=== PATIENT | male | born 1950 | race Caucasian/White ===

== ENCOUNTER → 2016-06-21 | Outpatient (CLI) | payer MEDICARE ==
[2015-08-13 14:00] VITALS: BP 140/72
[~2016-06-21] MED LIST: ACET500T33 PO; ASPI325T4 PO; BUPR300T4 PO; HYDR-2666 PO; HYDR1TAB12 PO; Ipratropium/Albuterol Sulfate NEB; METO25TA4 PO; ONDA4TAB10 SL; OXYC-323 PO; PANT40TA3 PO; Promethazine Hcl/Codeine PO; RANI150C PO; SENN-37 PO; SULF1TAB24 PO; TAMS0.4C97 PO; TELM80TA PO
--- NOTE | 2016-06-21 10:36 | RAD ---
Examination: MRI of the left shoulder without contrast. HISTORY History of left shoulder pain, rotator cuff surgery. COMPARISON 07/18/2015. FINDINGS The long head of the biceps tendon is minimally subluxed in the bicipital groove. There is increased signal identified in the subscapularis tendon, best visualized on series 4 image #16 likely tear of the subscapularis tendon. There is full-thickness tear of the supraspinatus tendon with tendon retraction up to the level, just lateral to the glenoid. There is a superior translation of the humeral head in relation to the glenoid with the head of the humerus lying just underneath the acromion. There is tear of the anterior fibers of the infraspinatus tendon in the region of the conjoined portion. The posterior fibers of the infraspinatus tendon, teres minor tendon grossly appears intact. Moderate increased signal identified identified and subscapularis, supraspinatus, infraspinatus tendon likely due tendinosis. There is diffuse increased signal identified in the labrum likely circumferential tear with a small multiloculated cystic structure measuring 6 millimeters posterior inferior to the labrum probably a small paralabral cyst. Small left shoulder joint effusion is identified. There are low intensity foci identified within the shoulder joint likely synovial prominence. Severe degenerative changes glenohumeral joint. Moderate degenerative changes identified in the acromioclavicular joint. The acromion is type 2. There is obliteration of fat in the rotator interval. The muscle bulk grossly appears unremarkable. IMPRESSION - Full-thickness tear of supraspinatus tendon with tendon retraction upto just lateral to the level of the glenoid. - Tear of the superior fibers of the subscapularis and anterior fibers of infraspinatus tendon. - Increased signal identified throughout the labrum likely circumferential labral tear with a tiny 5 millimeter paralabral cyst posterior inferior to the inferior labrum. - Severe degenerative changes glenohumeral joint. Moderate degenerative changes acromioclavicular joint. - Some obliteration of fat in the rotator interval. Correlate for adhesive capsulitis. Electronically signed by: uHy Albright (Jun 21, 2016 10:35:25)
== END | disposition home or self-care (01) ==
LOC: MRI 08:58
PROVIDERS: ATTEND Orthopaedic Surgery Sports Medicine
DX: Z98.890 Other specified postprocedural states (principal); M25.512 Pain in left shoulder; M75.02 Adhesive capsulitis of left shoulder
CPT/HCPCS: 73221

== ENCOUNTER 2016-06-27 17:40 | Emergency (ER) | payer MEDICARE ==
[~2016-06-27] VITALS: Ht 182.9 cm; Wt 95.3 kg
[2016-06-27 18:11] VITALS: BP 176/81
[2016-06-27] MEDS ORDERED: DIPHTH,PERTUSS(ACELL),TET TOX 0.5 ML DISP.SYRIN. VAX IM ONE (18:30)
[2016-06-27] MEDS ORDERED: LIDOCAINE 1%/EPI 1:100,000 20 ML VIAL. IJ ONE (18:30)
--- NOTE | 2016-06-27 18:55 | PHYS DOC ---
Past Medical History Past Medical History: Hypertension, Kidney Stone Past Surgical History: Other Additional Past Surgical Histo: R KNEE, KIDNEY STONE SX, L SHOULDER SURGERY Additional Information: "QUIT TWENTY YEARS AGO" Alcohol Use: None Drug Use: None Adult General Chief Complaint Chief Complaint: LACERATION/AVULSION HPI HPI Patient is a 65 year old male who presents emergency room today with complaint of laceration to his right eyebrow secondary to tripping and falling and striking the frame of a fireplace. This happened approximately 1 hour prior to arrival. Patient states he woke up from a nap. He was wearing his shoes in which his right shoe has a lucency that caught the edge of the carpet causing him to fall forward. He denies loss of consciousness or being dazed. He denies any visual disturbances, any hearing problems, he denies neck pain, focal weakness or alteration in sensation to his extremities or trunk. Patient denies being on anticoagulants. Review of Systems Review of Systems Constitutional: Denies fever or chills [] Eyes: Denies change in visual acuity, redness, or eye pain [] HENT: Denies nasal congestion or sore throat [] Respiratory: Denies cough or shortness of breath [] Cardiovascular: No additional information not addressed in HPI [] GI: Denies abdominal pain, nausea, vomiting, bloody stools or diarrhea [] : Denies dysuria or hematuria [] Musculoskeletal: Denies back pain or joint pain [] Integument: Denies rash or skin lesions [] Neurologic: Denies headache, focal weakness or sensory changes [] Endocrine: Denies polyuria or polydipsia [] Current Medications Current Medications Current Medications Medications (Trade) Dose Ordered Sig/Konrad Start Time Stop Time Status Last Admin Dose Admin Diphtheria/ Tetanus/Acell Pertussis (Boostrix) 0.5 ml ONCE ONCE 06/27/16 18:30 06/27/16 18:31 DC 06/27/16 19:32 0.5 ML Lidocaine/ Epinephrine (Xylocaine 1%-Epi 1:100,000) 20 ml 1X ONCE 06/27/16 18:30 06/27/16 18:31 DC Allergies Allergies Allergies Coded Allergies Type Severity Reaction Last Updated Verified morphine Allergy Intermediate Rash 06/27/16 Yes Physical Exam Physical Exam Constitutional: Well developed, well nourished, no acute distress, non-toxic appearance. Patient walked to the exam room with a steady, unaided gait. HENT: Normocephalic, bilateral external ears normal, oropharynx moist, no oral exudates, nose normal. Approximately 4 cm laceration to the patient's right eyebrow that is horizontal and linear. Laceration does extend into the subcutaneous tissue. Laceration does not involve the upper eyelid itself. There is no tenderness, instability or crepitus to the bone surrounding the laceration. There is no periorbital tenderness or swelling. There is also a small bruise to the patient's right cheek in his right year. There is no palpable defect, deformity, instability or crepitus to his right cheek. There is no active bleeding or skin defect to his right external ear. There is no hemotympanum. Eyes: PERRLA, EOMI, conjunctiva normal, no discharge. [] Neck: Normal range of motion, no tenderness, supple, no stridor. Cardiovascular:Heart rate regular rhythm, no murmur [] Lungs & Thorax: Bilateral breath sounds clear to auscultation [] Abdomen: Bowel sounds normal, soft, no tenderness, no masses, no pulsatile masses. [] Skin: Warm, dry, no erythema, no rash. [] Back: No tenderness, no CVA tenderness. [] Extremities: No tenderness, no cyanosis, no clubbing, ROM intact, no edema. Neurologic: Patient is alert and oriented 3. Cranial nerves II through XII are grossly intact. Patient is able perform rapid alternating movement and heel-to- díaz without difficulty. Romberg is negative for pronator drift. Psychologic: Affect normal, judgement normal, mood normal. [] Current Patient Data Vital Signs Vital Signs Date Time Temp Pulse Resp B/P Pulse Ox O2 Delivery O2 Flow Rate FiO2 06/27/16 18:11 97.4 56 18 97 Room Air 97.4 EKG EKG [] Radiology/Procedures Radiology/Procedures Procedure note: 4 cm laceration to patient's right eyebrow was anesthetized with 1% lidocaine with epinephrine. Wound was cleansed with Betadine solution and rinsed with copious amounts of saline. Wound was explored for foreign bodies. No foreign bodies were found. Wound margins were approximated utilizing 5-0 nylon in a single interrupted fashion of a single layered closure for a total of 8 stitches. Patient tolerated the procedure well. Procedure was performed by DEL[employer] Ruelas student, under my supervision. Course & Med Decision Making Course & Med Decision Making Pertinent Labs and Imaging studies reviewed. (See chart for details) [] Dragon Disclaimer Dragon Disclaimer This electronic medical record was generated, in whole or in part, using a voice recognition dictation system. Departure Departure Impression: Primary Impression: Facial laceration Additional Impression: Head injury Disposition: HOME, SELF-CARE Condition: IMPROVED Referrals: PB COY MD (PCP) Patient Instructions: Facial Laceration, [id number], Head Injury, Adult, Easy -to-Read Additional Instructions: 1. Stitches need to stay in place for 5-7 days. 2. Keep the area clean and dry. It is okay for you to bathe. 3. Review the discharge instructions provided for self-care and reasons to return the emergency department. 4. Contact your primary care doctor in the morning to schedule follow-up appointment for wound check on Tuesday of this week or Tuesday of next week. Problem Qualifiers RUBEN ESCOBEDO Jun 27, 2016 18:55
== END 2016-06-27 19:48 | disposition home or self-care (01) ==
LOC: ER 17:40
DX: S01.111A Laceration without foreign body of right eyelid and periocular area, initial encounter (principal); S09.90XA Unspecified injury of head, initial encounter; I10 Essential (primary) hypertension; Z87.891 Personal history of nicotine dependence; Z88.5 Allergy status to narcotic agent; W01.198A Fall on same level from slipping, tripping and stumbling with subsequent striking against other object, initial encounter; Y93.89 Activity, other specified; Y92.89 Other specified places as the place of occurrence of the external cause; Y99.8 Other external cause status
CPT/HCPCS: 12013; 90471; 90715; 99283-25

== ENCOUNTER → 2016-07-12 | Outpatient (CLI) | payer MEDICARE ==
[2016-06-27 18:11] VITALS: BP 176/81
[~2016-07-12] MED LIST changes: +AMLO5TAB2 PO; +FLUO20CA8 PO
[2016-07-12 13:44] LABS: BASO # 0.1 x10^3/uL (0.0-0.2); BASO % 1 % (0-3); EOS % 6 % (0-3); HEMATOCRIT 41.9 % (39.0-53.0); HEMOGLOBIN 13.9 g/dL (13.0-17.5); LYMPH # 1.4 x10^3/uL (1.0-4.8); LYMPH % 27 % (24-48); MEAN CORPUSCULAR HEMOGLOBIN 31 pg (25-35); MEAN CORPUSCULAR HGB CONC 33 g/dL (31-37); MEAN CORPUSCULAR VOLUME 93 fL (79-100); MONO % 10 % (0-9); NEUT % 57 % (31-73); PLATELET COUNT 150 x10^3/uL (140-400); RED BLOOD COUNT 4.49 x10^6/uL (4.30-5.70); RED CELL DISTRIBUTION WIDTH 14.8 % (11.5-14.5); WHITE BLOOD COUNT 5.3 x10^3/uL (4.0-11.0)
[2016-07-12 13:49] LABS: INR 1.1 (0.8-1.1); PROTHROMBIN TIME PATIENT 13.2 SEC (11.7-14.0)
[2016-07-12 13:51] LABS: BILIRUBIN,URINE NEGATIVE (NEG); GLUCOSE,URINE NEGATIVE (NEG); NITRITE,URINE NEGATIVE (NEG); PH,URINE 5.5; PROTEIN,URINE NEGATIVE (NEG-TRACE); UROBILINOGEN,URINE 0.2 mg/dL (0.2 mg/dL)
[2016-07-12 14:05] LABS: ALBUMIN 4.5 g/dL (3.4-5.0); CALCIUM 9.2 mg/dL (8.5-10.1); CREATININE 1.5 mg/dL (0.7-1.3); GFR 46.7; POTASSIUM 4.4 mmol/L (3.5-5.1)
[2016-07-12 14:05] LABS: RBC,URINE OCC /HPF (0-2)
[2016-07-12 14:06] LABS: BACTERIA,URINE FEW /HPF (0-FEW); SQUAMOUS EPITHELIAL CELL,UR MOD /LPF
--- NOTE | 2016-07-12 14:47 | RAD ---
EXAM: Chest 2 views. HISTORY: Preoperative risk factors. COMPARISON: 06/21/2014. FINDINGS: Frontal and lateral views of the chest are obtained. There are no confluent infiltrates. The hemidiaphragms are mildly flattened. There are calcified granulomas on the right. There is no pneumothorax or pleural effusion. The heart is not enlarged. The right distal clavicle has been partially resected. There are atherosclerotic calcifications of the aorta. IMPRESSION: 1. Hyperinflation. Correlate for chronic obstructive pulmonary disease. No confluent infiltrates.
== END | disposition home or self-care (01) ==
LOC: SURGPAT 11:05
PROVIDERS: ATTEND Orthopaedic Surgery Sports Medicine
DX: M12.9 Arthropathy, unspecified (principal)
CPT/HCPCS: 36415; 71020; 80048; 81001; 82040; 85027; 85610; 85651; 85730; 87086; 87186; 87641

== ENCOUNTER 2016-07-28 06:20 | Inpatient (IN) | payer MEDICARE, MEDICAID ==
[~2016-07-28] VITALS: Ht 182.9 cm; Wt 100.2 kg
[2016-07-28] VITALS (8 sets, daily range): BP systolic 126–150; BP diastolic 71–81
[~2016-07-28 06:20] MED LIST changes: +CEFAZOLIN 2GM PREMIX 50 ML IV PRN; +EPINEPHRINE IV PRN; +KETOROLAC TROMETHAMINE IV PRN; +ROPIVACAINE 0.5% IV PRN; +TRANEXAMIC ACID 1,000 MG in IV NORMAL SALINE 50ML 50 ML INJ ONE; +[UNRECOGNIZED DRUG - OTHER] IV PRN
[2016-07-28] MEDS ORDERED: HYDROCODONE/APAP 7.5/325MG TABLET. ONE (06:36)
[2016-07-28] MEDS ORDERED: ACETAMINOPHEN INTRAVENOUS 100 ML IV ONE ×2 (06:46→09:00)
[2016-07-28] MEDS ORDERED: ROPIVacaine 0.5% PF 30 ML VIAL. ONE (06:46)
[2016-07-28] MEDS ORDERED: LIDOCAINE 1% 1 ML SYRINGE. ID PRN (07:00)
[2016-07-28] MEDS ORDERED: FENTANYL PF 100 MCG/2 ML VIAL. IV PRN ×2 (07:00)
[2016-07-28] MEDS ORDERED: PROCHLORPERAZINE 10 MG/2 ML VIAL. IV PRN (07:00)
[2016-07-28] MEDS ORDERED: ONDANSETRON PF 4 MG/2 ML VIAL. IV PRN (07:00)
[2016-07-28] MEDS ORDERED: IV RINGERS,LACTATED 1000ML 1,000 ML IV SCH (07:00)
[2016-07-28] MEDS ORDERED: HYDROCODONE/APAP 7.5/325MG TABLET. PO ONE (07:00)
[2016-07-28] MEDS ORDERED: ONDANSETRON PF 4 MG/2 ML VIAL. ONE (07:23)
[2016-07-28] MEDS ORDERED: ROCURONIUM 50 MG/5 ML VIAL. ONE ×2 (07:23→10:04)
[2016-07-28] MEDS ORDERED: LIDOCAINE 2% 100 MG/5 ML DISP.SYRIN. ONE (07:23)
[2016-07-28] MEDS ORDERED: DEXAMETHASONE SOD PHOS 20 MG/5 ML VIAL. ONE (07:23)
[2016-07-28] MEDS ORDERED: MIDAZOLAM HCL 2 MG/2 ML VIAL. ONE (07:23)
[2016-07-28] MEDS ORDERED: PROPOFOL 20 ML IV ONE (07:23)
[2016-07-28] MEDS ORDERED: FENTANYL PF 250 MCG/5 ML VIAL. ONE (07:24)
[2016-07-28] MEDS ORDERED: MINERAL OIL/PETROLATUM,WHITE OPHTH OINT 3.5GM TUBE. ONE (07:24)
[2016-07-28] MEDS ORDERED: PHENYLEPHRINE 10 MG/ML VIAL. ONE (07:29)
[2016-07-28] MEDS ORDERED: IV DEXTROSE 5 %-0.45 % NACL 1,000 ML IV SCH (07:35)
[2016-07-28] MEDS ORDERED: SCOPOLAMINE 1.5MG PATCH. TD ONE ×2 (07:39→07:45)
--- NOTE | 2016-07-28 07:43 | PDOC ---
BRIEF OPERATIVE NOTE Date: Jul 28, 2016 Pre-Op Diagnosis L cuff tear arthropathy Post-Op Diagnosis same Procedure Performed L reverse TSA Surgeon Vanessa Mcdonnell Anesthesia Type: General, Regional Blood Loss per Op note Complications none LYNNE VEGA II, MD Jul 28, 2016 07:42
[2016-07-28] MEDS ORDERED: HYDROMORPHONE 2 MG/ML VIAL. IV PRN (07:45)
[2016-07-28] MEDS ORDERED: OXYCODONE/APAP 5/325 TABLET. PO PRN (07:45)
[2016-07-28] MEDS ORDERED: CALCIUM CARBONATE 500 MG TAB.CHEW PO PRN (07:45)
[2016-07-28] MEDS ORDERED: TRAMADOL 50 MG TABLET. PO PRN ×2 (07:45)
[2016-07-28] MEDS ORDERED: DEXTROSE 50% 25 GM / 50ML DISP.SYRIN. IV PRN (07:45)
[2016-07-28] MEDS ORDERED: METOCLOPRAMIDE HCL 10 MG/2 ML VIAL. IV PRN (07:45)
[2016-07-28] MEDS ORDERED: 0.9 % SODIUM CHLORIDE 10 ML DISP.SYRIN. IV PRN (07:45)
[2016-07-28] MEDS ORDERED: PROCHLORPERAZINE 5 MG TABLET. PO PRN (07:45)
[2016-07-28] MEDS ORDERED: HYDROCODONE/APAP 10/325 TABLET. PO PRN (07:45)
[2016-07-28] MEDS ORDERED: ZOLPIDEM 5 MG TABLET. PO PRN (07:45)
[2016-07-28] MEDS ORDERED: TRANEXAMIC ACID 1,000 MG in IV NORMAL SALINE 50ML 50 ML INJ ONE (08:00)
[2016-07-28] MEDS ORDERED: GLYCOPYRROLATE 1 MG/5 ML VIAL. ONE (08:12)
[2016-07-28] MEDS ORDERED: EPHEDRINE PF IN SALINE 50 MG/5 ML DISP.SYRIN. IV ONE (08:17)
[2016-07-28] MEDS ORDERED: SEVOFLURANE 61 TO 120 MINUTES. IH ONE (08:45)
[2016-07-28] MEDS: MULTIVITAMIN with MINERAL TABLET. PO SCH (09:00)
[2016-07-28] MEDS: TAMSULOSIN 0.4 MG CAP.ER.24H. PO SCH (09:00)
[2016-07-28] MEDS: FLUOXETINE HCL 10 MG CAPSULE PO SCH (09:00)
[2016-07-28] MEDS: SENNOSIDES/DOCUSATE 8.6/50MG TABLET. PO SCH (09:00)
[2016-07-28] MEDS: AMLODIPINE BESYLATE 5 MG TABLET PO SCH (09:00)
[2016-07-28] MEDS: FAMOTIDINE 20 MG TABLET. PO SCH ×2 (09:00→20:51)
[2016-07-28] MEDS ORDERED: NEOSTIGMINE METHYLSULFATE 5 MG/5 ML SYRINGE. ONE (10:51)
--- NOTE | 2016-07-28 12:33 | RAD ---
Left shoulder, 2 views, 07/28/2016: History: Postop evaluation A left reverse total shoulder arthroplasty has been inserted. It appears to be in satisfactory position. There are periarticular calcifications at the AC joint. There is mild left basilar atelectasis. There is no evidence of a retained surgical instrument, needle or radiopaque sponge on these 2 views.
[2016-07-28] MEDS: CEFAZOLIN 2GM PREMIX 50 ML IV SCH ×2 (14:41→19:55)
--- NOTE | 2016-07-28 16:49 | OP ---
DATE OF SURGERY: 07/28/2016 SURGEON: Ramón Vega MD STREETCAR CONDUCTOR: Coco Mcdonnell. ANESTHESIA: General plus regional nerve block. PREOPERATIVE DIAGNOSIS: Left shoulder rotator cuff tear arthropathy. POSTOPERATIVE DIAGNOSIS: Left shoulder rotator cuff tear arthropathy. PROCEDURE PERFORMED: Left reverse total shoulder arthroplasty. COMPONENTS INSERTED: 1. DePuy Delta Xtend size 10 modular humeral stem with a cementless metaglene and a 38 mm eccentric glenosphere. 2. A 38+3 polyethylene cup was used. ESTIMATED BLOOD LOSS: 250 mL. COMPLICATIONS: None. REASON FOR PROCEDURE: The patient is a very pleasant gentleman with persistent pain and dysfunction of his shoulder. He underwent a rotator cuff repair that failed quite some time ago. Because of loss of function and strength and motion of his left upper extremity and a good response to intra-articular steroid injection, he and I had a discussion of risks, benefits, alternatives to proceeding with the above surgery and he elected to proceed. DESCRIPTION OF PROCEDURE: The patient was greeted in the preoperative area by myself. Correct extremity was marked and verified. He had a regional nerve block placed by the anesthesiologist. He was then taken back to the operative suite, transferred gently supine to the OR table and had successful induction of general anesthesia. We then set him up in a modified beach chair position with a large pad under his legs. He was secured to the bed, and C-spine was maintained in neutral position. We then proceeded to prep and drape the left upper extremity in our usual sterile fashion including an Ioban around the periphery. We then conducted a standard preoperative timeout. I then palpated, marked surface anatomy and melissa a line for my deltopectoral incision with a marker. I then incised skin and dissected subcutaneous tissue with Metzenbaums and cauterized bleeders as I encountered them. I identified the cephalic vein and deltopectoral interval and bluntly developed this taking the vein laterally. After this, I identified the clavipectoral fascia and incised this and I placed my Kolbel retractor underneath the deltoid and the other limb under the conjoint tendon. I then bluntly dissected the subdeltoid space and freed up adhesions. I then identified the biceps tendon and opened the bicipital groove with the Metzenbaums and then tenodesed the biceps with #2 Ethibond in a [id number] to the upper border of the pectoralis major tendon. After this, I then released the subscapularis and placed tag stitches using electrocautery and progressive external rotation. I then bluntly freed up adhesions in the anterior and posterior subscapularis. I worked along the anterior portion and palpated for the axillary nerve. This was confirmed by a TUG test. I then released the inferior capsule to the level of the glenoid. After releasing the inferior capsule, I then placed my Dura retractors and dislocated the humeral head into the operative field. I then gained entry to the humeral canal and began reaming and reamed up to a size 10 which gave a good initial bite. I then placed my guide and pinned it in place for my proximal humeral resection and made my cut. I then took down osteophytes inferiorly. I used a rongeur for this with my finger on the axillary nerve again. After this, I then proceeded to place the protector plate over the proximal humerus and placed a Fukuda retractor behind the glenoid to facilitate glenoid exposure which was pretty tight. I checked again to make sure I had released the inferior capsule. I was satisfied with my release. I then used a scalpel circumferentially around the glenoid to release the capsule further. I then used the guide to place my guide pin from my glenoid and, after removing the guide, I then reamed and reamed down to a punctate bleeding bone. I then used a rongeur to remove some of the residual labral tissue. After this, I drilled for my metaglene post and then impacted my metaglene into position and then placed three screws and locked these after sequentially tightening them. I then directed my attention to placing my glenosphere and inserted the long guide wire and placed the glenosphere over top of this until engaged and then screwed it into position and then performed sequential gentle impaction and screw tightening maneuvers. After this, I directed my attention back to the proximal humerus and proceeded to place the reaming guide, use the eccentric one as this gave a better fill. I then reamed eccentrically and checked my version guide to maintain it at 10 degrees of retroversion. We then assembled the stem as such and impacted the stem. I noted that his shoulder was quite tight when I was trying to maneuver his proximal humerus in that position. So I double checked my cut and felt that I likely had not taken enough of the proximal humeral resection. Therefore, I removed my trial stem and reintroduced the reaming guide and then reamed further. This allowed me to impact the stem further and I was able to get it reduced with the +3. I then removed the trial components. I thoroughly irrigated out the operative field and impacted and placed my stem followed by my polyethylene and then reduced the shoulder. He had good range of motion and tension. I then reapproximated the subscapularis through bone tunnels. After this, I then used #1 Vicryl to close the rotator interval as well. I then withdrew the retractor from the subacromial space which lacerated the cephalic vein on its exit. Therefore, I placed a Vicryl stitch to tie off the cephalic vein. I then injected my periarticular mixture into the marilyn-incisional soft tissues. I closed the deltopectoral interval with a running #1 Vicryl. Inverted interrupted 2-0 was used for subcutaneous tissue and running 4-0 Monocryl in subcuticular fashion was used for skin. Prior to completion of wound closure, all counts were reported correct x 2. No complications. Postop plan is to admit the patient to the joint center for antibiotic prophylaxis as well as IV pain medicine and begin his rehabilitation. At the conclusion of surgery, he was awakened from anesthesia and transferred gently supine to the recovery room cart and taken to PACU in stable and extubated condition. Postop plan is as above. RAMÓN VEGA MD DR: TYRONE/ross JOB#: [id number] / [id number] DHAVAL
[2016-07-28] MEDS: FERROUS SULFATE 325 MG TABLET PO SCH (17:08)
[2016-07-28] MEDS ORDERED: SENNOSIDES/DOCUSATE 8.6/50MG TABLET. PO SCH (21:00)
--- NOTE | 2016-07-29 00:16 | ACF ---
Admission Forms Criteria MUSCULOSKELETAL DISEASE GRG Clinical Indications for Admission to Inpatient Care (Place 'X' for any and all applicable criteria): Hospital admission is needed for appropriate care of the patient because of ANY ONE of the following: [X]I. Fracture, dislocation, or other musculoskeletal injury requiring inpatient care(medical) as indicated by ANY ONE of the following(4)(5)(6)(7) [ ]a) Vertebral fracture requiring observation for instability or neurologic compromise (8) [ ]b) Compartment syndrome (proven or cannot be ruled out during observation level of care) (9) [ ]c) Limb-threatening injury [ ]d) Major injury requiring inpatient stabilization such as traction initiation or external fixation before internal fixation or closure of complex or open fracture [X]e) Major injury requiring inpatient treatment after emergency or observation level care (as appropriate) [ ]f) Severe pain requiring acute inpatient management [ ]II. Newly diagnosed or suspected bone, joint, or orthopedic device infection (e.g., osteomyelitis, septic arthritis) needing ANY ONE of the following(1)(2)(3) [ ]a) IV antibiotics that cannot be initiated in other than inpatient setting (e.g., patient too unstable or home infusion not available) [ ]b) Device removal or replacement [ ]c) Bone or soft tissue debridement [ ]d) Joint drainage (drain placement or repetitive aspirations) [ ]III. Severe rheumatologic disease (e.g., systemic lupus erythematosus, rheumatoid arthritis) with complications or comorbidities (Also use Optimal Recovery Care Criteria or General Recovery Criteria as appropriate on the basis of predominant condition), including ANY ONE of the following(10 )(11)(12)(13) [ ]a) Severe infection (e.g., [employer] infection, sepsis) (14) [ ]b) Respiratory complications, including ANY ONE of the following: [ ]i) Pleural effusion with respiratory compromise [ ]ii) Pulmonary hypertension with congestive failure [ ]iii) Respiratory failure [ ]iv) Pulmonary hemorrhage (15) [ ]c) Hematologic disease, including ANY ONE of the following: [ ]i) Coagulopathy with bleeding [ ]ii) Thrombosis with hypercoagulable state [ ]iii) Thrombotic thrombocytopenic purpura [ ]d) Cerebritis with seizures, psychosis, or other severe abnormalities [ ]e) Vertebral destruction with monitoring needed for cervical myelopathy& possible respiratory compromise [ ]f) Exacerbation that requires inpatient treatment (e.g., intravenous immunosuppression) (16) [ ]g) Acute renal failure [ ]IV. Severe vasculitis with complications or comorbidities (Also use Optimal Recovery Care Criteria or General Recovery Criteria as appropriate on the basis of predominant condition), including ANY ONE of the following(11)(12)(17)(18)(19)(20) [ ]a) [employer] vasculitis with seizures, psychosis, or other severe abnormalities (22) [ ]b) Renal failure (16) [ ]c) Pulmonary hemorrhage (15) [ ]d) Cerebral infarction [ ]e) Gastrointestinal ischemia [ ]f) Gangrene or threatened amputation [ ]g) Exacerbation that requires inpatient treatment (e.g., intravenous immunosuppression) (19)(21) [ ]V. Severe myopathy as indicated by ANY ONE of the following (28)(29) [ ]a) New onset of airway compromise or inability to swallow [ ]b) Respiratory deterioration with observation needed for impending respiratory failure [ ]c) Exacerbation that requires inpatient treatment (e.g., intravenous immunosuppression) [ ]. Severe gout (crystal arthropathy) as indicated by ANY ONE of the following (23)(24) [ ]a) Severe pain requiring acute inpatient management [ ]b) Exacerbation that requires inpatient treatment (e.g., intravenous treatment) [ ]VII.Rhabdomyolysis and ANY ONE of the following (25)(26)(27) [ ]a) Acute renal failure [ ]b) Need for intravenous hydration after emergency or observation level care (as appropriate) [ ]c) Inability to maintain oral hydration [ ]d) Change in mental status [ ]e) Electrolyte abnormality that remains after emergency or observation level care (as appropriate) [ ]VIII Post amputation complication, as indicated by ANY ONE of the following [ ]a) Infection [ ]b) Dehiscence [ ]c) Myodesis failure [ ]IX. Severe pain requiring acute inpatient management as indicated by ALL of the following (30)(31)(32) [ ]a) Continuous or frequent (e.g., every 2 to 4 hrs) parenteral analgesics required [A] [ ]b) Rapid improvement expected from treatment or acute intervention ( e.g., surgery, anesthesia procedure[B] [ ]X. Musculoskeletal Disease and ALL of the following: [ ]a) Symptom or finding for which emergency and observation care have failed or are not considered appropriate (Use General Criteria: Observation Care as appropriate) [ ]b) Presence of ANY ONE of the following [ ]i) A General Admission Criteria [ ]ii) A Pediatric General Admission Criteria The original [facility] content created by [facility] has been revised. The portions of the content which have been revised are identified through the use of italic text or in bold, and [facility] has neither reviewed nor approved the modified material. All other unmodified content is copyright [facility]. Please see references footnoted in the original [facility] edition 2016 Admission Criteria Met?: Yes LEENA LONGO Jul 29, 2016 00:16 LYNNE VEGA II, MD Jul 30, 2016 08:36
[2016-07-29] MEDS: CEFAZOLIN 2GM PREMIX 50 ML IV SCH (02:12)
[2016-07-29] MEDS: HYDROCODONE/APAP 7.5/325MG TABLET. PO PRN ×2 (02:12→06:08)
[2016-07-29 02:27] VITALS: BP 134/66
[2016-07-29 05:59] VITALS: BP 130/68
[2016-07-29] MEDS ORDERED: MAGNESIUM HYDROXIDE 2,400 MG/30 ML ORAL.SUSP. PO PRN (06:00)
[2016-07-29 06:07] LABS: HEMATOCRIT 31.8 % (39.0-53.0); HEMOGLOBIN 10.5 g/dL (13.0-17.5)
[2016-07-29] MEDS: FAMOTIDINE 20 MG TABLET. PO SCH (07:58)
[2016-07-29] MEDS: FERROUS SULFATE 325 MG TABLET PO SCH (07:58)
[2016-07-29] MEDS: MULTIVITAMIN with MINERAL TABLET. PO SCH (07:58)
[2016-07-29] MEDS: TAMSULOSIN 0.4 MG CAP.ER.24H. PO SCH (07:58)
[2016-07-29] MEDS: AMLODIPINE BESYLATE 5 MG TABLET PO SCH (08:00)
[2016-07-29] MEDS: SENNOSIDES/DOCUSATE 8.6/50MG TABLET. PO SCH (08:00)
[2016-07-29] MEDS: OXYCODONE/APAP 7.5/325 TABLET. PO PRN ×2 (08:01→12:30)
[2016-07-29 08:03] VITALS: BP 137/68
--- NOTE | 2016-07-29 08:26 | PDOC ---
ORTHO PROGRESS NOTES Subjective Block wore off during the night, pain tolerable. No N/V, CP, SOB. Vitals Vital Signs Date Time Temp Pulse Resp B/P Pulse Ox O2 Delivery O2 Flow Rate FiO2 07/29/16 08:03 65 137/68 Room Air 07/29/16 08:01 16 07/29/16 06:08 93 07/29/16 05:59 98.0 2.0 98.0 Labs Laboratory Tests Test 07/28/16 06:10 07/29/16 05:25 Prothrombin Time 13.0SEC (11.7-14.0) Prothromb Time International Ratio 1.0 (0.8-1.1) Activated Partial Thromboplast Time 37SEC (24-38) Hemoglobin 10.5g/dL (13.0-17.5) Hematocrit 31.8% (39.0-53.0) Mean Corpuscular Hemoglobin Concent 33g/dL (31-37) Laboratory Tests Test 07/29/16 05:25 Hemoglobin 10.5g/dL (13.0-17.5) Hematocrit 31.8% (39.0-53.0) Mean Corpuscular Hemoglobin Concent 33g/dL (31-37) Notes A and A in chair LUE in sling, m/s intact m/r/u Assessment and Plan home later today outpatient PT LYNNE VEGA II, MD Jul 29, 2016 08:26
--- NOTE | 2016-07-29 08:28 | DISCH ---
DISCHARGE INSTRUCTIONS Condition on Discharge Condition on Discharge: Stable Activity After Discharge Activity Instructions for Disc: Other, see below Other activity instructions: arm to remain in sling Bathing Instructions: Shower-keep dressing dry Weight Bearing Status after Di: Non weight bearing Diet after Discharge Diet after Discharge: Regular Wound Incision Care Wound/Incision Care: Ice to area for comfort, Keep wound/cast CDI, Do not change dressing Community/Resources/Services Services at Discharge: Outpatient Therapy Contacting the [facility] after DC Call your doctor for: Concerns you may have Follow-Up Follow up with: LYNNE Emerson II, MD Jul 29, 2016 08:28
[2016-07-29] MEDS: FLUOXETINE HCL 10 MG CAPSULE PO SCH (08:56)
[2016-07-29 15:42] VITALS: BP 140/82
[2016-07-29] MEDS ORDERED: BISACODYL 10 MG SUPP.RECT PR PRN (16:00)
--- NOTE | 2016-07-30 08:39 | PDOC3 ---
Discharge Summary Visit Information Date of Admission: Jul 28, 2016 Date of Discharge: Jul 29, 2016 Admitting Diagnosis: rotator cuff tear arthropathy Final Diagnosis Problems Medical Problems: (1) Rotator cuff tear arthropathy Status: Acute Brief Hospital Course Allergies Allergies Coded Allergies Type Severity Reaction Last Updated Verified morphine Allergy Intermediate Rash 07/28/16 Yes Vital Signs Vital Signs Date Time Temp Pulse Resp B/P Pulse Ox O2 Delivery O2 Flow Rate FiO2 07/29/16 15:42 97.4 66 20 140/82 95 Room Air 97.4 Lab Results Laboratory Tests Test 07/29/16 05:25 Hemoglobin 10.5g/dL (13.0-17.5) Hematocrit 31.8% (39.0-53.0) Mean Corpuscular Hemoglobin Concent 33g/dL (31-37) Brief Hospital Course Mr. Ramirez is a 65 old male who failed a rotator cuff repair. He had progressive pain and loss of function of his left upper extremity. Because of this we had a discussion of the risks, benefits, and alternatives to the reverse shoulder arthroplasty and he elected to proceed. He tolerated surgery well and recovered well from anesthesia and was taken up to the joint center for care and observation. He had good initial pain control with a block and prior to discharge his pain was controlled on oral pain medicine. Normal bowel and bladder function. He was tolerating a regular diet. He remained hemodynamically stable and afebrile. He received instruction from physical occupational therapy on his ADLs and felt comfortable going home. Discharge Information Condition at Discharge: Stable Follow Up: Weeks Disposition/Orders: D/C to Home Scheduled Amlodipine Besylate (Amlodipine Besylate) 10 MG PO DAILY (Reported) Fluoxetine Hcl (Fluoxetine Hcl) 1 CAP PO DAILY (Reported) Ranitidine Hcl (Ranitidine Hcl) 150 MG PO BID (Reported) Sennosides/Docusate Sodium (Senokot-S Tablet) 2 TAB PO QHS (Reported) Tamsulosin Hcl (Flomax) 0.4 MG PO DAILY Discontinued Medications Oxycodone/Apap 5-325 (Percocet 5-325 Mg Tablet) 1 TAB PO PRN Q6HRS PRN PRN PAIN (Reported) Patient Instructions Patient Instructions He will leave the dressing intact. Left upper extremity is to remain in sling. Nonweightbearing for 6 weeks. He will get started on outpatient physical therapy soon after discharge. He'll follow-up with me in 2 weeks, sooner should her progress LYNNE VEGA II, MD Jul 30, 2016 08:38
--- NOTE | 2016-07-30 16:08 | PATHOLOGY ---
PATHOLOGY REPORT * * * * * * * * FINAL DIAGNOSIS: Segments of bone and soft tissue, left total shoulder reverse arthroplasty: - Degenerative arthritis. (JPM:; d/t: 07/30/16) REPORT ELECTRONICALLY SIGNED BY: David Lane M.D. DATE/TIME: 07/30/2016 16:07 * * * * * * * * GROSS PATHOLOGY: Received in formalin labeled [place] shoulder tissue is a 4.5 x 4.5 x 1.7 cm yellowish white circular fragment of bone with a 1.0 cm in diameter hole drilled on one aspect of the specimen. The articular surface is rowan-white and smooth. Also received in the container is a 2.5 x 2.0 x 0.7 cm aggregate of reddish-brown irregular fragments of soft tissue and additional bone. Sectioning through the specimen reveals a yellowish white hard trabeculated cut surface and articular surfaces ranging in thickness from 0.1 up to 0.2 cm. Inspector And Sorter sections of the specimen are submitted in cassette A1 following decalcification. (AKA; 07/29/2016) INITIAL CPT CODE(S): A; 68011, 83338 Professional services performed [place] [address] Technical services performed by [facility] at [address] [place] [address], [facility] [address] [address]. SPECIMEN(S) RECEIVED: A.Left shoulder tissue CLINICAL HISTORY: Left DJD, cuff tear PATIENT: JOSUE MCCOY /AGE: 5 1950 (Age: 65) PATIENT #: [id number] ALT CASE #: SPECIMEN COLLECTION DATE: 07/28/2016 SPECIMEN RECEIVED DATE: 07/28/2016 [facility] - [address] [place] [address] - PHONE: [phone] * * * END OF REPORT * * *
== END 2016-07-29 16:00 | disposition home or self-care (01) | DRG 483 ==
LOC: OPSVCIP 06:20 → 4 SOUTHEST 13:18
PROVIDERS: ADMIT Orthopaedic Surgery Sports Medicine; ATTEND Orthopaedic Surgery Sports Medicine
PROC: 0RRK00Z Replacement of Left Shoulder Joint with Reverse Ball and Socket Synthetic Substitute, Open Approach (ICD-10-PCS; principal; 2016-07-28 08:00)
DX: M75.102 Unspecified rotator cuff tear or rupture of left shoulder, not specified as traumatic (principal); M12.812 Other specific arthropathies, not elsewhere classified, left shoulder
CPT/HCPCS: 36415; 73030; 85014; 85018; 85610; 85730; 86850; 86900; 86901; 88304; 88311; A4215; J0131; J0171; J0690; J1100; J1885; J2250; J2405; J2704; J2710; J2795; J3010; J3490; J7030; J7120; 97110; 97530; C1769

== ENCOUNTER 2016-09-02 19:30 | Inpatient (IN) | payer MEDICARE ==
[~2016-09-02] VITALS: Ht 182.9 cm; Wt 97.7 kg
[2016-09-02] VITALS (7 sets, daily range): BP systolic 115–150; BP diastolic 62–76
[~2016-09-02 19:30] MED LIST changes: +BIVALIRUDIN 250 MG VIAL. IV ONE; -CEFAZOLIN 2GM PREMIX 50 ML IV PRN; -EPINEPHRINE IV PRN; +HEPARIN for IV BOLUS 10,000 UNIT/10 ML VIAL. ONE; -KETOROLAC TROMETHAMINE IV PRN; -ROPIVACAINE 0.5% IV PRN; -TRANEXAMIC ACID 1,000 MG in IV NORMAL SALINE 50ML 50 ML INJ ONE; +VERAPAMIL 5 MG/2 ML VIAL. ONE; -[UNRECOGNIZED DRUG - OTHER] IV PRN
[2016-09-02] MEDS ORDERED: ASPIRIN CHEWABLE 81 MG TABLET. PO ONE (19:45)
[2016-09-02] MEDS ORDERED: NITROGLYCERIN SUBLINGUAL 0.4 MG BOTTLE OF 25. SL PRN (19:45)
[2016-09-02] MEDS ORDERED: ONDANSETRON PF 4 MG/2 ML VIAL. ONE (19:51)
[2016-09-02] MEDS ORDERED: HEPARIN PF for SUB-Q USE 5,000 UNIT/0.5 ML VIAL. SQ ONE (19:52)
[2016-09-02] MEDS ORDERED: HEPARIN 25,000UTS/500ML PREMIX 500 ML IV ONE (19:53)
[2016-09-02 19:55] LABS: BASO # 0.1 x10^3/uL (0.0-0.2); BASO % 2 % (0-3); EOS % 4 % (0-3); HEMATOCRIT 38.7 % (39.0-53.0); HEMOGLOBIN 13.2 g/dL (13.0-17.5); LYMPH # 3.9 x10^3/uL (1.0-4.8); LYMPH % 42 % (24-48); MEAN CORPUSCULAR HEMOGLOBIN 30 pg (25-35); MEAN CORPUSCULAR HGB CONC 34 g/dL (31-37); MEAN CORPUSCULAR VOLUME 89 fL (79-100); MONO % 8 % (0-9); NEUT % 44 % (31-73); PLATELET COUNT 324 x10^3/uL (140-400); RED BLOOD COUNT 4.37 x10^6/uL (4.30-5.70); RED CELL DISTRIBUTION WIDTH 14.7 % (11.5-14.5); WHITE BLOOD COUNT 9.3 x10^3/uL (4.0-11.0)
[2016-09-02] MEDS ORDERED: fentaNYL PF VIAL 100 MCG/2 ML VIAL IV PRN (20:00)
[2016-09-02 20:03] LABS: PROTHROMBIN TIME PATIENT 12.6 SEC (11.7-14.0)
--- NOTE | 2016-09-02 20:06 | ED.ADGEN ---
Past Medical History Past Medical History: Hypertension, Kidney Stone Past Surgical History: Other Additional Past Surgical Histo: R KNEE, KIDNEY STONE SX, L SHOULDER SURGERY Alcohol Use: None Drug Use: None Adult General Chief Complaint Chief Complaint: CHEST PAIN [facility] Patient is a 65 year old male who presents left-sided chest pain radiating to jaw and left shoulder. Symptom onset was approximately 90 minutes prior to ED arrival. Patient was at rest when symptoms began. Associated symptoms include nausea and sweats and generalized weakness. Denies history of CAD. Triage EKG shows acute ST elevations in inferior leads with reciprocal changes in anterior leads. Code STEMI activated. Review of Systems Review of Systems ROS as per HPI Current Medications Current Medications Current Medications Medications (Trade) Dose Ordered Sig/Konrad Start Time Stop Time Status Last Admin Dose Admin Aspirin (Children'S Aspirin) 324 mg 1X ONCE 09/02/16 19:45 09/02/16 19:47 DC 09/02/16 19:53 324 MG Fentanyl Citrate (Fentanyl 2ml Vial) 50 mcg PRN Q15MIN PRN 09/02/16 20:00 09/03/16 19:59 09/02/16 19:52 50 MCG Heparin Sodium (Porcine) 5000 unit 5,000 unit STK-MED ONCE 09/02/16 19:52 09/02/16 19:53 DC Heparin Sodium/ Dextrose 500 ml @ As Directed STK-MED ONCE 09/02/16 19:53 09/02/16 19:54 DC Nitroglycerin (Nitrostat) 0.4 mg PRN Q5MIN PRN 09/02/16 19:45 09/03/16 19:44 Ondansetron HCl (Zofran) 4 mg STK-MED ONCE 09/02/16 19:51 09/02/16 19:52 DC Allergies Allergies Allergies Coded Allergies Type Severity Reaction Last Updated Verified morphine Allergy Intermediate Rash 07/28/16 Yes Physical Exam Physical Exam Constitutional: Well developed, well nourished, diaphoretic, weak appearing, moderate distress secondary to pain. HENT: Normocephalic, atraumatic, bilateral external ears normal, oropharynx moist. Eyes: PERRLA, EOMI, conjunctiva normal. Neck: Normal range of motion. Cardiovascular:Heart rate regular rhythm, no murmur. Lungs & Thorax: Bilateral breath sounds clear to auscultation. Abdomen: Bowel sounds normal, soft, no tenderness. Skin: Diaphoretic. Back: No tenderness. Extremities: Left shoulder, healing surgical scar. Neurologic: Alert and oriented X 3, normal motor function, normal sensory function, no focal deficits noted. Psychologic: Affect, anxious. Current Patient Data Vital Signs Vital Signs Date Time Temp Pulse Resp B/P Pulse Ox O2 Delivery O2 Flow Rate FiO2 09/02/16 19:52 16 Room Air Lab Values Laboratory Tests Test 09/02/16 19:45 White Blood Count 9.3x10^3/uL (4.0-11.0) Red Blood Count 4.37x10^6/uL (4.30-5.70) Hemoglobin 13.2g/dL (13.0-17.5) Hematocrit 38.7% (39.0-53.0) L Mean Corpuscular Volume 89fL (79-100) Mean Corpuscular Hemoglobin 30pg (25-35) Mean Corpuscular Hemoglobin Concent 34g/dL (31-37) Red Cell Distribution Width 14.7% (11.5-14.5) H Platelet Count 324x10^3/uL (140-400) # Neutrophils (%) (Auto) 44% (31-73) Lymphocytes (%) (Auto) 42% (24-48) Monocytes (%) (Auto) 8% (0-9) Eosinophils (%) (Auto) 4% (0-3) H Basophils (%) (Auto) 2% (0-3) Neutrophils # (Auto) 4.1x10^3uL (1.8-7.7) Lymphocytes # (Auto) 3.9x10^3/uL (1.0-4.8) Monocytes # (Auto) 0.7x10^3/uL (0.0-1.1) Eosinophils # (Auto) 0.4x10^3/uL (0.0-0.7) Basophils # (Auto) 0.1x10^3/uL (0.0-0.2) Laboratory Tests 09/02/16 19:45 EKG EKG [EKG: Acute ST elevation in inferior leads with reciprocal T wave changes in leads V1 and V2 in leads 1 and aVL] Interpretation Time: 19:44 Radiology/Procedures Radiology/Procedures [Chest x-ray: Pending] Impressions: Inferior wall acute ST segment elevation SD Course & Med Decision Making Course & Med Decision Making Pertinent Labs and Imaging studies reviewed. (See chart for details) [Aspirin, heparin, fentanyl, typical pre-catheter lab drugs given. Dr. Yañez and Harvesting Manager paged. Dr. Yañez returned call. ] Dragon Disclaimer Dragon Disclaimer This electronic medical record was generated, in whole or in part, using a voice recognition dictation system. AYDEE GRAY DO Sep 02, 2016 20:06
[2016-09-02] MEDS ORDERED: LIDOCAINE 2% 20 ML VIAL. ONE (20:17)
[2016-09-02] MEDS ORDERED: IODIXANOL 320 MG/ML 100 ML VIAL. ONE (20:17)
[2016-09-02 20:19] LABS: CALCIUM 9.9 mg/dL (8.5-10.1); CREATININE 1.8 mg/dL (0.7-1.3); GFR 37.8; POTASSIUM 3.4 mmol/L (3.5-5.1)
[2016-09-02 20:22] LABS: ALBUMIN 4.1 g/dL (3.4-5.0); DIRECT BILIRUBIN 0.1 mg/dL (0.0-0.2); MAGNESIUM 2.1 mg/dL (1.8-2.4); TOTAL BILIRUBIN 0.3 mg/dL (0.2-1.0); TOTAL PROTEIN 8.3 g/dL (6.4-8.2)
[2016-09-02] MEDS ORDERED: fentaNYL PF VIAL 100 MCG/2 ML VIAL ONE ×2 (20:28→20:36)
[2016-09-02] MEDS ORDERED: MIDAZOLAM HCL/PF 2 MG/2 ML VIAL. ONE ×2 (20:28→20:36)
[2016-09-02] MEDS ORDERED: ONDANSETRON PF 4 MG/2 ML VIAL. IV ONE (20:30)
[2016-09-02 20:31] LABS: CKMB MASS 1.6 ng/mL (0.0-3.6)
[2016-09-02] MEDS ORDERED: HEPARIN for IV BOLUS 10,000 UNIT/10 ML VIAL. IART ONE (21:00)
[2016-09-02] MEDS ORDERED: MIDAZOLAM HCL/PF 2 MG/2 ML VIAL. IV ONE (21:00)
[2016-09-02] MEDS ORDERED: fentaNYL PF VIAL 100 MCG/2 ML VIAL IV ONE (21:00)
[2016-09-02] MEDS ORDERED: HEPARIN for IV BOLUS 10,000 UNIT/10 ML VIAL. IV ONE (21:00)
[2016-09-02] MEDS ORDERED: LIDOCAINE 2% 20 ML VIAL. IJ ONE (21:00)
[2016-09-02] MEDS ORDERED: NITROGLYCERIN 200 MCG/2 ML SYRINGE FOR CATH/VASC LAB. IART ONE (21:00)
[2016-09-02] MEDS ORDERED: VERAPAMIL 5 MG/2 ML VIAL. IART ONE (21:00)
[2016-09-02] MEDS ORDERED: BIVALIRUDIN 250 MG VIAL. IV ONE (21:00)
[2016-09-02] MEDS ORDERED: IODIXANOL 320 MG/ML 100 ML VIAL. IART ONE (21:00)
[2016-09-02] MEDS ORDERED: PRASUGREL 10 MG TABLET. ONE (21:13)
--- NOTE | 2016-09-02 21:20 | PDOC2 ---
CONSULT Date of Consult Date of Consult DATE: 09/02/16 TIME: 21:20 Reason for Consult Reason for Consult: Acute myocardial infarction Referring Physician Referring Physician: Dr. Schaefer Identification/Chief Complaint Chief Complaint Chest pain Source Source: Chart review, Patient History of Present Illness Reason for Visit: 65-year-old male presented with retrosternal chest pressure radiating to the left arm starting one hour prior to presentation. He complained of mild associated shortness of breath but denied any diaphoresis, palpitations or syncope. He stated that he had similar chest pain one day prior to presentation that lasted for an hour and subsided spontaneously. Past Medical History Cardiovascular: HTN Musculoskeletal: Osteoarthritis Renal/: Other Past Surgical History Past Surgical History Left shoulder replacement surgery Family History Family History: Hypertension Social History Social History Patient quit smoking several years ago and denied any drug abuse. He admits to social intake of alcohol. Current Problem List Problem List Problems Medical Problems: (1) ST elevation (STEMI) myocardial infarction Status: Acute Current Medications Current Medications Current Medications Aspirin (Children'S Aspirin) 324 mg 1X ONCE PO Last administered on 09/02/16 19:53; Start 09/02/16 at 19:45; Stop 09/02/16 at 19:47; Status DC Nitroglycerin (Nitrostat) 0.4 mg PRN Q5MIN PRN SL CP RATING > 1/10; Start 09/02 at 19:45; Stop 09/03/16 at 19:44 Fentanyl Citrate (Fentanyl 2ml Vial) 50 mcg PRN Q15MIN PRN IV PAIN GREATER THAN 3/10 Last administered on 09/02/16 19:52; Start 09/02/16 at 20:00; Stop at 19:59 Ondansetron HCl (Zofran) 4 mg STK-MED ONCE .ROUTE ; Start 09/02/16 at 19:51; Stop 09/02/16 at 19:52; Status DC Heparin Sodium (Porcine) 5000 unit 5,000 unit STK-MED ONCE SQ ; Start 09/02/16 at 19:52; Stop 09/02/16 at 19:53; Status DC Heparin Sodium/ Dextrose 500 ml @ As Directed STK-MED ONCE IV ; Start 09/02/16 at 19:53; Stop 09/02/16 at 19:54; Status DC Heparin Sodium/ Sodium Chloride 1,000 ml @ As Directed STK-MED ONCE .ROUTE ; Start 09/02/16 at 20:16; Stop 09/02/16 at 20:17; Status DC Lidocaine HCl 20 ml STK-MED ONCE .ROUTE ; Start 09/02/16 at 20:17; Stop at 20:18; Status DC Iodixanol (Visipaque 320) 100 ml STK-MED ONCE .ROUTE ; Start 09/02/16 at 20:17; Stop 09/02/16 at 20:18; Status DC Ondansetron HCl (Zofran) 4 mg 1X ONCE IV Last administered on 09/02/16 19:57 ; Start 09/02/16 at 20:30; Stop 09/02/16 at 20:31; Status DC Heparin Sodium (Porcine) (Heparin Sodium) 5,000 unit 1X ONCE IV Last administered on 09/02/16 19:56; Start 09/02/16 at 21:00; Stop 09/02/16 at 21:01 ; Status DC Fentanyl Citrate (Fentanyl 2ml Vial) 100 mcg STK-MED ONCE .ROUTE ; Start at 20:28; Stop 09/02/16 at 20:29; Status DC Midazolam HCl (Versed) 2 mg STK-MED ONCE .ROUTE ; Start 09/02/16 at 20:28; Stop 09/02/16 at 20:29; Status DC Fentanyl Citrate (Fentanyl 2ml Vial) 100 mcg STK-MED ONCE .ROUTE ; Start at 20:36; Stop 09/02/16 at 20:37; Status DC Midazolam HCl (Versed) 2 mg STK-MED ONCE .ROUTE ; Start 09/02/16 at 20:36; Stop 09/02/16 at 20:37; Status DC Nitroglycerin (Nitroglycerin) 200 mcg 1X ONCE IART Last administered on 21:07; Start 09/02/16 at 21:00; Stop 09/02/16 at 21:01; Status DC Verapamil HCl (Verapamil) 2.5 mg 1X ONCE IART Last administered on 09/02/16 21:07; Start 09/02/16 at 21:00; Stop 09/02/16 at 21:01; Status DC Heparin Sodium (Porcine) (Heparin Sodium) 2,500 unit 1X ONCE IART ; Start 09/02 at 21:00; Stop 09/02/16 at 21:01; Status DC Heparin Sodium/ Sodium Chloride 1,000 unit 1X ONCE IART Last administered on 21:08; Start 09/02/16 at 21:00; Stop 09/02/16 at 21:01; Status DC Midazolam HCl (Versed) 2 mg 1X ONCE IV ; Start 09/02/16 at 21:00; Stop at 21:01; Status DC Fentanyl Citrate (Fentanyl 2ml Vial) 100 mcg 1X ONCE IV ; Start 09/02/16 at 21: 00; Stop 09/02/16 at 21:01; Status DC Iodixanol (Visipaque 320) 100 ml 1X ONCE IART ; Start 09/02/16 at 21:00; Stop 09/02/16 at 21:01; Status DC Bivalirudin (Angiomax) 250 mg 1X ONCE IV Last administered on 09/02/16 21:07 ; Start 09/02/16 at 21:00; Stop 09/02/16 at 21:01; Status DC Lidocaine HCl 20 ml 1X ONCE IJ Last administered on 09/02/16 21:08; Start at 21:00; Stop 09/02/16 at 21:01; Status DC Nitroglycerin (Nitroglycerin) 200 mcg 1X ONCE ICAR Last administered on 21:07; Start 09/02/16 at 21:30; Stop 09/02/16 at 21:31 Prasugrel (Effient) 10 mg STK-MED ONCE .ROUTE ; Start 09/02/16 at 21:13; Stop at 21:14; Status DC Prasugrel (Effient) 60 mg 1X ONCE PO ; Start 09/02/16 at 21:30; Stop 09/02/16 at 21:31 Active Scripts Active Flomax (Tamsulosin Hcl) 0.4 Mg Cap.er.24h 0.4 Mg PO DAILY 30 Days Reported Fluoxetine Hcl 20 Mg Capsule 1 Cap PO DAILY Amlodipine Besylate 5 Mg Tablet 10 Mg PO DAILY Senokot-S Tablet (Sennosides/Docusate Sodium) 1 Each Tablet 2 Tab PO QHS Ranitidine Hcl 150 Mg Capsule 150 Mg PO BID Allergies Allergies: Coded Allergies: morphine (Verified Allergy, Intermediate, Rash, 07/28/16) AND ITCHING ROS PSYCHOLOGICAL ROS: No: Hallucinations Eyes: No Loss of vision HEENT: No: Epistaxis Respiratory: No: Hemoptysis Cardiovascular: yes Chest Pain, No Palpitations Gastrointestinal: No Vomiting Genitourinary: No Hematuria Neurological: No Seizures Skin: No Rash Physical Exam General: Alert, Oriented X3 HEENT: Atraumatic, PERRLA Lungs: Clear to auscultation Heart: Regular rate Abdomen: Soft, No tenderness Extremities: No edema Psych/Mental Status: Mood NL Vitals VITALS Vital Signs Date Time Temp Pulse Resp B/P Pulse Ox O2 Delivery O2 Flow Rate FiO2 09/02/16 21:07 76 118/76 09/02/16 20:15 28 99 Nasal Cannula 2 09/02/16 20:04 98.2 98.2 Labs Labs Laboratory Tests Test 09/02/16 19:45 09/02/16 19:49 White Blood Count 9.3x10^3/uL (4.0-11.0) Red Blood Count 4.37x10^6/uL (4.30-5.70) Hemoglobin 13.2g/dL (13.0-17.5) Hematocrit 38.7% (39.0-53.0) Mean Corpuscular Volume 89fL (79-100) Mean Corpuscular Hemoglobin 30pg (25-35) Mean Corpuscular Hemoglobin Concent 34g/dL (31-37) Red Cell Distribution Width 14.7% (11.5-14.5) Platelet Count 324x10^3/uL (140-400) Neutrophils (%) (Auto) 44% (31-73) Lymphocytes (%) (Auto) 42% (24-48) Monocytes (%) (Auto) 8% (0-9) Eosinophils (%) (Auto) 4% (0-3) Basophils (%) (Auto) 2% (0-3) Neutrophils # (Auto) 4.1x10^3uL (1.8-7.7) Lymphocytes # (Auto) 3.9x10^3/uL (1.0-4.8) Monocytes # (Auto) 0.7x10^3/uL (0.0-1.1) Eosinophils # (Auto) 0.4x10^3/uL (0.0-0.7) Basophils # (Auto) 0.1x10^3/uL (0.0-0.2) Prothrombin Time 12.6SEC (11.7-14.0) Prothromb Time International Ratio 1.0 (0.8-1.1) Sodium Level 137mmol/L (136-145) Potassium Level 3.4mmol/L (3.5-5.1) Chloride Level 100mmol/L (98-107) Carbon Dioxide Level 27mmol/L (21-32) Anion Gap 10 (6-14) Blood Urea Nitrogen 20mg/dL (8-26) Creatinine 1.8mg/dL (0.7-1.3) Estimated GFR (Cockcroft-Gault) 37.8 Glucose Level 144mg/dL (70-99) Calcium Level 9.9mg/dL (8.5-10.1) Magnesium Level 2.1mg/dL (1.8-2.4) Total Bilirubin 0.3mg/dL (0.2-1.0) Direct Bilirubin 0.1mg/dL (0.0-0.2) Aspartate Amino Transf (AST/SGOT) 24U/L (15-37) Alanine Aminotransferase (ALT/SGPT) 33U/L (16-63) Alkaline Phosphatase 111U/L (46-116) Creatine Kinase 171U/L (39-308) Creatine Kinase MB (Mass) 1.6ng/mL (0.0-3.6) Creatine Kinase MB Relative Index 0.9% (0-4) Troponin I Quantitative 0.525ng/mL (0.000-0.055) IJ-Ytk-F-Type Natriuretic Peptide 51pg/mL (0-124) Total Protein 8.3g/dL (6.4-8.2) Albumin 4.1g/dL (3.4-5.0) Lipase 119U/L (73-393) Thyroid Stimulating Hormone (TSH) 3.784uIU/mL (0.358-3.74) Bedside Troponin I 0.18ng/ml (<0.08) Laboratory Tests Test 09/02/16 19:45 09/02/16 19:49 White Blood Count 9.3x10^3/uL (4.0-11.0) Red Blood Count 4.37x10^6/uL (4.30-5.70) Hemoglobin 13.2g/dL (13.0-17.5) Hematocrit 38.7% (39.0-53.0) Mean Corpuscular Volume 89fL (79-100) Mean Corpuscular Hemoglobin 30pg (25-35) Mean Corpuscular Hemoglobin Concent 34g/dL (31-37) Red Cell Distribution Width 14.7% (11.5-14.5) Platelet Count 324x10^3/uL (140-400) Neutrophils (%) (Auto) 44% (31-73) Lymphocytes (%) (Auto) 42% (24-48) Monocytes (%) (Auto) 8% (0-9) Eosinophils (%) (Auto) 4% (0-3) Basophils (%) (Auto) 2% (0-3) Neutrophils # (Auto) 4.1x10^3uL (1.8-7.7) Lymphocytes # (Auto) 3.9x10^3/uL (1.0-4.8) Monocytes # (Auto) 0.7x10^3/uL (0.0-1.1) Eosinophils # (Auto) 0.4x10^3/uL (0.0-0.7) Basophils # (Auto) 0.1x10^3/uL (0.0-0.2) Prothrombin Time 12.6SEC (11.7-14.0) Prothromb Time International Ratio 1.0 (0.8-1.1) Sodium Level 137mmol/L (136-145) Potassium Level 3.4mmol/L (3.5-5.1) Chloride Level 100mmol/L (98-107) Carbon Dioxide Level 27mmol/L (21-32) Anion Gap 10 (6-14) Blood Urea Nitrogen 20mg/dL (8-26) Creatinine 1.8mg/dL (0.7-1.3) Estimated GFR (Cockcroft-Gault) 37.8 Glucose Level 144mg/dL (70-99) Calcium Level 9.9mg/dL (8.5-10.1) Magnesium Level 2.1mg/dL (1.8-2.4) Total Bilirubin 0.3mg/dL (0.2-1.0) Direct Bilirubin 0.1mg/dL (0.0-0.2) Aspartate Amino Transf (AST/SGOT) 24U/L (15-37) Alanine Aminotransferase (ALT/SGPT) 33U/L (16-63) Alkaline Phosphatase 111U/L (46-116) Creatine Kinase 171U/L (39-308) Creatine Kinase MB (Mass) 1.6ng/mL (0.0-3.6) Creatine Kinase MB Relative Index 0.9% (0-4) Troponin I Quantitative 0.525ng/mL (0.000-0.055) BA-Ejz-H-Type Natriuretic Peptide 51pg/mL (0-124) Total Protein 8.3g/dL (6.4-8.2) Albumin 4.1g/dL (3.4-5.0) Lipase 119U/L (73-393) Thyroid Stimulating Hormone (TSH) 3.784uIU/mL (0.358-3.74) Bedside Troponin I 0.18ng/ml (<0.08) Assessment/Plan Assessment/Plan 1. Acute inferior wall ST elevation myocardial infarction: Patient has ongoing chest pain. Plan for emergent cardiac catheterization and primary PCI/stent placement. Risks and benefits were explained. Patient received aspirin and heparin in the emergency room. We will initiate beta blockers and statins post procedure. 2. Hypertension: Resume home medications Thank you for your consultation IRVING LIMA MD Sep 02, 2016 21:20
[2016-09-02] MEDS ORDERED: PRASUGREL 10 MG TABLET. PO ONE (21:30)
[2016-09-02] MEDS ORDERED: ACETAMINOPHEN 325 MG TABLET. PO PRN (21:30)
[2016-09-02] MEDS ORDERED: NITROGLYCERIN 200 MCG/2 ML SYRINGE FOR CATH/VASC LAB. ICAR ONE (21:30)
[2016-09-02] MEDS: IV 1/2 NORMAL SALINE 1,000 ML IV SCH (23:09)
--- NOTE | 2016-09-02 23:59 | ACF ---
Admission Forms Criteria MYOCARDIAL INFARCTION Clinical Indications for Admission to Inpatient Care (Place 'X' for any and all applicable criteria): Admission is indicated for 1 or more of the following (1)(2)(3)(4): [X ]I. Acute [place] [ ]II. Contraindications and/or Inappropriate clinical situations for Observational Care in patients with Myocardial Infarction, when ANY ONE of the following is required: [ ]a) Patient with High risk of cardiac embolism (e.g, patients with previous cardiac embolism, LVEF < 40%, age >75 and patients with prosthetic valve) 18 [ ]b) Patient with Moderate risk including DM patient, CAD and patient aged 65-75 18 [ ]c) Patient with any change in cardiac biomarker especially troponin should be managed as high risk in an inpatient setting 19 [ ]d) Physician judgement irrespective of ECG and other diagnostic findings 20 [X ]III.General contraindications and/or Inappropriate clinical situations for Observational Care in patients with Myocardial Infarction, when ANY ONE of the following is required: [X ]a) Prediction of prolongation of LOS based on ANY ONE of the following may be considered as a contraindication for observational care 2, 3, 4, 5, 6, 7, 8, 9, 10, 11 [X ]i) Age > 65 yrs. [ ]ii) Patient arriving by ambulance [ ]iii) Patient with high acuity [ ]iv) Patient requiring vital sign monitoring [ ]v) Patient on IV medication [ ]b) Systolic blood pressures greater than or equal to 180mmHg 3,12 [ ]c) Patient with altered mental status including delirium and other alteration of consciousness, (3) [ ]d) Patient whose discharge disposition will be to a retirement home or rehabilitation home should not be managed in Emergency Department Observation Unit. CMS rule requires 3 days hospital stay before such placement. 3,13 [ ]e) Patient with failure to thrive due to broad array of etiologies 3 ,16,17 [ ]f) Inability to ambulate 3,14 Extended stay beyond goal length of stay may be needed for (1)(18)(20)(24)(25): [ ]a) Hemodynamic instability, persisting symptoms after intensive medical management, or recurring severe, prolonged symptoms [ ]b) Intravascular procedural complications such as acute vessel closure, stent thrombosis, stent malposition, or vessel dissection (26)(27)(28) [ ]c) Extravascular procedural complications such as retroperitoneal hematoma , pericardial effusion, or cardiac tamponade [ ]d) Entry site complications causing bleeding, hematoma or distal ischemia and requiring ongoing monitoring, surgical repair or surgical thrombectomy. Dangerous arrhythmia [ ]e) Complicated percutaneous coronary intervention (e.g., unsuccessful percutaneous coronary intervention or percutaneous coronary intervention of non- [place] vessel) [ ]f) Urgent or emergent surgery for complications of [place] (e.g., ventricular rupture, valvular insufficiency) [ ]g) Surgical revascularization via coronary artery bypass graft [ ]h) Heart failure (e.g., pulmonary edema) [ ]i) Unstable pulmonary comorbidities, including COPD or pneumonia (31) [ ]j) Acute renal failure The original [facility] content created by [employer] has been revised. The portions of the content which have been revised are identified through the use of italic text or in bold, and [facility] has neither reviewed nor approved the modified material. All other unmodified content is copyright [facility] Please see references footnoted in the original [email or web address] edition 2016 Admission Criteria Met?: Yes KIARA ORONA Sep 02, 2016 23:59
[2016-09-03] VITALS (21 sets, daily range): BP systolic 91–168; BP diastolic 56–92
[2016-09-03] MEDS ORDERED: OXYC-244 PO (02:17)
[2016-09-03] MEDS ORDERED: TEMA15CA PO (02:17)
[2016-09-03 04:45] LABS: BASO # 0.1 x10^3/uL (0.0-0.2); BASO % 1 % (0-3); EOS % 1 % (0-3); HEMATOCRIT 36.3 % (39.0-53.0); LYMPH # 1.3 x10^3/uL (1.0-4.8); LYMPH % 17 % (24-48); MEAN CORPUSCULAR HEMOGLOBIN 29 pg (25-35); MEAN CORPUSCULAR HGB CONC 33 g/dL (31-37); MEAN CORPUSCULAR VOLUME 89 fL (79-100); MONO % 9 % (0-9); NEUT % 72 % (31-73); PLATELET COUNT 222 x10^3/uL (140-400); RED BLOOD COUNT 4.07 x10^6/uL (4.30-5.70); RED CELL DISTRIBUTION WIDTH 14.8 % (11.5-14.5); WHITE BLOOD COUNT 7.9 x10^3/uL (4.0-11.0)
[2016-09-03 04:55] LABS: CREATININE 1.6 mg/dL (0.7-1.3); GFR 43.3; POTASSIUM 4.3 mmol/L (3.5-5.1)
[2016-09-03] MEDS: NITROGLYCERIN SUBLINGUAL 0.4 MG BOTTLE OF 25. SL PRN ×2 (05:11→05:39)
[2016-09-03 05:22] LABS: CHOLESTEROL/HDL RATIO 6.9
[2016-09-03] MEDS ORDERED: HYDROmorphone 2 MG TABLET PO PRN (06:15)
[2016-09-03] MEDS ORDERED: HEPARIN 25,000UTS/500ML PREMIX 500 ML IV PRN (06:15)
[2016-09-03] MEDS ORDERED: HYDROmorphone 2 MG/ML VIAL IV PRN (06:15)
[2016-09-03] MEDS ORDERED: HEPARIN for IV BOLUS 10,000 UNIT/10 ML VIAL. IV PRN ×2 (06:15→12:15)
--- NOTE | 2016-09-03 06:16 | EKG ---
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
[2016-09-03] MEDS ORDERED: HEPARIN for IV BOLUS 10,000 UNIT/10 ML VIAL. IV ONE (06:30)
--- NOTE | 2016-09-03 07:32 | PDOC ---
PROGRESS NOTES Subjective Subjective Patient states chest pain has resolved. Objective Objective Vital Signs Date Time Temp Pulse Resp B/P Pulse Ox O2 Delivery O2 Flow Rate FiO2 09/03/16 06:30 15 94 Nasal Cannula 2.0 09/03/16 06:00 58 135/71 09/03/16 04:00 98.0 98.0 Intake and Output 09/03/16 06:59 Intake Total 995 ml Output Total 1000 ml Balance -5 ml Intake Oral 720 ml IV Total 275 ml Output Urine Total 1000 ml Physical Exam Abdomen: Normal bowel sounds, Soft, No tenderness Heart: Regular rate Extremities: No edema General: Alert, Oriented X3, No acute distress Lungs: Clear to auscultation Assessment Assessment Problems Medical Problems: (1) ST elevation (STEMI) myocardial infarction Status: Acute Plan Plan of Care 1. STEMI, s/p stent placement - stable, on Nitro gtt as he had some chest pain after his procedure. Continue tx as per Cardiology. 2. HTN - continue home med and follow. 3. depression - well controlled, continue his usual Prozac. 4. s/p L shoulder surgery - continue po pain meds. Resume PT soon. Comment Review of Relevant I have reviewed the following items deo (where applicable) has been applied. Labs Laboratory Tests Test 09/02/16 19:45 09/02/16 19:49 09/03/16 03:30 09/03/16 04:00 White Blood Count 9.3x10^3/uL (4.0-11.0) 7.9x10^3/uL (4.0-11.0) Red Blood Count 4.37x10^6/uL (4.30-5.70) 4.07x10^6/uL (4.30-5.70) Hemoglobin 13.2g/dL (13.0-17.5) 12.0g/dL (13.0-17.5) Hematocrit 38.7% (39.0-53.0) 36.3% (39.0-53.0) Mean Corpuscular Volume 89fL (79-100) 89fL (79-100) Mean Corpuscular Hemoglobin 30pg (25-35) 29pg (25-35) Mean Corpuscular Hemoglobin Concent 34g/dL (31-37) 33g/dL (31-37) Red Cell Distribution Width 14.7% (11.5-14.5) 14.8% (11.5-14.5) Platelet Count 324x10^3/uL (140-400) 222x10^3/uL (140-400) Neutrophils (%) (Auto) 44% (31-73) 72% (31-73) Lymphocytes (%) (Auto) 42% (24-48) 17% (24-48) Monocytes (%) (Auto) 8% (0-9) 9% (0-9) Eosinophils (%) (Auto) 4% (0-3) 1% (0-3) Basophils (%) (Auto) 2% (0-3) 1% (0-3) Neutrophils # (Auto) 4.1x10^3uL (1.8-7.7) 5.7x10^3uL (1.8-7.7) Lymphocytes # (Auto) 3.9x10^3/uL (1.0-4.8) 1.3x10^3/uL (1.0-4.8) Monocytes # (Auto) 0.7x10^3/uL (0.0-1.1) 0.7x10^3/uL (0.0-1.1) Eosinophils # (Auto) 0.4x10^3/uL (0.0-0.7) 0.1x10^3/uL (0.0-0.7) Basophils # (Auto) 0.1x10^3/uL (0.0-0.2) 0.1x10^3/uL (0.0-0.2) Prothrombin Time 12.6SEC (11.7-14.0) Prothromb Time International Ratio 1.0 (0.8-1.1) Sodium Level 137mmol/L (136-145) Potassium Level 3.4mmol/L (3.5-5.1) Chloride Level 100mmol/L (98-107) Carbon Dioxide Level 27mmol/L (21-32) Anion Gap 10 (6-14) Blood Urea Nitrogen 20mg/dL (8-26) Creatinine 1.8mg/dL (0.7-1.3) Estimated GFR (Cockcroft-Gault) 37.8 Glucose Level 144mg/dL (70-99) Calcium Level 9.9mg/dL (8.5-10.1) Magnesium Level 2.1mg/dL (1.8-2.4) Total Bilirubin 0.3mg/dL (0.2-1.0) Direct Bilirubin 0.1mg/dL (0.0-0.2) Aspartate Amino Transf (AST/SGOT) 24U/L (15-37) Alanine Aminotransferase (ALT/SGPT) 33U/L (16-63) Alkaline Phosphatase 111U/L (46-116) Creatine Kinase 171U/L (39-308) 4925U/L (39-308) Creatine Kinase MB (Mass) 1.6ng/mL (0.0-3.6) Creatine Kinase MB Relative Index 0.9% (0-4) Troponin I Quantitative 0.525ng/mL (0.000-0.055) EJ-Hdy-Q-Type Natriuretic Peptide 51pg/mL (0-124) Total Protein 8.3g/dL (6.4-8.2) Albumin 4.1g/dL (3.4-5.0) Lipase 119U/L (73-393) Thyroid Stimulating Hormone (TSH) 3.784uIU/mL (0.358-3.74) Bedside Troponin I 0.18ng/ml (<0.08) Triglycerides Level 259mg/dL (0-150) Cholesterol Level 187mg/dL (0-200) LDL Cholesterol, Calculated 108mg/dL (0-100) VLDL Cholesterol, Calculated 52mg/dL (0-40) Non-HDL Cholesterol Calculated 160mg/dL (0-129) HDL Cholesterol 27mg/dL (40-60) Cholesterol/HDL Ratio 6.9 Test 09/03/16 04:50 Sodium Level 135mmol/L (136-145) Potassium Level 4.3mmol/L (3.5-5.1) Chloride Level 100mmol/L (98-107) Carbon Dioxide Level 28mmol/L (21-32) Anion Gap 7 (6-14) Blood Urea Nitrogen 19mg/dL (8-26) Creatinine 1.6mg/dL (0.7-1.3) Estimated GFR (Cockcroft-Gault) 43.3 Glucose Level 108mg/dL (70-99) Calcium Level 9.0mg/dL (8.5-10.1) Laboratory Tests Test 09/02/16 19:45 09/02/16 19:49 09/03/16 03:30 09/03/16 04:00 White Blood Count 9.3x10^3/uL (4.0-11.0) 7.9x10^3/uL (4.0-11.0) Red Blood Count 4.37x10^6/uL (4.30-5.70) 4.07x10^6/uL (4.30-5.70) Hemoglobin 13.2g/dL (13.0-17.5) 12.0g/dL (13.0-17.5) Hematocrit 38.7% (39.0-53.0) 36.3% (39.0-53.0) Mean Corpuscular Volume 89fL (79-100) 89fL (79-100) Mean Corpuscular Hemoglobin 30pg (25-35) 29pg (25-35) Mean Corpuscular Hemoglobin Concent 34g/dL (31-37) 33g/dL (31-37) Red Cell Distribution Width 14.7% (11.5-14.5) 14.8% (11.5-14.5) Platelet Count 324x10^3/uL (140-400) 222x10^3/uL (140-400) Neutrophils (%) (Auto) 44% (31-73) 72% (31-73) Lymphocytes (%) (Auto) 42% (24-48) 17% (24-48) Monocytes (%) (Auto) 8% (0-9) 9% (0-9) Eosinophils (%) (Auto) 4% (0-3) 1% (0-3) Basophils (%) (Auto) 2% (0-3) 1% (0-3) Neutrophils # (Auto) 4.1x10^3uL (1.8-7.7) 5.7x10^3uL (1.8-7.7) Lymphocytes # (Auto) 3.9x10^3/uL (1.0-4.8) 1.3x10^3/uL (1.0-4.8) Monocytes # (Auto) 0.7x10^3/uL (0.0-1.1) 0.7x10^3/uL (0.0-1.1) Eosinophils # (Auto) 0.4x10^3/uL (0.0-0.7) 0.1x10^3/uL (0.0-0.7) Basophils # (Auto) 0.1x10^3/uL (0.0-0.2) 0.1x10^3/uL (0.0-0.2) Prothrombin Time 12.6SEC (11.7-14.0) Prothromb Time International Ratio 1.0 (0.8-1.1) Sodium Level 137mmol/L (136-145) Potassium Level 3.4mmol/L (3.5-5.1) Chloride Level 100mmol/L (98-107) Carbon Dioxide Level 27mmol/L (21-32) Anion Gap 10 (6-14) Blood Urea Nitrogen 20mg/dL (8-26) Creatinine 1.8mg/dL (0.7-1.3) Estimated GFR (Cockcroft-Gault) 37.8 Glucose Level 144mg/dL (70-99) Calcium Level 9.9mg/dL (8.5-10.1) Magnesium Level 2.1mg/dL (1.8-2.4) Total Bilirubin 0.3mg/dL (0.2-1.0) Direct Bilirubin 0.1mg/dL (0.0-0.2) Aspartate Amino Transf (AST/SGOT) 24U/L (15-37) Alanine Aminotransferase (ALT/SGPT) 33U/L (16-63) Alkaline Phosphatase 111U/L (46-116) Creatine Kinase 171U/L (39-308) 4925U/L (39-308) Creatine Kinase MB (Mass) 1.6ng/mL (0.0-3.6) Creatine Kinase MB Relative Index 0.9% (0-4) Troponin I Quantitative 0.525ng/mL (0.000-0.055) ET-Irt-O-Type Natriuretic Peptide 51pg/mL (0-124) Total Protein 8.3g/dL (6.4-8.2) Albumin 4.1g/dL (3.4-5.0) Lipase 119U/L (73-393) Thyroid Stimulating Hormone (TSH) 3.784uIU/mL (0.358-3.74) Bedside Troponin I 0.18ng/ml (<0.08) Triglycerides Level 259mg/dL (0-150) Cholesterol Level 187mg/dL (0-200) LDL Cholesterol, Calculated 108mg/dL (0-100) VLDL Cholesterol, Calculated 52mg/dL (0-40) Non-HDL Cholesterol Calculated 160mg/dL (0-129) HDL Cholesterol 27mg/dL (40-60) Cholesterol/HDL Ratio 6.9 Test 09/03/16 04:50 Sodium Level 135mmol/L (136-145) Potassium Level 4.3mmol/L (3.5-5.1) Chloride Level 100mmol/L (98-107) Carbon Dioxide Level 28mmol/L (21-32) Anion Gap 7 (6-14) Blood Urea Nitrogen 19mg/dL (8-26) Creatinine 1.6mg/dL (0.7-1.3) Estimated GFR (Cockcroft-Gault) 43.3 Glucose Level 108mg/dL (70-99) Calcium Level 9.0mg/dL (8.5-10.1) Medications Current Medications Aspirin (Children'S Aspirin) 324 mg 1X ONCE PO Last administered on 09/02/16 19:53; Start 09/02/16 at 19:45; Stop 09/02/16 at 19:47; Status DC Nitroglycerin (Nitrostat) 0.4 mg PRN Q5MIN PRN SL CP RATING > 1/10; Start 09/02 at 19:45; Stop 09/02/16 at 21:28; Status DC Fentanyl Citrate (Fentanyl 2ml Vial) 50 mcg PRN Q15MIN PRN IV PAIN GREATER THAN 3/10 Last administered on 09/02/16 19:52; Start 09/02/16 at 20:00; Stop at 19:59 Ondansetron HCl (Zofran) 4 mg STK-MED ONCE .ROUTE ; Start 09/02/16 at 19:51; Stop 09/02/16 at 19:52; Status DC Heparin Sodium (Porcine) 5000 unit 5,000 unit STK-MED ONCE SQ ; Start 09/02/16 at 19:52; Stop 09/02/16 at 19:53; Status DC Heparin Sodium/ Dextrose 500 ml @ As Directed STK-MED ONCE IV ; Start 09/02/16 at 19:53; Stop 09/02/16 at 19:54; Status DC Heparin Sodium/ Sodium Chloride 1,000 ml @ As Directed STK-MED ONCE .ROUTE ; Start 09/02/16 at 20:16; Stop 09/02/16 at 20:17; Status DC Lidocaine HCl 20 ml STK-MED ONCE .ROUTE ; Start 09/02/16 at 20:17; Stop at 20:18; Status DC Iodixanol (Visipaque 320) 100 ml STK-MED ONCE .ROUTE ; Start 09/02/16 at 20:17; Stop 09/02/16 at 20:18; Status DC Ondansetron HCl (Zofran) 4 mg 1X ONCE IV Last administered on 09/02/16 19:57 ; Start 09/02/16 at 20:30; Stop 09/02/16 at 20:31; Status DC Heparin Sodium (Porcine) (Heparin Sodium) 5,000 unit 1X ONCE IV Last administered on 09/02/16t 19:56; Start 09/02/16 at 21:00; Stop 09/02/16 at 21:01 ; Status DC Fentanyl Citrate (Fentanyl 2ml Vial) 100 mcg STK-MED ONCE .ROUTE ; Start at 20:28; Stop 09/02/16 at 20:29; Status DC Midazolam HCl (Versed) 2 mg STK-MED ONCE .ROUTE ; Start 09/02/16 at 20:28; Stop 09/02/16 at 20:29; Status DC Fentanyl Citrate (Fentanyl 2ml Vial) 100 mcg STK-MED ONCE .ROUTE ; Start at 20:36; Stop 09/02/16 at 20:37; Status DC Midazolam HCl (Versed) 2 mg STK-MED ONCE .ROUTE ; Start 09/02/16 at 20:36; Stop 09/02/16 at 20:37; Status DC Nitroglycerin (Nitroglycerin) 200 mcg 1X ONCE IART Last administered on t 21:07; Start 09/02/16 at 21:00; Stop 09/02/16 at 21:01; Status DC Verapamil HCl (Verapamil) 2.5 mg 1X ONCE IART Last administered on 09/02/16 21:07; Start 09/02/16 at 21:00; Stop 09/02/16 at 21:01; Status DC Heparin Sodium (Porcine) (Heparin Sodium) 2,500 unit 1X ONCE IART Last administered on 09/02/16 21:34; Start 09/02/16 at 21:00; Stop 09/02/16 at 21:01 ; Status DC Heparin Sodium/ Sodium Chloride 1,000 unit 1X ONCE IART Last administered on 21:08; Start 09/02/16 at 21:00; Stop 09/02/16 at 21:01; Status DC Midazolam HCl (Versed) 2 mg 1X ONCE IV Last administered on 09/02/16 21:31; Start 09/02/16 at 21:00; Stop 09/02/16 at 21:01; Status DC Fentanyl Citrate (Fentanyl 2ml Vial) 100 mcg 1X ONCE IV Last administered on 21:31; Start 09/02/16 at 21:00; Stop 09/02/16 at 21:01; Status DC Iodixanol (Visipaque 320) 100 ml 1X ONCE IART Last administered on 09/02/16 21:31; Start 09/02/16 at 21:00; Stop 09/02/16 at 21:01; Status DC Bivalirudin (Angiomax) 250 mg 1X ONCE IV Last administered on 09/02/16 21:07 ; Start 09/02/16 at 21:00; Stop 09/02/16 at 21:01; Status DC Lidocaine HCl 20 ml 1X ONCE IJ Last administered on 09/02/16 21:08; Start at 21:00; Stop 09/02/16 at 21:01; Status DC Nitroglycerin (Nitroglycerin) 200 mcg 1X ONCE ICAR Last administered on 21:07; Start 09/02/16 at 21:30; Stop 09/02/16 at 21:31; Status DC Prasugrel (Effient) 10 mg STK-MED ONCE .ROUTE ; Start 09/02/16 at 21:13; Stop at 21:14; Status DC Prasugrel 60 mg 60 mg 1X ONCE PO Last administered on 09/02/16 21:32; Start 09/02/16 at 21:30; Stop 09/02/16 at 21:31; Status DC Sodium Chloride (Iv Sodium Chloride 0.45%) 1,000 ml @ 100 mls/hr Q10H IV Last administered on 09/02/16 23:09; Start 09/02/16 at 21:20 Aspirin (Ecotrin) 325 mg DAILYWBKFT PO ; Start 09/03/16 at 08:00 Prasugrel (Effient) 10 mg DAILYWBKFT PO ; Start 09/03/16 at 08:00 Metoprolol Succinate (Toprol Xl) 25 mg DAILY PO ; Start 09/03/16 at 09:00 Lisinopril (Prinivil) 5 mg DAILY PO ; Start 09/03/16 at 09:00 Atorvastatin Calcium (Lipitor) 80 mg QHS PO ; Start 09/03/16 at 21:00 Acetaminophen (Tylenol) 650 mg PRN Q6HRS PRN PO MILD PAIN / TEMP; Start at 21:30 Nitroglycerin (Nitrostat) 0.4 mg PRN Q5MIN PRN SL CHEST PAIN Last administered on 09/03/16 05:39; Start 09/02/16 at 21:30 Heparin Sodium (Porcine) 4000 unit 4,000 unit 1X ONCE IV Last administered on 09/03/16 06:32; Start 09/03/16 at 06:30; Stop 09/03/16 at 06:31; Status DC Heparin Sodium/ Dextrose 500 ml @ 0 mls/hr CONT PRN IV SEE I/O RECORD Last administered on 09/03/16 06:36; Start 09/03/16 at 06:15 Heparin Sodium (Porcine) (Heparin Sodium) 2,300 unit PRN Q6HRS PRN IV FOR UFH LEVEL LESS THAN 0.2; Start 09/03/16 at 06:15 Hydromorphone HCl (Dilaudid) 2 mg PRN Q4HRS PRN IV SEVERE PAIN Last administered on 09/03/16 06:30; Start 09/03/16 at 06:15 Hydromorphone HCl (Dilaudid) 2 mg PRN Q6HRS PRN PO SEVERE PAIN; Start 09/03/16 at 06:15 Active Scripts Active Flomax (Tamsulosin Hcl) 0.4 Mg Cap.er.24h 0.4 Mg PO DAILY 30 Days Reported Temazepam 15 Mg Capsule 1 Cap PO QHS Percocet 7.5-325 Mg Tablet (Oxycodone/Acetaminophen) 1 Each Tablet 1 Tab PO PRN Q3HRS PRN Fluoxetine Hcl 20 Mg Capsule 1 Cap PO DAILY Amlodipine Besylate 5 Mg Tablet 10 Mg PO DAILY Ranitidine Hcl 150 Mg Capsule 150 Mg PO BID Vitals/I & O Vital Sign - Last 24 Hours 09/02/16 09/02/16 09/02/16 09/02/16 19:40 19:45 19:50 19:52 Temp 98.2 98.2 Pulse 65 62 66 Resp B/P 146/80 134/70 135/80 Pulse Ox 99 99 99 O2 Delivery Room Air Nasal Cannula Nasal Cannula Room Air O2 Flow Rate 2 2 09/02/16 09/02/16 09/02/16 09/02/16 20:00 20:04 20:10 20:15 Temp 98.2 98.2 Pulse 65 65 66 68 Resp B/P 145/71 146/80 148/77 151/66 Pulse Ox 99 99 99 99 O2 Delivery Nasal Cannula Room Air Nasal Cannula Nasal Cannula O2 Flow Rate 2 2 2 09/02/16 09/02/16 09/02/16 09/02/16 21:07 21:28 21:31 21:45 Temp 98.1 98.1 Pulse 76 72 63 Resp 18 B/P 118/76 129/63 Pulse Ox 92 92 95 O2 Delivery Room Air Room Air Room Air 09/02/16 09/02/16 09/02/16 09/02/16 22:00 22:00 22:15 22:30 Pulse 62 60 60 Resp 19 B/P 140/63 115/62 147/69 Pulse Ox 93 92 93 O2 Delivery Room Air Room Air Room Air Room Air 09/02/16 09/02/16 09/02/16 09/03/16 23:00 23:30 23:45 00:00 Temp 98.1 98.1 Pulse 58 60 56 Resp 15 B/P 148/76 150/75 124/78 Pulse Ox 91 90 90 O2 Delivery Room Air Room Air Room Air Room Air 09/03/16 09/03/16 09/03/16/28/17 01:00 02:00 03:00 04:00 Temp 98.0 98.0 Pulse 58 58 60 57 Resp 16 16 20 15 B/P 140/75 128/69 135/73 142/92 Pulse Ox 91 94 91 96 O2 Delivery Room Air Nasal Cannula Nasal Cannula Nasal Cannula O2 Flow Rate 2.0 2.0 2.0 09/03/16 09/03/16 09/03/16 09/03/16 04:00 05:00 05:11 05:39 Pulse 58 66 59 Resp 16 B/P 168/80 168/80 140/75 Pulse Ox 96 O2 Delivery Nasal Cannula Nasal Cannula O2 Flow Rate 2.0 2.0 09/03/16 09/03/16 06:00 06:30 Pulse 58 Resp 15 15 B/P 135/71 Pulse Ox 95 94 O2 Delivery Nasal Cannula Nasal Cannula O2 Flow Rate 2.0 2.0 Intake and Output 09/02/16 09/02/16 09/03/16 14:59 22:59 06:59 Intake Total 995 ml Output Total 1000 ml Balance -5 ml PENNY BOLAND MD Sep 03, 2016 07:32
--- NOTE | 2016-09-03 07:55 | RAD ---
Exam: AP portable chest. History: Chest pain. Comparison: 07/12/2016. Findings: The heart and mediastinal structures are within normal limits for size. Lungs are without infiltrate. No pneumothorax or pleural effusion is appreciated. Left shoulder reverse arthroplasty is seen. Impression: 1. No acute cardiopulmonary process.
[2016-09-03] MEDS: amLODIPine BESYLATE 10 MG TABLET PO SCH (08:33)
[2016-09-03] MEDS: LISINOPRIL 5 MG TABLET. PO SCH (08:33)
[2016-09-03] MEDS: METOPROLOL SUCC 24HR ER 25 MG TAB.ER.24H. PO SCH (08:33)
[2016-09-03] MEDS: ASPIRIN ENTERIC COATED 325 MG TABLET.DR. PO SCH (08:34)
[2016-09-03] MEDS: TAMSULOSIN 0.4 MG CAP.ER.24H. PO SCH (08:34)
[2016-09-03] MEDS: FLUoxetine HCL 20 MG CAPSULE PO SCH (08:34)
[2016-09-03] MEDS: PRASUGREL 10 MG TABLET. PO SCH (08:34)
[2016-09-03] MEDS: FAMOTIDINE 20 MG TABLET. PO SCH ×2 (08:34→20:56)
--- NOTE | 2016-09-03 09:28 | HP ---
ADMIT DATE: 09/03/2016 CHIEF COMPLAINT: Chest pain. HISTORY OF PRESENT ILLNESS: The patient is a 65-year-old male who presented to the Emergency Room with the above complaint. He reported the onset of some substernal chest pain on the day prior to admission. The pain had lasted for about an hour and then resolved. He felt okay afterwards and continued with his normal activities. However, on the evening of admission, the pain reoccurred and was much more severe. He had some radiation of the pain to his left arm. When it persisted, he came to the Emergency Room. An EKG showed significant ST elevation in the inferior leads. Initial troponin was 0.5. Dr. Yañez was consulted. The patient was taken to the tutorial laboratory supervisor where he received 5 stents and was admitted to the ICU afterwards. PAST MEDICAL HISTORY: Hypertension, chronic kidney disease stage 3, GERD, depression. PAST SURGICAL HISTORY: Left reverse total shoulder replacement 2016. ALLERGIES: THE PATIENT IS ALLERGIC TO MORPHINE. HOME MEDICATIONS: Norvasc 10 mg daily, fluoxetine 20 mg daily, Percocet p.r.n., ranitidine 150 mg b.i.d., Flomax 0.4 mg at bedtime, temazepam 15 mg at bedtime. FAMILY HISTORY: Noncontributory. SOCIAL HISTORY: The patient is . He quit smoking cigarettes many years ago. He does not drink alcohol to excess. REVIEW OF SYSTEMS: The patient states he was feeling fairly well prior to the onset of his symptoms. He denies fever or chills. He has had a mild cough recently, which he thinks may be due to allergies. He denies other episodes of chest pain before the ones discussed in the HPI. He denies abdominal pain, nausea or vomiting. His mood has been okay with his usual medication. He is still having significant pain and stiffness in his left shoulder since his surgery; he has been doing well, taking the Percocet for this and has been going to physical therapy. PHYSICAL EXAMINATION: GENERAL: The patient is alert and oriented x 3, resting comfortably in bed in no acute distress. HEENT: PERRL, EOMI, sclerae clear. Oropharynx: Mucous membranes moist. NECK: Supple, without lymphadenopathy. CHEST: Clear to auscultation. CARDIOVASCULAR: Regular rhythm without murmur. ABDOMEN: Soft, nontender, normoactive bowel sounds are present. EXTREMITIES: Without edema. ASSESSMENT AND PLAN: 1. ST elevated myocardial infarction. This patient has been stable since his cardiac catheterization and placement of 5 stents. He is on a nitro drip presently, as he did complain of some chest pain several hours after his procedure. We will continue treatment as per Cardiology recommendations. 2. Hypertension. Resume his home medication and follow. 3. Depression. This appears well controlled. Continue his usual Prozac. 4. Status post left shoulder surgery. Continue his oral pain medication and resume physical therapy as soon as possible. 5. Chronic kidney disease stage 3. This is stable on his labs. 6. Gastroesophageal reflux disease. Continue home medications. PENNY BOLAND MD DR: KENRICK/ross JOB#: [id number] / [id number] DHAVAL
--- NOTE | 2016-09-03 09:36 | CARD ---
APPROVED REPORT Procedure(s) performed: 1. Left heart catheterization, selective coronary angiography and left ventri culography via right transradial approach 2. Successful PCI/drug eluting stent placement to the right coronary artery 3. Successful PCI/drug eluting stent placement to the left anterior descending artery and the diagona l branch INDICATION The indication(s) include : Acute inferior wall ST elevation myocardial infarction. PROCEDURE NARRATIVE After explaining the risks, benefits and alternative options, informed consent was obtained from ryan ent. Patient was brought to the cardiac Cryptologic Linguist and right wrist was prepped and draped in the usual fashion after confirming a positive modified Luis's test. Arterial access was obtained in the righ t radial artery and a 6 [place]i sheath was inserted. 6 [place]i Junior catheter and 6 [place] JR4 guide catheter were used to perform selective angiography of the left and right coronary arteries. 6 Frenc h pigtail catheter was used to perform left ventriculography at the end of procedure. The following findings were noted. FINDINGS 1. Hemodynamics: Left ventricular end-diastolic pressure of 20 mmHg. No pullback gradient across th e aortic valve. 2. Left ventriculography: Diaphragmatic wall hypokinesis with ejection fraction estimated at 50%. N o significant mitral regurgitation seen. 3. Coronary angiography: a. The left main coronary artery arose from the left sinus of Valsalva, gave rise to the left anteri or descending and left circumflex arteries and did not show any significant stenosis. b. The left anterior descending artery showed 80% stenosis in the midsegment. The first diagonal bra nch showed 90% stenosis in the proximal segment. c. The left circumflex artery showed 30% stenosis in the midsegment. d. The right coronary artery was a large and dominant vessel arising from the right sinus of Valsalv a that showed 60% stenosis in the proximal segment and 100% occlusion with thrombus in the midsegment . INTERVENTION The occlusion in the right coronary artery was crossed with a 0.014 inch Geodruid guidewire. Th is was predilated with a 2.25 x 12 mm trek balloon. Follow-up angiography revealed 80% stenosis invol ving the distal segment. This was successfully treated with a 2.5 x 18 mm Xience Alpine drug-eluting stent. Following this, the midsegment lesion was treated with a 3.5 x 15 mm Xience Alpine drug-elutin g stent that was postdilated with a 4.0 balloon. The proximal segment stenosis was then treated with a 4.0 x 18 mm Xience Alpine drug-eluting stent. Follow-up angiography showed resolution of all these stenoses to 0% with NIMESH-3 distal flow. Subsequently, the left main coronary artery was engaged with a 6 [place]i XB 3.5 guide catheter and the stenosis in the midsegment of the left anterior descending artery was crossed with the same UB.water guidewire. This was directly treated with a 3.0 x 18 mm Xience Alpine drug-eluting stent. Finally, t he stenosis in the diagonal branch was crossed with the same guidewire and successfully treated with a 2.5 x 18 mm Xience Alpine drug-eluting stent. Follow-up angina Griffie showed resolution of these s tenoses to 0% with NIMESH-3 distal flow. Patient tolerated the procedure well. Hemostasis was achieved using TR band. There were no immediate complications. Conclusion 1. Severe two-vessel coronary disease 2. Successful PCI/drug eluting stent placement to the right coronary artery, left anterior descending artery and also the diagonal branch. 3. Diaphragmatic wall hypokinesis with ejection fraction estimated at 50%. Recommendations 1. Aspirin 325 mg daily 2. Effient 10 mg daily for preferably one year 3. Cardiovascular risk factor modification.
[2016-09-03] MEDS: IV 1/2 NORMAL SALINE 1,000 ML IV SCH (10:05)
[2016-09-03] MEDS: OXYCODONE/APAP 5/325 TABLET. PO PRN ×2 (10:34→14:24)
[2016-09-03] MEDS ORDERED: IV 1/2 NORMAL SALINE 1,000 ML IV SCH (13:28)
[2016-09-03 14:33] LABS: POTASSIUM ISTAT 3.3 mmol/L (3.5-5.0)
--- NOTE | 2016-09-03 14:56 | PDOC ---
MADHAVI AYALA BUREAU CHIEF 09/03/16 1456: CARDIO Progress Notes Date and Time Date of Service 09/03/16 Time of Evaluation 1250 Subjective Subjective: No Chest Pain, No shortness of breath, No Palpitations, No Dizziness Comments: no acute events overnight Vitals Vitals Vital Signs Date Time Temp Pulse Resp B/P Pulse Ox O2 Delivery O2 Flow Rate FiO2 09/03/16 14:24 18 91 Room Air 09/03/16 13:00 60 126/75 09/03/16 12:00 98.3 98.3 09/03/16 11:45 2.0 Weight Weight [ ] Input and Output Intake and Output Intake and Output 09/03/16 07:00 Intake Total 995 ml Output Total 1000 ml Balance -5 ml Intake Oral 720 ml IV Total 275 ml Output Urine Total 1000 ml Laboratory Labs Laboratory Tests Test 09/02/16 19:45 09/02/16 19:49 09/02/16 19:51 09/03/16 03:30 White Blood Count 9.3x10^3/uL (4.0-11.0) 7.9x10^3/uL (4.0-11.0) Red Blood Count 4.37x10^6/uL (4.30-5.70) 4.07x10^6/uL (4.30-5.70) Hemoglobin 13.2g/dL (13.0-17.5) 12.0g/dL (13.0-17.5) Hematocrit 38.7% (39.0-53.0) 36.3% (39.0-53.0) Mean Corpuscular Volume 89fL (79-100) 89fL (79-100) Mean Corpuscular Hemoglobin 30pg (25-35) 29pg (25-35) Mean Corpuscular Hemoglobin Concent 34g/dL (31-37) 33g/dL (31-37) Red Cell Distribution Width 14.7% (11.5-14.5) 14.8% (11.5-14.5) Platelet Count 324x10^3/uL (140-400) 222x10^3/uL (140-400) Neutrophils (%) (Auto) 44% (31-73) 72% (31-73) Lymphocytes (%) (Auto) 42% (24-48) 17% (24-48) Monocytes (%) (Auto) 8% (0-9) 9% (0-9) Eosinophils (%) (Auto) 4% (0-3) 1% (0-3) Basophils (%) (Auto) 2% (0-3) 1% (0-3) Neutrophils # (Auto) 4.1x10^3uL (1.8-7.7) 5.7x10^3uL (1.8-7.7) Lymphocytes # (Auto) 3.9x10^3/uL (1.0-4.8) 1.3x10^3/uL (1.0-4.8) Monocytes # (Auto) 0.7x10^3/uL (0.0-1.1) 0.7x10^3/uL (0.0-1.1) Eosinophils # (Auto) 0.4x10^3/uL (0.0-0.7) 0.1x10^3/uL (0.0-0.7) Basophils # (Auto) 0.1x10^3/uL (0.0-0.2) 0.1x10^3/uL (0.0-0.2) Prothrombin Time 12.6SEC (11.7-14.0) Prothromb Time International Ratio 1.0 (0.8-1.1) Sodium Level 137mmol/L (136-145) Potassium Level 3.4mmol/L (3.5-5.1) Chloride Level 100mmol/L (98-107) Carbon Dioxide Level 27mmol/L (21-32) Anion Gap 10 (6-14) 18mmol/L (6-14) Blood Urea Nitrogen 20mg/dL (8-26) Creatinine 1.8mg/dL (0.7-1.3) Estimated GFR (Cockcroft-Gault) 37.8 Glucose Level 144mg/dL (70-99) 136mg/dL (70-99) Calcium Level 9.9mg/dL (8.5-10.1) Magnesium Level 2.1mg/dL (1.8-2.4) Total Bilirubin 0.3mg/dL (0.2-1.0) Direct Bilirubin 0.1mg/dL (0.0-0.2) Aspartate Amino Transf (AST/SGOT) 24U/L (15-37) Alanine Aminotransferase (ALT/SGPT) 33U/L (16-63) Alkaline Phosphatase 111U/L (46-116) Creatine Kinase 171U/L (39-308) 4925U/L (39-308) Creatine Kinase MB (Mass) 1.6ng/mL (0.0-3.6) Creatine Kinase MB Relative Index 0.9% (0-4) Troponin I Quantitative 0.525ng/mL (0.000-0.055) ML-Zsh-H-Type Natriuretic Peptide 51pg/mL (0-124) Total Protein 8.3g/dL (6.4-8.2) Albumin 4.1g/dL (3.4-5.0) Lipase 119U/L (73-393) Thyroid Stimulating Hormone (TSH) 3.784uIU/mL (0.358-3.74) Bedside Troponin I 0.18ng/ml (<0.08) Bedside Hemoglobin 13.9g/dL (14-18) Bedside Hematocrit 41% (37-52) Bedside Sodium 140mmol/L (135-145) Bedside Potassium 3.3mmol/L (3.5-5.0) Bedside Chloride 101mmol/L (98-110) Bedside Total CO2 25mmol/L (23-32) Bedside Blood Urea Nitrogen 21mg/dL (8-26) Bedside Creatinine 1.5mg/dL (0.5-1.4) Bedside Ionized Calcium (Alfredo) 1.13mmol/L (1.13-1.32) Test 09/03/16 04:00 09/03/16 04:50 09/03/16 12:35 Triglycerides Level 259mg/dL (0-150) Cholesterol Level 187mg/dL (0-200) LDL Cholesterol, Calculated 108mg/dL (0-100) VLDL Cholesterol, Calculated 52mg/dL (0-40) Non-HDL Cholesterol Calculated 160mg/dL (0-129) HDL Cholesterol 27mg/dL (40-60) Cholesterol/HDL Ratio 6.9 Sodium Level 135mmol/L (136-145) Potassium Level 4.3mmol/L (3.5-5.1) Chloride Level 100mmol/L (98-107) Carbon Dioxide Level 28mmol/L (21-32) Anion Gap 7 (6-14) Blood Urea Nitrogen 19mg/dL (8-26) Creatinine 1.6mg/dL (0.7-1.3) Estimated GFR (Cockcroft-Gault) 43.3 Glucose Level 108mg/dL (70-99) Calcium Level 9.0mg/dL (8.5-10.1) Heparin Anti-Xa Act, Unfractionated 0.32IU/mL (0.30-0.70) Physical Exam HEENT: Neck Supple W Full Motion Chest: Symmetric LUNGS: Clear to Auscultation Heart: S1S2, RRR, other (tele; SR with period of bigeminy ) Abdomen: Soft N/T Extremities: 2+ Dorsalis Pedis, No Edema Neurology: alert, oriented, follow commands Assessment Assessment 1. STEMI; s/p PCI/KIM to RCA, LAD, and diagonal branch 2. Hypertension; controlled. 3. Dyslipidemia; LDL 108- on high does statin therapy 5. CKD; Cr 1.6 Recommendations 1. Check echo 2. Continue secondary prevention measures including DAPT with ASA and Effient 3. Discontinue heparin at 1830. 4. BMP in am. 5. Monitor tele; may transfer to [facility] later this evening. 6. Cardiac rehab referral 7. Risk stratification modification IRVING LIMA MD 09/03/162034: CARDIO Progress Notes Assessment Assessment Patient seen and examined. Agree with MICROBIOLOGY INSTRUCTOR's assessment and plan s/p PCI/KIM to RCA, LAD, Diag, feeling better Tele did not show any significant arrhythmias Stop heparin and continue other meds including DAPT Transfer to [facility]. Possible DC tomorrow MADHAVI AYALA APRN Sep 03, 2016 14:56 IRVING LIMA MD Sep 03, 2016 20:35
[2016-09-03] MEDS ORDERED: ANTI-COAG MONITOR BY PHARMACY. MC PRN (16:30)
--- NOTE | 2016-09-03 17:54 | CARD ---
APPROVED REPORT EXAM: Two-dimensional and M-mode echocardiogram with Doppler and color Doppler. Other Information Quality : Good INDICATION STEMI 2D DIMENSIONS RVDd2.3 (2.9-3.5cm)Left Atrium(2D)3.4 (1.6-4.0cm) IVSd0.9 (0.7-1.1cm)Aortic Root(2D)3.1 (2.0-3.7cm) LVDd5.7 (3.9-5.9cm)LVOT Diameter2.2 (1.8-2.4cm) PWd1.1 (0.7-1.1cm)LVDs4.5 (2.5-4.0cm) FS (%) 20.9 %SV68.1 ml LVEF(%)40.0 (>50%) Aortic Valve AoV Peak Rogerio.121.6cm/sAoV VTI20.1cm AO Peak GR.5.9mmHgLVOT VTI 20.69cm AO Mean GR.3mmHgAVA (VTI)4.10cm2 Mitral Valve MV E Ucqtbwsx51.7cm/sMV DECEL [id number] MV A Hrfcuncw09.2cm/sE/A Ratio0.9 TDI Lateral E' P. V5.99cm/sMedial E' P. V4.05cm/s E/Lateral E'12.0E/Medial E'17.7 Tricuspid Valve TR P. Bgrboenc758du/sRAP ALLAVIIS2uqQo TR Peak Gr.56bbKtVOTC81vwVe Pulmonary Vein S1 Reoodfml94.7cm/sS2 Umdjnjmo41.49cm/s D2 Aekgaduv10.5cm/sPVa vfzdwbsd709bszv LEFT VENTRICLE The left ventricle is normal size. There is normal left ventricular wall thickness. The systolic func tion is moderately impaired. EF 45% The entire inferior, infero-septum and inferolateral lam are mi ld to moderately hypokinetic. Transmitral Doppler flow pattern is Grade I-abnormal relaxation pattern . RIGHT VENTRICLE The right ventricle is normal size. The right ventricular systolic function is normal. ATRIA The left atrium size is normal. The right atrium size is normal. The interatrial septum is intact wit h no evidence for an atrial septal defect or patent foramen ovale as noted on 2-D or Doppler imaging. AORTIC VALVE The aortic valve is calcified but opens well. Doppler and Color Flow revealed no significant aortic r egurgitation. There is no significant aortic valvular stenosis. MITRAL VALVE The mitral valve is normal in structure and function. There is no evidence of mitral valve prolapse. There is no mitral valve stenosis. Doppler and Color-flow revealed trace mitral regurgitation. TRICUSPID VALVE The tricuspid valve is normal in structure and function. Doppler and Color Flow revealed trace tricus pid regurgitation. The PA pressure was estimated at 30 mmHg. There is no tricuspid valve stenosis. PULMONIC VALVE Doppler and Color Flow revealed trace pulmonic valvular regurgitation. There is no pulmonic valvular stenosis. GREAT VESSELS The aortic root is normal in size. The ascending aorta is normal in size. The IVC is dilated and braeden apses >50% with inspiration. PERICARDIAL EFFUSION There is no evidence of significant pericardial effusion. Critical Notification Critical Value: No <Conclusion> The systolic function is moderately impaired. EF 45% The entire inferior, infero-septum and inferolateral lam are mild to moderately hypokinetic.
[2016-09-03] MEDS ORDERED: TEMAZEPAM 15 MG CAPSULE PO SCH (21:00)
[2016-09-03] MEDS ORDERED: ATORVASTATIN CALCIUM 40 MG TABLET. PO SCH (21:00)
[2016-09-04 03:07] VITALS: BP 95/55
[2016-09-04 07:00] VITALS: BP 105/53
[2016-09-04 07:02] LABS: CALCIUM 8.8 mg/dL (8.5-10.1); CREATININE 1.8 mg/dL (0.7-1.3); GFR 37.8
[2016-09-04] MEDS: amLODIPine BESYLATE 10 MG TABLET PO SCH (08:33)
[2016-09-04] MEDS: FAMOTIDINE 20 MG TABLET. PO SCH (08:33)
[2016-09-04] MEDS: METOPROLOL SUCC 24HR ER 25 MG TAB.ER.24H. PO SCH (08:33)
[2016-09-04] MEDS: ASPIRIN ENTERIC COATED 325 MG TABLET.DR. PO SCH (08:34)
[2016-09-04] MEDS: FLUoxetine HCL 20 MG CAPSULE PO SCH (08:34)
[2016-09-04] MEDS: TAMSULOSIN 0.4 MG CAP.ER.24H. PO SCH (08:34)
[2016-09-04] MEDS: PRASUGREL 10 MG TABLET. PO SCH (08:34)
--- NOTE | 2016-09-04 08:55 | PDOC ---
MADHAVI AYALA DEJAH 09/04/16 0855: CARDIO Progress Notes Date and Time Date of Service 09/04/16 Time of Evaluation 0840 Subjective Subjective: No Chest Pain, No shortness of breath, No Palpitations, No Dizziness Comments: no acute events overnight Vitals Vitals Vital Signs Date Time Temp Pulse Resp B/P Pulse Ox O2 Delivery O2 Flow Rate FiO2 09/04/16 08:33 59 104/53 09/04/16 03:07 98.2 18 95 Room Air 98.2 09/03/16 16:00 2.0 Weight Weight [ ] Input and Output Intake and Output Intake and Output 09/04/16 07:00 Intake Total 710 ml Output Total 500 ml Balance 210 ml Intake Oral 710 ml Output Urine Total 500 ml # Voids 1 Laboratory Labs Laboratory Tests Test 09/03/16 12:35 09/04/16 05:00 Heparin Anti-Xa Act, Unfractionated 0.32IU/mL (0.30-0.70) Sodium Level 136mmol/L (136-145) Potassium Level 4.0mmol/L (3.5-5.1) Chloride Level 100mmol/L (98-107) Carbon Dioxide Level 28mmol/L (21-32) Anion Gap 8 (6-14) Blood Urea Nitrogen 24mg/dL (8-26) Creatinine 1.8mg/dL (0.7-1.3) Estimated GFR (Cockcroft-Gault) 37.8 Glucose Level 96mg/dL (70-99) Calcium Level 8.8mg/dL (8.5-10.1) Physical Exam HEENT: Neck Supple W Full Motion Chest: Symmetric LUNGS: Clear to Auscultation Heart: S1S2, RRR, other (tele; SR with period of bigeminy ) Abdomen: Soft N/T Extremities: 2+ Dorsalis Pedis, No Edema, Other (right radial arteriotomy site CDI with neurovascular status intact ) Neurology: alert, oriented, follow commands Assessment Assessment 1. STEMI; s/p PCI/KIM to RCA, LAD, and diagonal branch 2. Chronic systolic HF with ICM 3. Hypertension 4. Dyslipidemia 5. CKD Recommendations Continue optimization therapy Secondary prevention measures including DAPT with ASA and Effient, along with BB , FRANKY, and statin Effient discount card provided. Risk stratification modification Cardiac rehab referral May discharge from a CV standpoint and f/u in our office with Dr. Yañez in 1 month. ABUNDIO VENTURA MD 09/04/16 1220: CARDIO Progress Notes Plan Plan Pt. seen and examined. Agree with above CONSUMER EDUCATOR note. 65 y.o doing well s/p PCi for the RCA after recent STEMI No cp today normal cardiac exam meds reviewed. will f/u in 4 weeks. ok to dc. thanks for consult. MADHAVI AYALA APRN Sep 04, 2016 08:55 ABUNDIO VENTURA MD Sep 04, 2016 12:20
[2016-09-04] MEDS: LISINOPRIL 5 MG TABLET. PO SCH (09:00)
[2016-09-04 11:00] VITALS: BP 102/55
[2016-09-04] MEDS ORDERED: ATOR40TA59 PO (13:52)
[2016-09-04] MEDS ORDERED: METO25TA9 PO (13:52)
[2016-09-04] MEDS ORDERED: PRAS10TA9 PO (13:52)
[2016-09-04] MEDS ORDERED: ASPI325T11 PO (13:52)
[2016-09-04] MEDS ORDERED: NITR0.4T SL (13:52)
[2016-09-04] MEDS ORDERED: LISI-338 PO (13:52)
--- NOTE | 2016-09-04 14:00 | PDOC ---
Provider Note Provider Note discharge dictated # [id number] JAMAR CALVIN MD Sep 04, 2016 14:00
--- NOTE | 2016-09-04 21:55 | DS ---
DATE OF DISCHARGE: 09/04/2016 ADMISSION DIAGNOSIS: ST-segment elevation myocardial infarction. DISCHARGE DIAGNOSIS: ST-segment elevation myocardial infarction. CONSULTS: Lamberto Yañez MD. PRINCIPAL PROCEDURE: Emergent left heart catheterization with PCI stent placement after receiving aspirin and heparin in the Emergency Room. HISTORY AND HOSPITAL COURSE: This is a 65-year-old white male who just recently had his left rotator cuff repaired so he has been having some pain in his left arm and chest and has been on narcotic pain medicines recently for that, but he developed more retrosternal chest pressure radiating in the left arm causing some shortness of breath. It seemed to improve and then recurred later, but was more intense. His son was able to convince him to come to the Emergency Room and brought him here and ER evaluation revealed changes consistent with an acute ST-segment elevation myocardial infarction. He was taken urgently to the technical laboratory asst by Dr. Yañez, was found to have severe 2-vessel coronary artery disease. He had successful PCI/drug-eluting stent placement to the right coronary artery, left anterior descending artery and also the diagonal branch. He had diaphragmatic wall hypokinesis with an estimated ejection fraction at 50%. He was started on aspirin and Effient and has tolerated that. He had not had any complications from his stent. He had not had any further chest pain. He had not had any symptoms of heart failure and he had not had any complications from his rotator cuff repair. No other medical complications while here. LABORATORY STUDIES: Showed initial hemoglobin of 13.2 that dropped to 12. White count remained normal. Platelets are normal. Chemistries showed a creatinine of 1.6, post-procedure bumped up to 1.8. His hemoglobin A1c was 5.3. His creatinine kinase was 4925. His troponin was 0.525. His triglycerides were 259, cholesterol 187, LDL 108, HDL 27. Chest x-ray showed no acute process. His left shoulder reverse arthroplasty was noted. DISCHARGE DISPOSITION: He will be discharged home. NEW MEDICATIONS: Aspirin 325 mg daily, atorvastatin 80 mg daily, lisinopril 5 mg daily, metoprolol succinate 25 mg daily, Nitrostat 0.4 mg sublingual q. 5 minutes p.r.n. chest pain, Effient 10 mg daily with breakfast. He will continue his amlodipine 10 mg daily, fluoxetine 20 mg daily, oxycodone APAP 7.5/325 q. 3 hours p.r.n. pain, ranitidine 150 mg b.i.d., tamsulosin 0.4 mg at bedtime and temazepam 15 mg at bedtime. DIET: His diet will be cardiac. ACTIVITY: He will continue to wear his left shoulder harness and keep his ortho followup. FOLLOWUP: He will follow up with Dr. Vergara in our office within 2 weeks, he will follow up with Cardiology in 4 weeks. ____ cardiac rehab referral was made. W Marcy CALVIN MD DR: CAROLYN/ross JOB#: [id number] / [id number]
== END 2016-09-04 14:30 | disposition home or self-care (01) | DRG 246 ==
LOC: ER 19:30 → 1 WEST ICU 21:30 → 2 NORTH 09-03 19:42
PROVIDERS: ADMIT Family Medicine; ATTEND Family Medicine
PROC: 027137Z Dilation of Coronary Artery, Two Arteries with Four or More Drug-eluting Intraluminal Devices, Percutaneous Approach (ICD-10-PCS; principal; 2016-09-02)
PROC: 4A023N7 Measurement of Cardiac Sampling and Pressure, Left Heart, Percutaneous Approach (ICD-10-PCS; 2016-09-02)
PROC: B2151ZZ Fluoroscopy of Left Heart using Low Osmolar Contrast (ICD-10-PCS; 2016-09-02)
PROC: B2111ZZ Fluoroscopy of Multiple Coronary Arteries using Low Osmolar Contrast (ICD-10-PCS; 2016-09-02)
DX: I21.19 ST elevation (STEMI) myocardial infarction involving other coronary artery of inferior wall (principal); I13.0 Hypertensive heart and chronic kidney disease with heart failure and stage 1 through stage 4 chronic kidney disease, or unspecified chronic kidney disease; I50.22 Chronic systolic (congestive) heart failure; E78.5 Hyperlipidemia, unspecified; F32.9 Major depressive disorder, single episode, unspecified; I21.02 ST elevation (STEMI) myocardial infarction involving left anterior descending coronary artery; I25.10 Atherosclerotic heart disease of native coronary artery without angina pectoris; K21.9 Gastro-esophageal reflux disease without esophagitis; M19.90 Unspecified osteoarthritis, unspecified site; Z96.612 Presence of left artificial shoulder joint; N18.3 Chronic kidney disease, stage 3 (moderate); Z82.49 Family history of ischemic heart disease and other diseases of the circulatory system; Z87.442 Personal history of urinary calculi; Z87.891 Personal history of nicotine dependence; Z95.5 Presence of coronary angioplasty implant and graft; Z88.5 Allergy status to narcotic agent
CPT/HCPCS: 36415; 71010; 80047; 80048; 80061; 80076; 82550; 82553; 83036; 83690; 83735; 83880; 84443; 84484; 85027; 85520; 85610; 87641; 92928; 92929; 92941; 93005; 93306; 93458; 96374; 96375; C1725; C1769; C1874; C1887; C1892; J0583; J1170; J2250; J2405; J3010; J3490; 99285-25

== ENCOUNTER 2016-09-26 11:15 | Inpatient (IN) | payer MEDICARE ==
[~2016-09-26] VITALS: Ht 182.9 cm; Wt 97.1 kg
[~2016-09-26 11:15] MED LIST changes: +ASPI325T11 PO; +ATOR40TA59 PO; -BIVALIRUDIN 250 MG VIAL. IV ONE; -HEPARIN for IV BOLUS 10,000 UNIT/10 ML VIAL. ONE; +LISI-338 PO; +METO25TA9 PO; +NITR0.4T SL; +OXYC-244 PO; +PRAS10TA9 PO; +TEMA15CA PO; -VERAPAMIL 5 MG/2 ML VIAL. ONE
[2016-09-26] MEDS ORDERED: ONDANSETRON PF 4 MG/2 ML VIAL. IV ONE (11:30)
[2016-09-26] MEDS ORDERED: fentaNYL PF VIAL 100 MCG/2 ML VIAL IV ONE (11:30)
[2016-09-26 12:04] LABS: BASO # 0.1 x10^3/uL (0.0-0.2); BASO % 1 % (0-3); EOS % 4 % (0-3); HEMATOCRIT 29.4 % (39.0-53.0); HEMOGLOBIN 9.6 g/dL (13.0-17.5); LYMPH # 1.2 x10^3/uL (1.0-4.8); LYMPH % 18 % (24-48); MEAN CORPUSCULAR HEMOGLOBIN 29 pg (25-35); MEAN CORPUSCULAR HGB CONC 33 g/dL (31-37); MEAN CORPUSCULAR VOLUME 90 fL (79-100); MONO % 8 % (0-9); NEUT % 69 % (31-73); PLATELET COUNT 217 x10^3/uL (140-400); RED BLOOD COUNT 3.27 x10^6/uL (4.30-5.70); RED CELL DISTRIBUTION WIDTH 15.9 % (11.5-14.5); WHITE BLOOD COUNT 6.7 x10^3/uL (4.0-11.0)
--- NOTE | 2016-09-26 12:13 | RAD ---
Indication: Chest pain. Technique: Upright portable chest radiograph was obtained. Comparison is from September 02, 2016. Findings: The lungs are clear. The cardiopulmonary silhouette is within normal limits. Cartridge projects over the chest on the left. Leads overlie the patient. Left shoulder arthroplasty is noted. Impression: No active pulmonary disease.
[2016-09-26 12:15] LABS: CALCIUM 9.1 mg/dL (8.5-10.1); CREATININE 1.6 mg/dL (0.7-1.3); GFR 43.3; POTASSIUM 4.2 mmol/L (3.5-5.1)
[2016-09-26 12:19] LABS: INR 1.2 (0.8-1.1); PROTHROMBIN TIME PATIENT 14.3 SEC (11.7-14.0)
[2016-09-26 12:21] LABS: ALBUMIN 3.6 g/dL (3.4-5.0); MAGNESIUM 2.1 mg/dL (1.8-2.4); TOTAL BILIRUBIN 0.4 mg/dL (0.2-1.0); TOTAL PROTEIN 7.3 g/dL (6.4-8.2)
[2016-09-26] MEDS ORDERED: HEPARIN 25,000UTS/500ML PREMIX 500 ML IV ONE (12:45)
[2016-09-26] MEDS ORDERED: HEPARIN for IV BOLUS 10,000 UNIT/10 ML VIAL. IV ONE (12:45)
[2016-09-26] MEDS ORDERED: fentaNYL PF VIAL 100 MCG/2 ML VIAL IV PRN (12:45)
[2016-09-26] MEDS ORDERED: ONDANSETRON PF 4 MG/2 ML VIAL. IV PRN (12:45)
--- NOTE | 2016-09-26 12:52 | PHYS DOC ---
Past Medical History Past Medical History: Depression, GERD, Hypertension, Kidney Stone Additional Past Medical Histor: insominia Past Surgical History: Other Additional Past Surgical Histo: R KNEE, KIDNEY STONE SX, L SHOULDER SURGERY, cardiac cath with stents Additional Information: quit 20 years ago Alcohol Use: None Drug Use: None Adult General Chief Complaint Chief Complaint: CHEST PAIN HPI HPI Patient is a 65 year old male presenting to the emergency department for evaluation of chest pain that has been going on since last night while he was at rest. He says it is a dull ache with no radiation but makes him somewhat short of breath. He recently had 5 stents placed several weeks ago here and said that he had been doing very well and taking his aspirin and anticoagulant effiant. Patient is in no obvious distress with normal vital signs. Review of Systems Review of Systems Constitutional: Denies fever or chills [] Eyes: Denies change in visual acuity, redness, or eye pain [] HENT: Denies nasal congestion or sore throat [] Respiratory: Denies cough. + shortness of breath [] Cardiovascular: + CP GI: Denies abdominal pain, nausea, vomiting, bloody stools or diarrhea [] : Denies dysuria or hematuria [] Musculoskeletal: Denies back pain or joint pain [] Integument: Denies rash or skin lesions [] Neurologic: Denies headache, focal weakness or sensory changes [] Current Medications Current Medications Current Medications Medications (Trade) Dose Ordered Sig/Konrad Start Time Stop Time Status Last Admin Dose Admin Fentanyl Citrate (Fentanyl 2ml Vial) 75 mcg 1X ONCE 09/26/16 11:30 09/26/16 11:31 DC 09/26/16 12:04 75 MCG Ondansetron HCl (Zofran) 4 mg 1X ONCE 09/26/16 11:30 09/26/16 11:31 DC 09/26/16 12:03 4 MG Allergies Allergies Allergies Coded Allergies Type Severity Reaction Last Updated Verified morphine Allergy Intermediate Rash 07/28/16 Yes Physical Exam Physical Exam Constitutional: Well developed, well nourished, no acute distress, non-toxic appearance. [] HENT: Normocephalic, atraumatic, bilateral external ears normal, oropharynx moist, no oral exudates, nose normal. [] Eyes: PERRLA, EOMI, conjunctiva normal, no discharge. [] Neck: Normal range of motion, no tenderness, supple, no stridor. [] Cardiovascular:Heart rate regular rhythm, no murmur [] Lungs & Thorax: Bilateral breath sounds clear to auscultation [] Abdomen: Bowel sounds normal, soft, no tenderness, no masses, no pulsatile masses. [] Skin: Warm, dry, no erythema, no rash. [] Back: No tenderness, no CVA tenderness. [] Extremities: No tenderness, no cyanosis, no clubbing, ROM intact, no edema. [] Neurologic: Alert and oriented X 3, normal motor function, normal sensory function, no focal deficits noted. [] Psychologic: Affect normal, judgement normal, mood normal. [] Current Patient Data Vital Signs Vital Signs Date Time Temp Pulse Resp B/P (MAP) Pulse Ox O2 Delivery O2 Flow Rate FiO2 09/26/16 12:20 52 19 169/65 (99) 98 Room Air 09/26/16 11:23 99.5 99.5 Lab Values Laboratory Tests Test 09/26/16 11:51 White Blood Count 6.7 x10^3/uL (4.0-11.0) Red Blood Count 3.27 x10^6/uL (4.30-5.70) L Hemoglobin 9.6 g/dL (13.0-17.5) L Hematocrit 29.4 % (39.0-53.0) L Mean Corpuscular Volume 90 fL (79-100) Mean Corpuscular Hemoglobin 29 pg (25-35) Mean Corpuscular Hemoglobin Concent 33 g/dL (31-37) Red Cell Distribution Width 15.9 % (11.5-14.5) H Platelet Count 217 x10^3/uL (140-400) Neutrophils (%) (Auto) 69 % (31-73) Lymphocytes (%) (Auto) 18 % (24-48) L Monocytes (%) (Auto) 8 % (0-9) Eosinophils (%) (Auto) 4 % (0-3) H Basophils (%) (Auto) 1 % (0-3) Neutrophils # (Auto) 4.6 x10^3uL (1.8-7.7) Lymphocytes # (Auto) 1.2 x10^3/uL (1.0-4.8) Monocytes # (Auto) 0.5 x10^3/uL (0.0-1.1) Eosinophils # (Auto) 0.3 x10^3/uL (0.0-0.7) Basophils # (Auto) 0.1 x10^3/uL (0.0-0.2) Prothrombin Time 14.3 SEC (11.7-14.0) H Prothrombin Time INR 1.2 (0.8-1.1) H PTT 37 SEC (24-38) Sodium Level 141 mmol/L (136-145) Potassium Level 4.2 mmol/L (3.5-5.1) Chloride Level 106 mmol/L (98-107) Carbon Dioxide Level 27 mmol/L (21-32) Anion Gap 8 (6-14) Blood Urea Nitrogen 21 mg/dL (8-26) Creatinine 1.6 mg/dL (0.7-1.3) H Estimated GFR (Cockcroft-Gault) 43.3 BUN/Creatinine Ratio 13 (6-20) Glucose Level 125 mg/dL (70-99) H Calcium Level 9.1 mg/dL (8.5-10.1) Magnesium Level 2.1 mg/dL (1.8-2.4) Total Bilirubin 0.4 mg/dL (0.2-1.0) Aspartate Amino Transferase (AST) 20 U/L (15-37) Alanine Aminotransferase (ALT) 42 U/L (16-63) Alkaline Phosphatase 104 U/L (46-116) Troponin I Quantitative 0.070 ng/mL (0.000-0.055) FX-Qex-O-Type Natriuretic Peptide 2011 pg/mL (0-124) H Total Protein 7.3 g/dL (6.4-8.2) Albumin 3.6 g/dL (3.4-5.0) Albumin/Globulin Ratio 1.0 (1.0-1.7) Lipase 146 U/L (73-393) Laboratory Tests 09/26/16 11:51 Laboratory Tests 09/26/16 11:51 EKG EKG He regular rhythm with several PVCs noted in no obvious ST elevation in consecutive leads with inverted and flattened T waves in his lateral leads. Radiology/Procedures Radiology/Procedures Indication: Chest pain. Technique: Upright portable chest radiograph was obtained. Comparison is from September 02, 2016. Findings: The lungs are clear. The cardiopulmonary silhouette is within normal limits. Cartridge projects over the chest on the left. Leads overlie the patient. Left shoulder arthroplasty is noted. Impression: No active pulmonary disease. DICTATED and SIGNED BY: CINDY ALELN MD DATE: 09/26/16 1210 Course & Med Decision Making Course & Med Decision Making Patient with elevated troponin and will be diagnosed as an NSTEMI. He is already on aspirin and Effient so we will defer further anticoagulation at this time to primary and cardiology. Patient admitted in stable condition. Dragon Disclaimer Dragon Disclaimer This electronic medical record was generated, in whole or in part, using a voice recognition dictation system. Departure Departure Impression: Primary Impression: NSTEMI (non-ST elevated myocardial infarction) Disposition: ADMITTED INPATIENT Admitting Physician: Lana Hendricks Condition: STABLE Referrals: PB COY MD (PCP) MARIAA CARVALHO DO September 26, 2016 12:52
[2016-09-26] MEDS ORDERED: NITROGLYCERIN SUBLINGUAL 0.4 MG BOTTLE OF 25. SL PRN (13:15)
--- NOTE | 2016-09-26 13:16 | PDOC1 ---
History and Physical Date of Admission Date of Admission DATE: 09/26/16 TIME: 13:08 Identification/Chief Complaint Chief Complaint chest pain Problems: Source Source: Caregiver, Chart review, Patient History of Present Illness History of Present Illness 65 y.o very Pleasant male, PCP Dr. Vergara just had 5 stents placed by our cardiology group here last month, coming in for CP, HAppened at rest last night, pretty much lasted all throughout the night until he got pain meds at ER, VS ok,. Claims compliance to meds. Trop 0.07 hence admitted, Deos have hx CKD, crea today 1.6 CP was left sided, similar to [facility] CP he had prior to [place], but "not as bad". lasting hrs, no identifiable precipitating factor, relived by pain med at er HAd some SOA with CP, no diaphoresis, presyncopal sxs or any other sxs Past Medical History Cardiovascular: HTN Musculoskeletal: Osteoarthritis Renal/: Other Past Surgical History Past Surgical History: Other (cardiac cath 3 qweeks ago) Family History Family History: Hypertension Social History Smoke: No ALCOHOL: none Drugs: None Current Medications Current Medications Current Medications Ondansetron HCl (Zofran) 4 mg 1X ONCE IV Last administered on 09/26/16 12:03 ; Start 09/26/16 at 11:30; Stop 09/26/16 at 11:31; Status DC Fentanyl Citrate (Fentanyl 2ml Vial) 75 mcg 1X ONCE IV Last administered on t 12:04; Start 09/26/16 at 11:30; Stop 09/26/16 at 11:31; Status DC Ondansetron HCl (Zofran) 4 mg PRN Q8HRS PRN IV NAUSEA/VOMITING; Start 09/26/16 at 12:45; Stop 09/27/16 at 12:44 Fentanyl Citrate (Fentanyl 2ml Vial) 50 mcg PRN Q1HR PRN IV PAIN; Start at 12:45; Stop 09/27/16 at 12:44 Heparin Sodium (Porcine) (Heparin Sodium) 6,000 unit 1X ONCE IV ; Start at 12:45; Stop 09/26/16 at 12:46; Status DC Heparin Sodium/ Dextrose 500 ml @ 0 mls/hr 1X ONCE IV ; Start 09/26/16 at 12:45 ; Stop 09/26/16 at 12:46; Status DC Active Scripts Active Effient (Prasugrel Hcl) 10 Mg Tablet 10 Mg PO DAILYWBKFT Nitrostat (Nitroglycerin) 0.4 Mg Tab.subl 0.4 Mg SL PRN Q5MIN PRN Metoprolol Succinate ( Xl ) (Metoprolol Succinate) 25 Mg Tab.er.24h 25 Mg PO DAILY Lisinopril 5 Mg Tablet 5 Mg PO DAILY Atorvastatin Calcium 40 Mg Tablet 80 Mg PO QHS Aspirin Ec (Aspirin) 325 Mg Tablet.dr 325 Mg PO DAILYWBKFT Flomax (Tamsulosin Hcl) 0.4 Mg Cap.er.24h 0.4 Mg PO DAILY 30 Days Reported Temazepam 15 Mg Capsule 1 Cap PO QHS Percocet 7.5-325 Mg Tablet (Oxycodone/Acetaminophen) 1 Each Tablet 1 Tab PO PRN Q3HRS PRN Fluoxetine Hcl 20 Mg Capsule 1 Cap PO DAILY Amlodipine Besylate 5 Mg Tablet 10 Mg PO DAILY Ranitidine Hcl 150 Mg Capsule 150 Mg PO BID Allergies Allergies: Coded Allergies: morphine (Verified Allergy, Intermediate, Rash, 07/28/16) AND ITCHING ROS General: No: Chills, Night Sweats, Fatigue, Malaise, Appetite, Other PSYCHOLOGICAL ROS: No: Anxiety, Behavioral Disorder, Concentration difficultie , Decreased libido, Depression, Disorientation, Hallucinations, Hostility, Irritablity, Memory difficulties, Mood Swings, Obsessive thoughts, Physical abuse, Sexual abuse, Sleep disturbances, Suicidal ideation, Other Eyes: No Blurry vision, No Decreased vision, No Double vision, No Dry eyes, No Excessive tearing, No Eye Pain, No Itchy Eyes, No Loss of vision, No Photophobia , No Scotomata, No Uses contacts, No Uses glasses, No Other HEENT: No: Heacaches, Visual Changes, Hearing change, Nasal congestion, Nasal discharge, Oral lesions, Sinus pain, Sore Throat, Epistaxis, Sneezing, Snoring, Tinnitus, Vertigo, Vocal changes, Other ALLERGY AND IMMUNOLOGY: No: Hives, Insect Bite Sensitivity, Itchy/Watery Eyes, Nasal Congestion, Post Nasal Drip, Seasonal Allergies, Other Hematological and Lymphatic: No: Bleeding Problems, Blood Clots, Blood Transfusions, Brusing, Night Sweats, Pallor, Swollen Lymph Nodes, Other ENDOCRINE: No: Breast Changes, Galactorrhea, Hair Pattern Changes, Hot Flashes , Malaise/lethargy, Mood Swings, Palpitations, Polydipsia/polyuria, Skin Changes , Temperature Intolerance, Unexpected Weight Changes, Other Breast: No New/Changing Breast Lumps, No Nipple changes, No Nipple discharge, No Other Respiratory: No: Cough, Hemoptysis, Orthopnea, Pleuritic Pain, Shortness of breath, SOB with excertion, Sputum Changes, Stridor, Tachypnea, Wheezing, Other Cardiovascular: yes Chest Pain Gastrointestinal: No Nausea, No Vomiting, No Abdominal Pain, No Diarrhea, No Constipation, No Melena, No Hematochezia, No Other Genitourinary: No Dysuria, No Frequency, No Incontinence, No Hematuria, No Retention, No Discharge, No Urgency, No Pain, No Flank Pain, No Other, No , No , No , No , No , No , No Musculoskeletal: No Gait Disturbance, No Joint Pain, No Joint Stiffness, No Joint Swelling, No Muscle Pain, No Muscular Weakness, No Pain In:, No Swelling In:, No Other Neurological: No Behavorial Changes, No Bowel/Bladder ControlChng, No Confusion , No Dizziness, No Gait Disturbance, No Headaches, No Impaired Coord/balance, No Memory Loss, No Numbness/Tingling, No Seizures, No Speech Problems, No Tremors, No Visual Changes, No Weakness, No Other Skin: No Dry Skin, No Eczema, No Hair Changes, No Lumps, No Mole Changes, No Mottling, No Nail Changes, No Pruritus, No Rash, No Skin Lesion Changes, No Other, No Acne Physical Exam General: Alert, Oriented X3, Cooperative, No acute distress HEENT: Atraumatic, PERRLA Lungs: Clear to auscultation, Normal air movement Heart: S1S2, RRR, no gallops Cardiovascular: S1, S2 Breasts: Normal Abdomen: Normal bowel sounds, Soft, No tenderness, No hepatosplenomegaly, No masses Male Genitals Exam: normal genitalia, normal prostate Extremities: No clubbing, No cyanosis, No edema, Normal pulses, No tenderness/ swelling Skin: No rashes, No breakdown, No significant lesion Neuro: Normal gait, Normal speech, Strength at 5/5 X4 ext, Normal tone, Sensation intact, Cranial nerves 3-12 NL, Reflexes 2+ Psych/Mental Status: Mental status NL, Mood NL Vitals Vitals Vital Signs Date Time Temp Pulse Resp B/P (MAP) Pulse Ox O2 Delivery O2 Flow Rate FiO2 09/26/16 12:50 46 24 98/52 (67) 95 Room Air 09/26/16 11:23 99.5 99.5 Labs Labs Laboratory Tests Test 09/26/16 11:51 White Blood Count 6.7 x10^3/uL (4.0-11.0) Red Blood Count 3.27 x10^6/uL (4.30-5.70) Hemoglobin 9.6 g/dL (13.0-17.5) Hematocrit 29.4 % (39.0-53.0) Mean Corpuscular Volume 90 fL (79-100) Mean Corpuscular Hemoglobin 29 pg (25-35) Mean Corpuscular Hemoglobin Concent 33 g/dL (31-37) Red Cell Distribution Width 15.9 % (11.5-14.5) Platelet Count 217 x10^3/uL (140-400) Neutrophils (%) (Auto) 69 % (31-73) Lymphocytes (%) (Auto) 18 % (24-48) Monocytes (%) (Auto) 8 % (0-9) Eosinophils (%) (Auto) 4 % (0-3) Basophils (%) (Auto) 1 % (0-3) Neutrophils # (Auto) 4.6 x10^3uL (1.8-7.7) Lymphocytes # (Auto) 1.2 x10^3/uL (1.0-4.8) Monocytes # (Auto) 0.5 x10^3/uL (0.0-1.1) Eosinophils # (Auto) 0.3 x10^3/uL (0.0-0.7) Basophils # (Auto) 0.1 x10^3/uL (0.0-0.2) Prothrombin Time 14.3 SEC (11.7-14.0) Prothromb Time International Ratio 1.2 (0.8-1.1) Activated Partial Thromboplast Time 37 SEC (24-38) Sodium Level 141 mmol/L (136-145) Potassium Level 4.2 mmol/L (3.5-5.1) Chloride Level 106 mmol/L (98-107) Carbon Dioxide Level 27 mmol/L (21-32) Anion Gap 8 (6-14) Blood Urea Nitrogen 21 mg/dL (8-26) Creatinine 1.6 mg/dL (0.7-1.3) Estimated GFR (Cockcroft-Gault) 43.3 BUN/Creatinine Ratio 13 (6-20) Glucose Level 125 mg/dL (70-99) Calcium Level 9.1 mg/dL (8.5-10.1) Magnesium Level 2.1 mg/dL (1.8-2.4) Total Bilirubin 0.4 mg/dL (0.2-1.0) Aspartate Amino Transf (AST/SGOT) 20 U/L (15-37) Alanine Aminotransferase (ALT/SGPT) 42 U/L (16-63) Alkaline Phosphatase 104 U/L (46-116) Troponin I Quantitative 0.070 ng/mL (0.000-0.055) NW-Fsz-A-Type Natriuretic Peptide 2011 pg/mL (0-124) Total Protein 7.3 g/dL (6.4-8.2) Albumin 3.6 g/dL (3.4-5.0) Albumin/Globulin Ratio 1.0 (1.0-1.7) Lipase 146 U/L (73-393) Laboratory Tests Test 09/26/16 11:51 White Blood Count 6.7 x10^3/uL (4.0-11.0) Red Blood Count 3.27 x10^6/uL (4.30-5.70) Hemoglobin 9.6 g/dL (13.0-17.5) Hematocrit 29.4 % (39.0-53.0) Mean Corpuscular Volume 90 fL (79-100) Mean Corpuscular Hemoglobin 29 pg (25-35) Mean Corpuscular Hemoglobin Concent 33 g/dL (31-37) Red Cell Distribution Width 15.9 % (11.5-14.5) Platelet Count 217 x10^3/uL (140-400) Neutrophils (%) (Auto) 69 % (31-73) Lymphocytes (%) (Auto) 18 % (24-48) Monocytes (%) (Auto) 8 % (0-9) Eosinophils (%) (Auto) 4 % (0-3) Basophils (%) (Auto) 1 % (0-3) Neutrophils # (Auto) 4.6 x10^3uL (1.8-7.7) Lymphocytes # (Auto) 1.2 x10^3/uL (1.0-4.8) Monocytes # (Auto) 0.5 x10^3/uL (0.0-1.1) Eosinophils # (Auto) 0.3 x10^3/uL (0.0-0.7) Basophils # (Auto) 0.1 x10^3/uL (0.0-0.2) Prothrombin Time 14.3 SEC (11.7-14.0) Prothromb Time International Ratio 1.2 (0.8-1.1) Activated Partial Thromboplast Time 37 SEC (24-38) Sodium Level 141 mmol/L (136-145) Potassium Level 4.2 mmol/L (3.5-5.1) Chloride Level 106 mmol/L (98-107) Carbon Dioxide Level 27 mmol/L (21-32) Anion Gap 8 (6-14) Blood Urea Nitrogen 21 mg/dL (8-26) Creatinine 1.6 mg/dL (0.7-1.3) Estimated GFR (Cockcroft-Gault) 43.3 BUN/Creatinine Ratio 13 (6-20) Glucose Level 125 mg/dL (70-99) Calcium Level 9.1 mg/dL (8.5-10.1) Magnesium Level 2.1 mg/dL (1.8-2.4) Total Bilirubin 0.4 mg/dL (0.2-1.0) Aspartate Amino Transf (AST/SGOT) 20 U/L (15-37) Alanine Aminotransferase (ALT/SGPT) 42 U/L (16-63) Alkaline Phosphatase 104 U/L (46-116) Troponin I Quantitative 0.070 ng/mL (0.000-0.055) NR-Jty-A-Type Natriuretic Peptide 2011 pg/mL (0-124) Total Protein 7.3 g/dL (6.4-8.2) Albumin 3.6 g/dL (3.4-5.0) Albumin/Globulin Ratio 1.0 (1.0-1.7) Lipase 146 U/L (73-393) VTE Prophylaxis Ordered VTE Prophylaxis Devices: Yes VTE Pharmacological Prophylaxi: Yes Assessment/Plan Assessment/Plan 1. Chest pain 2. Known CAD, recent stents x 5 (within 1 month) 3. HTN, dyslipidemia, BPH, depression - chronic stable 4. Transient hypotension - 1 rdg of 90/60,at ER reliability? PLAn: Trend CE Consult CARds CArdiac diet Resume home meds MOnitor for hypotension Dw pt and family and ER PABLITO FELIPE MD September 26, 2016 13:16
--- NOTE | 2016-09-26 14:41 | EKG ---
[facility] [address] [place] [address] Test Date: 2016-09-26 Test Time: 11:26:57 Pat Name: JOSUE MCCOY Department: Room: 263 1 Gender: M Testing Lead: : 1950 Requested By: MARIAA CARVALHO Order Number: [id number] Reading MD: Marie Almanzar Measurements Intervals [place] Rate: 86 P: ME: QRS: -51 QRSD: 100 T: -80 QT: 386 QTc: 465 Interpretive Statements SINUS RHYTHM VENTRICULAR PREMATURE COMPLEX(ES), TRIGEMINY ABNORMAL LEFT AXIS DEVIATION QRS(T) CONTOUR ABNORMALITY CANNOT RULE OUT INFERIOR MYOCARDIAL DAMAGE RI6.01 Unconfirmed report Compared to ECG 09/02/2016 19:44:18 Left-axis deviation now present Electronically Signed On 09-27-2016 21:37:54 CDT by Marie Almanzar
[2016-09-26 14:46] VITALS: BP 121/73
[2016-09-26 15:00] VITALS: BP 101/54
[2016-09-26] MEDS: oxyCODONE/APAP 7.5/325 1 TAB TABLET PO PRN ×2 (15:45→21:39)
[2016-09-26 19:28] VITALS: BP 114/61
--- NOTE | 2016-09-26 19:42 | ACF ---
Admission Forms Criteria MYOCARDIAL INFARCTION Clinical Indications for Admission to Inpatient Care (Place 'X' for any and all applicable criteria): Admission is indicated for 1 or more of the following (1)(2)(3)(4): [X]I. Acute TX [ ]II. Contraindications and/or Inappropriate clinical situations for Observational Care in patients with Myocardial Infarction, when ANY ONE of the following is required: [ ]a) Patient with High risk of cardiac embolism (e.g, patients with previous cardiac embolism, LVEF < 40%, age >75 and patients with prosthetic valve) 18 [ ]b) Patient with Moderate risk including DM patient, CAD and patient aged 65-75 18 [ ]c) Patient with any change in cardiac biomarker especially troponin should be managed as high risk in an inpatient setting 19 [ ]d) Physician judgement irrespective of ECG and other diagnostic findings 20 [ ]III.General contraindications and/or Inappropriate clinical situations for Observational Care in patients with Myocardial Infarction, when ANY ONE of the following is required: [ ]a) Prediction of prolongation of LOS based on ANY ONE of the following may be considered as a contraindication for observational care 2, 3, 4, 5, 6, 7, 8, 9, 10, 11 [ ]i) Age > 65 yrs. [ ]ii) Patient arriving by ambulance [ ]iii) Patient with high acuity [ ]iv) Patient requiring vital sign monitoring [ ]v) Patient on IV medication [ ]b) Systolic blood pressures greater than or equal to 180mmHg 3,12 [ ]c) Patient with altered mental status including delirium and other alteration of consciousness, (3) [ ]d) Patient whose discharge disposition will be to a shelter home or rehabilitation home should not be managed in Emergency Department Observation Unit. CMS rule requires 3 days hospital stay before such placement. 3,13 [ ]e) Patient with failure to thrive due to broad array of etiologies 3 ,16,17 [ ]f) Inability to ambulate 3,14 Extended stay beyond goal length of stay may be needed for (1)(18)(20)(24)(25): [ ]a) Hemodynamic instability, persisting symptoms after intensive medical management, or recurring severe, prolonged symptoms [ ]b) Intravascular procedural complications such as acute vessel closure, stent thrombosis, stent malposition, or vessel dissection (26)(27)(28) [ ]c) Extravascular procedural complications such as retroperitoneal hematoma , pericardial effusion, or cardiac tamponade [ ]d) Entry site complications causing bleeding, hematoma or distal ischemia and requiring ongoing monitoring, surgical repair or surgical thrombectomy. Dangerous arrhythmia [ ]e) Complicated percutaneous coronary intervention (e.g., unsuccessful percutaneous coronary intervention or percutaneous coronary intervention of non- [place] vessel) [ ]f) Urgent or emergent surgery for complications of [place] (e.g., ventricular rupture, valvular insufficiency) [ ]g) Surgical revascularization via coronary artery bypass graft [ ]h) Heart failure (e.g., pulmonary edema) [ ]i) Unstable pulmonary comorbidities, including COPD or pneumonia (31) [ ]j) Acute renal failure The original [employer] content created by [employer] has been revised. The portions of the content which have been revised are identified through the use of italic text or in bold, and [facility] has neither reviewed nor approved the modified material. All other unmodified content is copyright [facility] Please see references footnoted in the original [facility] edition 2016 Admission Criteria Met?: Yes PANTERA MEHTA September 26, 2016 19:42
[2016-09-26] MEDS: ATORVASTATIN CALCIUM 40 MG TABLET. PO SCH (21:36)
[2016-09-26] MEDS: FAMOTIDINE 20 MG TABLET. PO SCH (21:37)
[2016-09-26] MEDS: TEMAZEPAM 15 MG CAPSULE PO SCH (21:37)
[2016-09-26 23:40] VITALS: BP 94/50
[2016-09-27 01:16] LABS: BASO # 0.1 x10^3/uL (0.0-0.2); BASO % 1 % (0-3); EOS % 7 % (0-3); HEMATOCRIT 25.5 % (39.0-53.0); HEMOGLOBIN 8.3 g/dL (13.0-17.5); LYMPH # 1.7 x10^3/uL (1.0-4.8); LYMPH % 29 % (24-48); MEAN CORPUSCULAR HEMOGLOBIN 30 pg (25-35); MEAN CORPUSCULAR HGB CONC 33 g/dL (31-37); MEAN CORPUSCULAR VOLUME 91 fL (79-100); MONO % 9 % (0-9); NEUT % 54 % (31-73); PLATELET COUNT 188 x10^3/uL (140-400); RED BLOOD COUNT 2.82 x10^6/uL (4.30-5.70); RED CELL DISTRIBUTION WIDTH 16.5 % (11.5-14.5); WHITE BLOOD COUNT 5.9 x10^3/uL (4.0-11.0)
[2016-09-27 01:20] LABS: CALCIUM 8.6 mg/dL (8.5-10.1); CREATININE 1.8 mg/dL (0.7-1.3); GFR 37.8; POTASSIUM 4.5 mmol/L (3.5-5.1)
[2016-09-27 03:54] VITALS: BP 90/52
[2016-09-27 07:00] VITALS: BP 98/61
[2016-09-27] MEDS ORDERED: METOPROLOL SUCC 24HR ER 25 MG TAB.ER.24H. PO SCH (09:00)
[2016-09-27] MEDS ORDERED: TAMSULOSIN 0.4 MG CAP.ER.24H. PO SCH ×2 (09:00→21:00)
[2016-09-27] MEDS ORDERED: amLODIPine BESYLATE 5 MG TABLET PO SCH (09:00)
[2016-09-27] MEDS: LISINOPRIL 5 MG TABLET. PO SCH (09:00)
[2016-09-27] MEDS: FLUoxetine HCL 20 MG CAPSULE PO SCH (09:01)
[2016-09-27] MEDS: PRASUGREL 10 MG TABLET. PO SCH (09:01)
[2016-09-27] MEDS: ASPIRIN ENTERIC COATED 325 MG TABLET.DR. PO SCH (09:01)
[2016-09-27] MEDS: FAMOTIDINE 20 MG TABLET. PO SCH (09:02)
--- NOTE | 2016-09-27 10:05 | PDOC2 ---
ALONZOKADEN Ronny ICE HOCKEY COACH 09/27/16 1005: CARDIAC CONSULT DATE OF CONSULT Date of Consult DATE: 09/27/16 TIME: 09:29 REASON FOR CONSULT Reason for Consult: NSTEMI REFERRING PHYSICIAN Referring Physician: Dr. Evaristo Yanez SOURCE Source: Chart review, Patient HISTORY OF PRESENT ILLNESS HISTORY OF PRESENT ILLNESS 65 year old male who developed substernal chest pain described as "irritating" and "like heartburn" Tuesday afternoon after eating a steak sandwich. No OTC medication treatments. Pain persisted so presented to ER on Tuesday. Pain exacerbated by lying flat and improved after being given Percocet and Pepcid in the hospital. No acute changes in EKG, though PVCs, and troponin levels not consistent with AMI. Recent cardiac cath 09/03/2016 with KIM X 3 to RCA, and also KIM to the LAD and diagonal. Pain does not feel like the pain associated with STEMI in August. Denies missed doses of his dual DAPT. Reason for Visit: chest pain PAST MEDICAL HISTORY Cardiovascular: CAD (STEMI; 08/2016 with 3 stents to RCA; 1 each to LAD and diagonal - all IKM), CHF (systolic; LVEF ~ 45%), HTN, Hyperlipidemia, Other ( ischemic CMP; LVEF ~ 45%) Pulmonary: No pertinent hx CENTRAL NERVOUS SYSTEM: Other (denies) GI: GERD Heme/Onc: No pertinent hx Hepatobiliary: No pertinent hx Psych: Depression Musculoskeletal: Osteoarthritis Rheumatologic: No pertinent hx ENT: No pertinent hx Renal/: Chronic renal insuff (stage III), Other (renal caculi with previous lithotripsy) Endocrine: No pertinent hx Dermatology: No pertinent hx PAST SURGICAL HISTORY Past Surgical History: Other (left reverse total shoulder; right knee; lithotripsy) FAMILY HISTORY Family History: Diabetes, Hypertension SOCIAL HISTORY Smoke: Quit (about 20 years ago) ALCOHOL: social Drugs: None Lives: with Family (brother) CURRENT MEDICATIONS CURRENT MEDICATIONS Current Medications Medications (Trade) Dose Ordered Sig/Konrad Route PRN Reason Start Time Stop Time Status Last Admin Dose Admin Ondansetron HCl (Zofran) 4 mg 1X ONCE IV 09/26/16 11:30 09/26/16 11:31 DC 09/26/16 12:03 Fentanyl Citrate (Fentanyl 2ml Vial) 75 mcg 1X ONCE IV 09/26/16 11:30 09/26/16 11:31 DC 09/26/16 12:04 Aspirin (Ecotrin) 325 mg DAILYWBKFT PO 09/27/16 08:00 09/27/16 09:01 Atorvastatin Calcium (Lipitor) 80 mg QHS PO 09/26/16 21:00 09/26/16 21:36 Fluoxetine HCl (PROzac) 20 mg DAILY PO 09/27/16 09:00 09/27/16 09:01 Nitroglycerin (Nitrostat) 0.4 mg PRN Q5MIN PRN SL CHEST PAIN 09/26/16 13:15 09/26/16 18:30 Oxycodone/ Acetaminophen (Percocet 7.5/ 325) 1 tab PRN Q3HRS PRN PO PAIN 09/26/16 13:15 09/26/16 21:39 Prasugrel (Effient) 10 mg DAILYWBKFT PO 09/27/16 08:00 09/27/16 09:01 Tamsulosin HCl (Flomax) 0.4 mg DAILY PO 09/27/16 09:00 09/27/16 09:01 Temazepam (Restoril) 15 mg QHS PO 09/26/16 21:00 09/26/16 21:37 Famotidine (Pepcid) 20 mg BID PO 09/26/16 21:00 09/27/16 09:02 ALLERGIES ALLERGIES: Coded Allergies: morphine (Verified Allergy, Intermediate, Rash, 07/28/16) AND ITCHING ROS General: No: Chills, Night Sweats, Fatigue, Malaise, Appetite, Other PSYCHOLOGICAL ROS: YES: Depression Eyes: No Blurry vision, No Decreased vision, No Double vision, No Dry eyes, No Excessive tearing, No Eye Pain, No Itchy Eyes, No Loss of vision, No Photophobia , No Scotomata, No Uses contacts, No Uses glasses, No Other HEENT: No: Heacaches, Visual Changes, Hearing change, Nasal congestion, Nasal discharge, Oral lesions, Sinus pain, Sore Throat, Epistaxis, Sneezing, Snoring, Tinnitus, Vertigo, Vocal changes, Other ALLERGY AND IMMUNOLOGY: No: Hives, Insect Bite Sensitivity, Itchy/Watery Eyes, Nasal Congestion, Post Nasal Drip, Seasonal Allergies, Other Hematological and Lymphatic: No: Bleeding Problems, Blood Clots, Blood Transfusions, Brusing, Night Sweats, Pallor, Swollen Lymph Nodes, Other ENDOCRINE: No: Breast Changes, Galactorrhea, Hair Pattern Changes, Hot Flashes , Malaise/lethargy, Mood Swings, Palpitations, Polydipsia/polyuria, Skin Changes , Temperature Intolerance, Unexpected Weight Changes, Other Respiratory: No: Cough, Hemoptysis, Orthopnea, Pleuritic Pain, Shortness of breath, SOB with excertion, Sputum Changes, Stridor, Tachypnea, Wheezing, Other Cardiovascular: yes Chest Pain, No Palpitations, No Orthopnea, No Paroxysmal Noc. Dyspnea, No Edema, No Lt Headedness, No Other Gastrointestinal: No Nausea, No Vomiting, No Abdominal Pain, No Diarrhea, No Constipation, No Melena, No Hematochezia, No Other Genitourinary: YES , No Dysuria, No Frequency, No Incontinence, No Hematuria, No Retention, No Discharge, No Urgency, No Pain, No Flank Pain, No Other Musculoskeletal: No Gait Disturbance, No Joint Pain, No Joint Stiffness, No Joint Swelling, No Muscle Pain, No Muscular Weakness, No Pain In:, No Swelling In:, No Other Neurological: No Behavorial Changes, No Bowel/Bladder ControlChng, No Confusion , No Dizziness, No Gait Disturbance, No Headaches, No Impaired Coord/balance, No Memory Loss, No Numbness/Tingling, No Seizures, No Speech Problems, No Tremors, No Visual Changes, No Weakness, No Other Skin: No Dry Skin, No Eczema, No Hair Changes, No Lumps, No Mole Changes, No Mottling, No Nail Changes, No Pruritus, No Rash, No Skin Lesion Changes, No Other, No Acne PHYSICAL EXAM General: Alert, Cooperative, No acute distress HEENT: Atraumatic, PERRLA Lungs: Clear to auscultation Heart: Regular rate, Normal S1, Normal S2, No murmurs, Other (no carotid bruits ; tele: PVCs) Abdomen: Normal bowel sounds, Soft Extremities: No edema, Normal pulses Skin: No rashes Neuro: Normal speech Psych/Mental Status: Mental status NL, Mood NL MUSCULOSKELETAL: Osteoarthritic changes both hands VITALS VITALS Vital Signs Date Time Temp Pulse Resp B/P (MAP) Pulse Ox O2 Delivery O2 Flow Rate FiO2 09/27/16 07:00 97.3 45 16 98/61 (73) 95 Room Air 97.3 LABS Lab: Laboratory Tests Test 09/26/16 11:51 09/26/16 18:35 09/27/16 00:45 White Blood Count 6.7 x10^3/uL (4.0-11.0) 5.9 x10^3/uL (4.0-11.0) Red Blood Count 3.27 x10^6/uL (4.30-5.70) 2.82 x10^6/uL (4.30-5.70) Hemoglobin 9.6 g/dL (13.0-17.5) 8.3 g/dL (13.0-17.5) Hematocrit 29.4 % (39.0-53.0) 25.5 % (39.0-53.0) Mean Corpuscular Volume 90 fL (79-100) 91 fL (79-100) Mean Corpuscular Hemoglobin 29 pg (25-35) 30 pg (25-35) Mean Corpuscular Hemoglobin Concent 33 g/dL (31-37) 33 g/dL (31-37) Red Cell Distribution Width 15.9 % (11.5-14.5) 16.5 % (11.5-14.5) Platelet Count 217 x10^3/uL (140-400) 188 x10^3/uL (140-400) Neutrophils (%) (Auto) 69 % (31-73) 54 % (31-73) Lymphocytes (%) (Auto) 18 % (24-48) 29 % (24-48) Monocytes (%) (Auto) 8 % (0-9) 9 % (0-9) Eosinophils (%) (Auto) 4 % (0-3) 7 % (0-3) Basophils (%) (Auto) 1 % (0-3) 1 % (0-3) Neutrophils # (Auto) 4.6 x10^3uL (1.8-7.7) 3.2 x10^3uL (1.8-7.7) Lymphocytes # (Auto) 1.2 x10^3/uL (1.0-4.8) 1.7 x10^3/uL (1.0-4.8) Monocytes # (Auto) 0.5 x10^3/uL (0.0-1.1) 0.5 x10^3/uL (0.0-1.1) Eosinophils # (Auto) 0.3 x10^3/uL (0.0-0.7) 0.4 x10^3/uL (0.0-0.7) Basophils # (Auto) 0.1 x10^3/uL (0.0-0.2) 0.1 x10^3/uL (0.0-0.2) Prothrombin Time 14.3 SEC (11.7-14.0) Prothromb Time International Ratio 1.2 (0.8-1.1) Activated Partial Thromboplast Time 37 SEC (24-38) Sodium Level 141 mmol/L (136-145) 142 mmol/L (136-145) Potassium Level 4.2 mmol/L (3.5-5.1) 4.5 mmol/L (3.5-5.1) Chloride Level 106 mmol/L (98-107) 107 mmol/L (98-107) Carbon Dioxide Level 27 mmol/L (21-32) 30 mmol/L (21-32) Anion Gap 8 (6-14) 5 (6-14) Blood Urea Nitrogen 21 mg/dL (8-26) 22 mg/dL (8-26) Creatinine 1.6 mg/dL (0.7-1.3) 1.8 mg/dL (0.7-1.3) Estimated GFR (Cockcroft-Gault) 43.3 37.8 BUN/Creatinine Ratio 13 (6-20) Glucose Level 125 mg/dL (70-99) 114 mg/dL (70-99) Calcium Level 9.1 mg/dL (8.5-10.1) 8.6 mg/dL (8.5-10.1) Magnesium Level 2.1 mg/dL (1.8-2.4) Total Bilirubin 0.4 mg/dL (0.2-1.0) Aspartate Amino Transf (AST/SGOT) 20 U/L (15-37) Alanine Aminotransferase (ALT/SGPT) 42 U/L (16-63) Alkaline Phosphatase 104 U/L (46-116) Troponin I Quantitative 0.070 ng/mL (0.000-0.055) 0.067 ng/mL (0.000-0.055) 0.063 ng/mL (0.000-0.055) IN-Kve-L-Type Natriuretic Peptide 2011 pg/mL (0-124) Total Protein 7.3 g/dL (6.4-8.2) Albumin 3.6 g/dL (3.4-5.0) Albumin/Globulin Ratio 1.0 (1.0-1.7) Lipase 146 U/L (73-393) IMAGES IMAGES CXR: 09/26/2016: Technique: Upright portable chest radiograph was obtained. Comparison is from September 02, 2016. Findings: The lungs are clear. The cardiopulmonary silhouette is within normal limits. Cartridge projects over the chest on the left. Leads overlie the patient. Left shoulder arthroplasty is noted. Impression: No active pulmonary disease. ECHOCARDIOGRAM ECHOCARDIOGRAM 09/03/2106: TTE: The systolic function is moderately impaired. EF 45% The entire inferior, infero-septum and inferolateral lam are mild to moderately hypokinetic. HEART CATH HEART CATH 09/03/2016: Conclusion 1. Severe two-vessel coronary disease 2. Successful PCI/drug eluting stent placement to the right coronary artery, left anterior descending artery and also the diagonal branch. 3. Diaphragmatic wall hypokinesis with ejection fraction estimated at 50%. Recommendations 1. Aspirin 325 mg daily 2. Effient 10 mg daily for preferably one year 3. Cardiovascular risk factor modification. ASSESSMENT/PLAN ASSESSMENT/PLAN 1. chest pain, atypical EKG without acute changes troponin levels trivially elevated in the setting of CKD and not consistent with NSTEMI limited echo to evaluate LVEF and assess WMA suspect this is GERD - start PPI continue BB, ACEI, statins and DAPT 2. dizziness placed on event monitor which has not demonstrated significant arrhythmias so far baseline has been SR with PVCs ? related to use of narcotics with BB; decreased BB dose have adjusted administration times of other meds potentially affecting BP - flomax, ACEI, CCB 3. HTN controlled with meds 4. HLD continue high dose statin therapy ? home later today Problems: ABUNDIO VENTURA MD 09/28/162101: CARDIAC CONSULT ALLERGIES ALLERGIES: Coded Allergies: morphine (Verified Allergy, Intermediate, Rash, 07/28/16) AND ITCHING ASSESSMENT/PLAN ASSESSMENT/PLAN Late entry for 09/27/2016 Pt. seen and examined. Agree with above [employer] note. 65 y.o male with recent PCI. Presenting with GERD symptoms. Normal exam. Monitor overnight. If stable, will plan for DC tmrw. Problems: KADEN ROSADO APRN September 27, 2016 10:05 ABUNDIO VENTURA MD September 28, 2016 21:02
[2016-09-27] MEDS: PANTOPRAZOLE 40 MG TABLET.DR. PO SCH (10:33)
[2016-09-27 12:44] VITALS: BP 102/47
--- NOTE | 2016-09-27 15:32 | CARD ---
APPROVED REPORT EXAM: LIMITED Two-dimensional echocardiogram. Other Information Quality : Average Rhythm : NSR with PVC's INDICATION LV Function:Systolic 2D DIMENSIONS RVDd2.2 (2.9-3.5cm)Left Atrium(2D)3.2 (1.6-4.0cm) IVSd1.2 (0.7-1.1cm)Aortic Root(2D)2.9 (2.0-3.7cm) LVDd5.6 (3.9-5.9cm)PWd1.2 (0.7-1.1cm) LVDs4.1 (2.5-4.0cm)FS (%) 28.0 % SV83.1 mlLVEF(%)50.5 (>50%) LEFT VENTRICLE The left ventricle is normal size. There is borderline concentric left ventricular hypertrophy. Left ventricle systolic function is mild to moderately reduced. The Ejection Fraction is 40-45%. The basal to distal inferior and inferoseptal lam are mild to moderately hypokinetic. RIGHT VENTRICLE The right ventricle is normal size. The right ventricular systolic function is normal. ATRIA The left atrium size is normal. GREAT VESSELS The aortic root is normal in size. PERICARDIAL EFFUSION There is no evidence of significant pericardial effusion. Critical Notification Critical Value: No <Conclusion> The basal to distal inferior and inferoseptal lam are mild to moderately hypokinetic. Left ventricle systolic function is mild to moderately reduced. The Ejection Fraction is 40-45%. Limited echo only.
[2016-09-27 15:36] VITALS: BP 122/68
[2016-09-27] MEDS: amLODIPine BESYLATE 10 MG TABLET PO SCH (18:29)
[2016-09-27 19:25] VITALS: BP 116/60
--- NOTE | 2016-09-27 21:02 | PDOC ---
PROGRESS NOTES Chief Complaint Chief Complaint cc: chest pain Atypical chest pain, recent LHC On Effient Dizziness, bradycardia and mild hypotension: hold beta blockers, on event monitor. Echo today HTN: STABLE HLP: STABLE HX CAD: History of Present Illness History of Present Illness DIZZINESS Vitals Vitals Vital Signs Date Time Temp Pulse Resp B/P (MAP) Pulse Ox O2 Delivery O2 Flow Rate FiO2 09/27/16 20:39 Room Air 09/27/16 19:25 98.3 52 18 116/60 (78) 96 98.3 Physical Exam General: Alert, Cooperative, No acute distress Heart: Regular rate, Normal S1, Normal S2, No murmurs, Other (no carotid bruits ; tele: PVCs) Lungs: Other Abdomen: Normal bowel sounds, Soft Extremities: No edema, Normal pulses Skin: No rashes Labs LABS Laboratory Tests Test 09/27/16 00:45 White Blood Count 5.9 x10^3/uL (4.0-11.0) Red Blood Count 2.82 x10^6/uL (4.30-5.70) Hemoglobin 8.3 g/dL (13.0-17.5) Hematocrit 25.5 % (39.0-53.0) Mean Corpuscular Volume 91 fL (79-100) Mean Corpuscular Hemoglobin 30 pg (25-35) Mean Corpuscular Hemoglobin Concent 33 g/dL (31-37) Red Cell Distribution Width 16.5 % (11.5-14.5) Platelet Count 188 x10^3/uL (140-400) Neutrophils (%) (Auto) 54 % (31-73) Lymphocytes (%) (Auto) 29 % (24-48) Monocytes (%) (Auto) 9 % (0-9) Eosinophils (%) (Auto) 7 % (0-3) Basophils (%) (Auto) 1 % (0-3) Neutrophils # (Auto) 3.2 x10^3uL (1.8-7.7) Lymphocytes # (Auto) 1.7 x10^3/uL (1.0-4.8) Monocytes # (Auto) 0.5 x10^3/uL (0.0-1.1) Eosinophils # (Auto) 0.4 x10^3/uL (0.0-0.7) Basophils # (Auto) 0.1 x10^3/uL (0.0-0.2) Sodium Level 142 mmol/L (136-145) Potassium Level 4.5 mmol/L (3.5-5.1) Chloride Level 107 mmol/L (98-107) Carbon Dioxide Level 30 mmol/L (21-32) Anion Gap 5 (6-14) Blood Urea Nitrogen 22 mg/dL (8-26) Creatinine 1.8 mg/dL (0.7-1.3) Estimated GFR (Cockcroft-Gault) 37.8 Glucose Level 114 mg/dL (70-99) Calcium Level 8.6 mg/dL (8.5-10.1) Troponin I Quantitative 0.063 ng/mL (0.000-0.055) Assessment and Plan Assessmemt and Plan Problems Medical Problems: (1) NSTEMI (non-ST elevated myocardial infarction) Status: Acute Problems: Comment Review of Relevant I have reviewed the following items deo (where applicable) has been applied. Labs Laboratory Tests Test 09/26/16 11:51 09/26/16 18:35 09/27/16 00:45 White Blood Count 6.7 x10^3/uL (4.0-11.0) 5.9 x10^3/uL (4.0-11.0) Red Blood Count 3.27 x10^6/uL (4.30-5.70) 2.82 x10^6/uL (4.30-5.70) Hemoglobin 9.6 g/dL (13.0-17.5) 8.3 g/dL (13.0-17.5) Hematocrit 29.4 % (39.0-53.0) 25.5 % (39.0-53.0) Mean Corpuscular Volume 90 fL (79-100) 91 fL (79-100) Mean Corpuscular Hemoglobin 29 pg (25-35) 30 pg (25-35) Mean Corpuscular Hemoglobin Concent 33 g/dL (31-37) 33 g/dL (31-37) Red Cell Distribution Width 15.9 % (11.5-14.5) 16.5 % (11.5-14.5) Platelet Count 217 x10^3/uL (140-400) 188 x10^3/uL (140-400) Neutrophils (%) (Auto) 69 % (31-73) 54 % (31-73) Lymphocytes (%) (Auto) 18 % (24-48) 29 % (24-48) Monocytes (%) (Auto) 8 % (0-9) 9 % (0-9) Eosinophils (%) (Auto) 4 % (0-3) 7 % (0-3) Basophils (%) (Auto) 1 % (0-3) 1 % (0-3) Neutrophils # (Auto) 4.6 x10^3uL (1.8-7.7) 3.2 x10^3uL (1.8-7.7) Lymphocytes # (Auto) 1.2 x10^3/uL (1.0-4.8) 1.7 x10^3/uL (1.0-4.8) Monocytes # (Auto) 0.5 x10^3/uL (0.0-1.1) 0.5 x10^3/uL (0.0-1.1) Eosinophils # (Auto) 0.3 x10^3/uL (0.0-0.7) 0.4 x10^3/uL (0.0-0.7) Basophils # (Auto) 0.1 x10^3/uL (0.0-0.2) 0.1 x10^3/uL (0.0-0.2) Prothrombin Time 14.3 SEC (11.7-14.0) Prothromb Time International Ratio 1.2 (0.8-1.1) Activated Partial Thromboplast Time 37 SEC (24-38) Sodium Level 141 mmol/L (136-145) 142 mmol/L (136-145) Potassium Level 4.2 mmol/L (3.5-5.1) 4.5 mmol/L (3.5-5.1) Chloride Level 106 mmol/L (98-107) 107 mmol/L (98-107) Carbon Dioxide Level 27 mmol/L (21-32) 30 mmol/L (21-32) Anion Gap 8 (6-14) 5 (6-14) Blood Urea Nitrogen 21 mg/dL (8-26) 22 mg/dL (8-26) Creatinine 1.6 mg/dL (0.7-1.3) 1.8 mg/dL (0.7-1.3) Estimated GFR (Cockcroft-Gault) 43.3 37.8 BUN/Creatinine Ratio 13 (6-20) Glucose Level 125 mg/dL (70-99) 114 mg/dL (70-99) Calcium Level 9.1 mg/dL (8.5-10.1) 8.6 mg/dL (8.5-10.1) Magnesium Level 2.1 mg/dL (1.8-2.4) Total Bilirubin 0.4 mg/dL (0.2-1.0) Aspartate Amino Transf (AST/SGOT) 20 U/L (15-37) Alanine Aminotransferase (ALT/SGPT) 42 U/L (16-63) Alkaline Phosphatase 104 U/L (46-116) Troponin I Quantitative 0.070 ng/mL (0.000-0.055) 0.067 ng/mL (0.000-0.055) 0.063 ng/mL (0.000-0.055) RY-Wju-P-Type Natriuretic Peptide 2011 pg/mL (0-124) Total Protein 7.3 g/dL (6.4-8.2) Albumin 3.6 g/dL (3.4-5.0) Albumin/Globulin Ratio 1.0 (1.0-1.7) Lipase 146 U/L (73-393) Laboratory Tests Test 09/27/16 00:45 White Blood Count 5.9 x10^3/uL (4.0-11.0) Red Blood Count 2.82 x10^6/uL (4.30-5.70) Hemoglobin 8.3 g/dL (13.0-17.5) Hematocrit 25.5 % (39.0-53.0) Mean Corpuscular Volume 91 fL (79-100) Mean Corpuscular Hemoglobin 30 pg (25-35) Mean Corpuscular Hemoglobin Concent 33 g/dL (31-37) Red Cell Distribution Width 16.5 % (11.5-14.5) Platelet Count 188 x10^3/uL (140-400) Neutrophils (%) (Auto) 54 % (31-73) Lymphocytes (%) (Auto) 29 % (24-48) Monocytes (%) (Auto) 9 % (0-9) Eosinophils (%) (Auto) 7 % (0-3) Basophils (%) (Auto) 1 % (0-3) Neutrophils # (Auto) 3.2 x10^3uL (1.8-7.7) Lymphocytes # (Auto) 1.7 x10^3/uL (1.0-4.8) Monocytes # (Auto) 0.5 x10^3/uL (0.0-1.1) Eosinophils # (Auto) 0.4 x10^3/uL (0.0-0.7) Basophils # (Auto) 0.1 x10^3/uL (0.0-0.2) Sodium Level 142 mmol/L (136-145) Potassium Level 4.5 mmol/L (3.5-5.1) Chloride Level 107 mmol/L (98-107) Carbon Dioxide Level 30 mmol/L (21-32) Anion Gap 5 (6-14) Blood Urea Nitrogen 22 mg/dL (8-26) Creatinine 1.8 mg/dL (0.7-1.3) Estimated GFR (Cockcroft-Gault) 37.8 Glucose Level 114 mg/dL (70-99) Calcium Level 8.6 mg/dL (8.5-10.1) Troponin I Quantitative 0.063 ng/mL (0.000-0.055) Medications Current Medications Ondansetron HCl (Zofran) 4 mg 1X ONCE IV Last administered on 09/26/16 12:03 ; Start 09/26/16 at 11:30; Stop 09/26/16 at 11:31; Status DC Fentanyl Citrate (Fentanyl 2ml Vial) 75 mcg 1X ONCE IV Last administered on 12:04; Start 09/26/16 at 11:30; Stop 09/26/16 at 11:31; Status DC Ondansetron HCl (Zofran) 4 mg PRN Q8HRS PRN IV NAUSEA/VOMITING; Start 09/26/16 at 12:45; Stop 09/27/16 at 12:44; Status DC Fentanyl Citrate (Fentanyl 2ml Vial) 50 mcg PRN Q1HR PRN IV PAIN; Start at 12:45; Stop 09/27/16 at 12:44; Status DC Heparin Sodium (Porcine) (Heparin Sodium) 6,000 unit 1X ONCE IV ; Start at 12:45; Stop 09/26/16 at 12:46; Status DC Heparin Sodium/ Dextrose 500 ml @ 0 mls/hr 1X ONCE IV ; Start 09/26/16 at 12:45 ; Stop 09/26/16 at 12:46; Status DC Amlodipine Besylate (Norvasc) 10 mg DAILY PO ; Start 09/27/16 at 09:00; Stop at 10:10; Status DC Aspirin (Ecotrin) 325 mg DAILYWBKFT PO Last administered on 09/27/16 09:01; Start 09/27/16 at 08:00 Atorvastatin Calcium (Lipitor) 80 mg QHS PO Last administered on 09/26/16 21: 36; Start 09/26/16 at 21:00 Fluoxetine HCl (PROzac) 20 mg DAILY PO Last administered on 09/27/16 09:01; Start 09/27/16 at 09:00 Lisinopril (Prinivil) 5 mg DAILY PO ; Start 09/27/16 at 09:00 Metoprolol Succinate (Toprol Xl) 25 mg DAILY PO ; Start 09/27/16 at 09:00; Stop 09/27/16 at 10:10; Status DC Nitroglycerin (Nitrostat) 0.4 mg PRN Q5MIN PRN SL CHEST PAIN Last administered on 09/26/16 18:30; Start 09/26/16 at 13:15 Oxycodone/ Acetaminophen (Percocet 7.5/ 325) 1 tab PRN Q3HRS PRN PO PAIN Last administered on 09/26/16 21:39; Start 09/26/16 at 13:15 Prasugrel (Effient) 10 mg DAILYWBKFT PO Last administered on 09/27/16 09:01; Start 09/27/16 at 08:00 Tamsulosin HCl (Flomax) 0.4 mg DAILY PO Last administered on 09/27/16 09:01; Start 09/27/16 at 09:00; Stop 09/27/16 at 10:10; Status DC Temazepam (Restoril) 15 mg QHS PO Last administered on 09/26/16 21:37; Start 09/26/16 at 21:00 Famotidine (Pepcid) 20 mg BID PO Last administered on 09/27/16 09:02; Start at 21:00; Stop 09/27/16 at 10:11; Status DC Amlodipine Besylate (Norvasc) 10 mg DAILYWSUP PO Last administered on 18:29; Start 09/27/16 at 17:00 Metoprolol Succinate (Toprol Xl) 12.5 mg DAILY PO ; Start 09/28/16 at 09:00 Tamsulosin HCl (Flomax) 0.4 mg QHS PO ; Start 09/27/16 at 21:00 Pantoprazole Sodium (Protonix) 40 mg DAILYAC PO Last administered on 09/27/16 10:33; Start 09/27/16 at 10:15 Active Scripts Active Effient (Prasugrel Hcl) 10 Mg Tablet 10 Mg PO DAILYWBKFT Nitrostat (Nitroglycerin) 0.4 Mg Tab.subl 0.4 Mg SL PRN Q5MIN PRN Metoprolol Succinate ( Xl ) (Metoprolol Succinate) 25 Mg Tab.er.24h 25 Mg PO DAILY Lisinopril 5 Mg Tablet 5 Mg PO DAILY Atorvastatin Calcium 40 Mg Tablet 80 Mg PO QHS Aspirin Ec (Aspirin) 325 Mg Tablet.dr 325 Mg PO DAILYWBKFT Flomax (Tamsulosin Hcl) 0.4 Mg Cap.er.24h 0.4 Mg PO DAILY 30 Days Reported Temazepam 15 Mg Capsule 1 Cap PO QHS Percocet 7.5-325 Mg Tablet (Oxycodone/Acetaminophen) 1 Each Tablet 1 Tab PO PRN Q3HRS PRN Fluoxetine Hcl 20 Mg Capsule 1 Cap PO DAILY Ranitidine Hcl 150 Mg Capsule 150 Mg PO BID Vitals/I & O Vital Sign - Last 24 Hours 09/26/16 09/26/16 09/26/16 09/27/16 21:39 22:45 23:40 03:54 Temp 97.6 97.4 97.6 97.4 Pulse 50 43 Resp 16 16 16 16 B/P (MAP) 94/50 (65) 90/52 (65) Pulse Ox 96 92 92 91 O2 Delivery Room Air Room Air Room Air Room Air 09/27/16 09/27/16 09/27/16 09/27/16 07:00 08:00 09:00 09:00 Temp 97.3 97.3 Pulse 45 45 45 Resp 16 B/P (MAP) 98/61 (73) 98/61 98/61 Pulse Ox 95 O2 Delivery Room Air Room Air 09/27/16 09/27/16 09/27/16 09/27/16 09:00 12:44 15:36 18:29 Temp 98.2 97.8 98.2 97.8 Pulse 45 58 50 Resp 14 14 B/P (MAP) 102/47 (65) 122/68 (86) 122/68 Pulse Ox 95 95 O2 Delivery Room Air Room Air 09/27/16 09/27/16 19:25 20:39 Temp 98.3 98.3 Pulse 52 Resp 18 B/P (MAP) 116/60 (78) Pulse Ox 96 O2 Delivery Room Air Room Air Intake and Output 09/26/16 09/26/16 09/27/16 15:00 23:00 07:00 Intake Total 120 ml 500 ml Output Total 675 ml Balance -555 ml 500 ml TOM RAINEY MD September 27, 2016 21:02
[2016-09-27] MEDS: TEMAZEPAM 15 MG CAPSULE PO SCH (21:22)
[2016-09-27] MEDS: ATORVASTATIN CALCIUM 40 MG TABLET. PO SCH (21:23)
[2016-09-27 23:55] VITALS: BP 105/49
[2016-09-28 03:55] VITALS: BP 109/58
[2016-09-28 07:58] VITALS: BP 131/70
[2016-09-28] MEDS ORDERED: METOPROLOL SUCC 24HR ER 25 MG TAB.ER.24H. PO SCH (09:00)
[2016-09-28] MEDS: PANTOPRAZOLE 40 MG TABLET.DR. PO SCH (09:25)
[2016-09-28] MEDS: ASPIRIN ENTERIC COATED 325 MG TABLET.DR. PO SCH (09:26)
[2016-09-28] MEDS: FLUoxetine HCL 20 MG CAPSULE PO SCH (09:27)
[2016-09-28] MEDS: PRASUGREL 10 MG TABLET. PO SCH (09:27)
[2016-09-28] MEDS: LISINOPRIL 5 MG TABLET. PO SCH (09:27)
[2016-09-28 11:00] VITALS: BP 100/55
--- NOTE | 2016-09-28 11:37 | PDOC ---
JONNY KEYS HOLISTIC SPECIALIST 09/28/16 1137: CARDIO Progress Notes Date and Time Date of Service 09/28/2016 Time of Evaluation 1050 Subjective Subjective: No Chest Pain, No shortness of breath, No Palpitations, No Dizziness, Other (no further dizziness since admitted) Vitals Vitals Vital Signs Date Time Temp Pulse Resp B/P (MAP) Pulse Ox O2 Delivery O2 Flow Rate FiO2 09/28/16 09:27 60 131/70 09/28/16 07:58 98.9 17 95 Room Air 98.9 Weight Weight [ ] Input and Output Intake and Output Intake and Output 09/28/16 07:00 Intake Total 1280 ml Output Total 900 ml Balance 380 ml Intake Oral 1280 ml Output Urine Total 900 ml # Voids 2 Physical Exam HEENT: Neck Supple W Full Motion Chest: Symmetric LUNGS: Clear to Auscultation Heart: S1S2, RRR (SR with trigeminy), no gallops Abdomen: Soft N/T Extremities: No Edema, No Calf Tenderness Neurology: alert, oriented, follow commands Assessment Assessment 1. Atypical CP Mild troponin elevation peaked at 0.07 in the setting of renal insufficiency and cardiomyopathy No further CP, EKG no acute changes and limited TTE with EF 40-45%, generally no significant changes by comparison Likely GI, PPI on board Continue with DAPT with secondary prevention 2. Dizziness None further since admission Noted bradycardia likely due to mixed meds including phenergan/codeine and opioids in addition to cardiac meds Overnight frequent trigeminy, no symptoms. SR with intermittent SB episodes 50s. Outpt placed event monitor reviewed yesterday demonstrated significant arrhythmias so far Will continue wearing device and will reevaluate after completion Mg and BMP today and will replace K and Mg if low. Anticipate DC this afternoon, follow up as scheduled 3. Cardiomyopathy Compensated 3. HTN controlled with current regimen 4. HLD Statin ABUNDIO VENTURA MD 09/28/16 6603: CARDIO Progress Notes Plan Plan Pt. seen and examined. 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 No acute events overnight. No CP Tele reviewed. No significant issues. f/u with Dr. Yañez as previously scheduled. JONNY KEYS APRN September 28, 2016 11:37 ABUNDIO VENTURA MD September 28, 2016 21:03
[2016-09-28 12:09] LABS: CREATININE 1.7 mg/dL (0.7-1.3); GFR 40.4; MAGNESIUM 2.1 mg/dL (1.8-2.4); POTASSIUM 4.3 mmol/L (3.5-5.1)
[2016-09-28] MEDS ORDERED: METO25TA9 PO (15:33)
[2016-09-28 17:48] VITALS: BP 117/68
[2016-09-28] MEDS: amLODIPine BESYLATE 10 MG TABLET PO SCH (17:48)
== END 2016-09-28 19:52 | disposition home or self-care (01) | DRG 313 ==
LOC: ER 12:34 → 2 SOUTH 12:35
PROVIDERS: ADMIT Internal Medicine; ATTEND Internal Medicine
DX: R07.89 Other chest pain (principal); I13.0 Hypertensive heart and chronic kidney disease with heart failure and stage 1 through stage 4 chronic kidney disease, or unspecified chronic kidney disease; I50.20 Unspecified systolic (congestive) heart failure; E78.5 Hyperlipidemia, unspecified; F32.9 Major depressive disorder, single episode, unspecified; I25.10 Atherosclerotic heart disease of native coronary artery without angina pectoris; I25.5 Ischemic cardiomyopathy; I49.3 Ventricular premature depolarization; K21.9 Gastro-esophageal reflux disease without esophagitis; N18.9 Chronic kidney disease, unspecified; N40.0 Benign prostatic hyperplasia without lower urinary tract symptoms; Z82.49 Family history of ischemic heart disease and other diseases of the circulatory system; Z83.3 Family history of diabetes mellitus; I25.2 Old myocardial infarction; Z87.442 Personal history of urinary calculi; Z95.5 Presence of coronary angioplasty implant and graft
CPT/HCPCS: 36415; 71010; 80048; 80053; 83690; 83735; 83880; 84484; 85027; 85610; 85730; 93005; 93308; 96374; 96375; J2405; J3010; 99285-25

== ENCOUNTER → 2016-10-25 | Outpatient (CLI) | payer MEDICARE ==
[2016-09-28 17:48] VITALS: BP 117/68
[~2016-10-25] MED LIST changes: -ASPI325T4 PO; +ASPI325T8 PO; -HYDR-2666 PO; +HYDR-2758 PO; -OXYC-244 PO; +OXYC-327 PO
--- NOTE | 2016-10-26 11:08 | CARD ---
APPROVED REPORT Test Type: Exercise Stress Nurse/Tech: Taisha Stanley R.N. Test Indications: Chest Pain on exertion, dizziness Cardiac History: see ehr Medications: see ehr Medical History: see ehr Resting ECG: SB with BBB and PVC Resting Heart Rate: 56 bpm Resting Blood Pressure: 148/67mmHg Pretest Chest Pain: None Nurse/Tech Notes Lungs CTA, S1, S3 Consent: The procedure was explained to the patient in lay terms. Informed consent was witnessed. John eout was entered into [employer]. History and Stress Test performed by Taisha Stanley R.N. Stress Symptoms DyspneaFatigueDizziness POST EXERCISE Reason for Termination: Patient request Target HR: No Max HR: 128 bpm 84% of Maximum Predicted HR: 152 bpm Exercise duration: 3:09 min:sec, 2 Stage Exercise capacity: 4.6METs Max Blood Pressure: 194/60mmHg Blood Pressure response to exercise: Abnormal increase in blood pressure during stress. Chest Pain: No. Arrhythmia: No. ST Change: No. INTERPRETATION Stress EKG Conclusion: Patient became very fatigued and short of air. Treadmill stopped and patients observed for 6 minutes until he reached baseline. During rest he was in and out of bigeminy with no symptoms. Conclusion 1. 1. Poor exercise capacity on Nikunj protocol treadmill steady. Only 4.6 Mets achieved. 2. 2. Frequent PVC's in recovery in a bigeminal pattern. 3. 3. Hypertensive blood pressure response. 4. 4. No clear ischemia findings at low threshold, but PVC's in recovery suggestive but no diagnostic of ischemia.
== END | disposition home or self-care (01) ==
LOC: ECHO 12:36
PROVIDERS: ATTEND Internal Medicine Cardiovascular Disease
DX: R42 Dizziness and giddiness (principal)
CPT/HCPCS: 93017

== ENCOUNTER 2016-11-10 10:14 | Inpatient (IN) | payer MEDICARE ==
[~2016-11-10] VITALS: Ht 182.9 cm; Wt 93.0 kg
[2016-11-10] MEDS ORDERED: IV NORMAL SALINE 500ML BAG 500 ML IV ONE (11:45)
[2016-11-10 11:48] LABS: WHITE BLOOD COUNT 6.9 x10^3/uL (4.0-11.0)
[2016-11-10 11:49] LABS: BASO # 0.1 x10^3/uL (0.0-0.2); BASO % 1 % (0-3); EOS % 7 % (0-3); HEMATOCRIT 34.2 % (39.0-53.0); HEMOGLOBIN 11.1 g/dL (13.0-17.5); LYMPH # 1.5 x10^3/uL (1.0-4.8); LYMPH % 22 % (24-48); MEAN CORPUSCULAR HEMOGLOBIN 29 pg (25-35); MEAN CORPUSCULAR HGB CONC 33 g/dL (31-37); MEAN CORPUSCULAR VOLUME 90 fL (79-100); MONO % 9 % (0-9); NEUT % 61 % (31-73); PLATELET COUNT 161 x10^3/uL (140-400); RED CELL DISTRIBUTION WIDTH 18.3 % (11.5-14.5)
[2016-11-10 11:57] LABS: CALCIUM 9.4 mg/dL (8.5-10.1); CREATININE 1.7 mg/dL (0.7-1.3); GFR 40.3; POTASSIUM 4.3 mmol/L (3.5-5.1)
--- NOTE | 2016-11-10 11:58 | RAD ---
Portable chest, 11/10/2016: History: Near syncope Comparison is made to a study from 09/26/2016. The heart size and pulmonary vascularity are normal. No pulmonary infiltrate is seen. There is no evidence of pleural fluid. There is moderate spurring the spine. A reverse total left shoulder arthroplasty is evident. IMPRESSION: No acute cardiopulmonary abnormality is detected.
--- NOTE | 2016-11-10 13:13 | PHYS DOC ---
Past Medical History Past Medical History: Depression, GERD, Hypertension, Kidney Stone Additional Past Medical Histor: insominia Past Surgical History: Other Additional Past Surgical Histo: R KNEE, KIDNEY STONE SX, L SHOULDER SURGERY, cardiac cath with stents Alcohol Use: None Drug Use: None Adult General Chief Complaint Chief Complaint: DIZZY/LIGHT HEADED HPI HPI 66-year-old male sent to the emergency department for evaluation of near syncope while at cardiac's rehabilitation. Patient states he's been getting dizzy intermittently. He had an AR in August with [address] Davis normally. Patient denies chest pain or shortness of breath. Bradycardia high 40s low 50s on arrival in ED. Patient otherwise feels well without complaint Review of Systems Review of Systems Constitutional: Denies fever or chills [] Eyes: Denies change in visual acuity, redness, or eye pain [] HENT: Denies nasal congestion or sore throat [] Respiratory: Denies cough or shortness of breath [] Cardiovascular: No additional information not addressed in HPI [] GI: Denies abdominal pain, nausea, vomiting, bloody stools or diarrhea [] : Denies dysuria or hematuria [] Musculoskeletal: Denies back pain or joint pain [] Integument: Denies rash or skin lesions [] Neurologic: Denies headache, focal weakness or sensory changes [] Endocrine: Denies polyuria or polydipsia [] Current Medications Current Medications Current Medications Medications (Trade) Dose Ordered Sig/Konrad Start Time Stop Time Status Last Admin Dose Admin Sodium Chloride 500 ml @ 500 mls/hr 1X ONCE 11/10/16 11:45 11/10/16 12:44 DC 11/10/16 11:44 500 MLS/HR Allergies Allergies Allergies Coded Allergies Type Severity Reaction Last Updated Verified morphine Allergy Intermediate Rash 07/28/16 Yes Physical Exam Physical Exam Well-appearing male no acute distress at rest. Heart rate 47 on initial M.D. exam. Normal sinus bradycardia. Clear lungs regular rate and rhythm Constitutional: Well developed, well nourished, no acute distress, non-toxic appearance. [] HENT: Normocephalic, atraumatic, bilateral external ears normal, oropharynx moist, no oral exudates, nose normal. [] Eyes: PERRLA, EOMI, conjunctiva normal, no discharge. [] Neck: Normal range of motion, no tenderness, supple, no stridor. [] Cardiovascular:Heart rate regular rhythm, no murmur [] bradycardia 47-55 on M.D. exam. Lungs & Thorax: Bilateral breath sounds clear to auscultation [] Abdomen: Bowel sounds normal, soft, no tenderness, no masses, no pulsatile masses. [] Skin: Warm, dry, no erythema, no rash. [] Back: No tenderness, no CVA tenderness. [] Extremities: No tenderness, no cyanosis, no clubbing, ROM intact, no edema. [] Neurologic: Alert and oriented X 3, normal motor function, normal sensory function, no focal deficits noted. [] Psychologic: Affect normal, judgement normal, mood normal. [] Current Patient Data Vital Signs Vital Signs Date Time Temp Pulse Resp B/P (MAP) Pulse Ox O2 Delivery O2 Flow Rate FiO2 11/10/16 12:53 44 124/69 (87) 95 Room Air 11/10/16 10:15 97.6 18 97.6 Lab Values Laboratory Tests Test 11/10/16 10:25 White Blood Count 6.9 x10^3/uL (4.0-11.0) Red Blood Count 3.80 x10^6/uL (4.30-5.70) L Hemoglobin 11.1 g/dL (13.0-17.5) L Hematocrit 34.2 % (39.0-53.0) L Mean Corpuscular Volume 90 fL (79-100) Mean Corpuscular Hemoglobin 29 pg (25-35) Mean Corpuscular Hemoglobin Concent 33 g/dL (31-37) Red Cell Distribution Width 18.3 % (11.5-14.5) H Platelet Count 161 x10^3/uL (140-400) Neutrophils (%) (Auto) 61 % (31-73) Lymphocytes (%) (Auto) 22 % (24-48) L Monocytes (%) (Auto) 9 % (0-9) Eosinophils (%) (Auto) 7 % (0-3) H Basophils (%) (Auto) 1 % (0-3) Neutrophils # (Auto) 4.2 x10^3uL (1.8-7.7) Lymphocytes # (Auto) 1.5 x10^3/uL (1.0-4.8) Monocytes # (Auto) 0.6 x10^3/uL (0.0-1.1) Eosinophils # (Auto) 0.5 x10^3/uL (0.0-0.7) Basophils # (Auto) 0.1 x10^3/uL (0.0-0.2) Sodium Level 140 mmol/L (136-145) Potassium Level 4.3 mmol/L (3.5-5.1) Chloride Level 103 mmol/L (98-107) Carbon Dioxide Level 31 mmol/L (21-32) Anion Gap 6 (6-14) Blood Urea Nitrogen 21 mg/dL (8-26) Creatinine 1.7 mg/dL (0.7-1.3) H Estimated GFR (Cockcroft-Gault) 40.3 Glucose Level 122 mg/dL (70-99) H Calcium Level 9.4 mg/dL (8.5-10.1) Troponin I Quantitative 0.050 ng/mL (0.000-0.055) Thyroid Stimulating Hormone (TSH) 2.977 uIU/mL (0.358-3.74) Laboratory Tests 11/10/16 10:25 Laboratory Tests 11/10/16 10:25 EKG EKG Normal sinus bradycardia no STEMI interpreted by me no heart block [] Radiology/Procedures Radiology/Procedures Portable chest x-ray interpreted by me unremarkable [] Course & Med Decision Making Course & Med Decision Making Pertinent Labs and Imaging studies reviewed. (See chart for details) Signs and symptoms consistent with symptomatic bradycardia. Well-appearing patient. Hemodynamically stable otherwise. Discussed with hospitalist regarding inpatient admission with cardiology consultation. Patient accepted for admission. Stable in ED [] Dragon Disclaimer Dragon Disclaimer This electronic medical record was generated, in whole or in part, using a voice recognition dictation system. Departure Departure Impression: Primary Impression: Symptomatic bradycardia Additional Impression: Dizziness Disposition: 09 ADMITTED INPATIENT Condition: STABLE Referrals: PB COY MD (PCP) Problem Qualifiers KENNETH BARBOUR MD Nov 10, 2016 13:13
--- NOTE | 2016-11-10 13:35 | EKG ---
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
--- NOTE | 2016-11-10 13:45 | PDOC2 ---
MADHAVI AYALA PAPER BAG INSPECTOR 11/10/16 1345: CARDIAC CONSULT DATE OF CONSULT Date of Consult DATE: 11/10/16 TIME: 13:43 REASON FOR CONSULT Reason for Consult: symptomatic bradycardia, near syncope REFERRING PHYSICIAN Referring Physician: Dr. Lovelace SOURCE Source: Chart review, Patient HISTORY OF PRESENT ILLNESS HISTORY OF PRESENT ILLNESS This is a 66 yo male, with a history of recent STEMI s/p PCI/KIM to RCA, LAD and diagonal, who present with complaints of dizziness. Patient reports experiencing intermittent dizziness over the weekend. Episodes would last 2-3 minutes and resolved without intervention. No syncope/LOC. No associated chest pain, palpitations, diaphoresis, or nausea/vomiting. This morning, was exercising at cardiac rehab; became lightheaded. [place] like he could pass out. Was referred to the ED for further evaluation and treatment. HR noted to be in the upper 40's. Reports compliance with medications. Recently evaluated for dizzy spells. BB decreased. Wore event monitor, which revealed episodes of bradycardia that seemed to correlate with dizzy spells; suspicion for chronotropic incompetence. Underwent treadmill exercise stress test, which revealed appropriate response. PAST MEDICAL HISTORY Past Medical History Cardiovascular: CAD (STEMI; 08/2016 with 3 stents to RCA; 1 each to LAD and diagonal - all KIM), CHF (systolic; LVEF ~ 45%), HTN, Hyperlipidemia, Other ( ischemic CMP; LVEF ~ 45%) Pulmonary: No pertinent hx CENTRAL NERVOUS SYSTEM: Other (denies) GI: GERD Heme/Onc: No pertinent hx Hepatobiliary: No pertinent hx Psych: Depression Musculoskeletal: Osteoarthritis Rheumatologic: No pertinent hx ENT: No pertinent hx Renal/: Chronic renal insuff (stage III), Other (renal caculi with previous lithotripsy) Endocrine: No pertinent hx Dermatology: No pertinent hx PAST SURGICAL HISTORY Past Surgical History Past Surgical History: Other (left reverse total shoulder; right knee; lithotripsy) FAMILY HISTORY Family History: Diabetes, Hypertension SOCIAL HISTORY Smoke: No ALCOHOL: none Drugs: None Lives: with Family CURRENT MEDICATIONS CURRENT MEDICATIONS Current Medications Medications (Trade) Dose Ordered Sig/Konrad Route PRN Reason Start Time Stop Time Status Last Admin Dose Admin Sodium Chloride 500 ml @ 500 mls/hr 1X ONCE IV 11/10/16 11:45 11/10/16 12:44 DC 11/10/16 11:44 ALLERGIES ALLERGIES: Coded Allergies: morphine (Verified Allergy, Intermediate, Rash, 07/28/16) AND ITCHING ROS Review of System 14 point ROS conducted with pertinent positives noted above in HPI. PHYSICAL EXAM PHYSICAL EXAM General: Alert, Cooperative, No acute distress HEENT: Atraumatic, PERRLA Lungs: Clear to auscultation Heart: Normal S1, Normal S2, No murmurs, Other (no carotid bruits; tele: SB with PVC's- rate 48) Abdomen: Normal bowel sounds, Soft Extremities: No edema, Normal pulses Skin: No rashes Neuro: Normal speech Psych/Mental Status: Mental status NL, Mood NL MUSCULOSKELETAL: Osteoarthritic changes both hands VITALS VITALS Vital Signs Date Time Temp Pulse Resp B/P (MAP) Pulse Ox O2 Delivery O2 Flow Rate FiO2 11/10/16 11:30 46 126/63 (84) 94 Room Air 11/10/16 10:15 97.6 18 97.6 LABS Lab: Laboratory Tests Test 11/10/16 10:25 White Blood Count 6.9 x10^3/uL (4.0-11.0) Red Blood Count 3.80 x10^6/uL (4.30-5.70) Hemoglobin 11.1 g/dL (13.0-17.5) Hematocrit 34.2 % (39.0-53.0) Mean Corpuscular Volume 90 fL (79-100) Mean Corpuscular Hemoglobin 29 pg (25-35) Mean Corpuscular Hemoglobin Concent 33 g/dL (31-37) Red Cell Distribution Width 18.3 % (11.5-14.5) Platelet Count 161 x10^3/uL (140-400) Neutrophils (%) (Auto) 61 % (31-73) Lymphocytes (%) (Auto) 22 % (24-48) Monocytes (%) (Auto) 9 % (0-9) Eosinophils (%) (Auto) 7 % (0-3) Basophils (%) (Auto) 1 % (0-3) Neutrophils # (Auto) 4.2 x10^3uL (1.8-7.7) Lymphocytes # (Auto) 1.5 x10^3/uL (1.0-4.8) Monocytes # (Auto) 0.6 x10^3/uL (0.0-1.1) Eosinophils # (Auto) 0.5 x10^3/uL (0.0-0.7) Basophils # (Auto) 0.1 x10^3/uL (0.0-0.2) Sodium Level 140 mmol/L (136-145) Potassium Level 4.3 mmol/L (3.5-5.1) Chloride Level 103 mmol/L (98-107) Carbon Dioxide Level 31 mmol/L (21-32) Anion Gap 6 (6-14) Blood Urea Nitrogen 21 mg/dL (8-26) Creatinine 1.7 mg/dL (0.7-1.3) Estimated GFR (Cockcroft-Gault) 40.3 Glucose Level 122 mg/dL (70-99) Calcium Level 9.4 mg/dL (8.5-10.1) Troponin I Quantitative 0.050 ng/mL (0.000-0.055) Thyroid Stimulating Hormone (TSH) 2.977 uIU/mL (0.358-3.74) ECHOCARDIOGRAM ECHOCARDIOGRAM <Conclusion> The systolic function is moderately impaired. EF 45% The entire inferior, infero-septum and inferolateral lam are mild to moderately hypokinetic. DATE: 09/03/16 1754 STRESS TEST STRESS TEST POST EXERCISE Reason for Termination: Patient request Target HR: No Max HR: 128 bpm 84% of Maximum Predicted HR: 152 bpm Exercise duration: 3:09 min:sec, 2 Stage Exercise capacity: 4.6METs Max Blood Pressure: 194/60mmHg Blood Pressure response to exercise: Abnormal increase in blood pressure during stress. Chest Pain: No. Arrhythmia: No. ST Change: No. INTERPRETATION Stress EKG Conclusion: Patient became very fatigued and short of air. Treadmill stopped and patients observed for 6 minutes until he reached baseline. During rest he was in and out of bigeminy with no symptoms. Conclusion 1. 1. Poor exercise capacity on Nikunj protocol treadmill steady. Only 4.6 Mets achieved. 2. 2. Frequent PVC's in recovery in a bigeminal pattern. 3. 3. Hypertensive blood pressure response. 4. 4. No clear ischemia findings at low threshold, but PVC's in recovery suggestive but no diagnostic of ischemia. DATE: 10/26/16 1108 HEART CATH HEART CATH Conclusion 1. Severe two-vessel coronary disease 2. Successful PCI/drug eluting stent placement to the right coronary artery, left anterior descending artery and also the diagonal branch. 3. Diaphragmatic wall hypokinesis with ejection fraction estimated at 50%. Recommendations 1. Aspirin 325 mg daily 2. Effient 10 mg daily for preferably one year 3. Cardiovascular risk factor modification. DATE: 09/03/16 0935 ASSESSMENT/PLAN ASSESSMENT/PLAN 1. Bradycardia; presently asymptomatic 2. Dizziness 3. CAD; s/p KIM to RCA, LAD and diagonal 4. Chronic systolic heart failure; compensated 5. Ischemic cardiomyopathy; LVEF 45% 6. Hypertension; well-controlled 7. Hyperlipidemia; LDL= 108 (08/13) statin therapy Recommendations Discontinue metoprolol. Avoid AV thelma blocking agents. Monitor telemetry overnight Continue secondary prevention measures including DAPT. Problems: IRVING LIMA MD 11/10/16 1603: CARDIAC CONSULT ALLERGIES ALLERGIES: Coded Allergies: morphine (Verified Allergy, Intermediate, Rash, 07/28/16) AND ITCHING ASSESSMENT/PLAN ASSESSMENT/PLAN Patient seen and examined. Agree with MANAGER TRAINING AND DEVELOPMENT's assessment and plan. Agree with holding metoprolol and monitor telemetry. Recent event monitor did not show any significant arrhythmias other than sinus eddie Recent treadmill exercise stress test showed chronotropic competence. CAD status stable. Chr systolic heart failure compensated. If symptoms/eddie do not improve with holding BB, we will consider PPM implantation. Thank you for your consultation. Problems: MADHAVI AYALA APRN Nov 10, 2016 13:45 IRVING LIMA MD Nov 10, 2016 16:03
[2016-11-10 15:00] VITALS: BP 114/93
[2016-11-10] MEDS ORDERED: MULT1CAP6 PO (16:22)
[2016-11-10] MEDS ORDERED: NITROGLYCERIN SUBLINGUAL 0.4 MG BOTTLE OF 25. SL PRN (16:45)
--- NOTE | 2016-11-10 17:25 | ACF ---
Admission Forms Criteria TELEMETRY CARE Telemetry Admission Guidelines (Place 'X' for any and all applicable criteria): Admission to telemetry [A] may be indicated for ANY ONE of the following(1)(2)(3 )(4)(5): [X ]I. Cardiac disease, including ANY ONE of the following (9)(10)(11)(12)( 13): [ ]a) Postacute AZ [ ]b) Low-risk patients with ST-segment elevation AZ who have undergone successful percutaneous coronary intervention [ ]c) Unstable angina [ ]d) Suspected [place] (until it is ruled out) [ ]e) Post cardiac surgery (first 48 to 72 hours unless complications occur) [X ]f) Acute arrhythmias (including significant tachycardia or bradycardia) [B] [ ]g) Firing of an implantable cardioverter defibrillator [C] [ ]h) Suspected pacemaker or implantable cardioverter defibrillator malfunction (10) [ ]i) New administration or adjustment of an antiarrhythmic drug [D ] [ ]j) Child admitted for acute congestive heart failure [ ]j) Long QT syndrome [ ]k) Advanced heart block (eg, second-degree Mobitz type II, third- degree heart block) [ ]l) Acute myocarditis or pericarditis [ ]m) Short-term (ambulatory or inpatient) monitoring after a cardiac procedure as indicated by ANY ONE of the following [E]: [ ]i) Electrophysiologic studies [ ]ii) Percutaneous coronary intervention with stent placement [ ]iii) Pacemaker placement with cardiac conduction defect [ ]iv) Implantable cardiac defibrillator placement [ ]II. Drug overdose or poisoning with substance that causes arrhythmias or QT prolongation (eg, phenothiazines, sympathomimetic agents, cyclic antidepressants, digitalis, antiarrhythmic drugs)(15) [ ]III. Short-term (ambulatory or inpatient) monitoring after therapeutic or diagnostic procedure requiring conscious sedation or anesthesia (eg, endoscopy, elective cardioversion) [ ]IV. Acute cerebrovascular even[F](18) [ ]V. Massive blood transfusion (eg, at least 10 units of packed red blood cells in 24 hours) [ ]. Variceal bleeding after endoscopy, sclerotherapy, or IV vasopressin [ ]VII. Uncorrected electrolyte abnormalities associated with an increased risk of dangerous arrhythmia [G]; examples include [ ]a) Hyperkalemia with attributable ECG changes [ ]b) Potassium greater than 6.5 mmol/L (mEq/L) in a patient without history of chronic renal disease [ ]c) Prolonged QT attributed to hypokalemia, hypomagnesemia, or hypocalcemia [ ]VIII.Unexplained syncope or other neurologic event suspected of being due to arrhythmia due to a finding that increases risk; examples include(19)(20)(21): [ ]a) High-risk ECG findings (eg, bifascicular block, bradycardia, abnormal QT interval, ventricular pre- excitation) [ ]b) History of previous syncope due to arrhythmia [ ]c) Abnormal ventricular function (eg, reduced ejection fraction ) [ ]d) Exertional or supine syncope [ ]e) Concerning syncope characteristics (eg, sudden loss of consciousness without prodrome) [ ]f) Family history of sudden [ ]g) Use of arrhythmogenic medication [ ]h) Suspected cardiac ischemia [ ]i) Known channelopathy (eg, long QT syndrome, Brugada syndrome, or catecholaminergic paroxysmal ventricular tachycardia) [ ]j) Known structural heart disease (eg, hypertrophic cardiomyopathy , severe valvular disease) [ ]k) Palpitations preceding syncope The original [employer] content created by [employer] has been revised. The portions of the content which have been revised are identified through the use of italic text or in bold, and [email or web address] has neither reviewed nor approved the modified material. All other unmodified content is copyright [employer]. Please see references footnoted in the original [employer] edition 2016 Admission Criteria Met?: Yes IKARA ORONA Nov 10, 2016 17:24 LEENA LONGO Nov 11, 2016 05:59
--- NOTE | 2016-11-10 18:26 | PDOC1 ---
History and Physical Identification/Chief Complaint Chief Complaint dizziness Problems: History of Present Illness History of Present Illness A 66 yo male, with a history of recent hx of STEMI s/p PCI/KIM to RCA, LAD and diagonal, who present with complaints of dizziness for last couple of days, symptoms lasted for few min, denies any syncope, denies any dehydration. On beta carlos enrique now, no dehydration, no middle ear problems. no chest pain. feeling better now. Past Medical History Cardiovascular: CAD, CHF, HTN, Hyperlipidemia, Other Pulmonary: No pertinent hx CENTRAL NERVOUS SYSTEM: Other GI: GERD Heme/Onc: No pertinent hx Hepatobiliary: No pertinent hx Psych: Depression Rheumatologic: No pertinent hx Renal/: Chronic renal insuff, Other Endocrine: No pertinent hx Past Surgical History Past Surgical History: Other Family History Family History: Diabetes, Hypertension Social History Smoke: No ALCOHOL: none Drugs: None Current Problem List Problem List Problems Medical Problems: (1) Near syncope Status: Acute (2) Symptomatic bradycardia Status: Acute Current Medications Current Medications Current Medications Medications (Trade) Dose Ordered Sig/Konrad Start Time Stop Time Status Last Admin Dose Admin Aspirin (Ecotrin) 325 mg DAILYWBKFT 11/11/16 08:00 Atorvastatin Calcium (Lipitor) 80 mg QHS 11/10/16 21:00 Famotidine (Pepcid) 20 mg QHS 11/10/16 21:00 Fluoxetine HCl (PROzac) 20 mg DAILY 11/11/16 09:00 Lisinopril (Prinivil) 5 mg DAILY 11/11/16 09:00 Metoprolol Succinate (Toprol Xl) 12.5 mg DAILY 11/11/16 09:00 Multivitamins (Thera M Plus) 1 tab DAILY 11/11/16 09:00 Nitroglycerin (Nitrostat) 0.4 mg PRN Q5MIN PRN 11/10/16 16:45 Prasugrel (Effient) 10 mg DAILYWBKFT 11/11/16 08:00 Sodium Chloride 500 ml @ 500 mls/hr 1X ONCE 11/10/16 11:45 11/10/16 12:44 DC 11/10/16 11:44 500 MLS/HR Tamsulosin HCl (Flomax) 0.4 mg DAILY 11/11/16 09:00 Temazepam (Restoril) 15 mg QHS 11/10/16 21:00 Allergies Allergies Allergies Coded Allergies Type Severity Reaction Last Updated Verified morphine Allergy Intermediate Rash 07/28/16 Yes ROS Review of System CONSTITUTIONAL: No fever or chills EYES: No recent changes SKIN: No rash or itching CARDIOVASCULAR: No chest pain, syncope, palpitations, or edema but DIZZINESS. RESPIRATORY: No SOB or cough GASTROINTESTINAL: No nausea, vomiting or abdominal pain NEUROLOGICAL: No headaches or weakness ENDOCRINE: No cold or heat intolerance GENITOURINARY: No urgency or frequency of urination MUSCULOSKELETAL: No back pain or joint pain LYMPHATICS: No enlarged lymph nodes PSYCHIATRIC: No anxiety or depression Physical Exam Physical Exam GEN.: No apparent distress. Alert and oriented TIMES 3 HEENT: Head is normocephalic, atraumatic NECK: Supple. NO JVD LUNGS: Clear to auscultation. HEART: bradycardia. S1, S2 present. Peripheral pulses intact ABDOMEN: Soft, nontender. Positive bowel sounds. EXTREMITIES: Without any cyanosis. NEUROLOGIC: Normal speech, normal tone PSYCHIATRIC: Normal affect, normal mood. SKIN: No ulcerations Vitals Vitals Vital Signs Date Time Temp Pulse Resp B/P (MAP) Pulse Ox O2 Delivery O2 Flow Rate FiO2 11/10/16 15:18 Room Air 11/10/16 15:00 98.0 48 18 114/93 (100) 99 98.0 Labs Labs Laboratory Tests Test 11/10/16 10:25 White Blood Count 6.9 x10^3/uL (4.0-11.0) Red Blood Count 3.80 x10^6/uL (4.30-5.70) Hemoglobin 11.1 g/dL (13.0-17.5) Hematocrit 34.2 % (39.0-53.0) Mean Corpuscular Volume 90 fL (79-100) Mean Corpuscular Hemoglobin 29 pg (25-35) Mean Corpuscular Hemoglobin Concent 33 g/dL (31-37) Red Cell Distribution Width 18.3 % (11.5-14.5) Platelet Count 161 x10^3/uL (140-400) Neutrophils (%) (Auto) 61 % (31-73) Lymphocytes (%) (Auto) 22 % (24-48) Monocytes (%) (Auto) 9 % (0-9) Eosinophils (%) (Auto) 7 % (0-3) Basophils (%) (Auto) 1 % (0-3) Neutrophils # (Auto) 4.2 x10^3uL (1.8-7.7) Lymphocytes # (Auto) 1.5 x10^3/uL (1.0-4.8) Monocytes # (Auto) 0.6 x10^3/uL (0.0-1.1) Eosinophils # (Auto) 0.5 x10^3/uL (0.0-0.7) Basophils # (Auto) 0.1 x10^3/uL (0.0-0.2) Sodium Level 140 mmol/L (136-145) Potassium Level 4.3 mmol/L (3.5-5.1) Chloride Level 103 mmol/L (98-107) Carbon Dioxide Level 31 mmol/L (21-32) Anion Gap 6 (6-14) Blood Urea Nitrogen 21 mg/dL (8-26) Creatinine 1.7 mg/dL (0.7-1.3) Estimated GFR (Cockcroft-Gault) 40.3 Glucose Level 122 mg/dL (70-99) Calcium Level 9.4 mg/dL (8.5-10.1) Troponin I Quantitative 0.050 ng/mL (0.000-0.055) Thyroid Stimulating Hormone (TSH) 2.977 uIU/mL (0.358-3.74) Laboratory Tests Test 11/10/16 10:25 White Blood Count 6.9 x10^3/uL (4.0-11.0) Red Blood Count 3.80 x10^6/uL (4.30-5.70) Hemoglobin 11.1 g/dL (13.0-17.5) Hematocrit 34.2 % (39.0-53.0) Mean Corpuscular Volume 90 fL (79-100) Mean Corpuscular Hemoglobin 29 pg (25-35) Mean Corpuscular Hemoglobin Concent 33 g/dL (31-37) Red Cell Distribution Width 18.3 % (11.5-14.5) Platelet Count 161 x10^3/uL (140-400) Neutrophils (%) (Auto) 61 % (31-73) Lymphocytes (%) (Auto) 22 % (24-48) Monocytes (%) (Auto) 9 % (0-9) Eosinophils (%) (Auto) 7 % (0-3) Basophils (%) (Auto) 1 % (0-3) Neutrophils # (Auto) 4.2 x10^3uL (1.8-7.7) Lymphocytes # (Auto) 1.5 x10^3/uL (1.0-4.8) Monocytes # (Auto) 0.6 x10^3/uL (0.0-1.1) Eosinophils # (Auto) 0.5 x10^3/uL (0.0-0.7) Basophils # (Auto) 0.1 x10^3/uL (0.0-0.2) Sodium Level 140 mmol/L (136-145) Potassium Level 4.3 mmol/L (3.5-5.1) Chloride Level 103 mmol/L (98-107) Carbon Dioxide Level 31 mmol/L (21-32) Anion Gap 6 (6-14) Blood Urea Nitrogen 21 mg/dL (8-26) Creatinine 1.7 mg/dL (0.7-1.3) Estimated GFR (Cockcroft-Gault) 40.3 Glucose Level 122 mg/dL (70-99) Calcium Level 9.4 mg/dL (8.5-10.1) Troponin I Quantitative 0.050 ng/mL (0.000-0.055) Thyroid Stimulating Hormone (TSH) 2.977 uIU/mL (0.358-3.74) VTE Prophylaxis Ordered VTE Prophylaxis Devices: Yes VTE Pharmacological Prophylaxi: No Assessment/Plan Assessment/Plan 1. Bradycardia, symptomatic: holding beta blockers. on telemetry, orthostatic BP, possible pacer placement if symptoms persist, old records reviewed, event monitor didn't show any athymias. EKG, Labs reviewed. 2. Overweight. 3. hx of CAD; s/p KIM to RCA, LAD and diagonal: home medications reviewed, continue, cardiology consult. 4. Chronic systolic heart failure; compensated 5. Ischemic cardiomyopathy; LVEF 45% 6. Hypertension; well-controlled : continue current medications. PRN hydralazine. 7. Hyperlipidemia; LDL= 108 (/) statin therapy TOM RAINEY MD Nov 10, 2016 18:26
[2016-11-10] MEDS ORDERED: hydrALAZINE 20 MG/ML VIAL. IVP PRN (18:45)
[2016-11-10] MEDS ORDERED: ALBUTEROL SULFATE 2.5 MG/3 ML NEBU. NEB PRN (18:45)
[2016-11-10] MEDS ORDERED: ONDANSETRON PF 4 MG/2 ML VIAL. IV PRN (18:45)
[2016-11-10] MEDS ORDERED: ACETAMINOPHEN 325 MG TABLET. PO PRN (18:45)
[2016-11-10 19:42] VITALS: BP 113/64
[2016-11-10] MEDS: ATORVASTATIN CALCIUM 40 MG TABLET. PO SCH (21:00)
[2016-11-10] MEDS: TEMAZEPAM 15 MG CAPSULE PO SCH (22:01)
[2016-11-10] MEDS: HYDROcodone/APAP 5/325MG 1 TAB TABLET PO PRN (22:02)
[2016-11-10] MEDS: FAMOTIDINE 20 MG TABLET. PO SCH (22:02)
[2016-11-10 23:50] VITALS: BP 110/58
[2016-11-11 03:26] VITALS: BP 98/52
[2016-11-11 04:32] LABS: BASO # 0.1 x10^3/uL (0.0-0.2); BASO % 1 % (0-3); EOS % 9 % (0-3); HEMATOCRIT 31.6 % (39.0-53.0); HEMOGLOBIN 10.4 g/dL (13.0-17.5); LYMPH # 1.5 x10^3/uL (1.0-4.8); LYMPH % 25 % (24-48); MEAN CORPUSCULAR HEMOGLOBIN 30 pg (25-35); MEAN CORPUSCULAR HGB CONC 33 g/dL (31-37); MEAN CORPUSCULAR VOLUME 90 fL (79-100); MONO % 8 % (0-9); NEUT % 57 % (31-73); PLATELET COUNT 160 x10^3/uL (140-400); RED BLOOD COUNT 3.49 x10^6/uL (4.30-5.70); RED CELL DISTRIBUTION WIDTH 18.4 % (11.5-14.5); WHITE BLOOD COUNT 5.9 x10^3/uL (4.0-11.0)
[2016-11-11 04:48] LABS: CALCIUM 8.2 mg/dL (8.5-10.1); CREATININE 1.7 mg/dL (0.7-1.3); GFR 40.3; POTASSIUM 4.4 mmol/L (3.5-5.1)
[2016-11-11 07:00] VITALS: BP 115/65
[2016-11-11] MEDS: FLUoxetine HCL 20 MG CAPSULE PO SCH (08:54)
[2016-11-11] MEDS: MULTIVITAMIN with MINERAL TABLET. PO SCH (08:54)
[2016-11-11] MEDS: ASPIRIN ENTERIC COATED 325 MG TABLET.DR. PO SCH (08:54)
[2016-11-11] MEDS: LISINOPRIL 5 MG TABLET. PO SCH (08:55)
[2016-11-11] MEDS: PRASUGREL 10 MG TABLET. PO SCH (08:55)
[2016-11-11] MEDS: TAMSULOSIN 0.4 MG CAP.ER.24H. PO SCH (08:55)
[2016-11-11] MEDS ORDERED: METOPROLOL SUCC 24HR ER 25 MG TAB.ER.24H. PO SCH (09:00)
[2016-11-11 11:00] VITALS: BP 105/66
--- NOTE | 2016-11-11 13:55 | PDOC ---
CALIXTO MTZ [employer] ATTEND[employer] 11/11/16 8645: PROGRESS NOTES Subjective Subjective continues to complain of lightheadedness on standing and walking, improved with laying down. Objective Objective tele - sinus rhythm with few episodes of ventricular bigeminy. Vital Signs Date Time Temp Pulse Resp B/P (MAP) Pulse Ox O2 Delivery O2 Flow Rate FiO2 11/11/16 11:00 97.9 52 18 105/66 (79) 96 Room Air 97.9 Intake and Output 11/11/16 07:00 Intake Total 610 ml Output Total 250 ml Balance 360 ml Intake Oral 610 ml Output Urine Total 250 ml # Voids 3 Physical Exam Abdomen: Normal bowel sounds, Soft, No tenderness Heart: Normal S1, Normal S2, Other (irregular rhythm) Extremities: No cyanosis, Normal pulses General: Alert, Oriented X3, Cooperative, No acute distress Lungs: Clear to auscultation, Normal air movement Neuro: Normal speech, Strength at 5/5 X4 ext Psych/Mental Status: Mental status NL, Mood NL Assessment Assessment Problems Medical Problems: (1) Near syncope Status: Acute (2) Symptomatic bradycardia Status: Acute 1. Bradycardia; presently asymptomatic, remains mid 50s with occasional episodes of bigeminal PVCs. Appropriate chronotropic response based on EST 2016. Beta blockers on hold. Nursing reports heart rate response appropriate when up ambulating. Consider Loop. 2. lightheadedness - ? associated with bradycardia. no change, no syncope. 3. CAD; s/p KIM to RCA, LAD and diagonal - angina free. continue medical therapy. no beta blockers due to bradycardia. 4. Chronic systolic heart failure; compensated 5. Ischemic cardiomyopathy; LVEF 45%- medical therapy (no beta carlos enrique due to bradycardia.) 6. Hypertension; well-controlled on ACEI. 7. Hyperlipidemia; LDL= 108 (08/13) continue statin therapy Comment Review of Relevant I have reviewed the following items deo (where applicable) has been applied. Labs Laboratory Tests Test 11/10/16 10:25 11/11/16 03:10 11/11/16 12:02 White Blood Count 6.9 x10^3/uL (4.0-11.0) 5.9 x10^3/uL (4.0-11.0) Red Blood Count 3.80 x10^6/uL (4.30-5.70) 3.49 x10^6/uL (4.30-5.70) Hemoglobin 11.1 g/dL (13.0-17.5) 10.4 g/dL (13.0-17.5) Hematocrit 34.2 % (39.0-53.0) 31.6 % (39.0-53.0) Mean Corpuscular Volume 90 fL (79-100) 90 fL (79-100) Mean Corpuscular Hemoglobin 29 pg (25-35) 30 pg (25-35) Mean Corpuscular Hemoglobin Concent 33 g/dL (31-37) 33 g/dL (31-37) Red Cell Distribution Width 18.3 % (11.5-14.5) 18.4 % (11.5-14.5) Platelet Count 161 x10^3/uL (140-400) 160 x10^3/uL (140-400) Neutrophils (%) (Auto) 61 % (31-73) 57 % (31-73) Lymphocytes (%) (Auto) 22 % (24-48) 25 % (24-48) Monocytes (%) (Auto) 9 % (0-9) 8 % (0-9) Eosinophils (%) (Auto) 7 % (0-3) 9 % (0-3) Basophils (%) (Auto) 1 % (0-3) 1 % (0-3) Neutrophils # (Auto) 4.2 x10^3uL (1.8-7.7) 3.3 x10^3uL (1.8-7.7) Lymphocytes # (Auto) 1.5 x10^3/uL (1.0-4.8) 1.5 x10^3/uL (1.0-4.8) Monocytes # (Auto) 0.6 x10^3/uL (0.0-1.1) 0.5 x10^3/uL (0.0-1.1) Eosinophils # (Auto) 0.5 x10^3/uL (0.0-0.7) 0.5 x10^3/uL (0.0-0.7) Basophils # (Auto) 0.1 x10^3/uL (0.0-0.2) 0.1 x10^3/uL (0.0-0.2) Sodium Level 140 mmol/L (136-145) 144 mmol/L (136-145) Potassium Level 4.3 mmol/L (3.5-5.1) 4.4 mmol/L (3.5-5.1) Chloride Level 103 mmol/L (98-107) 107 mmol/L (98-107) Carbon Dioxide Level 31 mmol/L (21-32) 30 mmol/L (21-32) Anion Gap 6 (6-14) 7 (6-14) Blood Urea Nitrogen 21 mg/dL (8-26) 23 mg/dL (8-26) Creatinine 1.7 mg/dL (0.7-1.3) 1.7 mg/dL (0.7-1.3) Estimated GFR (Cockcroft-Gault) 40.3 40.3 Glucose Level 122 mg/dL (70-99) 96 mg/dL (70-99) Calcium Level 9.4 mg/dL (8.5-10.1) 8.2 mg/dL (8.5-10.1) Troponin I Quantitative 0.050 ng/mL (0.000-0.055) Thyroid Stimulating Hormone (TSH) 2.977 uIU/mL (0.358-3.74) Glucose (Fingerstick) 91 mg/dL (70-99) Laboratory Tests Test 11/11/16 03:10 11/11/16 12:02 White Blood Count 5.9 x10^3/uL (4.0-11.0) Red Blood Count 3.49 x10^6/uL (4.30-5.70) Hemoglobin 10.4 g/dL (13.0-17.5) Hematocrit 31.6 % (39.0-53.0) Mean Corpuscular Volume 90 fL (79-100) Mean Corpuscular Hemoglobin 30 pg (25-35) Mean Corpuscular Hemoglobin Concent 33 g/dL (31-37) Red Cell Distribution Width 18.4 % (11.5-14.5) Platelet Count 160 x10^3/uL (140-400) Neutrophils (%) (Auto) 57 % (31-73) Lymphocytes (%) (Auto) 25 % (24-48) Monocytes (%) (Auto) 8 % (0-9) Eosinophils (%) (Auto) 9 % (0-3) Basophils (%) (Auto) 1 % (0-3) Neutrophils # (Auto) 3.3 x10^3uL (1.8-7.7) Lymphocytes # (Auto) 1.5 x10^3/uL (1.0-4.8) Monocytes # (Auto) 0.5 x10^3/uL (0.0-1.1) Eosinophils # (Auto) 0.5 x10^3/uL (0.0-0.7) Basophils # (Auto) 0.1 x10^3/uL (0.0-0.2) Sodium Level 144 mmol/L (136-145) Potassium Level 4.4 mmol/L (3.5-5.1) Chloride Level 107 mmol/L (98-107) Carbon Dioxide Level 30 mmol/L (21-32) Anion Gap 7 (6-14) Blood Urea Nitrogen 23 mg/dL (8-26) Creatinine 1.7 mg/dL (0.7-1.3) Estimated GFR (Cockcroft-Gault) 40.3 Glucose Level 96 mg/dL (70-99) Calcium Level 8.2 mg/dL (8.5-10.1) Glucose (Fingerstick) 91 mg/dL (70-99) Medications Current Medications Sodium Chloride 500 ml @ 500 mls/hr 1X ONCE IV Last administered on 11/10/16 11:44; Start 11/10/16 at 11:45; Stop 11/10/16 at 12:44; Status DC Aspirin (Ecotrin) 325 mg DAILYWBKFT PO Last administered on 11/11/16 08:54; Start 11/11/16 at 08:00 Atorvastatin Calcium (Lipitor) 80 mg QHS PO ; Start 11/10/16 at 21:00 Fluoxetine HCl (PROzac) 20 mg DAILY PO Last administered on 11/11/16 08:54; Start 11/11/16 at 09:00 Lisinopril (Prinivil) 5 mg DAILY PO Last administered on 11/11/16 08:55; Start 11/11/16 at 09:00 Metoprolol Succinate (Toprol Xl) 12.5 mg DAILY PO ; Start 11/11/16 at 09:00; Status Cancel Nitroglycerin (Nitrostat) 0.4 mg PRN Q5MIN PRN SL CHEST PAIN; Start 11/10/16 at 16:45 Prasugrel (Effient) 10 mg DAILYWBKFT PO Last administered on 11/11/16 08:55; Start 11/11/16 at 08:00 Tamsulosin HCl (Flomax) 0.4 mg DAILY PO Last administered on 11/11/16 08:55; Start 11/11/16 at 09:00 Temazepam (Restoril) 15 mg QHS PO Last administered on 11/10/16 22:01; Start at 21:00 Multivitamins (Thera M Plus) 1 tab DAILY PO Last administered on 11/11/16 08:54 ; Start 11/11/16 at 09:00 Famotidine (Pepcid) 20 mg QHS PO Last administered on 11/10/16 22:02; Start 11/10/16 at 21:00 Acetaminophen (Tylenol) 325 mg PRN Q6HRS PRN PO MILD PAIN / TEMP; Start at 18:45 Hydralazine HCl (Apresoline) 10 mg PRN Q4HRS PRN IVP ELEVATED BP, SEE COMMENTS ; Start 11/10/16 at 18:45 Ondansetron HCl (Zofran) 4 mg PRN Q8HRS PRN IV NAUSEA/VOMITING; Start 11/10/16 at 18:45 Albuterol Sulfate (Ventolin Neb Soln) 2.5 mg PRN Q4HRS PRN NEB SHORTNESS OF BREATH; Start 11/10/16 at 18:45 Acetaminophen/ Hydrocodone Bitart (Lortab 5/325) 1 tab PRN Q4HRS PRN PO SEVERE PAIN Last administered on 11/10/16 22:02; Start 11/10/16 at 21:45 Active Scripts Active Metoprolol Succinate ( Xl ) (Metoprolol Succinate) 25 Mg Tab.er.24h 12.5 Mg PO DAILY 30 Days Effient (Prasugrel Hcl) 10 Mg Tablet 10 Mg PO DAILYWBKFT Nitrostat (Nitroglycerin) 0.4 Mg Tab.subl 0.4 Mg SL PRN Q5MIN PRN Lisinopril 5 Mg Tablet 5 Mg PO DAILY Atorvastatin Calcium 40 Mg Tablet 80 Mg PO QHS Aspirin Ec (Aspirin) 325 Mg Tablet.dr 325 Mg PO DAILYWBKFT Flomax (Tamsulosin Hcl) 0.4 Mg Cap.er.24h 0.4 Mg PO DAILY 30 Days Reported Men's Daily Formula Capsule (Multivits-Minerals/Fa/Lycopene) 1 Each Capsule 1 Each PO DAILY Temazepam 15 Mg Capsule 1 Cap PO QHS Fluoxetine Hcl 20 Mg Capsule 1 Cap PO DAILY Ranitidine Hcl 150 Mg Capsule 150 Mg PO BID Vitals/I & O Vital Sign - Last 24 Hours 11/10/16 11/10/16 11/10/16 11/10/16 15:00 15:00 15:18 19:42 Temp 98.0 98.0 98.1 98.0 98.0 98.1 Pulse 48 48 50 Resp 18 18 20 B/P (MAP) 114/93 (100) 114/93 (100) 113/64 (80) Pulse Ox 99 99 97 O2 Delivery Room Air Room Air Room Air 11/10/16 11/10/16 11/10/16 11/10/16 20:00 22:02 23:00 23:50 Temp 97.7 97.7 Pulse 55 Resp 17 14 20 B/P (MAP) 110/58 (75) Pulse Ox 97 O2 Delivery Room Air Room Air Room Air Room Air 11/11/16 11/11/16 11/11/16 11/11/16 03:26 07:00 08:00 08:55 Temp 98.0 97.7 98.0 97.7 Pulse 51 52 52 Resp 18 18 B/P (MAP) 98/52 (67) 115/65 (82) 115/65 Pulse Ox 96 92 O2 Delivery Room Air Room Air Room Air 11/11/16 11:00 Temp 97.9 97.9 Pulse 52 Resp 18 B/P (MAP) 105/66 (79) Pulse Ox 96 O2 Delivery Room Air Intake and Output 11/10/16 11/10/16 11/11/16 15:00 23:00 07:00 Intake Total 400 ml 210 ml Output Total 250 ml Balance 150 ml 210 ml IRVING LIMA MD 11/12/16 0728: PROGRESS NOTES Assessment Assessment Patient seen and examined 11/11/16. Agree with CLINIC CLERK's assessment and plan. Bradycardia improved since admission. Agree with loop recorder implantation as an outpatient. CALIXTO MTZ APRN Nov 11, 2016 13:55 IRVING LIMA MD Nov 12, 2016 07:28
[2016-11-11 15:00] VITALS: BP 104/44
--- NOTE | 2016-11-11 15:20 | PDOC ---
PROGRESS NOTES Chief Complaint Chief Complaint CC: DIZZINESS A/P 1. Bradycardia, symptomatic: holding beta blockers. Still symptomatic, possible pacer placement. 2. Overweight. 3. hx of CAD; s/p KIM to RCA, LAD and diagonal: home medications reviewed, 4. Chronic systolic heart failure; compensated 5. Ischemic cardiomyopathy; LVEF 45% 6. Hypertension; well-controlled : continue current medications. PRN hydralazine. 7. Hyperlipidemia; LDL= 108 (08/13) statin therapy Vitals Vitals Vital Signs Date Time Temp Pulse Resp B/P (MAP) Pulse Ox O2 Delivery O2 Flow Rate FiO2 11/11/16 11:00 97.9 52 18 105/66 (79) 96 Room Air 97.9 Physical Exam General: Alert, Oriented X3, Cooperative, No acute distress Heart: Normal S1, Normal S2, Other (irregular rhythm) Lungs: Clear, Other Abdomen: Normal bowel sounds, Soft, No tenderness Extremities: No cyanosis, Normal pulses Labs LABS Laboratory Tests Test 11/11/16 03:10 11/11/16 12:02 White Blood Count 5.9 x10^3/uL (4.0-11.0) Red Blood Count 3.49 x10^6/uL (4.30-5.70) Hemoglobin 10.4 g/dL (13.0-17.5) Hematocrit 31.6 % (39.0-53.0) Mean Corpuscular Volume 90 fL (79-100) Mean Corpuscular Hemoglobin 30 pg (25-35) Mean Corpuscular Hemoglobin Concent 33 g/dL (31-37) Red Cell Distribution Width 18.4 % (11.5-14.5) Platelet Count 160 x10^3/uL (140-400) Neutrophils (%) (Auto) 57 % (31-73) Lymphocytes (%) (Auto) 25 % (24-48) Monocytes (%) (Auto) 8 % (0-9) Eosinophils (%) (Auto) 9 % (0-3) Basophils (%) (Auto) 1 % (0-3) Neutrophils # (Auto) 3.3 x10^3uL (1.8-7.7) Lymphocytes # (Auto) 1.5 x10^3/uL (1.0-4.8) Monocytes # (Auto) 0.5 x10^3/uL (0.0-1.1) Eosinophils # (Auto) 0.5 x10^3/uL (0.0-0.7) Basophils # (Auto) 0.1 x10^3/uL (0.0-0.2) Sodium Level 144 mmol/L (136-145) Potassium Level 4.4 mmol/L (3.5-5.1) Chloride Level 107 mmol/L (98-107) Carbon Dioxide Level 30 mmol/L (21-32) Anion Gap 7 (6-14) Blood Urea Nitrogen 23 mg/dL (8-26) Creatinine 1.7 mg/dL (0.7-1.3) Estimated GFR (Cockcroft-Gault) 40.3 Glucose Level 96 mg/dL (70-99) Calcium Level 8.2 mg/dL (8.5-10.1) Glucose (Fingerstick) 91 mg/dL (70-99) Assessment and Plan Assessmemt and Plan Problems Medical Problems: (1) Near syncope Status: Acute (2) Symptomatic bradycardia Status: Acute Problems: Comment Review of Relevant I have reviewed the following items deo (where applicable) has been applied. Labs Laboratory Tests Test 11/10/16 10:25 11/11/16 03:10 11/11/16 12:02 White Blood Count 6.9 x10^3/uL (4.0-11.0) 5.9 x10^3/uL (4.0-11.0) Red Blood Count 3.80 x10^6/uL (4.30-5.70) 3.49 x10^6/uL (4.30-5.70) Hemoglobin 11.1 g/dL (13.0-17.5) 10.4 g/dL (13.0-17.5) Hematocrit 34.2 % (39.0-53.0) 31.6 % (39.0-53.0) Mean Corpuscular Volume 90 fL (79-100) 90 fL (79-100) Mean Corpuscular Hemoglobin 29 pg (25-35) 30 pg (25-35) Mean Corpuscular Hemoglobin Concent 33 g/dL (31-37) 33 g/dL (31-37) Red Cell Distribution Width 18.3 % (11.5-14.5) 18.4 % (11.5-14.5) Platelet Count 161 x10^3/uL (140-400) 160 x10^3/uL (140-400) Neutrophils (%) (Auto) 61 % (31-73) 57 % (31-73) Lymphocytes (%) (Auto) 22 % (24-48) 25 % (24-48) Monocytes (%) (Auto) 9 % (0-9) 8 % (0-9) Eosinophils (%) (Auto) 7 % (0-3) 9 % (0-3) Basophils (%) (Auto) 1 % (0-3) 1 % (0-3) Neutrophils # (Auto) 4.2 x10^3uL (1.8-7.7) 3.3 x10^3uL (1.8-7.7) Lymphocytes # (Auto) 1.5 x10^3/uL (1.0-4.8) 1.5 x10^3/uL (1.0-4.8) Monocytes # (Auto) 0.6 x10^3/uL (0.0-1.1) 0.5 x10^3/uL (0.0-1.1) Eosinophils # (Auto) 0.5 x10^3/uL (0.0-0.7) 0.5 x10^3/uL (0.0-0.7) Basophils # (Auto) 0.1 x10^3/uL (0.0-0.2) 0.1 x10^3/uL (0.0-0.2) Sodium Level 140 mmol/L (136-145) 144 mmol/L (136-145) Potassium Level 4.3 mmol/L (3.5-5.1) 4.4 mmol/L (3.5-5.1) Chloride Level 103 mmol/L (98-107) 107 mmol/L (98-107) Carbon Dioxide Level 31 mmol/L (21-32) 30 mmol/L (21-32) Anion Gap 6 (6-14) 7 (6-14) Blood Urea Nitrogen 21 mg/dL (8-26) 23 mg/dL (8-26) Creatinine 1.7 mg/dL (0.7-1.3) 1.7 mg/dL (0.7-1.3) Estimated GFR (Cockcroft-Gault) 40.3 40.3 Glucose Level 122 mg/dL (70-99) 96 mg/dL (70-99) Calcium Level 9.4 mg/dL (8.5-10.1) 8.2 mg/dL (8.5-10.1) Troponin I Quantitative 0.050 ng/mL (0.000-0.055) Thyroid Stimulating Hormone (TSH) 2.977 uIU/mL (0.358-3.74) Glucose (Fingerstick) 91 mg/dL (70-99) Laboratory Tests Test 11/11/16 03:10 11/11/16 12:02 White Blood Count 5.9 x10^3/uL (4.0-11.0) Red Blood Count 3.49 x10^6/uL (4.30-5.70) Hemoglobin 10.4 g/dL (13.0-17.5) Hematocrit 31.6 % (39.0-53.0) Mean Corpuscular Volume 90 fL (79-100) Mean Corpuscular Hemoglobin 30 pg (25-35) Mean Corpuscular Hemoglobin Concent 33 g/dL (31-37) Red Cell Distribution Width 18.4 % (11.5-14.5) Platelet Count 160 x10^3/uL (140-400) Neutrophils (%) (Auto) 57 % (31-73) Lymphocytes (%) (Auto) 25 % (24-48) Monocytes (%) (Auto) 8 % (0-9) Eosinophils (%) (Auto) 9 % (0-3) Basophils (%) (Auto) 1 % (0-3) Neutrophils # (Auto) 3.3 x10^3uL (1.8-7.7) Lymphocytes # (Auto) 1.5 x10^3/uL (1.0-4.8) Monocytes # (Auto) 0.5 x10^3/uL (0.0-1.1) Eosinophils # (Auto) 0.5 x10^3/uL (0.0-0.7) Basophils # (Auto) 0.1 x10^3/uL (0.0-0.2) Sodium Level 144 mmol/L (136-145) Potassium Level 4.4 mmol/L (3.5-5.1) Chloride Level 107 mmol/L (98-107) Carbon Dioxide Level 30 mmol/L (21-32) Anion Gap 7 (6-14) Blood Urea Nitrogen 23 mg/dL (8-26) Creatinine 1.7 mg/dL (0.7-1.3) Estimated GFR (Cockcroft-Gault) 40.3 Glucose Level 96 mg/dL (70-99) Calcium Level 8.2 mg/dL (8.5-10.1) Glucose (Fingerstick) 91 mg/dL (70-99) Medications Current Medications Sodium Chloride 500 ml @ 500 mls/hr 1X ONCE IV Last administered on 11/10/16 11:44; Start 11/10/16 at 11:45; Stop 11/10/16 at 12:44; Status DC Aspirin (Ecotrin) 325 mg DAILYWBKFT PO Last administered on 11/11/16 08:54; Start 11/11/16 at 08:00 Atorvastatin Calcium (Lipitor) 80 mg QHS PO ; Start 11/10/16 at 21:00 Fluoxetine HCl (PROzac) 20 mg DAILY PO Last administered on 11/11/16 08:54; Start 11/11/16 at 09:00 Lisinopril (Prinivil) 5 mg DAILY PO Last administered on 11/11/16 08:55; Start 11/11/16 at 09:00 Metoprolol Succinate (Toprol Xl) 12.5 mg DAILY PO ; Start 11/11/16 at 09:00; Status Cancel Nitroglycerin (Nitrostat) 0.4 mg PRN Q5MIN PRN SL CHEST PAIN; Start 11/10/16 at 16:45 Prasugrel (Effient) 10 mg DAILYWBKFT PO Last administered on 11/11/16 08:55; Start 11/11/16 at 08:00 Tamsulosin HCl (Flomax) 0.4 mg DAILY PO Last administered on 11/11/16 08:55; Start 11/11/16 at 09:00 Temazepam (Restoril) 15 mg QHS PO Last administered on 11/10/16 22:01; Start at 21:00 Multivitamins (Thera M Plus) 1 tab DAILY PO Last administered on 11/11/16 08:54 ; Start 11/11/16 at 09:00 Famotidine (Pepcid) 20 mg QHS PO Last administered on 11/10/16 22:02; Start 11/10/16 at 21:00 Acetaminophen (Tylenol) 325 mg PRN Q6HRS PRN PO MILD PAIN / TEMP; Start at 18:45 Hydralazine HCl (Apresoline) 10 mg PRN Q4HRS PRN IVP ELEVATED BP, SEE COMMENTS ; Start 11/10/16 at 18:45 Ondansetron HCl (Zofran) 4 mg PRN Q8HRS PRN IV NAUSEA/VOMITING; Start 11/10/16 at 18:45 Albuterol Sulfate (Ventolin Neb Soln) 2.5 mg PRN Q4HRS PRN NEB SHORTNESS OF BREATH; Start 11/10/16 at 18:45 Acetaminophen/ Hydrocodone Bitart (Lortab 5/325) 1 tab PRN Q4HRS PRN PO SEVERE PAIN Last administered on 11/10/16 22:02; Start 11/10/16 at 21:45 Active Scripts Active Metoprolol Succinate ( Xl ) (Metoprolol Succinate) 25 Mg Tab.er.24h 12.5 Mg PO DAILY 30 Days Effient (Prasugrel Hcl) 10 Mg Tablet 10 Mg PO DAILYWBKFT Nitrostat (Nitroglycerin) 0.4 Mg Tab.subl 0.4 Mg SL PRN Q5MIN PRN Lisinopril 5 Mg Tablet 5 Mg PO DAILY Atorvastatin Calcium 40 Mg Tablet 80 Mg PO QHS Aspirin Ec (Aspirin) 325 Mg Tablet.dr 325 Mg PO DAILYWBKFT Flomax (Tamsulosin Hcl) 0.4 Mg Cap.er.24h 0.4 Mg PO DAILY 30 Days Reported Men's Daily Formula Capsule (Multivits-Minerals/Fa/Lycopene) 1 Each Capsule 1 Each PO DAILY Temazepam 15 Mg Capsule 1 Cap PO QHS Fluoxetine Hcl 20 Mg Capsule 1 Cap PO DAILY Ranitidine Hcl 150 Mg Capsule 150 Mg PO BID Vitals/I & O Vital Sign - Last 24 Hours 11/10/16 11/10/16 11/10/16 11/10/16 19:42 20:00 22:02 23:00 Temp 98.1 98.1 Pulse 50 Resp 20 17 14 B/P (MAP) 113/64 (80) Pulse Ox 97 O2 Delivery Room Air Room Air Room Air Room Air 11/10/16 11/11/16 11/11/16 11/11/16 23:50 03:26 07:00 08:00 Temp 97.7 98.0 97.7 97.7 98.0 97.7 Pulse 55 51 52 Resp 20 18 18 B/P (MAP) 110/58 (75) 98/52 (67) 115/65 (82) Pulse Ox 97 96 92 O2 Delivery Room Air Room Air Room Air Room Air 11/11/16 11/11/16 08:55 11:00 Temp 97.9 97.9 Pulse 52 52 Resp 18 B/P (MAP) 115/65 105/66 (79) Pulse Ox 96 O2 Delivery Room Air Intake and Output 11/10/16 11/10/16 11/11/16 15:00 23:00 07:00 Intake Total 400 ml 210 ml Output Total 250 ml Balance 150 ml 210 ml TOM RAINEY MD Nov 11, 2016 15:20
[2016-11-11 19:20] VITALS: BP 128/63
[2016-11-11] MEDS: FAMOTIDINE 20 MG TABLET. PO SCH (22:07)
[2016-11-11] MEDS: TEMAZEPAM 15 MG CAPSULE PO SCH (22:07)
[2016-11-11] MEDS: ATORVASTATIN CALCIUM 40 MG TABLET. PO SCH (22:07)
[2016-11-11] MEDS: HYDROcodone/APAP 5/325MG 1 TAB TABLET PO PRN (22:08)
[2016-11-11 23:20] VITALS: BP 129/63
[2016-11-12 06:30] LABS: BASO # 0.1 x10^3/uL (0.0-0.2); BASO % 1 % (0-3); EOS % 8 % (0-3); HEMATOCRIT 32.2 % (39.0-53.0); LYMPH # 1.7 x10^3/uL (1.0-4.8); LYMPH % 26 % (24-48); MEAN CORPUSCULAR HEMOGLOBIN 31 pg (25-35); MEAN CORPUSCULAR HGB CONC 34 g/dL (31-37); MEAN CORPUSCULAR VOLUME 89 fL (79-100); MONO % 10 % (0-9); NEUT % 55 % (31-73); PLATELET COUNT 147 x10^3/uL (140-400); RED BLOOD COUNT 3.62 x10^6/uL (4.30-5.70); RED CELL DISTRIBUTION WIDTH 18.6 % (11.5-14.5); WHITE BLOOD COUNT 6.3 x10^3/uL (4.0-11.0)
[2016-11-12 06:45] LABS: CALCIUM 8.9 mg/dL (8.5-10.1); CREATININE 1.7 mg/dL (0.7-1.3); GFR 40.3; POTASSIUM 4.6 mmol/L (3.5-5.1)
[2016-11-12 07:00] VITALS: BP 107/62
[2016-11-12] MEDS: ASPIRIN ENTERIC COATED 325 MG TABLET.DR. PO SCH (08:58)
[2016-11-12] MEDS: FLUoxetine HCL 20 MG CAPSULE PO SCH (08:58)
[2016-11-12] MEDS: MULTIVITAMIN with MINERAL TABLET. PO SCH (08:58)
[2016-11-12] MEDS: TAMSULOSIN 0.4 MG CAP.ER.24H. PO SCH (08:58)
[2016-11-12] MEDS: PRASUGREL 10 MG TABLET. PO SCH (08:58)
[2016-11-12] MEDS: LISINOPRIL 5 MG TABLET. PO SCH (08:59)
[2016-11-12 11:00] VITALS: BP 112/63
--- NOTE | 2016-11-12 12:30 | PDOC ---
CARDIO Progress Notes Date and Time Date of Service 11/12/16 Time of Evaluation 1130 Subjective Subjective: No Chest Pain, No shortness of breath, Other (mild dizziness with ambulation) Vitals Vitals Vital Signs Date Time Temp Pulse Resp B/P (MAP) Pulse Ox O2 Delivery O2 Flow Rate FiO2 11/12/16 11:00 97.9 61 18 112/63 (79) 98 Room Air 97.9 Weight Weight [ ] Input and Output Intake and Output Intake and Output 11/12/16 07:00 Intake Total 650 ml Output Total 1 ml Balance 649 ml Intake Oral 650 ml Stool Total 1 ml # Voids 4 Laboratory Labs Laboratory Tests Test 11/12/16 06:10 White Blood Count 6.3 x10^3/uL (4.0-11.0) Red Blood Count 3.62 x10^6/uL (4.30-5.70) Hemoglobin 11.0 g/dL (13.0-17.5) Hematocrit 32.2 % (39.0-53.0) Mean Corpuscular Volume 89 fL (79-100) Mean Corpuscular Hemoglobin 31 pg (25-35) Mean Corpuscular Hemoglobin Concent 34 g/dL (31-37) Red Cell Distribution Width 18.6 % (11.5-14.5) Platelet Count 147 x10^3/uL (140-400) Neutrophils (%) (Auto) 55 % (31-73) Lymphocytes (%) (Auto) 26 % (24-48) Monocytes (%) (Auto) 10 % (0-9) Eosinophils (%) (Auto) 8 % (0-3) Basophils (%) (Auto) 1 % (0-3) Neutrophils # (Auto) 3.5 x10^3uL (1.8-7.7) Lymphocytes # (Auto) 1.7 x10^3/uL (1.0-4.8) Monocytes # (Auto) 0.6 x10^3/uL (0.0-1.1) Eosinophils # (Auto) 0.5 x10^3/uL (0.0-0.7) Basophils # (Auto) 0.1 x10^3/uL (0.0-0.2) Sodium Level 143 mmol/L (136-145) Potassium Level 4.6 mmol/L (3.5-5.1) Chloride Level 105 mmol/L (98-107) Carbon Dioxide Level 30 mmol/L (21-32) Anion Gap 8 (6-14) Blood Urea Nitrogen 21 mg/dL (8-26) Creatinine 1.7 mg/dL (0.7-1.3) Estimated GFR (Cockcroft-Gault) 40.3 Glucose Level 99 mg/dL (70-99) Calcium Level 8.9 mg/dL (8.5-10.1) Physical Exam HEENT: Neck Supple W Full Motion Chest: Symmetric LUNGS: Clear to Auscultation Heart: S1S2, RRR, no murmurs, other (tele: SB with PVC's- rate 56) Abdomen: Soft N/T Extremities: No Edema, No Calf Tenderness Neurology: oriented, follow commands Assessment Assessment 1. Bradycardia; presently asymptomatic, remains mid 50s with occasional episodes of bigeminal PVCs. Appropriate chronotropic response based on EST 2016. HR increases with ambulation. Continue to hold BB. Scheduled for outpatient loop recorder placement. May discharge from a CV standpoint and f/u as scheduled. 2. lightheadedness - not clearly associated with bradycardia. no syncope. 3. CAD; s/p KIM to RCA, LAD and diagonal - angina free. continue medical therapy. no beta blockers due to bradycardia. 4. Chronic systolic heart failure; well-compensated 5. Ischemic cardiomyopathy; LVEF 45%- continue medical therapy 6. Hypertension; well-controlled on ACEI. 7. Hyperlipidemia; LDL= 108 (08/23) continue statin therapy MADHAVI AYALA APRN Nov 12, 2016 12:30
--- NOTE | 2016-11-12 13:04 | PDOC3 ---
Discharge Summary* Admitting Diagnosis Problems Medical Problems: (1) Near syncope Status: Acute (2) Symptomatic bradycardia Status: Acute Problems: Final Diagnosis 1. Bradycardia; presently asymptomatic, 2. Overweight 3. CAD; s/p KIM to RCA, LAD and diagonal 4. Chronic systolic heart failure; well-compensated 5. Ischemic cardiomyopathy; LVEF 45%- 6. Hypertension 7. Hyperlipidemia; LDL= 108 (08/23) Brief hospital course: A 66-year-old male patient presented to the hospital with dizziness, patient has bradycardia at the time of his presentation and EKG showed some bigeminal PVCs. Has been observed in the hospital and cardiology has been consulted. His heaert rate with ambulation has been stable however his dizziness and bradycardia are not concomitant. Today he is completely asymptomatic. I did discuss case with cardiology and they are planning for a loop recorder placement which has been scheduled as outpatient basis. Today he denies any fever chills nausea vomiting . I have watched him walking without any symptoms. All his chronic problems are stable and recommended to continue current management. Would recommend to hold his BETA SARANYA at this time and the patient can follow-up to cardiology for further management of his beta blockers. PHYSICAL EXAM: GENERAL: No apparent distress. Alert and oriented. HEENT: Head normocephalic, atraumatic. NECK: Supple LUNGS: Clear to auscultation. HEART: RRR, S1, S2 present, pulses intact ABDOMEN: Soft, positive bowel sounds. EXTREMITIES: No cyanosis or edema. CONDITION AT DISCHARGE: Improved Scheduled Aspirin (Aspirin Ec), 325 MG PO DAILYWBKFT Atorvastatin Calcium (Atorvastatin Calcium), 80 MG PO QHS Fluoxetine Hcl (Fluoxetine Hcl), 1 CAP PO DAILY, (Reported) Lisinopril (Lisinopril), 5 MG PO DAILY Metoprolol Succinate (Metoprolol Succinate ( Xl )), 12.5 MG PO DAILY Multivits-Minerals/Fa/Lycopene (Men's Daily Formula Capsule), 1 EACH PO DAILY, ( Reported) Prasugrel Hcl (Effient), 10 MG PO DAILYWBKFT Ranitidine Hcl (Ranitidine Hcl), 150 MG PO BID, (Reported) Tamsulosin Hcl (Flomax), 0.4 MG PO DAILY Temazepam (Temazepam), 1 CAP PO QHS, (Reported) Scheduled PRN Nitroglycerin (Nitrostat), 0.4 MG SL PRN Q5MIN PRN for CHEST PAIN Discontinued Medications Oxycodone/Apap 7.5-325 (Percocet 7.5-325 Mg Tablet), 1 TAB PO PRN Q3HRS PRN for PAIN, (Reported) Time Spent Total time spent with patient 33 minutes for coordination of care, counseling, and education. TOM RAINEY MD Nov 12, 2016 13:04
--- NOTE | 2016-11-12 13:48 | ACF ---
Admit Criteria Forms Admit Criteria Forms Admit Criteria Forms TELEMETRY CARE Telemetry Admission Guidelines (Place 'X' for any and all applicable criteria): Admission to telemetry [A] may be indicated for ANY ONE of the following(1)(2)(3 )(4)(5): [X]I. Cardiac disease, including ANY ONE of the following (9)(10)(11)(12)(13 ): [ ]a) Postacute IN [ ]b) Low-risk patients with ST-segment elevation IN who have undergone successful percutaneous coronary intervention [ ]c) Unstable angina [ ]d) Suspected IN (until it is ruled out) [ ]e) Post cardiac surgery (first 48 to 72 hours unless complications occur) [X]f) Acute arrhythmias (including significant tachycardia or bradycardia) [B] [ ]g) Firing of an implantable cardioverter defibrillator [C] [ ]h) Suspected pacemaker or implantable cardioverter defibrillator malfunction (10) [ ]i) New administration or adjustment of an antiarrhythmic drug [D ] [ ]j) Child admitted for acute congestive heart failure [ ]j) Long QT syndrome [ ]k) Advanced heart block (eg, second-degree Mobitz type II, third- degree heart block) [ ]l) Acute myocarditis or pericarditis [ ]m) Short-term (ambulatory or inpatient) monitoring after a cardiac procedure as indicated by ANY ONE of the following [E]: [ ]i) Electrophysiologic studies [ ]ii) Percutaneous coronary intervention with stent placement [ ]iii) Pacemaker placement with cardiac conduction defect [ ]iv) Implantable cardiac defibrillator placement [ ]II. Drug overdose or poisoning with substance that causes arrhythmias or QT prolongation (eg, phenothiazines, sympathomimetic agents, cyclic antidepressants, digitalis, antiarrhythmic drugs)(15) [ ]III. Short-term (ambulatory or inpatient) monitoring after therapeutic or diagnostic procedure requiring conscious sedation or anesthesia (eg, endoscopy, elective cardioversion) [ ]IV. Acute cerebrovascular even[F](18) [ ]V. Massive blood transfusion (eg, at least 10 units of packed red blood cells in 24 hours) [ ]. Variceal bleeding after endoscopy, sclerotherapy, or IV vasopressin [ ]VII. Uncorrected electrolyte abnormalities associated with an increased risk of dangerous arrhythmia [G]; examples include [ ]a) Hyperkalemia with attributable ECG changes [ ]b) Potassium greater than 6.5 mmol/L (mEq/L) in a patient without history of chronic renal disease [ ]c) Prolonged QT attributed to hypokalemia, hypomagnesemia, or hypocalcemia [ ]VIII.Unexplained syncope or other neurologic event suspected of being due to arrhythmia due to a finding that increases risk; examples include(19)(20)(21): [ ]a) High-risk ECG findings (eg, bifascicular block, bradycardia, abnormal QT interval, ventricular pre- excitation) [ ]b) History of previous syncope due to arrhythmia [ ]c) Abnormal ventricular function (eg, reduced ejection fraction ) [ ]d) Exertional or supine syncope [ ]e) Concerning syncope characteristics (eg, sudden loss of consciousness without prodrome) [ ]f) Family history of sudden [ ]g) Use of arrhythmogenic medication [ ]h) Suspected cardiac ischemia [ ]i) Known channelopathy (eg, long QT syndrome, Brugada syndrome, or catecholaminergic paroxysmal ventricular tachycardia) [ ]j) Known structural heart disease (eg, hypertrophic cardiomyopathy , severe valvular disease) [ ]k) Palpitations preceding syncope The original markedup content created by markedup has been revised. The portions of the content which have been revised are identified through the use of italic text or in bold, and markedup has neither reviewed nor approved the modified material. All other unmodified content is copyright markedup. Please see references footnoted in the original markedup edition 2016 GILBERT PELAEZ Nov 12, 2016 13:48
== END 2016-11-12 13:35 | disposition home or self-care (01) | DRG 309 ==
LOC: ER 10:14 → 6 SOUTH 13:00 → OBSVTOIN 11-11 15:20
PROVIDERS: ADMIT Internal Medicine; ATTEND Internal Medicine
DX: R00.1 Bradycardia, unspecified (principal); I50.22 Chronic systolic (congestive) heart failure; I25.5 Ischemic cardiomyopathy; E66.3 Overweight; E78.5 Hyperlipidemia, unspecified; F32.9 Major depressive disorder, single episode, unspecified; M19.90 Unspecified osteoarthritis, unspecified site; G47.00 Insomnia, unspecified; K21.9 Gastro-esophageal reflux disease without esophagitis; I11.0 Hypertensive heart disease with heart failure; I25.10 Atherosclerotic heart disease of native coronary artery without angina pectoris; I25.2 Old myocardial infarction; Z82.49 Family history of ischemic heart disease and other diseases of the circulatory system; Z68.27 Body mass index [BMI] 27.0-27.9, adult; Z88.5 Allergy status to narcotic agent; Z83.3 Family history of diabetes mellitus; Z87.442 Personal history of urinary calculi; Z95.5 Presence of coronary angioplasty implant and graft; Z79.82 Long term (current) use of aspirin; Z79.899 Other long term (current) drug therapy
CPT/HCPCS: 36415; 71010; 80048; 82962; 84443; 84484; 85027; 93005; G0378; G0379; J7040

== ENCOUNTER 2016-11-20 08:50 | Emergency (ER) | payer MEDICARE ==
[~2016-11-20] VITALS: Ht 182.9 cm; Wt 94.3 kg
[~2016-11-20 08:50] MED LIST changes: +MULT1CAP6 PO
[2016-11-20 09:10] VITALS: BP 151/66
[2016-11-20] MEDS ORDERED: fentaNYL PF VIAL 100 MCG/2 ML VIAL IM ONE (09:30)
[2016-11-20] MEDS ORDERED: MORPHINE SULFATE 10 MG/ML VIAL. IM ONE (09:30)
--- NOTE | 2016-11-20 10:00 | RAD ---
Left shoulder 2 views. History: Left shoulder pain, previous arthroplasty 2 views of the left shoulder show a total joint prosthesis in place. Prosthesis appears unchanged in position compared to a study from July. An acute fracture is not identified. Impression: 1. No acute fracture. 2. Shoulder prosthesis appears unchanged.
[2016-11-20] MEDS ORDERED: HYDR-971 PO (10:31)
--- NOTE | 2016-11-20 10:31 | PHYS DOC ---
Past Medical History Past Medical History: Depression, GERD, Hypertension, Kidney Stone Additional Past Medical Histor: insominia Past Surgical History: Other Additional Past Surgical Histo: R KNEE, KIDNEY STONE SX, L SHOULDER SURGERY, cardiac cath with stents Additional Information: quit smoking 20 years ago Alcohol Use: None Drug Use: None Adult General Chief Complaint Chief Complaint: SHOULDER INJURY HPI HPI Patient is a 66 year old male who presents with left shoulder pain. The patient states he has history of left shoulder arthroplasty by Dr. Vega, last night while changing his clothes he thought he felt it pop out of place & today continues to have pain & decreased range of motion. He denies trauma, denies chest pain, shortness of breath, extremity numbness/weakness. He is right handed. Review of Systems Review of Systems Constitutional: Denies fever or chills HENT: Denies nasal congestion or sore throat Respiratory: Denies cough or shortness of breath Cardiovascular: Denies chest pain or edema GI: Denies abdominal pain, nausea, vomiting Musculoskeletal: Reports shoulder pain Integument: Denies rash or skin lesions Neurologic: Denies headache, focal weakness or sensory changes Current Medications Current Medications Current Medications Medications (Trade) Dose Ordered Sig/Konrad Start Time Stop Time Status Last Admin Dose Admin Fentanyl Citrate (Fentanyl 2ml Vial) 50 mcg 1X ONCE 11/20/16 09:30 11/20/16 09:31 DC 11/20/16 09:41 50 MCG Morphine Sulfate 5 mg 1X ONCE 11/20/16 09:30 11/20/16 09:30 DC Allergies Allergies Allergies Coded Allergies Type Severity Reaction Last Updated Verified morphine Allergy Intermediate Rash 07/28/16 Yes procaine Allergy Intermediate rash 11/20/16 Yes Physical Exam Physical Exam Constitutional: Well developed, well nourished, no acute distress, non-toxic appearance. HENT: Normocephalic, atraumatic, bilateral external ears normal, oropharynx moist, nose normal. Eyes: conjunctiva normal, no discharge. Cardiovascular: RRR, no murmurs, no edema. Lungs & Thorax: LCTAB, no wheezing, no respiratory distress. Abdomen: nondistended. Skin: Warm, dry, no erythema, no rash. Back: No tenderness. Extremities: no obvious deformity or swelling to left shoulder, very mild generalized tenderness over glenohumeral joint, no clavicular tenderness or chest wall tenderness, reluctant to abduct, forward flex, internally rotate, but able to demonstrate some range of motion with each, no elbow tenderness, radial pulse 2+, radial/median/ulnar nerve sensory & motor function intact, axillary nerve sensation intact. Neurologic: Alert and oriented X 3 Current Patient Data Vital Signs Vital Signs Date Time Temp Pulse Resp B/P (MAP) Pulse Ox O2 Delivery O2 Flow Rate FiO2 11/20/16 09:41 92 11/20/16 09:10 98.3 57 16 Room Air 98.3 EKG EKG [] Radiology/Procedures Radiology/Procedures PROCEDURE: SHOULDER 2+V LEFT Left shoulder 2 views. History: Left shoulder pain, previous arthroplasty 2 views of the left shoulder show a total joint prosthesis in place. Prosthesis appears unchanged in position compared to a study from July. An acute fracture is not identified. Impression: 1. No acute fracture. 2. Shoulder prosthesis appears unchanged. DICTATED and SIGNED BY: JAMAR MATHEWS MD DATE: 11/20/16 0956 [] Course & Med Decision Making Course & Med Decision Making Pertinent Labs and Imaging studies reviewed. (See chart for details) The patient presents with shoulder pain. He thought his shoulder was dislocated but XR demonstrates normal prosthetic joint. History & exam are clearly indicative of musculoskeletal process. Recommend rest, ice, gave prescription for norco to take as needed for severe pain. no drinking alcohol or driving while taking norco. Follow up in ortho clinic if not improving in 1 week. Come back for chest pain, neurovascular compromise, or otherwise worsening condition. Discharged home in stable condition. [] Dragon Disclaimer Dragon Disclaimer This electronic medical record was generated, in whole or in part, using a voice recognition dictation system. Departure Departure Impression: Primary Impression: Shoulder pain, left Disposition: 01 HOME, SELF-CARE Condition: STABLE Referrals: PB COY MD (PCP) LYNNE VEGA II, MD Patient Instructions: Shoulder Pain, [id number] Additional Instructions: You were seen in the emergency department today for shoulder pain. The x-ray did not show fracture or dislocation. Please rest, ice, take [place] as needed for severe pain. No drinking alcohol or driving while taking this medication. Follow-up with Dr. Vega within 1 week if symptoms continue. Come back for severe chest pain or shortness of breath, or any otherwise worsening condition. Scripts Hydrocodone/Apap 5-325 (NORCO 5-325 TABLET) 1 Each Tablet 1 TAB PO PRN Q6HRS Y for PAIN, #10 TAB 0 Refills Prov: KIT ALCANTAR MD 11/20/16 KIT ALCANTAR MD Nov 20, 2016 10:31
== END 2016-11-20 10:38 | disposition home or self-care (01) ==
LOC: ER 08:50
DX: M25.512 Pain in left shoulder (principal); F32.9 Major depressive disorder, single episode, unspecified; K21.9 Gastro-esophageal reflux disease without esophagitis; G47.00 Insomnia, unspecified; I10 Essential (primary) hypertension; Z87.891 Personal history of nicotine dependence; Z87.442 Personal history of urinary calculi; Z88.5 Allergy status to narcotic agent; Z88.4 Allergy status to anesthetic agent; Z96.612 Presence of left artificial shoulder joint; X58.XXXA Exposure to other specified factors, initial encounter; Y93.89 Activity, other specified; Y92.89 Other specified places as the place of occurrence of the external cause; Y99.8 Other external cause status
CPT/HCPCS: 73030; 96372; 99284; J3010

== ENCOUNTER → 2016-11-26 | Outpatient (CLI) | payer MEDICARE ==
[2016-11-20 09:10] VITALS: BP 151/66
[~2016-11-26] MED LIST changes: +HYDR-971 PO
--- NOTE | 2016-11-26 11:49 | CARD ---
APPROVED REPORT PROCEDURE: Successful implantation of [employer] Biomonitor loop recorder INDICATIONS: Dizziness and near syncope of uncertain etiology PROCEDURE DETAILS: An informed consent was obtained from patient. Patient was brought to the procedure suite and her le ft chest and shoulder were prepped and draped in the usual fashion. 20 mL of 2% lidocaine was infilt rated into the skin and subcutaneous tissues for local anesthesia. An incision was made in the left fifth intercostal space 1 inch from midsternal line and using the introducer provided with the kit a track was created in subcutaneous tissue. Subsequently, with the help of the deployer provided with the kit, a [employer] Biomonitor loop recorder serial number [id number] was placed in the subcutaneous t issue. The incision was closed in one layer. Hemostasis was secured. Patient tolerated the procedu re well. There were no immediate complications. At the end of procedure, the device showed sensing amplitude of 1.14 mV. CONCLUSION: Successful implantation of [employer] Biomonitor loop recorder for dizziness and near syncope of uncer tain etiology
== END | disposition home or self-care (01) ==
LOC: LINQ 10:54
PROVIDERS: ATTEND Internal Medicine Cardiovascular Disease
DX: R55 Syncope and collapse (principal); E78.00 Pure hypercholesterolemia, unspecified; I25.10 Atherosclerotic heart disease of native coronary artery without angina pectoris; K21.9 Gastro-esophageal reflux disease without esophagitis; F32.9 Major depressive disorder, single episode, unspecified; F17.200 Nicotine dependence, unspecified, uncomplicated; Z96.651 Presence of right artificial knee joint; Z87.39 Personal history of other diseases of the musculoskeletal system and connective tissue; Z96.612 Presence of left artificial shoulder joint; Z87.442 Personal history of urinary calculi; Z82.49 Family history of ischemic heart disease and other diseases of the circulatory system; Z88.6 Allergy status to analgesic agent; Z88.8 Allergy status to other drugs, medicaments and biological substances
CPT/HCPCS: 33282; C1764

== ENCOUNTER → 2017-01-11 | Outpatient (CLI) | payer MEDICARE ==
[2016-12-22 22:18] VITALS: BP 132/68
[~2017-01-11] MED LIST changes: +REGADENOSON 0.4 MG/5 ML DISP.SYRIN. IV ONE
--- NOTE | 2017-01-11 12:19 | RAD ---
APPROVED REPORT Test Type: Pharmacological Stress Nurse/Tech: Taisha Stanley RN Test Indications: chest pain Cardiac History: see ehr Medications: see ehr Medical History: see ehr Resting ECG: SB with PVC's Resting Heart Rate: 74 bpm Resting Blood Pressure: 138/67mmHg Pretest Chest Pain: None Nurse/Tech Notes Lungs CTA, S1, S2 Consent: The procedure was explained to the patient in lay terms. Informed consent was witnessed. John eout was entered into [employer]. History and Stress Test performed by Marcy OsmanNCa Pharm. Details Pharmacologic stress testing was performed using 0.4mg per 5ml of regadenoson given intravenously ove r 7-10 seconds. Stress Symptoms No chest pain or symptoms. POST EXERCISE Reason for Termination: Infusion complete Max HR: 90 bpm Max Blood Pressure: 126/67mmHg Blood Pressure response to exercise: Normal blood pressure response during stress. Chest Pain: No. Arrhythmia: No. ST Change: No. INTERPRETATION Stress EKG Conclusion: Baseline EKG showed sinus rhythm, old inferior infarct and PVCs. Nondiagnostic changes at peak stress. No arrhythmias. Imaging Protocol IMAGE PROTOCOL: Rest Tc-99m/stress Tc-99m 1 day Rest: Stress: Viability: Radiopharm.Tc99m [id number] Sestamibi Dose12.4mCi 33.8mCi Duration 15min. 10min. Img Date 01/11/2017 01/11/2017 Inj-Img [id number]. 60min. Rest Admin Site:IV - Right AntecubitalAdministrator:KAREEM Dodd Stress Admin Site: IV - Right AntecubitalAdministrator: GUERDA Hall, ARRT (R)(N) STRESS DATA End Diast. Vol.170.0mlAv. Heart Rate71.0bpm End Syst. Vol.94.0mlCO Index BSA0.0L/min Myocardial Cazp668.0gEject. Fliqhmos47.0% Stress Rates Pk. Fill Rate2.43EDV/secLVtime Pk. Fill 137.43msec Pk. Empty Rate2.40ESV/secLVtime Pk. Eqcoc106.86msec 1/3 Pk. Fill1.21EDV/sec Stress Scores Regional WT1.00Summed WT27.00 Regional WM0.00Summed WM24.00 LV Perfusion Scintigraphic images showed moderate sized predominantly fixed defect involving the inferior wall ext ending into the inferolateral wall consistent with previous myocardial infarction without any signifi cant reversibility. Wall Motion Base to mid inferior wall hypokinesis with ejection fraction calculated at 45%. LV Perf. Quant 17 Seg. SSS15.00 17 Seg. SRS22.00 17 Seg. SDS0.00 Stress Defect Extent (% LAD)2.50Rest Defect Extent (% LAD)23.10Rev. Defect Extent (% LAD)0.00 Stress Defect Extent (% LCX) 62.50Rest Defect Extent (% LCX)55.00Rev. Defect Extent (% LCX)0.00 Stress Defect Extent (% RCA)45.60Rest Defect Extent (% RCA)62.20Rev. Defect Extent (% RCA)0.00 Stress Defect Extent (% JAIME)28.30Rest Defect Extent (% JAIME)38.70Rev. Defect Extent (% JAIME)0.00 Conclusion 1. Regadenoson cardioisotope stress test showed moderate infarct involving inferior and inferolateral lam without any significant ischemia. 2. Base to mid inferior wall hypokinesis with ejection fraction calculated at 45%. 3. Low risk for cardiac events.
== END | disposition home or self-care (01) ==
LOC: NM 07:57
PROVIDERS: ATTEND Internal Medicine Cardiovascular Disease
DX: I25.118 Atherosclerotic heart disease of native coronary artery with other forms of angina pectoris (principal)
CPT/HCPCS: 78452; 93017; 96374; 96375; 96376; A9500; J2785

== ENCOUNTER → 2017-06-29 | Outpatient (CLI) | payer MEDICARE ==
[2017-06-29 11:32] LABS: C-REACTIVE PROTEIN 0.9 mg/L (0-3.3)
[2017-06-29 12:46] LABS: SEDIMENTATION RATE 17 (0-15)
== END | disposition home or self-care (01) ==
LOC: LAB 10:59
DX: M25.512 Pain in left shoulder (principal)
CPT/HCPCS: 36415; 85651; 86140

== ENCOUNTER 2017-11-02 10:20 | Emergency (ER) | payer MEDICARE ==
[2017-11-02] MEDS: ASPIRIN 325 MG TABLET PO (10:45)
[2017-11-02 10:55] LABS: ADD MAN DIFF? NO
[2017-11-02 10:58] LABS: BASO # 0.1 x10^3/uL (0.0-0.2); BASO % 2 % (0-3); EOS # 0.2 x10^3/uL (0.0-0.7); EOS % 4 % (0-3); HEMATOCRIT 26.5 % (39.0-53.0); HEMOGLOBIN 8.4 g/dL (13.0-17.5); LYMPH # 1.1 x10^3/uL (1.0-4.8); LYMPH % 23 % (24-48); MEAN CORPUSCULAR HEMOGLOBIN 24 pg (25-35); MEAN CORPUSCULAR HGB CONC 32 g/dL (31-37); MEAN CORPUSCULAR VOLUME 75 fL (79-100); MONO # 0.5 x10^3/uL (0.0-1.1); MONO % 11 % (0-9); NEUT # 2.9 x10^3uL (1.8-7.7); NEUT % 60 % (31-73); PLATELET COUNT 298 x10^3/uL (140-400); RED BLOOD COUNT 3.53 x10^6/uL (4.30-5.70); RED CELL DISTRIBUTION WIDTH 20.2 % (11.5-14.5); WHITE BLOOD COUNT 4.8 x10^3/uL (4.0-11.0)
[2017-11-02 11:08] LABS: TROPONIN BY ISTAT 0.02 ng/ml (<0.08)
[2017-11-02 11:10] LABS: ANION GAP 7 (6-14); BLOOD UREA NITROGEN 20 mg/dL (8-26); BUN/CREATININE RATIO 12 (6-20); CARBON DIOXIDE 29 mmol/L (21-32); CHLORIDE 103 mmol/L (98-107); CREATININE 1.7 mg/dL (0.7-1.3); GFR 40.2; GLUCOSE 136 mg/dL (70-99); POTASSIUM 4.2 mmol/L (3.5-5.1); SODIUM 139 mmol/L (136-145)
[2017-11-02 11:11] LABS: PROTHROMBIN TIME PATIENT 13.1 SEC (11.7-14.0)
[2017-11-02 11:19] LABS: ALBUMIN 3.8 g/dL (3.4-5.0); ALBUMIN/GLOBULIN RATIO 1.1 (1.0-1.7); ALK PHOS 100 U/L (46-116); ALT (SGPT) 31 U/L (16-63); AST (SGOT) 16 U/L (15-37); LIPASE 170 U/L (73-393); TOTAL BILIRUBIN 0.5 mg/dL (0.2-1.0); TOTAL PROTEIN 7.4 g/dL (6.4-8.2)
[2017-11-02 11:22] LABS: TROPONINI < 0.017 ng/mL (0.000-0.055)
[2017-11-02 11:29] LABS: NT-PRO BNP 253 pg/mL (0-124)
[2017-11-02 11:29] LABS: CKMB INDEX 0.8 % (0-4); CKMB MASS 1.2 ng/mL (0.0-3.6); CREATINE KINASE 142 U/L (39-308)
[2017-11-02 11:33] LABS: ANISOCYTOSIS SLIGHT; PLT ESTIMATE ADEQUATE (ADEQUATE); POLYCHROMASIA SLIGHT
== END 2017-11-02 13:52 | disposition left against medical advice (07) ==
LOC: ER 10:20
DX: R07.89 Other chest pain (principal); R06.00 Dyspnea, unspecified; I11.9 Hypertensive heart disease without heart failure; K21.9 Gastro-esophageal reflux disease without esophagitis; I25.2 Old myocardial infarction; Z87.442 Personal history of urinary calculi; Z95.5 Presence of coronary angioplasty implant and graft; Z88.4 Allergy status to anesthetic agent; Z88.5 Allergy status to narcotic agent
CPT/HCPCS: 36415; 71045; 80053; 82553; 83690; 83735; 83880; 84484; 85025; 85610; 93005; 99285-25

== ENCOUNTER → 2017-12-20 | Outpatient (CLI) | payer MEDICARE ==
[~2017-12-20] MED LIST changes: +ACETAMINOPHEN 325 MG TABLET. PO PRN; -AMLO5TAB2 PO; +AMLO5TAB7 PO; +CLOP75TA PO; +FUROSEMIDE 20 MG/2 ML VIAL. IVP ONE; +METO-239 PO; +METO25TA2 PO; -METO25TA9 PO; +OMEP20TA8 PO; -REGADENOSON 0.4 MG/5 ML DISP.SYRIN. IV ONE; +diphenhydrAMINE HCL 25 MG CAPSULE PO PRN
[2017-12-20 08:24] VITALS: BP 117/59
[2017-12-20 08:48] LABS: HEMATOCRIT 23.9 % (39.0-53.0); HEMOGLOBIN 7.3 g/dL (13.0-17.5)
[2017-12-20 09:50] VITALS: BP 106/54
[2017-12-20 11:00] VITALS: BP 109/56
[2017-12-20 11:27] VITALS: BP 116/59
[2017-12-20 12:15] VITALS: BP 122/58
[2017-12-20 13:15] VITALS: BP 126/64
== END | disposition home or self-care (01) ==
LOC: OPS 08:03
PROVIDERS: ATTEND Family Medicine
DX: D50.0 Iron deficiency anemia secondary to blood loss (chronic) (principal); R42 Dizziness and giddiness; Z86.79 Personal history of other diseases of the circulatory system
CPT/HCPCS: 36415; 36430; 85014; 85018; 86850; 86900; 86901; 86920; 96374; 96523; P9016; Q0163; J1940

== ENCOUNTER → 2018-01-17 | Outpatient (CLI) | payer MEDICARE ==
[2017-12-20 13:15] VITALS: BP 126/64
[~2018-01-17] MED LIST changes: -ACETAMINOPHEN 325 MG TABLET. PO PRN; -CLOP75TA PO; -FUROSEMIDE 20 MG/2 ML VIAL. IVP ONE; -diphenhydrAMINE HCL 25 MG CAPSULE PO PRN
--- NOTE | 2018-01-17 11:30 | CARD ---
MR#: [id number] Date of Study: 01/17/2018 Ordering Physician: IRVING LIMA, Referring Physician: IRVING LIMA Tech: RUTH Álvarez APPROVED REPORT EXAM: Two-dimensional and M-mode echocardiogram with Doppler and color Doppler. Other Information Quality : AverageHR: 76bpm INDICATION Cardiac Disease: CAD Chest Pain 2D DIMENSIONS RVDd3.0 (2.9-3.5cm)Left Atrium(2D)3.2 (1.6-4.0cm) IVSd1.3 (0.7-1.1cm)Aortic Root(2D)2.8 (2.0-3.7cm) LVDd6.3 (3.9-5.9cm)LVOT Diameter2.0 (1.8-2.4cm) PWd1.1 (0.7-1.1cm)IVSs1.8 (0.8-1.2cm) LVDs4.8 (2.5-4.0cm)FS (%) 23.8 % PWs1.5 (0.8-1.2cm)SV94.1 ml M-Mode DIMENSIONS IVSd1.33 (0.7-1.1cm)LVDd6.10 (4.0-5.6cm) PWd1.30 (0.7-1.1cm)IVSs1.70 cm FS (%) 19 %LVDs4.93 (2.0-3.8cm) PWs1.50 cmLVEF(%)39 (>50%) Aortic Valve AoV Peak Rogerio.137.5cm/sAoV VTI25.7cm AO Peak GR.7.6mmHgLVOT Peak Rogerio.71.1cm/s LVOT VTI 16.51cmAO Mean GR.4mmHg SOUMYA (VMAX)1.25wr4GHO (VTI)2.08cm2 Mitral Valve MV E Qnfvmuaq412.4cm/sMV E Peak Gr.84mmHg MV DECEL [id number] A Qnroabzd84.9cm/s MV OMM73nuN/A Ratio4.1 MVA (PHT)6.75cm2 TDI E/Lateral E'20.6E/Medial E'30.5 Pulmonary Valve PV Peak Cfjrfdpu13.6cm/sPV Peak Grad.4mmHg Pulmonary Vein S1 Osnbsono86.4cm/sD2 Dxvyrnhd29.4cm/s LEFT VENTRICLE The left ventricle is normal size. There is normal left ventricular wall thickness. Left ventricle sy stolic function is at the lower limit of normal. The Ejection Fraction is estimated at 50%. There is normal LV segmental wall motion. RIGHT VENTRICLE The right ventricle is normal size. The right ventricular systolic function is normal. ATRIA The left atrium size is normal. The right atrium size is normal. The interatrial septum is intact wit h no evidence for an atrial septal defect or patent foramen ovale as noted on 2-D or Doppler imaging. AORTIC VALVE The aortic valve is thickened but opens well. Doppler and Color Flow revealed no significant aortic r egurgitation. There is no significant aortic valvular stenosis. There is no aortic valvular vegetatio n. MITRAL VALVE The mitral valve is thickened but opens well. There is no evidence of mitral valve prolapse. There is no mitral valve stenosis. Doppler and Color-flow revealed trace mitral regurgitation. TRICUSPID VALVE The tricuspid valve is not well visualized. Doppler and Color Flow revealed trace to mild tricuspid r egurgitation. There is no tricuspid valve stenosis. PULMONIC VALVE The pulmonic valve is not well visualized. Doppler and Color Flow revealed no pulmonic valvular regur gitation. There is no pulmonic valvular stenosis. GREAT VESSELS The aortic root is normal size. The aortic root displays mild sclerocalcific changes of the aortic ro ot and annulus. The IVC is normal in size and collapses >50% with inspiration. PERICARDIAL EFFUSION There is no pleural effusion. There is no evidence of significant pericardial effusion. Critical Notification Critical Value: No <Conclusion> The left ventricle is normal size. Left ventricle systolic function is at the lower limit of normal. The Ejection Fraction is estimated at 50%. There is no significant aortic valvular stenosis. Doppler and Color Flow revealed no significant aortic regurgitation. Doppler and Color-flow revealed trace mitral regurgitation. Doppler and Color Flow revealed trace to mild tricuspid regurgitation. Signed by : Jesus Manuel Kwon MD Electronically Approved : 01/17/2018 11:29:48
== END | disposition home or self-care (01) ==
LOC: ECHO 09:36
PROVIDERS: ATTEND Internal Medicine Cardiovascular Disease
DX: I07.1 Rheumatic tricuspid insufficiency (principal); I25.118 Atherosclerotic heart disease of native coronary artery with other forms of angina pectoris
CPT/HCPCS: 93306

== ENCOUNTER 2018-01-26 13:10 | Inpatient (IN) | payer MEDICARE ==
[~2018-01-26] VITALS: Ht 182.9 cm; Wt 95.3 kg
[2018-01-26 13:33] LABS: BASO # 0.1 x10^3/uL (0.0-0.2); BASO % 1 % (0-3); EOS # 0.4 x10^3/uL (0.0-0.7); EOS % 3 % (0-3); HEMATOCRIT 37.8 % (39.0-53.0); HEMOGLOBIN 11.9 g/dL (13.0-17.5); LYMPH # 0.8 x10^3/uL (1.0-4.8); LYMPH % 7 % (24-48); MEAN CORPUSCULAR HEMOGLOBIN 25 pg (25-35); MEAN CORPUSCULAR HGB CONC 32 g/dL (31-37); MEAN CORPUSCULAR VOLUME 79 fL (79-100); MONO # 1.1 x10^3/uL (0.0-1.1); MONO % 10 % (0-9); NEUT # 9.1 x10^3uL (1.8-7.7); NEUT % 79 % (31-73); PLATELET COUNT 168 x10^3/uL (140-400); RED CELL DISTRIBUTION WIDTH 28.4 % (11.5-14.5); WHITE BLOOD COUNT 11.6 x10^3/uL (4.0-11.0)
[2018-01-26 13:41] LABS: CALCIUM 9.8 mg/dL (8.5-10.1); CREATININE 1.6 mg/dL (0.7-1.3); GFR 43.1; POTASSIUM 4.3 mmol/L (3.5-5.1)
[2018-01-26 13:42] LABS: PROTHROMBIN TIME PATIENT 12.4 SEC (11.7-14.0)
[2018-01-26] MEDS ORDERED: NITROGLYCERIN SUBLINGUAL 0.4 MG BOTTLE OF 25. SL PRN ×2 (13:45→21:00)
[2018-01-26 13:46] LABS: ALBUMIN 4.3 g/dL (3.4-5.0); TOTAL BILIRUBIN 0.5 mg/dL (0.2-1.0); TOTAL PROTEIN 8.4 g/dL (6.4-8.2)
--- NOTE | 2018-01-26 14:00 | RAD ---
EXAM: Chest, single view. HISTORY: Chest pain. COMPARISON: 11/02/2017 FINDINGS: A frontal view of the chest is obtained. There is no infiltrate, pleural effusion or pneumothorax. The heart is normal in size. There is a cardiac pacemaker defibrillator with leads in expected position. There is a left shoulder arthroplasty. IMPRESSION: No acute pulmonary finding. Electronically signed by: Asha German MD (01/26/2018 1:57 PM) [id number]
[2018-01-26 14:12] LABS: ANISOCYTOSIS MARKED; HYPOCHROMIA SLIGHT; MICROCYTOSIS SLIGHT; OVALOCYTES FEW; PLT ESTIMATE ADEQUATE (ADEQUATE)
[2018-01-26] MEDS ORDERED: IV NORMAL SALINE 500ML BAG 500 ML IV ONE (14:15)
--- NOTE | 2018-01-26 14:31 | EKG ---
[facility] [address] [place] [address] Test Date: 2018-01-26 Test Time: 13:17:06 Pat Name: JOSUE MCCOY Department: Room: Gender: M [employer] Executive: : 1950 Requested By: JUJU LOPEZ Order Number: [id number] Reading MD: Lamberto Yañez Measurements Intervals [place] Rate: 75 P: IN: QRS: -56 QRSD: 106 T: 96 QT: 362 QTc: 406 Interpretive Statements SINUS RHTYHM ABNORMAL LEFT AXIS DEVIATION LVH WITH REPOLARIZATION ABNORMALITY ABNORMAL ECG Electronically Signed On 01-31-2018 10:24:59 CDT by Lamberto Yañez
--- NOTE | 2018-01-26 15:50 | PDOC2 ---
JONNY KEYS WATER TAXI DRIVER 01/26/18 1550: CARDIAC CONSULT DATE OF CONSULT Date of Consult DATE: 01/26/18 TIME: 15:34 REASON FOR CONSULT Reason for Consult: Chest pain REFERRING PHYSICIAN Referring Physician: Louise SOURCE Source: Chart review, Patient HISTORY OF PRESENT ILLNESS HISTORY OF PRESENT ILLNESS This is a pleasant 67 yo male admitted for noted complains of chest pain and shakiness. No immediate chest pain but more with epigastric tenderness reproducible with palpation. He has been having epigastric pain brief duration on and off in the last few weeks. He recently had a blood transfusion as an outpt with Hgb dropping in the 7s. He has been having black stools but at the same he also takes iron. He was driving to town when he started having epigastric pain again and then started feeling shaky with tremors. This made him anxious and thinking that there was something wrong and decided to come to ED. Denies any fever. No URI symptoms. Denies any hematemesis and no hematuria. He recently lost his daughter who committed suicide. So far he verbalized that he is not depressed. No recent falls or any recent injury. No diarrhea, nausea, vomiting, or chest pain but more on the epigastric region which he does tense with palpation. PAST MEDICAL HISTORY Past Medical History Cardiovascular: CAD (STEMI; 08/2016 with 3 stents to RCA; 1 each to LAD and diagonal - all KIM), CHF (systolic; LVEF ~ 45%), HTN, Hyperlipidemia, ICM; LVEF ~ 45%), [place] Pulmonary: No pertinent hx CENTRAL NERVOUS SYSTEM: presyncope GI: GERD Heme/Onc: Anemia, blood transfusion Hepatobiliary: No pertinent hx Psych: Depression Musculoskeletal: Osteoarthritis Rheumatologic: No pertinent hx ENT: No pertinent hx Renal/: nephrolithiasis, CKD3 Endocrine: No pertinent hx Dermatology: No pertinent hx PAST SURGICAL HISTORY Past Surgical History left reverse total shoulder; right knee; lithotripsy, PCI,/KIM to RCA,LAD/D 09/02, AICD, ILR implantation and removal, left ureteroscopy FAMILY HISTORY Family History: Hypertension SOCIAL HISTORY Smoke: No ALCOHOL: none Drugs: None Lives: with Family (son) CURRENT MEDICATIONS CURRENT MEDICATIONS Current Medications Medications (Trade) Dose Ordered Sig/Konrad Route PRN Reason Start Time Stop Time Status Last Admin Dose Admin Nitroglycerin (Nitrostat) 0.4 mg PRN Q5MIN PRN SL CHEST PAIN 01/26/18 13:45 01/26/18 13:44 Sodium Chloride 500 ml @ 500 mls/hr 1X ONCE IV 01/26/18 14:15 01/26/18 15:14 DC 01/26/18 14:17 Lorazepam (Ativan) 0.5 mg 1X ONCE IV 01/26/18 14:30 01/26/18 14:31 DC 01/26/18 14:28 ALLERGIES ALLERGIES: Coded Allergies: morphine (Verified Allergy, Intermediate, RASH AND ITCHING, 12/20/17) TOLERATES HYDROCODONE procaine (Verified Allergy, Intermediate, rash, 12/20/17) ROS Review of System 14 point ROS evaluated with pertinent positives noted per HPI PHYSICAL EXAM General: Alert, Oriented X3, Cooperative, No acute distress HEENT: Atraumatic, Mucous membr. moist/pink Lungs: Clear to auscultation, Normal air movement Heart: Regular rate (SR), Normal S1, Normal S2, Other (2/6 syshtolic murmur to LLS border) Abdomen: Other (epigastric tenderness) Extremities: No cyanosis, No edema Skin: No breakdown, No significant lesion Neuro: Normal speech, Sensation intact Psych/Mental Status: Mental status NL, Mood NL MUSCULOSKELETAL: Osteoarthritic changes both hands VITALS VITALS Vital Signs Date Time Temp Pulse Resp B/P (MAP) Pulse Ox O2 Delivery O2 Flow Rate FiO2 01/26/18 13:44 74 167/73 01/26/18 13:15 97.8 24 98 Room Air 97.8 LABS Lab: Laboratory Tests Test 01/26/18 13:20 White Blood Count 11.6 x10^3/uL (4.0-11.0) Red Blood Count 4.80 x10^6/uL (4.30-5.70) Hemoglobin 11.9 g/dL (13.0-17.5) Hematocrit 37.8 % (39.0-53.0) Mean Corpuscular Volume 79 fL (79-100) Mean Corpuscular Hemoglobin 25 pg (25-35) Mean Corpuscular Hemoglobin Concent 32 g/dL (31-37) Red Cell Distribution Width 28.4 % (11.5-14.5) Platelet Count 168 x10^3/uL (140-400) Neutrophils (%) (Auto) 79 % (31-73) Lymphocytes (%) (Auto) 7 % (24-48) Monocytes (%) (Auto) 10 % (0-9) Eosinophils (%) (Auto) 3 % (0-3) Basophils (%) (Auto) 1 % (0-3) Neutrophils # (Auto) 9.1 x10^3uL (1.8-7.7) Lymphocytes # (Auto) 0.8 x10^3/uL (1.0-4.8) Monocytes # (Auto) 1.1 x10^3/uL (0.0-1.1) Eosinophils # (Auto) 0.4 x10^3/uL (0.0-0.7) Basophils # (Auto) 0.1 x10^3/uL (0.0-0.2) Platelet Estimate Adequate (ADEQUATE) Hypochromasia Slight Anisocytosis Marked Microcytosis Slight Ovalocytes Few Prothrombin Time 12.4 SEC (11.7-14.0) Prothromb Time International Ratio 1.0 (0.8-1.1) Sodium Level 139 mmol/L (136-145) Potassium Level 4.3 mmol/L (3.5-5.1) Chloride Level 101 mmol/L (98-107) Carbon Dioxide Level 30 mmol/L (21-32) Anion Gap 8 (6-14) Blood Urea Nitrogen 17 mg/dL (8-26) Creatinine 1.6 mg/dL (0.7-1.3) Estimated GFR (Cockcroft-Gault) 43.1 BUN/Creatinine Ratio 11 (6-20) Glucose Level 115 mg/dL (70-99) Calcium Level 9.8 mg/dL (8.5-10.1) Total Bilirubin 0.5 mg/dL (0.2-1.0) Aspartate Amino Transf (AST/SGOT) 25 U/L (15-37) Alanine Aminotransferase (ALT/SGPT) 39 U/L (16-63) Alkaline Phosphatase 115 U/L (46-116) Troponin I Quantitative < 0.017 ng/mL (0.000-0.055) Total Protein 8.4 g/dL (6.4-8.2) Albumin 4.3 g/dL (3.4-5.0) Albumin/Globulin Ratio 1.0 (1.0-1.7) ECHOCARDIOGRAM ECHOCARDIOGRAM <Conclusion> The left ventricle is normal size. Left ventricle systolic function is at the lower limit of normal. The Ejection Fraction is estimated at 50%. There is no significant aortic valvular stenosis. Doppler and Color Flow revealed no significant aortic regurgitation. Doppler and Color-flow revealed trace mitral regurgitation. Doppler and Color Flow revealed trace to mild tricuspid regurgitation. DATE: 01/17/18 1129 HEART CATH HEART CATH Conclusion 1. Severe two-vessel coronary disease 2. Successful PCI/drug eluting stent placement to the right coronary artery, left anterior descending artery and also the diagonal branch. 3. Diaphragmatic wall hypokinesis with ejection fraction estimated at 50%. Recommendations 1. Aspirin 325 mg daily 2. Effient 10 mg daily for preferably one year 3. Cardiovascular risk factor modification. DATE: 09/03/16 0935 ASSESSMENT/PLAN ASSESSMENT/PLAN 1. Atypical CP: no CP but more epigastric tenderness. No cardiac symptoms 2. Recent anemia with possible GI bleed/PUD: Transfusion 2U on 12/20 scheduled for outpt endoscopy 02/08 per pt. 3. Anxiety/tremors: per PCP 4. CAD: 08/2016 PCI/KIM to RCA/LAD/Diag, clinically stable. 5. Hx of cardiomyopathy: EF now at 50%, compensated 6. Hx of VT prompting AICD: ([employer]). Data download overnight with no arrhythmias, stable impedances, nml function. 7. HTN: controlled 8. HLP 9. CKD3 Recommendations 1. Continue with ECASA, change to 81 mg. May hold Effient for now if strong suspicion of GI bleed 2. Further continuation of ASA/effient or probably change to plavix depending on pending endoscopy result. 3. Continue home meds. Lisinopril, lipitor and toprol. protonix. 4. Consult GI. IRVING LIMA MD 01/26/18 1711: CARDIAC CONSULT ASSESSMENT/PLAN ASSESSMENT/PLAN Patient seen and examined. Agree with PRESIDENTIAL HELICOPTER CREW CHIEF's assessment and plan. Chest pain with atypical features and most probably GI etiology. Monitor serial cardiac enzymes. ICD interrogation showed normal function without any recorded arrhythmias. Agree with GI workup for patient's chest/epigastric pain Thank you for your consultation JONNY KYES APRN Jan 26, 2018 15:50 IRVING LIMA MD Jan 26, 2018 17:11
--- NOTE | 2018-01-26 15:54 | PHYS DOC ---
Past Medical History Past Medical History: Depression, GERD, Heart Disease, Hypertension, Kidney Stone, [place] Additional Past Medical Histor: insominia Past Surgical History: Tonsillectomy, Other Additional Past Surgical Histo: R)KNEE,KIDNEY STONE SX,L)shoulder,cardiac cath w/stents&"loop around" Alcohol Use: None Drug Use: None Adult General Chief Complaint Chief Complaint: CHEST PAIN HPI HPI Patient is a 67 year old male who presents to the ER with complaints of substernal chest pain that he describes as pressure for the last hour. Pt states he was driving when the pain began. He currently rates his pain as a 1 out of 10 on the pain scale. He denies any diaphoresis, nausea, vomiting, back pain, or abdominal pain. Pt reports a history of heart disease, atrial fibrillation, GERD, and high cholesterol. He reports having a previous [place] with 5 cardiac stents placed and later a defibrillator. He also denies any fever. He states he has had a little bit of a cough lately and has felt slightly short of breath. He took 325 mg of ASA at 0900 today. In addition, pt reports concerns about a possible tick bite to his medial RLE that happened a week ago, he denies any rash, warmth, or drainage from the site. Review of Systems Review of Systems Constitutional: Denies fever or chills [] Eyes: Denies change in visual acuity, redness, or eye pain [] HENT: Denies nasal congestion or sore throat [] Respiratory: reports cough and mild shortness of breath [] Cardiovascular: reports substernal chest pressure that radiates to left chest, denies palpitations GI: Denies abdominal pain, nausea, vomiting, or diarrhea [] Musculoskeletal: Denies back pain Integument: Denies rash or skin lesions [] Neurologic: Denies headache, focal weakness or sensory changes [] All other systems were reviewed and found to be within normal limits, except as documented in this note. Current Medications Current Medications Current Medications Medications (Trade) Dose Ordered Sig/Konrad Start Time Stop Time Status Last Admin Dose Admin Lorazepam (Ativan) 0.5 mg 1X ONCE 01/26/18 14:30 01/26/18 14:31 DC 01/26/18 14:28 0.5 MG Nitroglycerin (Nitrostat) 0.4 mg PRN Q5MIN PRN 01/26/18 13:45 01/26/18 13:44 0.4 MG Sodium Chloride 500 ml @ 500 mls/hr 1X ONCE 01/26/18 14:15 01/26/18 15:14 DC 01/26/18 14:17 500 MLS/HR Allergies Allergies Allergies Coded Allergies Type Severity Reaction Last Updated Verified morphine Allergy Intermediate RASH AND ITCHING 12/20/17 Yes procaine Allergy Intermediate rash 12/20/17 Yes Physical Exam Physical Exam Constitutional: Well developed, well nourished, anxious, non-toxic appearance. [ ] HENT: Normocephalic, atraumatic, bilateral external ears normal, oropharynx moist, no oral exudates, nose normal. [] Eyes: PERRLA, conjunctiva normal, no discharge. [] Neck: Normal range of motion, no tenderness, supple, no stridor. [] Cardiovascular: Heart rate regular rhythm, no murmur [] Lungs & Thorax: Bilateral breath sounds clear to auscultation [] Abdomen: Bowel sounds normal, soft, no tenderness, no masses, no pulsatile masses. [] Skin: Warm, dry, no erythema, no rash. [] Extremities: No tenderness, no cyanosis, no clubbing, ROM intact, no edema. [] Neurologic: Alert and oriented X 3, normal motor function, normal sensory function, no focal deficits noted. [] Psychologic: anxious, judgement normal, mood normal. [] Current Patient Data Vital Signs Vital Signs Date Time Temp Pulse Resp B/P (MAP) Pulse Ox O2 Delivery O2 Flow Rate FiO2 01/26/18 13:44 74 167/73 01/26/18 13:15 97.8 24 98 Room Air 97.8 Lab Values Laboratory Tests Test 01/26/18 13:20 White Blood Count 11.6 x10^3/uL (4.0-11.0) H Red Blood Count 4.80 x10^6/uL (4.30-5.70) Hemoglobin 11.9 g/dL (13.0-17.5) L Hematocrit 37.8 % (39.0-53.0) L Mean Corpuscular Volume 79 fL (79-100) Mean Corpuscular Hemoglobin 25 pg (25-35) Mean Corpuscular Hemoglobin Concent 32 g/dL (31-37) Red Cell Distribution Width 28.4 % (11.5-14.5) H Platelet Count 168 x10^3/uL (140-400) Neutrophils (%) (Auto) 79 % (31-73) H Lymphocytes (%) (Auto) 7 % (24-48) L Monocytes (%) (Auto) 10 % (0-9) H Eosinophils (%) (Auto) 3 % (0-3) Basophils (%) (Auto) 1 % (0-3) Neutrophils # (Auto) 9.1 x10^3uL (1.8-7.7) H Lymphocytes # (Auto) 0.8 x10^3/uL (1.0-4.8) L Monocytes # (Auto) 1.1 x10^3/uL (0.0-1.1) Eosinophils # (Auto) 0.4 x10^3/uL (0.0-0.7) Basophils # (Auto) 0.1 x10^3/uL (0.0-0.2) Platelet Estimate Adequate (ADEQUATE) Hypochromasia Slight Anisocytosis Marked Microcytosis Slight Ovalocytes Few Prothrombin Time 12.4 SEC (11.7-14.0) Prothrombin Time INR 1.0 (0.8-1.1) Sodium Level 139 mmol/L (136-145) Potassium Level 4.3 mmol/L (3.5-5.1) Chloride Level 101 mmol/L (98-107) Carbon Dioxide Level 30 mmol/L (21-32) Anion Gap 8 (6-14) Blood Urea Nitrogen 17 mg/dL (8-26) Creatinine 1.6 mg/dL (0.7-1.3) H Estimated GFR (Cockcroft-Gault) 43.1 BUN/Creatinine Ratio 11 (6-20) Glucose Level 115 mg/dL (70-99) H Calcium Level 9.8 mg/dL (8.5-10.1) Total Bilirubin 0.5 mg/dL (0.2-1.0) Aspartate Amino Transferase (AST) 25 U/L (15-37) Alanine Aminotransferase (ALT) 39 U/L (16-63) Alkaline Phosphatase 115 U/L (46-116) Troponin I Quantitative < 0.017 ng/mL (0.000-0.055) Total Protein 8.4 g/dL (6.4-8.2) H Albumin 4.3 g/dL (3.4-5.0) Albumin/Globulin Ratio 1.0 (1.0-1.7) Laboratory Tests 01/26/18 13:20 Laboratory Tests 01/26/18 13:20 EKG EKG 1320- Afib with rate of 75 no STEMI read by Dr. Garcia[] Radiology/Procedures Radiology/Procedures PROCEDURE: PORTABLE CHEST 1V EXAM: Chest, single view. HISTORY: Chest pain. COMPARISON: 11/02/2017 FINDINGS: A frontal view of the chest is obtained. There is no infiltrate, pleural effusion or pneumothorax. The heart is normal in size. There is a cardiac pacemaker defibrillator with leads in expected position. There is a left shoulder arthroplasty. IMPRESSION: No acute pulmonary finding.[] Course & Med Decision Making Course & Med Decision Making Pertinent Labs and Imaging studies reviewed. (See chart for details) CXR normal, EKG A-fib with controlled rate, trop <0.017, CBC 11.6, Hgb 11.9, Hct 37.8, Civil Estimator 1.6 Pt was given one SL nitro 0.4 mg tablet and reported relief of chest pain after medication. He was given 0.5 mg of ativan and 500 of NS in the department also. Pt agrees to be admitted for further evaluation of chest pain. Spoke with Dr. Jiménez who admitted the patient for chest pain at 1451. [] Dragon Disclaimer Dragon Disclaimer This electronic medical record was generated, in whole or in part, using a voice recognition dictation system. Departure Departure Impression: Primary Impression: Chest pain Disposition: ADMITTED INPATIENT Admitting Physician: Allan Jose Condition: STABLE Referrals: PB COY MD (PCP) Problem Qualifiers Primary Impression: Chest pain Chest pain type: unspecified Qualified Codes: R07.9 - Chest pain, unspecified JUJU LOPEZ GEOSPATIAL IMAGERY INTELLIGENCE ANALYST Jan 26, 2018 15:54
[2018-01-26] MEDS ORDERED: PANTOPRAZOLE 40 MG TABLET.DR. PO SCH (16:15)
[2018-01-26] MEDS ORDERED: PANTOPRAZOLE IV PUSH 40 MG VIAL. IVP SCH (16:30)
--- NOTE | 2018-01-26 16:32 | PDOC2 ---
GI CONSULT Reason For Consult: Epigastric pain, due for EGD and colonoscopy on 02/08 HPI: HPI: 67 y/o male seen in the ER. Here for evaluation of "shaking real bad" and epigastric pain. Typically has no issues w/ abd pain - started this morning while driving, described as a "dull ache," denies radiation to chest, back, or lower abd. He thought he might be having another heart attack, though this pain was not similar to his previous IA. No dysphagia, n/v, diarrhea, constipation, or change in appetite. Might have lost weight. When asked about heartburn, he says "so-so sometimes" but does not believe he takes any medication for this. Stools are formed but have looked black for 2 weeks since starting "vitamins" - he says these contain iron and he takes them QOD. H/o CAD on Effient (last dose this a.m.) and ASA. Has been anemic - Hgb was 8.4 in October and 7.3 in December, says he received a blood transfusion at that time. He then saw Dr. Shaw in the office re: anemia and says an EGD and colonoscopy were scheduled for 02/08/18. No previous EGD. Recalls a colonoscopy at the [facility] ~ 5 years ago with "some plaque." Diverticulosis noted on past CT A/P. No GB, liver, or pancreas history. No NSAIDs. Current labs - Hgb 11.9, RDW 28.4, MCV 79, BUN 17, Cr 1.6 (h/o CKD), total protein 8.4. 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 In 2017, iron and sat low (44 and 14) w/ normal TIBC. At time time, retic count 1.9, B12 269, folate 22, normal TSH. His daughter recently committed suicide. PMH: PMH: CAD w/ stents, IA, CHF, HTN, HLD, anemia, depression, OA, nephrolithiasis, CKD, colon polyps, left shoulder surgery, rigth knee surgery, lithotripsy, AICD, ureteroscopy FH: Family History: CAD, Other (mother - cirrhosis, father - "intestines exploded") Social History: Smoke: Quit ALCOHOL: none Drugs: None ROS: GEN: Denies fevers, chills, sweats HEENT: Denies blurred vision, sore throat CV: Denies chest pain RESP: Denies shortness of air, cough GI: Per HPI : Denies hematuria, dysuria ENDO: +weight loss NEURO: Denies confusion, dizziness MSK: Denies weakness, joint pain/swelling SKIN: Denies jaundice, pruritus Vitals: Vitals: Vital Signs Date Time Temp Pulse Resp B/P (MAP) Pulse Ox O2 Delivery O2 Flow Rate FiO2 01/26/18 13:44 74 167/73 01/26/18 13:15 97.8 24 98 Room Air 97.8 Labs: Labs: Laboratory Tests Test 01/26/18 13:20 White Blood Count 11.6 x10^3/uL (4.0-11.0) Red Blood Count 4.80 x10^6/uL (4.30-5.70) Hemoglobin 11.9 g/dL (13.0-17.5) Hematocrit 37.8 % (39.0-53.0) Mean Corpuscular Volume 79 fL (79-100) Mean Corpuscular Hemoglobin 25 pg (25-35) Mean Corpuscular Hemoglobin Concent 32 g/dL (31-37) Red Cell Distribution Width 28.4 % (11.5-14.5) Platelet Count 168 x10^3/uL (140-400) Neutrophils (%) (Auto) 79 % (31-73) Lymphocytes (%) (Auto) 7 % (24-48) Monocytes (%) (Auto) 10 % (0-9) Eosinophils (%) (Auto) 3 % (0-3) Basophils (%) (Auto) 1 % (0-3) Neutrophils # (Auto) 9.1 x10^3uL (1.8-7.7) Lymphocytes # (Auto) 0.8 x10^3/uL (1.0-4.8) Monocytes # (Auto) 1.1 x10^3/uL (0.0-1.1) Eosinophils # (Auto) 0.4 x10^3/uL (0.0-0.7) Basophils # (Auto) 0.1 x10^3/uL (0.0-0.2) Platelet Estimate Adequate (ADEQUATE) Hypochromasia Slight Anisocytosis Marked Microcytosis Slight Ovalocytes Few Prothrombin Time 12.4 SEC (11.7-14.0) Prothromb Time International Ratio 1.0 (0.8-1.1) Sodium Level 139 mmol/L (136-145) Potassium Level 4.3 mmol/L (3.5-5.1) Chloride Level 101 mmol/L (98-107) Carbon Dioxide Level 30 mmol/L (21-32) Anion Gap 8 (6-14) Blood Urea Nitrogen 17 mg/dL (8-26) Creatinine 1.6 mg/dL (0.7-1.3) Estimated GFR (Cockcroft-Gault) 43.1 BUN/Creatinine Ratio 11 (6-20) Glucose Level 115 mg/dL (70-99) Calcium Level 9.8 mg/dL (8.5-10.1) Total Bilirubin 0.5 mg/dL (0.2-1.0) Aspartate Amino Transf (AST/SGOT) 25 U/L (15-37) Alanine Aminotransferase (ALT/SGPT) 39 U/L (16-63) Alkaline Phosphatase 115 U/L (46-116) Troponin I Quantitative < 0.017 ng/mL (0.000-0.055) Total Protein 8.4 g/dL (6.4-8.2) Albumin 4.3 g/dL (3.4-5.0) Albumin/Globulin Ratio 1.0 (1.0-1.7) Allergies: Coded Allergies: morphine (Verified Allergy, Intermediate, RASH AND ITCHING, 12/20/17) TOLERATES HYDROCODONE procaine (Verified Allergy, Intermediate, rash, 12/20/17) Medications: Current Medications Medications (Trade) Dose Ordered Sig/Konrad Route PRN Reason Start Time Stop Time Status Last Admin Dose Admin Nitroglycerin (Nitrostat) 0.4 mg PRN Q5MIN PRN SL CHEST PAIN 01/26/18 13:45 01/26/18 13:44 Sodium Chloride 500 ml @ 500 mls/hr 1X ONCE IV 01/26/18 14:15 01/26/18 15:14 DC 01/26/18 14:17 Lorazepam (Ativan) 0.5 mg 1X ONCE IV 01/26/18 14:30 01/26/18 14:31 DC 01/26/18 14:28 Imaging: Imaging: CXR IMPRESSION: No acute pulmonary finding. PE: GEN: NAD HEENT: Atraumatic, PERRL LUNGS: CTAB HEART: RRR ABD: NABS, soft, round, epigastric discomfort EXTREMITY: No edema SKIN: No rashes, no jaundice NEURO/PSYCH: A & O 3, nervous A/P: A/P: Epigastric pain, black stools Anemia - labs in 2017 suggestive of iron and borderline B12 deficiency CAD on Effient and ASA, CKD ?GERD CRC screen - colonoscopy ~5 years ago at the [facility] -- Reviewed with cardiology - no plans, holding Effient. Reviewed w/ Dr. Shaw - will plan for EGD tomorrow a.m. Will give IV PPI - can have clears tonight, NPO at midnight. KARI PERDOMO Jan 26, 2018 16:32
[2018-01-26 19:00] VITALS: BP 105/39
--- NOTE | 2018-01-26 20:06 | PDOC1 ---
History and Physical Date of Admission Date of Admission DATE: 01/26/18 TIME: 20:05 Identification/Chief Complaint Chief Complaint SEEN IN ER PResents to the ER with complaints of substernal chest pain that he describes as pressure for the last hour. was driving when the pain began., He denies any diaphoresis, nausea, vomiting, back pain, or abdominal pain. reports a history of heart disease, atrial fibrillation, GERD, and high cholesterol. He reports having a previous ID with 5 cardiac stents placed and a defibrillator. Past Medical History Past Medical History PAST MEDICAL HISTORY Past Medical History Cardiovascular: CAD (STEMI; 08/2016 with 3 stents to RCA; 1 each to LAD and diagonal - all KIM), CHF (systolic; LVEF ~ 45%), HTN, Hyperlipidemia, ICM; LVEF ~ 45%), VT Pulmonary: No pertinent hx CENTRAL NERVOUS SYSTEM: presyncope GI: GERD Heme/Onc: Anemia, blood transfusion Hepatobiliary: No pertinent hx Psych: Depression Musculoskeletal: Osteoarthritis Rheumatologic: No pertinent hx ENT: No pertinent hx Renal/: nephrolithiasis, CKD3 Endocrine: No pertinent hx Dermatology: No pertinent hx PAST SURGICAL HISTORY Past Surgical History left reverse total shoulder; right knee; lithotripsy, PCI,/KIM to RCA,LAD/D 09/02, AICD, ILR implantation and removal, left ureteroscopy FAMILY HISTORY Family History: Hypertension SOCIAL HISTORY Smoke: No ALCOHOL: none Drugs: None Lives: with Family (son) Cardiovascular: CAD, CHF, HTN, Hyperlipidemia, Other Pulmonary: No pertinent hx CENTRAL NERVOUS SYSTEM: Other GI: GERD Heme/Onc: No pertinent hx Hepatobiliary: No pertinent hx Psych: Depression Musculoskeletal: Osteoarthritis Rheumatologic: No pertinent hx Infectious disease: No pertinent hx Renal/: Chronic renal insuff, Other Endocrine: No pertinent hx Past Surgical History Past Surgical History: Other Family History Family History: Hypertension Family History: Parent Social History Smoke: Quit ALCOHOL: none Drugs: None Current Medications Current Medications Current Medications Nitroglycerin (Nitrostat) 0.4 mg PRN Q5MIN PRN SL CHEST PAIN Last administered on 01/26/18at 13:44; Start 01/26/18 at 13:45 Sodium Chloride 500 ml @ 500 mls/hr 1X ONCE IV Last administered on at 14:17; Start 01/26/18 at 14:15; Stop 01/26/18 at 15:14; Status DC Lorazepam (Ativan) 0.5 mg 1X ONCE IV Last administered on 01/26/18at 14:28; Start 01/26/18 at 14:30; Stop 01/26/18 at 14:31; Status DC Atorvastatin Calcium (Lipitor) 80 mg QHS PO ; Start 01/26/18 at 21:00 Metoprolol Succinate (Toprol Xl) 25 mg DAILY PO ; Start 01/27/18 at 09:00 Lisinopril (Prinivil) 2.5 mg DAILY PO ; Start 01/27/18 at 09:00 Aspirin (Ecotrin) 81 mg DAILYWBKFT PO ; Start 01/27/18 at 08:00 Pantoprazole Sodium (Protonix) 40 mg DAILY PO ; Start 01/26/18 at 16:15; Stop at 16:27; Status DC Pantoprazole Sodium (PROTONIX VIAL for IV PUSH) 40 mg BIDAC IVP Last administered on 01/26/18at 17:20; Start 01/26/18 at 16:30 Active Scripts Active Effient (Prasugrel Hcl) 10 Mg Tablet 10 Mg PO DAILYWBKFT Nitrostat (Nitroglycerin) 0.4 Mg Tab.subl 0.4 Mg SL PRN Q5MIN PRN Lisinopril 5 Mg Tablet 5 Mg PO DAILY Atorvastatin Calcium 40 Mg Tablet 80 Mg PO QHS Aspirin Ec (Aspirin) 325 Mg Tablet.dr 325 Mg PO DAILYWBKFT Flomax (Tamsulosin Hcl) 0.4 Mg Cap.er.24h 0.4 Mg PO DAILY 30 Days Reported Toprol Xl (Metoprolol Succinate) 25 Mg Tab.er.24h 1 Tab PO DAILY Omeprazole 20 Mg Tablet.dr 1 Tab PO DAILY Fluoxetine Hcl 20 Mg Capsule 1 Cap PO DAILY Allergies Allergies: Coded Allergies: morphine (Verified Allergy, Intermediate, RASH AND ITCHING, 12/20/17) TOLERATES HYDROCODONE procaine (Verified Allergy, Intermediate, rash, 12/20/17) ROS Review of System Review of Systems Review of Systems Constitutional: Denies fever or chills [] Eyes: Denies change in visual acuity, redness, or eye pain [] HENT: Denies nasal congestion or sore throat [] Respiratory: reports cough and mild shortness of breath [] Cardiovascular: reports substernal chest pressure that radiates to left chest, denies palpitations NO SYNCOPE GI: Denies abdominal pain, nausea, vomiting, or diarrhea [] Musculoskeletal: Denies back pain Integument: Denies rash or skin lesions [] Neurologic: Denies headache, focal weakness or sensory changes [] 14 PT systems were reviewed and found to be within normal limits, except as documented . Eyes: No Blurry vision, No Decreased vision, No Double vision, No Dry eyes, No Excessive tearing, No Eye Pain, No Itchy Eyes, No Loss of vision, No Photophobia , No Scotomata, No Uses contacts, No Uses glasses, No Other Cardiovascular: yes Chest Pain Neurological: No Behavorial Changes, No Bowel/Bladder ControlChng, No Confusion , No Dizziness, No Gait Disturbance, No Headaches, No Impaired Coord/balance, No Memory Loss, No Numbness/Tingling, No Seizures, No Speech Problems, No Tremors, No Visual Changes, No Weakness, No Other Physical Exam Physical Exam Physical Exam Physical Exam Constitutional: Well developed, well nourished, anxious, non-toxic appearance. [ ] HENT: Normocephalic, atraumatic, bilateral external ears normal, oropharynx moist, no oral exudates, nose normal. [] Eyes: PERRLA, conjunctiva normal, no discharge. [] Neck: Normal range of motion, no tenderness, supple, no stridor. [] Cardiovascular: Heart rate regular rhythm, no murmur [] Lungs & Thorax: Bilateral breath sounds clear to auscultation [] Abdomen: Bowel sounds normal, soft, no tenderness, no masses, no pulsatile masses. [] Skin: Warm, dry, no erythema, no rash. [] Extremities: No tenderness, no cyanosis, no clubbing, ROM intact, no edema. [] Neurologic: Alert and oriented X 3, normal motor function, normal sensory function, no focal deficits noted. [] Psychologic: anxious, judgement normal, mood ANXIOUS. [] General: Alert, Oriented X3, Cooperative, mild distress Abdomen: Normal bowel sounds, Soft Extremities: No cyanosis Vitals Vitals Vital Signs Date Time Temp Pulse Resp B/P (MAP) Pulse Ox O2 Delivery O2 Flow Rate FiO2 01/26/18 18:07 Room Air 01/26/18 16:30 81 20 138/82 (100) 100 01/26/18 13:15 97.8 97.8 Labs Labs Laboratory Tests Test 01/26/18 13:20 White Blood Count 11.6 x10^3/uL (4.0-11.0) Red Blood Count 4.80 x10^6/uL (4.30-5.70) Hemoglobin 11.9 g/dL (13.0-17.5) Hematocrit 37.8 % (39.0-53.0) Mean Corpuscular Volume 79 fL (79-100) Mean Corpuscular Hemoglobin 25 pg (25-35) Mean Corpuscular Hemoglobin Concent 32 g/dL (31-37) Red Cell Distribution Width 28.4 % (11.5-14.5) Platelet Count 168 x10^3/uL (140-400) Neutrophils (%) (Auto) 79 % (31-73) Lymphocytes (%) (Auto) 7 % (24-48) Monocytes (%) (Auto) 10 % (0-9) Eosinophils (%) (Auto) 3 % (0-3) Basophils (%) (Auto) 1 % (0-3) Neutrophils # (Auto) 9.1 x10^3uL (1.8-7.7) Lymphocytes # (Auto) 0.8 x10^3/uL (1.0-4.8) Monocytes # (Auto) 1.1 x10^3/uL (0.0-1.1) Eosinophils # (Auto) 0.4 x10^3/uL (0.0-0.7) Basophils # (Auto) 0.1 x10^3/uL (0.0-0.2) Platelet Estimate Adequate (ADEQUATE) Hypochromasia Slight Anisocytosis Marked Microcytosis Slight Ovalocytes Few Prothrombin Time 12.4 SEC (11.7-14.0) Prothromb Time International Ratio 1.0 (0.8-1.1) Sodium Level 139 mmol/L (136-145) Potassium Level 4.3 mmol/L (3.5-5.1) Chloride Level 101 mmol/L (98-107) Carbon Dioxide Level 30 mmol/L (21-32) Anion Gap 8 (6-14) Blood Urea Nitrogen 17 mg/dL (8-26) Creatinine 1.6 mg/dL (0.7-1.3) Estimated GFR (Cockcroft-Gault) 43.1 BUN/Creatinine Ratio 11 (6-20) Glucose Level 115 mg/dL (70-99) Calcium Level 9.8 mg/dL (8.5-10.1) Total Bilirubin 0.5 mg/dL (0.2-1.0) Aspartate Amino Transf (AST/SGOT) 25 U/L (15-37) Alanine Aminotransferase (ALT/SGPT) 39 U/L (16-63) Alkaline Phosphatase 115 U/L (46-116) Troponin I Quantitative < 0.017 ng/mL (0.000-0.055) Total Protein 8.4 g/dL (6.4-8.2) Albumin 4.3 g/dL (3.4-5.0) Albumin/Globulin Ratio 1.0 (1.0-1.7) Laboratory Tests Test 01/26/18 13:20 White Blood Count 11.6 x10^3/uL (4.0-11.0) Red Blood Count 4.80 x10^6/uL (4.30-5.70) Hemoglobin 11.9 g/dL (13.0-17.5) Hematocrit 37.8 % (39.0-53.0) Mean Corpuscular Volume 79 fL (79-100) Mean Corpuscular Hemoglobin 25 pg (25-35) Mean Corpuscular Hemoglobin Concent 32 g/dL (31-37) Red Cell Distribution Width 28.4 % (11.5-14.5) Platelet Count 168 x10^3/uL (140-400) Neutrophils (%) (Auto) 79 % (31-73) Lymphocytes (%) (Auto) 7 % (24-48) Monocytes (%) (Auto) 10 % (0-9) Eosinophils (%) (Auto) 3 % (0-3) Basophils (%) (Auto) 1 % (0-3) Neutrophils # (Auto) 9.1 x10^3uL (1.8-7.7) Lymphocytes # (Auto) 0.8 x10^3/uL (1.0-4.8) Monocytes # (Auto) 1.1 x10^3/uL (0.0-1.1) Eosinophils # (Auto) 0.4 x10^3/uL (0.0-0.7) Basophils # (Auto) 0.1 x10^3/uL (0.0-0.2) Platelet Estimate Adequate (ADEQUATE) Hypochromasia Slight Anisocytosis Marked Microcytosis Slight Ovalocytes Few Prothrombin Time 12.4 SEC (11.7-14.0) Prothromb Time International Ratio 1.0 (0.8-1.1) Sodium Level 139 mmol/L (136-145) Potassium Level 4.3 mmol/L (3.5-5.1) Chloride Level 101 mmol/L (98-107) Carbon Dioxide Level 30 mmol/L (21-32) Anion Gap 8 (6-14) Blood Urea Nitrogen 17 mg/dL (8-26) Creatinine 1.6 mg/dL (0.7-1.3) Estimated GFR (Cockcroft-Gault) 43.1 BUN/Creatinine Ratio 11 (6-20) Glucose Level 115 mg/dL (70-99) Calcium Level 9.8 mg/dL (8.5-10.1) Total Bilirubin 0.5 mg/dL (0.2-1.0) Aspartate Amino Transf (AST/SGOT) 25 U/L (15-37) Alanine Aminotransferase (ALT/SGPT) 39 U/L (16-63) Alkaline Phosphatase 115 U/L (46-116) Troponin I Quantitative < 0.017 ng/mL (0.000-0.055) Total Protein 8.4 g/dL (6.4-8.2) Albumin 4.3 g/dL (3.4-5.0) Albumin/Globulin Ratio 1.0 (1.0-1.7) VTE Prophylaxis Ordered VTE Prophylaxis Devices: Yes VTE Pharmacological Prophylaxi: Yes Assessment/Plan Assessment/Plan ASSESSMENT 1. Atypical ANGINA 2. possible GI bleed/PUD: outpt endoscopy 02/08 3. AnxieTY 4. CAD: PCI to RCA 5. Hx of cardiomyopathY 6. Hx of VT prompting AICD: 7. HTN: 8. HLP PLAN . Continue home meds. protonix. Consult GI. SCD'S FRIEDA ENGLISH MD Jan 26, 2018 20:06
[2018-01-26] MEDS ORDERED: ATORVASTATIN CALCIUM 40 MG TABLET. PO SCH (21:00)
[2018-01-26] MEDS ORDERED: ACETAMINOPHEN 325 MG TABLET. PO PRN (22:45)
[2018-01-26 23:00] VITALS: BP 119/44
[2018-01-27] MEDS: IV NORMAL SALINE 1000ML BAG 1,000 ML IV SCH ×2 (00:43→13:00)
[2018-01-27] MEDS ORDERED: LORazepam 1 MG TABLET PO ONE (00:45)
[2018-01-27 03:00] VITALS: BP 98/66
[2018-01-27] MEDS ORDERED: fentaNYL PF VIAL 100 MCG/2 ML VIAL IV PRN ×2 (06:15)
[2018-01-27] MEDS ORDERED: IV RINGERS,LACTATED 1000ML 1,000 ML IV SCH (06:15)
[2018-01-27] MEDS ORDERED: LIDOCAINE 1% PF 2 ML VIAL. ID PRN (06:15)
[2018-01-27] MEDS ORDERED: MIDAZOLAM HCL/PF 2 MG/2 ML VIAL. IV PRN (06:15)
[2018-01-27] MEDS: POTASSIUM CHLORIDE 10MEQ 100 ML IV SCH ×3 (06:28→08:30)
[2018-01-27 07:00] VITALS: BP 117/62
[2018-01-27] MEDS ORDERED: PANTOPRAZOLE 40 MG TABLET.DR. PO SCH (07:30)
[2018-01-27 07:31] LABS: BASO # 0.1 x10^3/uL (0.0-0.2); BASO % 1 % (0-3); EOS % 0 % (0-3); HEMATOCRIT 30.5 % (39.0-53.0); LYMPH # 0.4 x10^3/uL (1.0-4.8); LYMPH % 8 % (24-48); MEAN CORPUSCULAR HEMOGLOBIN 26 pg (25-35); MEAN CORPUSCULAR HGB CONC 33 g/dL (31-37); MEAN CORPUSCULAR VOLUME 78 fL (79-100); MONO # 0.5 x10^3/uL (0.0-1.1); MONO % 11 % (0-9); NEUT # 3.9 x10^3uL (1.8-7.7); NEUT % 80 % (31-73); PLATELET COUNT 100 x10^3/uL (140-400); RED CELL DISTRIBUTION WIDTH 28.3 % (11.5-14.5); WHITE BLOOD COUNT 4.8 x10^3/uL (4.0-11.0)
[2018-01-27 07:52] LABS: ALBUMIN 3.3 g/dL (3.4-5.0); CALCIUM 8.7 mg/dL (8.5-10.1); CREATININE 1.7 mg/dL (0.7-1.3); GFR 40.2; TOTAL BILIRUBIN 0.8 mg/dL (0.2-1.0); TOTAL PROTEIN 6.6 g/dL (6.4-8.2)
[2018-01-27 07:53] LABS: POTASSIUM 4.4 mmol/L (3.5-5.1)
[2018-01-27] MEDS ORDERED: ASPIRIN ENTERIC COATED 81 MG TABLET.DR. PO SCH (08:00)
[2018-01-27] MEDS ORDERED: PRASUGREL 10 MG TABLET. PO SCH (08:00)
[2018-01-27] MEDS ORDERED: ASPIRIN ENTERIC COATED 325 MG TABLET.DR. PO SCH (08:00)
[2018-01-27] MEDS ORDERED: METOPROLOL SUCC 24HR ER 25 MG TAB.ER.24H. PO SCH (09:00)
[2018-01-27] MEDS ORDERED: TAMSULOSIN 0.4 MG CAP.ER.24H. PO SCH (09:00)
[2018-01-27] MEDS ORDERED: FLUoxetine HCL 20 MG CAPSULE PO SCH (09:00)
[2018-01-27] MEDS ORDERED: LISINOPRIL 5 MG TABLET. PO SCH ×3 (09:00)
[2018-01-27] MEDS ORDERED: PROPOFOL 20 ML IV ONE (09:12)
[2018-01-27] MEDS ORDERED: LIDOCAINE 2% PF 2ML VIAL. ONE (09:12)
--- NOTE | 2018-01-27 09:38 | PDOC4 ---
Operative Note Operative Note EGD Meds Propofol per anesthesia Pre-op dx anemia/melena Post-op dx non-erosive gastritis Plan advance diet and activity o/p colonoscopy to further assess DAYDAY VARGAS MD Jan 27, 2018 09:38
[2018-01-27 11:00] VITALS: BP 118/58
[2018-01-27] MEDS ORDERED: ONDANSETRON ODT 4 MG TAB.RAPDIS. PO PRN (11:45)
[2018-01-27] MEDS ORDERED: ONDANSETRON PF 4 MG/2 ML VIAL. IV PRN (11:45)
--- NOTE | 2018-01-27 13:06 | PDOC3 ---
Discharge Summary Visit Information Date of Admission: Jan 26, 2018 Date of Discharge: Jan 27, 2018 Admitting Diagnosis Comment: GI bleed POA-negative EGD-01/27 Indwelling CAD 5 stents on Eliquis POA Anxiety NOS History of cardiac myopathy History of VT prompting AICD Hypertension controlled Dyslipidemia Obesity, BMI 28.5 Final Diagnosis Admitted for GI bleed, on Eliquis POA because of cardiac issues. EGD negative. Planned for outpatient C scope on 02/08 Cardiology has held off Eliquis and was okayed with [facility] I advised the patient to hold of Eliquis for 1 week if no more bleeding than can safely resume at home for cardiac reasons Plan for outpatient C scope 02/08 Procedures performed EGD 01/27-negative No medications needed on file Heavy education counseling done on discharge about holding off Eliquis for 1 week and can resume if no more recurrence of GI bleed Hemodynamically stable Consults performed cardiology, GI Brief Hospital Course Allergies Allergies Coded Allergies Type Severity Reaction Last Updated Verified morphine Allergy Intermediate RASH AND ITCHING 01/27/18 Yes procaine Allergy Intermediate rash 01/27/18 Yes Vital Signs Vital Signs Date Time Temp Pulse Resp B/P (MAP) Pulse Ox O2 Delivery O2 Flow Rate FiO2 01/27/18 11:00 97.9 65 16 118/58 (78) 93 Room Air 97.9 01/27/18 09:43 2 Lab Results Laboratory Tests Test 01/26/18 13:20 01/27/18 01:00 01/27/18 07:15 White Blood Count 11.6 x10^3/uL (4.0-11.0) 4.8 x10^3/uL (4.0-11.0) Red Blood Count 4.80 x10^6/uL (4.30-5.70) 3.90 x10^6/uL (4.30-5.70) Hemoglobin 11.9 g/dL (13.0-17.5) 10.0 g/dL (13.0-17.5) Hematocrit 37.8 % (39.0-53.0) 30.5 % (39.0-53.0) Mean Corpuscular Volume 79 fL (79-100) 78 fL (79-100) Mean Corpuscular Hemoglobin 25 pg (25-35) 26 pg (25-35) Mean Corpuscular Hemoglobin Concent 32 g/dL (31-37) 33 g/dL (31-37) Red Cell Distribution Width 28.4 % (11.5-14.5) 28.3 % (11.5-14.5) Platelet Count 168 x10^3/uL (140-400) 100 x10^3/uL (140-400) Neutrophils (%) (Auto) 79 % (31-73) 80 % (31-73) Lymphocytes (%) (Auto) 7 % (24-48) 8 % (24-48) Monocytes (%) (Auto) 10 % (0-9) 11 % (0-9) Eosinophils (%) (Auto) 3 % (0-3) 0 % (0-3) Basophils (%) (Auto) 1 % (0-3) 1 % (0-3) Neutrophils # (Auto) 9.1 x10^3uL (1.8-7.7) 3.9 x10^3uL (1.8-7.7) Lymphocytes # (Auto) 0.8 x10^3/uL (1.0-4.8) 0.4 x10^3/uL (1.0-4.8) Monocytes # (Auto) 1.1 x10^3/uL (0.0-1.1) 0.5 x10^3/uL (0.0-1.1) Eosinophils # (Auto) 0.4 x10^3/uL (0.0-0.7) 0.0 x10^3/uL (0.0-0.7) Basophils # (Auto) 0.1 x10^3/uL (0.0-0.2) 0.1 x10^3/uL (0.0-0.2) Platelet Estimate Adequate (ADEQUATE) Hypochromasia Slight Anisocytosis Marked Microcytosis Slight Ovalocytes Few Prothrombin Time 12.4 SEC (11.7-14.0) Prothromb Time International Ratio 1.0 (0.8-1.1) Sodium Level 139 mmol/L (136-145) 139 mmol/L (136-145) Potassium Level 4.3 mmol/L (3.5-5.1) 4.4 mmol/L (3.5-5.1) Chloride Level 101 mmol/L (98-107) 103 mmol/L (98-107) Carbon Dioxide Level 30 mmol/L (21-32) 29 mmol/L (21-32) Anion Gap 8 (6-14) 7 (6-14) Blood Urea Nitrogen 17 mg/dL (8-26) 15 mg/dL (8-26) Creatinine 1.6 mg/dL (0.7-1.3) 1.7 mg/dL (0.7-1.3) Estimated GFR (Cockcroft-Gault) 43.1 40.2 BUN/Creatinine Ratio 11 (6-20) 9 (6-20) Glucose Level 115 mg/dL (70-99) 98 mg/dL (70-99) Calcium Level 9.8 mg/dL (8.5-10.1) 8.7 mg/dL (8.5-10.1) Total Bilirubin 0.5 mg/dL (0.2-1.0) 0.8 mg/dL (0.2-1.0) Aspartate Amino Transf (AST/SGOT) 25 U/L (15-37) 19 U/L (15-37) Alanine Aminotransferase (ALT/SGPT) 39 U/L (16-63) 30 U/L (16-63) Alkaline Phosphatase 115 U/L (46-116) 87 U/L (46-116) Troponin I Quantitative < 0.017 ng/mL (0.000-0.055) Total Protein 8.4 g/dL (6.4-8.2) 6.6 g/dL (6.4-8.2) Albumin 4.3 g/dL (3.4-5.0) 3.3 g/dL (3.4-5.0) Albumin/Globulin Ratio 1.0 (1.0-1.7) 1.0 (1.0-1.7) Lactic Acid Level 0.7 mmol/L (0.4-2.0) Laboratory Tests Test 01/26/18 13:20 01/27/18 01:00 01/27/18 07:15 White Blood Count 11.6 x10^3/uL (4.0-11.0) 4.8 x10^3/uL (4.0-11.0) Red Blood Count 4.80 x10^6/uL (4.30-5.70) 3.90 x10^6/uL (4.30-5.70) Hemoglobin 11.9 g/dL (13.0-17.5) 10.0 g/dL (13.0-17.5) Hematocrit 37.8 % (39.0-53.0) 30.5 % (39.0-53.0) Mean Corpuscular Volume 79 fL (79-100) 78 fL (79-100) Mean Corpuscular Hemoglobin 25 pg (25-35) 26 pg (25-35) Mean Corpuscular Hemoglobin Concent 32 g/dL (31-37) 33 g/dL (31-37) Red Cell Distribution Width 28.4 % (11.5-14.5) 28.3 % (11.5-14.5) Platelet Count 168 x10^3/uL (140-400) 100 x10^3/uL (140-400) Neutrophils (%) (Auto) 79 % (31-73) 80 % (31-73) Lymphocytes (%) (Auto) 7 % (24-48) 8 % (24-48) Monocytes (%) (Auto) 10 % (0-9) 11 % (0-9) Eosinophils (%) (Auto) 3 % (0-3) 0 % (0-3) Basophils (%) (Auto) 1 % (0-3) 1 % (0-3) Neutrophils # (Auto) 9.1 x10^3uL (1.8-7.7) 3.9 x10^3uL (1.8-7.7) Lymphocytes # (Auto) 0.8 x10^3/uL (1.0-4.8) 0.4 x10^3/uL (1.0-4.8) Monocytes # (Auto) 1.1 x10^3/uL (0.0-1.1) 0.5 x10^3/uL (0.0-1.1) Eosinophils # (Auto) 0.4 x10^3/uL (0.0-0.7) 0.0 x10^3/uL (0.0-0.7) Basophils # (Auto) 0.1 x10^3/uL (0.0-0.2) 0.1 x10^3/uL (0.0-0.2) Platelet Estimate Adequate (ADEQUATE) Hypochromasia Slight Anisocytosis Marked Microcytosis Slight Ovalocytes Few Prothrombin Time 12.4 SEC (11.7-14.0) Prothromb Time International Ratio 1.0 (0.8-1.1) Sodium Level 139 mmol/L (136-145) 139 mmol/L (136-145) Potassium Level 4.3 mmol/L (3.5-5.1) 4.4 mmol/L (3.5-5.1) Chloride Level 101 mmol/L (98-107) 103 mmol/L (98-107) Carbon Dioxide Level 30 mmol/L (21-32) 29 mmol/L (21-32) Anion Gap 8 (6-14) 7 (6-14) Blood Urea Nitrogen 17 mg/dL (8-26) 15 mg/dL (8-26) Creatinine 1.6 mg/dL (0.7-1.3) 1.7 mg/dL (0.7-1.3) Estimated GFR (Cockcroft-Gault) 43.1 40.2 BUN/Creatinine Ratio 11 (6-20) 9 (6-20) Glucose Level 115 mg/dL (70-99) 98 mg/dL (70-99) Calcium Level 9.8 mg/dL (8.5-10.1) 8.7 mg/dL (8.5-10.1) Total Bilirubin 0.5 mg/dL (0.2-1.0) 0.8 mg/dL (0.2-1.0) Aspartate Amino Transf (AST/SGOT) 25 U/L (15-37) 19 U/L (15-37) Alanine Aminotransferase (ALT/SGPT) 39 U/L (16-63) 30 U/L (16-63) Alkaline Phosphatase 115 U/L (46-116) 87 U/L (46-116) Troponin I Quantitative < 0.017 ng/mL (0.000-0.055) Total Protein 8.4 g/dL (6.4-8.2) 6.6 g/dL (6.4-8.2) Albumin 4.3 g/dL (3.4-5.0) 3.3 g/dL (3.4-5.0) Albumin/Globulin Ratio 1.0 (1.0-1.7) 1.0 (1.0-1.7) Lactic Acid Level 0.7 mmol/L (0.4-2.0) Brief Hospital Course Mr. Ramirez is a 67 old [sex] who presented with [ ] Discharge Information Scheduled Aspirin (Aspirin Ec) 325 Mg Tablet.dr, 325 MG PO DAILYWBKFT, #100 Prescribed by: RUBEN CALVIN on 09/04/161351 Last Action: Continued on 01/26/182058 by FRIEDA ENGLISH MD Atorvastatin Calcium (Atorvastatin Calcium) 40 Mg Tablet, 80 MG PO QHS, #30 Ref 11 Prescribed by: RUBEN CALVIN on 09/04/161351 Last Action: Reviewed on 01/26/181730 by SHAQUILLE URRUTIA Fluoxetine Hcl (Fluoxetine Hcl) 20 Mg Capsule, 1 CAP PO DAILY, #90 Ref 1 ( Reported) Entered as Reported by: PB CROW on 07/12/16 1235 Last Action: Continued on 01/26/182058 by FRIEDA ENGLISH MD Lisinopril (Lisinopril) 5 Mg Tablet, 5 MG PO DAILY, #30 Ref 11 Prescribed by: RUBEN CALVIN on 09/04/161351 Last Action: Converted on 01/26/182058 by FRIEDA ENGLISH MD Metoprolol Succinate (Toprol Xl) 25 Mg Tab.er.24h, 1 TAB PO DAILY, #30 Ref 5 ( Reported) Entered as Reported by: CLARISSA KING on 12/20/17900 Last Action: Reviewed on 01/26/181730 by SHAQUILLE URRUTIA Omeprazole (Omeprazole) 20 Mg Tablet.dr, 1 TAB PO DAILY, #90 Ref 1 (Reported) Entered as Reported by: CLARISSA KING on 12/20/17900 Last Action: Converted on 01/26/182058 by FRIEDA ENGLISH MD Prasugrel Hcl (Effient) 10 Mg Tablet, 10 MG PO DAILYWBK, #30 Ref 11 Prescribed by: RUBEN CALVIN on 09/04/161351 Last Action: Converted on 01/26/182058 by FRIEDA ENGLISH MD Tamsulosin Hcl (Flomax) 0.4 Mg Cap.er.24h, 0.4 MG PO DAILY for 30 Days Prescribed by: FLORES MOREAU MD on 06/04/14 1034 Last Action: Continued on 01/26/182058 by FRIEDA ENGLISH MD Scheduled PRN Nitroglycerin (Nitrostat) 0.4 Mg Tab.subl, 0.4 MG SL PRN Q5MIN PRN for CHEST PAIN, #25 Ref 1 Prescribed by: RUBEN CALVIN on 09/04/16 1352 Last Action: Continued on 01/26/182058 by MD RAMON DUTTON CHERRIE Y MD Jan 27, 2018 13:06
[2018-01-28] MEDS ORDERED: ASPIRIN ENTERIC COATED 81 MG TABLET.DR. PO SCH (08:00)
== END 2018-01-27 16:00 | disposition home or self-care (01) | DRG 378 ==
LOC: ER 13:10 → 5 NORTH 14:54
PROVIDERS: ADMIT Family Medicine; ATTEND Family Medicine
PROC: 0DJ08ZZ Inspection of Upper Intestinal Tract, Via Natural or Artificial Opening Endoscopic (ICD-10-PCS; principal; 2018-01-27 09:00)
DX: K29.61 Other gastritis with bleeding (principal); I42.9 Cardiomyopathy, unspecified; I50.20 Unspecified systolic (congestive) heart failure; I13.0 Hypertensive heart and chronic kidney disease with heart failure and stage 1 through stage 4 chronic kidney disease, or unspecified chronic kidney disease; E78.5 Hyperlipidemia, unspecified; E78.00 Pure hypercholesterolemia, unspecified; F32.9 Major depressive disorder, single episode, unspecified; I25.119 Atherosclerotic heart disease of native coronary artery with unspecified angina pectoris; K21.9 Gastro-esophageal reflux disease without esophagitis; I48.91 Unspecified atrial fibrillation; D64.9 Anemia, unspecified; E66.9 Obesity, unspecified; K57.90 Diverticulosis of intestine, part unspecified, without perforation or abscess without bleeding; M19.90 Unspecified osteoarthritis, unspecified site; R07.89 Other chest pain; F41.9 Anxiety disorder, unspecified; K63.5 Polyp of colon; N18.3 Chronic kidney disease, stage 3 (moderate); Z88.5 Allergy status to narcotic agent; Z88.8 Allergy status to other drugs, medicaments and biological substances; I25.2 Old myocardial infarction; Z79.899 Other long term (current) drug therapy; Z82.49 Family history of ischemic heart disease and other diseases of the circulatory system; Z87.11 Personal history of peptic ulcer disease; Z87.442 Personal history of urinary calculi; Z95.5 Presence of coronary angioplasty implant and graft; Z68.28 Body mass index [BMI] 28.0-28.9, adult; Z95.810 Presence of automatic (implantable) cardiac defibrillator
CPT/HCPCS: 36415; 71045; 80053; 83605; 84484; 85025; 85610; 93005; C9113; J1956; J2001; J2060; J2704; J3480; J7030; J7040; J7120

== ENCOUNTER → 2018-02-08 | Day surgery (SDC) | payer MEDICARE ==
[~2018-02-08] MED LIST changes: +CLOP75TA PO; +IV RINGERS,LACTATED 1000ML 1,000 ML IV SCH; +LIDOCAINE 1% PF 2 ML VIAL. ID PRN; +ONDANSETRON PF 4 MG/2 ML VIAL. IV PRN; +PROCHLORPERAZINE 10 MG/2 ML VIAL. IV PRN; +PROPOFOL 40 ML IV ONE; +fentaNYL PF VIAL 100 MCG/2 ML VIAL IV PRN
[2018-02-08 08:05] VITALS: BP 119/76
[2018-02-08 08:11] LABS: BASO % 1 % (0-3); EOS # 0.2 x10^3/uL (0.0-0.7); EOS % 3 % (0-3); HEMATOCRIT 32.9 % (39.0-53.0); HEMOGLOBIN 10.9 g/dL (13.0-17.5); LYMPH # 0.9 x10^3/uL (1.0-4.8); LYMPH % 17 % (24-48); MEAN CORPUSCULAR HEMOGLOBIN 27 pg (25-35); MEAN CORPUSCULAR HGB CONC 33 g/dL (31-37); MEAN CORPUSCULAR VOLUME 80 fL (79-100); MONO # 0.5 x10^3/uL (0.0-1.1); MONO % 10 % (0-9); NEUT # 3.6 x10^3uL (1.8-7.7); NEUT % 69 % (31-73); PLATELET COUNT 213 x10^3/uL (140-400); RED BLOOD COUNT 4.12 x10^6/uL (4.30-5.70); RED CELL DISTRIBUTION WIDTH 26.3 % (11.5-14.5); WHITE BLOOD COUNT 5.3 x10^3/uL (4.0-11.0)
[2018-02-08 09:51] LABS: ANISOCYTOSIS MOD; PLT ESTIMATE ADEQUATE (ADEQUATE); POLYCHROMASIA PRESENT
--- NOTE | 2018-02-09 11:10 | PATHOLOGY ---
[facility] Accession Number: [id number] . 01 Material submitted: . SIGMOID POLYP BIOPSY . 01 Clinical history: . Anemia . 02 Diagnosis: Colon biopsies, sigmoid polyp: - Tubular adenoma. . ([facility]:mm; 02/09/18) M/02/09/2018 . 02 Comment: There is no high grade dysplasia or evidence of malignancy. . ([facility]:mml; 02/09/18) . 02 Electronically signed: . David Lane MD, Pathologist NPI- [id number] . 01 Gross description: . Received in formalin labeled "Valentín Ramirez, sigmoid polyp BX," are 2 segments of rowan soft tissue measuring 0.7 x 0.3 x 0.2 cm in aggregate dimensions and ranging from 0.3 to 0.4 cm in maximum dimension. The specimen is submitted entirely in cassette A1. (TSD; 02/08/2018) TOB/TOB . 02 Pathologist provided ICD-10: D12.5 . 02 CPT . 735247 Specimen Comment: A courtesy copy of this report has been sent to Specimen Comment: [phone], . Specimen Comment: Report sent to / DR COY Specimen Comment: A duplicate report has been generated due to demographic updates. Performed at: 01 [facility] [address], [place] [id number] MD Pan Gonzalez MD Phone: [phone] Performed at: 02 [facility] [address] [place], [place] [id number] MD David Lane MD Phone: [phone]
== END | disposition home or self-care (01) ==
LOC: ENDOS 06:13
PROVIDERS: ATTEND Internal Medicine Gastroenterology
DX: D12.5 Benign neoplasm of sigmoid colon (principal); K57.30 Diverticulosis of large intestine without perforation or abscess without bleeding; K64.0 First degree hemorrhoids; M19.90 Unspecified osteoarthritis, unspecified site; F32.9 Major depressive disorder, single episode, unspecified; K21.9 Gastro-esophageal reflux disease without esophagitis; I10 Essential (primary) hypertension; E78.00 Pure hypercholesterolemia, unspecified; I25.2 Old myocardial infarction; Z79.899 Other long term (current) drug therapy; Z98.890 Other specified postprocedural states; Z88.5 Allergy status to narcotic agent; Z88.8 Allergy status to other drugs, medicaments and biological substances; Z83.3 Family history of diabetes mellitus; Z82.49 Family history of ischemic heart disease and other diseases of the circulatory system; Z79.82 Long term (current) use of aspirin; Z98.52 Vasectomy status
CPT/HCPCS: 36415; 45380; 85025; 88305; J2704; 45378

== ENCOUNTER → 2018-12-27 | Outpatient (CLI) | payer MEDICARE ==
[2018-02-08 08:05] VITALS: BP 119/76
[~2018-12-27] MED LIST changes: +AMLO5TAB10 PO; -AMLO5TAB7 PO; -HYDR-2758 PO; +HYDR-2761 PO; +HYDR-3164 PO; -HYDR-971 PO; -HYDR1TAB12 PO; +HYDR1TAB13 PO; -IV RINGERS,LACTATED 1000ML 1,000 ML IV SCH; -LIDOCAINE 1% PF 2 ML VIAL. ID PRN; -ONDANSETRON PF 4 MG/2 ML VIAL. IV PRN; -OXYC-323 PO; -OXYC-327 PO; +OXYC1TAB15 PO; +OXYC1TAB19 PO; -PANT40TA3 PO; +PANT40TA77 PO; -PROCHLORPERAZINE 10 MG/2 ML VIAL. IV PRN; -PROPOFOL 40 ML IV ONE; +REGADENOSON 0.4 MG/5 ML DISP.SYRIN. IV ONE; -fentaNYL PF VIAL 100 MCG/2 ML VIAL IV PRN
--- NOTE | 2018-12-27 11:48 | CARD ---
MR#: [id number] Date of Study: 12/27/2018 Ordering Physician: IRVING LIMA, Referring Physician: IRVING LIMA Tech: Fifi Schmidt RDCS APPROVED REPORT EXAM: Two-dimensional and M-mode echocardiogram with Doppler and color Doppler. Other Information Quality : Good INDICATION Cardiac Disease: CAD ICD 2D DIMENSIONS RVDd2.0 (2.9-3.5cm)Left Atrium(2D)3.1 (1.6-4.0cm) IVSd1.0 (0.7-1.1cm)Aortic Root(2D)2.7 (2.0-3.7cm) LVDd6.0 (3.9-5.9cm)LVOT Diameter2.1 (1.8-2.4cm) PWd0.6 (0.7-1.1cm)LVDs5.1 (2.5-4.0cm) FS (%) 15.3 %SV57.6 ml LVEF(%)30.0 (>50%) Aortic Valve AoV Peak Rogerio.137.5cm/sAoV VTI26.8cm AO Peak GR.7.6mmHgLVOT Peak Rogerio.124.1cm/s AO Mean GR.5mmHgAVA (VMAX)3.06cm2 SOUMYA (VTI)3.00cm2 Mitral Valve MV E Fwcpyeza03.0cm/sMV DECEL BUME230hi MV A Ikbdzjyn76.2cm/sE/A Ratio0.6 Tricuspid Valve TR P. Oqxgtrfn953vx/sRAP DOOPWTBU3vlVg TR Peak Gr.97tlViIDIM03usLl Pulmonary Vein S1 Nklommre62.8cm/sD2 Mvyvqzwg32.8cm/s LEFT VENTRICLE The Left Ventricle is mildly dilated. There is normal left ventricular wall thickness. Left ventricle systolic function is severely impaired. The Ejection Fraction is 25-30%. There is global hypokinesis of the left ventricle. Septal motion suggestive of conduction defect. Transmitral Doppler flow patte rn is Grade I-abnormal relaxation pattern. RIGHT VENTRICLE The right ventricle is normal size. The right ventricular systolic function is normal. There is an IC D lead noted in the RV/RA ATRIA The left atrium size is normal. The right atrium size is normal. The interatrial septum is intact wit h no evidence for an atrial septal defect or patent foramen ovale as noted on 2-D or Doppler imaging. AORTIC VALVE The aortic valve is calcified but opens well. Doppler and Color Flow revealed no significant aortic r egurgitation. There is no significant aortic valvular stenosis. MITRAL VALVE The mitral valve is normal in function. There is no mitral valve stenosis. Doppler and Color-flow rev ealed trace mitral regurgitation. TRICUSPID VALVE The tricuspid valve is normal in structure and function. Doppler and Color Flow revealed physiologica l tricuspid regurgitation. The PA pressure was estimated at 24 mmHg. There is no tricuspid valve sten osis. PULMONIC VALVE The pulmonic valve is not well visualized. Doppler and Color Flow revealed trace pulmonic valvular re gurgitation. There is no pulmonic valvular stenosis. GREAT VESSELS The aortic root is normal in size. The ascending aorta is normal in size. The IVC is normal in size a nd collapses >50% with inspiration. PERICARDIAL EFFUSION There is no evidence of significant pericardial effusion. Critical Notification Critical Value: No <Conclusion> Left ventricle systolic function is severely impaired. The Ejection Fraction is 25-30%. There is global hypokinesis of the left ventricle. Septal motion suggestive of conduction defect. There is an ICD lead noted in the RV/RA Signed by : Scotty Simpson, Electronically Approved : 12/27/2018 11:47:39
--- NOTE | 2018-12-27 13:19 | RAD ---
MR#: [id number] Date of Study: 12/27/2018 Ordering Physician: IRIVNG LIMA, Referring Physician: RAMON BRIAN Tech: GUERDA Hall, ARRT (R) (N) APPROVED REPORT Test Type: Pharmacological Stress Nurse/Tech: Trish Figueredo RN Test Indications: CAD follow up Cardiac History: IA 2018,stents x4, AICD left chest Medications: See Electronic Medical Record Medical History: See Electronic Medical Record Resting ECG: SR with BBB and PVC's Resting Heart Rate: 64 bpm Resting Blood Pressure: 124/73mmHg Pretest Chest Pain: No chest pain Nurse/Tech Notes S1,S2 and lungs slightly diminished in the bases. Consent: The procedure was explained to the patient in lay terms. Informed consent was witnessed. John eout was entered into [employer]. History and Stress Test performed by KAREEM Dodd Pharm. Details Pharmacologic stress testing was performed using 0.4mg per 5ml of regadenoson given intravenously ove r 7-10 seconds. Stress Symptoms Dyspnea,Dizziness POST EXERCISE Reason for Termination: Infusion complete Target HR: No Max HR: 95 bpm Max Blood Pressure: 135/56mmHg Blood Pressure response to exercise: Normal blood pressure response during stress. Heart Rate response to exercise: WNL Chest Pain: No. Arrhythmia: Yes. PVC's ST Change: No. INTERPRETATION Stress EKG Conclusion: Baseline EKG showed sinus rhythm. No ischemic changes at peak stress. No arr hythmias. Imaging Protocol IMAGE PROTOCOL: Rest Tc-99m/stress Tc-99m 1 day Rest: Stress: Viability: Radiopharm.Tc99m IfyukxrccIj28x Sestamibi Wtql00fRp 32mCi Img Date 12/27/2018 12/27/2018 Inj-Img Wkmb97rds. 60min. Rest Admin Site:IV - Right HandAdministrator:KAREEM Dodd Stress Admin Site: IV - Right HandAdministrator: Sreedhar Hill, RT (R)(N) STRESS DATA End Diast. Vol.127.0mlLVEDV index BSA58.0ml End Syst. Vol.79.0mlLVESV index BSA36.0ml Myocardial Fnve412.0gEject. Xqlorsed06.0% Stress Scores Regional WT2.00Summed WT31.00 Regional WM1.00Summed WM32.00 LV Perfusion Scintigraphic images showed moderate predominantly fixed defect involving the inferior and inferolate ral lam consistent with previous myocardial infarction with small amount of reversibility consisten t with marilyn-infarct ischemia. Wall Motion Moderate left ventricle systolic dysfunction, severe hypokinesis of the base to mid inferior wall and abnormal septal wall motion with ejection fraction calculated at 39%. LV Perf. Quant 17 Seg. SSS13.00 17 Seg. SRS13.00 17 Seg. SDS2.00 Stress Defect Extent (% LAD)0.00Rest Defect Extent (% LAD)0.00Rev. Defect Extent (% LAD)0.00 Stress Defect Extent (% LCX) 61.30Rest Defect Extent (% LCX)48.80Rev. Defect Extent (% LCX)31.30 Stress Defect Extent (% RCA)38.90Rest Defect Extent (% RCA)54.40Rev. Defect Extent (% RCA)0.00 Stress Defect Extent (% JAIME)23.50Rest Defect Extent (% JAIME)23.30Rev. Defect Extent (% JAIME)5.70 Conclusion 1. Regadenoson cardioisotope stress test showed moderate infarct involving the inferior and inferolat eral lam with small amount of marilyn-infarct ischemia. 2. Moderate left ventricle systolic dysfunction, severe hypokinesis of the base to mid inferior wall and abnormal septal wall motion with ejection fraction calculated at 39%. 3. Low to intermediate risk for cardiac events. Signed by : Irving Lima, Electronically Approved : 12/27/2018 13:18:28
== END | disposition home or self-care (01) ==
LOC: ECHO 08:36
PROVIDERS: ATTEND Internal Medicine Cardiovascular Disease
DX: I08.2 Rheumatic disorders of both aortic and tricuspid valves (principal); I45.4 Nonspecific intraventricular block; I49.3 Ventricular premature depolarization; I25.118 Atherosclerotic heart disease of native coronary artery with other forms of angina pectoris; I25.2 Old myocardial infarction; Z95.810 Presence of automatic (implantable) cardiac defibrillator; Z79.01 Long term (current) use of anticoagulants
CPT/HCPCS: 78452; 93017; 93306; A9500; J2785

== ENCOUNTER → 2019-02-21 | Outpatient (CLI) | payer MEDICARE ==
[2018-02-08 08:05] VITALS: BP 119/76
[~2019-02-21] MED LIST changes: -NITR0.4T SL; +NITR0.4T24 SL; -REGADENOSON 0.4 MG/5 ML DISP.SYRIN. IV ONE
[2019-02-21 10:20] LABS: CALCIUM 9.6 mg/dL (8.5-10.1); CREATININE 1.6 mg/dL (0.7-1.3); GFR 42.9; POTASSIUM 4.2 mmol/L (3.5-5.1)
[2019-02-21 10:45] LABS: CHOLESTEROL/HDL RATIO 3.4
== END | disposition home or self-care (01) ==
LOC: LAB 09:38
PROVIDERS: ATTEND Internal Medicine Cardiovascular Disease
DX: I50.22 Chronic systolic (congestive) heart failure (principal)
CPT/HCPCS: 36415; 80048; 80061

== ENCOUNTER 2019-07-28 12:56 | Emergency (ER) | payer MEDICARE ==
[~2019-07-28] VITALS: Ht 175.3 cm; Wt 95.0 kg
[~2019-07-28 12:56] MED LIST changes: -BUPR300T4 PO; +BUPR300T92 PO; +FLUO20CA20 PO; -FLUO20CA8 PO
[2019-07-28 13:10] VITALS: BP 161/97
[2019-07-28] MEDS ORDERED: methylPREDNISolone SOD SUCC PF 125 MG/2 ML VIAL. IV ONE (13:30)
[2019-07-28] MEDS ORDERED: IV NORMAL SALINE 500ML BAG 500 ML IV ONE (13:30)
[2019-07-28] MEDS ORDERED: MECLIZINE HCL 12.5 MG TABLET. PO ONE (13:30)
--- NOTE | 2019-07-28 13:32 | PHYS DOC ---
Past Medical History Past Medical History: Depression, GERD, Heart Disease, Hypertension, Kidney Stone, [place] Additional Past Medical Histor: insominia Past Surgical History: Tonsillectomy, Other Additional Past Surgical Histo: R)KNEE,KIDNEY STONE SX,L)shoulder,cardiac cath w/stents&"loop around" Smoking Status: Former Smoker Alcohol Use: None Drug Use: None Adult General Chief Complaint Chief Complaint: DIZZY/LIGHT HEADED HPI HPI Patient is a 68 year old male with past medical history significant for myocardial infarction and 5 stents currently on Plavix presents secondary to 2 weeks of ongoing dizziness that seems to be worse with movement but is always present. Currently has a sensation of the room spinning. Denies chest pain, shortness of breath, headache, localized numbness tingling or weakness. No medications taken prior to arrival but the patient does state that he saw his primary care physician 1 week ago and had labs performed which were unremarkable. Review of Systems Review of Systems All other systems were reviewed and found to be within normal limits, except as documented in this note. Current Medications Current Medications Current Medications Medications (Trade) Dose Ordered Sig/Konrad Start Time Stop Time Status Last Admin Dose Admin Meclizine HCl (Antivert) 25 mg 1X ONCE 07/28/19 13:30 07/28/19 13:33 DC 07/28/19 13:53 25 MG Methylprednisolone Sodium Succinate (SOLU-Medrol 125MG VIAL) 125 mg 1X ONCE 07/28/19 13:30 07/28/19 13:33 DC 07/28/19 13:52 125 MG Sodium Chloride 500 ml @ 500 mls/hr 1X ONCE 07/28/19 13:30 07/28/19 14:29 07/28/19 13:30 500 MLS/HR Allergies Allergies Allergies Coded Allergies Type Severity Reaction Last Updated Verified morphine Allergy Intermediate RASH AND ITCHING 02/08/18 Yes procaine Allergy Intermediate rash 02/08/18 Yes Physical Exam Physical Exam Constitutional: Well developed, well nourished, no acute distress, non-toxic ap pearance. [] HENT: Normocephalic, atraumatic, bilateral external ears normal, oropharynx moist, no oral exudates, nose normal. [] Eyes: PERRLA, EOMI, conjunctiva normal, no discharge. [] Neck: Normal range of motion, no tenderness, supple, no stridor. [] Cardiovascular:Heart rate regular rhythm, no murmur [] Lungs & Thorax: Bilateral breath sounds clear to auscultation [] Abdomen: Bowel sounds normal, soft, no tenderness, no masses, no pulsatile masses. [] Skin: Warm, dry, no erythema, no rash. [] Back: No tenderness, no CVA tenderness. [] Extremities: No tenderness, no cyanosis, no clubbing, ROM intact, no edema. [] Neurologic: Alert and oriented X 3, normal motor function, normal sensory function, no focal deficits noted. [] Psychologic: Affect normal, judgement normal, mood normal. [] Current Patient Data Vital Signs Vital Signs Date Time Temp Pulse Resp B/P (MAP) Pulse Ox O2 Delivery O2 Flow Rate FiO2 07/28/19 13:10 98.3 85 18 161/97 (118) 97 Room Air 98.3 Lab Values Laboratory Tests Test 07/28/19 13:20 White Blood Count 5.7 x10^3/uL (4.0-11.0) Red Blood Count 4.47 x10^6/uL (4.30-5.70) Hemoglobin 14.3 g/dL (13.0-17.5) Hematocrit 41.9 % (39.0-53.0) Mean Corpuscular Volume 94 fL (79-100) Mean Corpuscular Hemoglobin 32 pg (25-35) Mean Corpuscular Hemoglobin Concent 34 g/dL (31-37) Red Cell Distribution Width 14.5 % (11.5-14.5) Platelet Count 133 x10^3/uL (140-400) L Neutrophils (%) (Auto) 64 % (31-73) Lymphocytes (%) (Auto) 19 % (24-48) L Monocytes (%) (Auto) 10 % (0-9) H Eosinophils (%) (Auto) 6 % (0-3) H Basophils (%) (Auto) 1 % (0-3) Neutrophils # (Auto) 3.6 x10^3/uL (1.8-7.7) Lymphocytes # (Auto) 1.1 x10^3/uL (1.0-4.8) Monocytes # (Auto) 0.6 x10^3/uL (0.0-1.1) Eosinophils # (Auto) 0.4 x10^3/uL (0.0-0.7) Basophils # (Auto) 0.0 x10^3/uL (0.0-0.2) Sodium Level 142 mmol/L (136-145) Potassium Level 4.6 mmol/L (3.5-5.1) Chloride Level 103 mmol/L (98-107) Carbon Dioxide Level 30 mmol/L (21-32) Anion Gap 9 (6-14) Blood Urea Nitrogen 21 mg/dL (8-26) Creatinine 1.6 mg/dL (0.7-1.3) H Estimated GFR (Cockcroft-Gault) 42.9 Glucose Level 119 mg/dL (70-99) H Calcium Level 8.9 mg/dL (8.5-10.1) Troponin I Quantitative < 0.017 ng/mL (0.000-0.055) WP-Hhc-Y-Type Natriuretic Peptide 150 pg/mL (0-124) H Thyroid Stimulating Hormone (TSH) 3.835 uIU/mL (0.358-3.74) H Laboratory Tests 07/28/19 13:20 Laboratory Tests 07/28/19 13:20 EKG EKG [] Radiology/Procedures Radiology/Procedures [] Course & Med Decision Making Course & Med Decision Making Pertinent Labs and Imaging studies reviewed. (See chart for details) 1332: Patient seen for dizziness. Examination is unremarkable. Symptoms are more consistent with positional vertigo or inner ear dysfunction. Will check labs give IV fluids and also give Solu-Medrol and meclizine. 1416: Patient's work-up today is unremarkable. He will be sent home with a prescription for prednisone and for meclizine and he is instructed to follow-up with his primary care physician for ongoing symptoms. Dragon Disclaimer Dragon Disclaimer This electronic medical record was generated, in whole or in part, using a voice recognition dictation system. Departure Departure Impression: Primary Impression: Vertigo Disposition: 01 HOME, SELF-CARE Condition: STABLE Referrals: PB COY MD (PCP) Please follow-up in 3 to 5 days for reevaluation Patient Instructions: Vertigo Scripts Meclizine Hcl (MECLIZINE HCL) 25 Mg Tablet 1 TAB PO TID for dizziness, #20 TAB Prov: RUBEN LAUGHLIN DO 07/28/19 Prednisone (PREDNISONE) 20 Mg Tablet 1 TAB PO DAILY, #5 TAB Prov: RUBEN LAUGHLIN DO 07/28/19 RUBEN LAUGHLIN DO Jul 28, 2019 13:32
[2019-07-28 13:43] LABS: BASO % 1 % (0-3); EOS # 0.4 x10^3/uL (0.0-0.7); EOS % 6 % (0-3); HEMATOCRIT 41.9 % (39.0-53.0); HEMOGLOBIN 14.3 g/dL (13.0-17.5); LYMPH # 1.1 x10^3/uL (1.0-4.8); LYMPH % 19 % (24-48); MEAN CORPUSCULAR HEMOGLOBIN 32 pg (25-35); MEAN CORPUSCULAR HGB CONC 34 g/dL (31-37); MEAN CORPUSCULAR VOLUME 94 fL (79-100); MONO # 0.6 x10^3/uL (0.0-1.1); MONO % 10 % (0-9); NEUT # 3.6 x10^3/uL (1.8-7.7); NEUT % 64 % (31-73); PLATELET COUNT 133 x10^3/uL (140-400); RED BLOOD COUNT 4.47 x10^6/uL (4.30-5.70); RED CELL DISTRIBUTION WIDTH 14.5 % (11.5-14.5); WHITE BLOOD COUNT 5.7 x10^3/uL (4.0-11.0)
[2019-07-28 13:55] LABS: CALCIUM 8.9 mg/dL (8.5-10.1); CREATININE 1.6 mg/dL (0.7-1.3); GFR 42.9; POTASSIUM 4.6 mmol/L (3.5-5.1)
[2019-07-28] MEDS ORDERED: MECL-75 PO (14:17)
[2019-07-28] MEDS ORDERED: PRED20TA PO (14:17)
--- NOTE | 2019-07-28 15:26 | EKG ---
[facility] [address] [place] [address] Test Date: 2019-07-28 Test Time: 13:30:42 Pat Name: JOSUE MCCOY Department: Room: Gender: M Tube Lancer: : 1950 Requested By: RUBEN LAUGHLIN Order Number: [id number] Reading MD: Measurements Intervals [place] Rate: 67 P: 38 ID: [id number] QRS: -60 QRSD: 116 T: 128 QT: 390 QTc: 415 Interpretive Statements SINUS RHYTHM COMPLEX(ES) WITH ABERRANT INTRAVENTRICULAR CONDUCTION ABNORMAL LEFT AXIS DEVIATION R-S TRANSITION ZONE IN V LEADS DISPLACED TO THE RIGHT LEFT ANTERIOR FASCICULAR BLOCK LVH WITH REPOLARIZATION ABNORMALITY ABNORMAL ECG RI6.01 No previous ECG available for comparison
== END 2019-07-28 14:34 | disposition home or self-care (01) ==
LOC: ER 12:56
DX: R42 Dizziness and giddiness (principal); I11.9 Hypertensive heart disease without heart failure; K21.9 Gastro-esophageal reflux disease without esophagitis; I25.2 Old myocardial infarction; Z87.891 Personal history of nicotine dependence; Z88.4 Allergy status to anesthetic agent; Z88.5 Allergy status to narcotic agent
CPT/HCPCS: 36415; 80048; 83880; 84439; 84443; 84484; 85025; 93005; 96374; 99284; J2930; J7040; J8597

== ENCOUNTER 2019-12-29 06:15 | Emergency (ER) | payer MEDICARE ==
[~2019-12-29] VITALS: Ht 182.9 cm; Wt 90.9 kg
[~2019-12-29 06:15] MED LIST changes: +MECL-75 PO; +PRED20TA PO
--- NOTE | 2019-12-29 06:21 | PHYS DOC ---
Past Medical History Past Medical History: Depression, GERD, Heart Disease, Hypertension, Kidney Stone, [place] Additional Past Medical Histor: insominia Past Surgical History: Tonsillectomy, Other Additional Past Surgical Histo: R)KNEE,KIDNEY STONE SX,L)shoulder,cardiac cath w/stents&"loop around" Smoking Status: Former Smoker Alcohol Use: None Drug Use: None General Adult EDM: Chief Complaint: MULTIPLE COMPLAINTS HPI: HPI: Patient is a 69 year old male who presents for evaluation with a chief complaint of hematuria, back pain and dysuria. Patient states the symptoms began around midnight. He is also complaining of chills. Patient says he is got moderate in intensity waxing waning back pain feels similar to his kidney stones. Pain is sharp and throbbing in nature but he denies radiation to the abdomen. He has noted hematuria and has worsening symptoms with urination. Patient's had nausea and dry heaves but denies any diarrhea. Review of Systems: Review of Systems: Constitutional: Complains of chills but denies fever Eyes: Denies change in visual acuity. [] HENT: Denies nasal congestion or sore throat. [] Respiratory: Denies cough but has shortness of breath that he says associated to his mask Cardiovascular: Denies chest pain or edema. [] GI: Denies abdominal pain but has nausea with dry heaving but no diarrhea : Complains of dysuria and hematuria Musculoskeletal: Complains of back pain Integument: Denies rash. [] Neurologic: Denies headache, focal weakness or sensory changes. [] Endocrine: Denies polyuria or polydipsia. [] Lymphatic: Denies swollen glands. [] Psychiatric: Denies depression or anxiety. [] Heart Score: Risk Factors: Risk Factors: DM, Current or recent (<one month) smoker, HTN, HLP, family history of CAD, obesity. Risk Scores: Score 0 - 3: 2.5% MACE over next 6 weeks - Discharge Home Score 4 - 6: 20.3% MACE over next 6 weeks - Admit for Clinical Observation Score 7 - 10: 72.7% MACE over next 6 weeks - Early Invasive Strategies Allergies: Allergies: Allergies Coded Allergies Type Severity Reaction Last Updated Verified morphine Allergy Intermediate RASH AND ITCHING 02/08/18 Yes procaine Allergy Intermediate rash 02/08/18 Yes Physical Exam: PE: Constitutional: Well developed, well nourished, no acute distress, non-toxic appearance. [] HENT: Normocephalic, atraumatic, bilateral external ears normal, oropharynx moist, no oral exudates, nose normal. [] Eyes: PERRLA, EOMI, conjunctiva normal, no discharge. [] Neck: Normal range of motion, no tenderness, supple, no stridor. [] Cardiovascular:Heart rate regular rhythm, no murmur [] Lungs & Thorax: Bilateral breath sounds clear to auscultation [] Abdomen: Bowel sounds normal, soft, no tenderness, no masses, no pulsatile masses. [] Skin: Warm, dry, no erythema, no rash. [] Back: No tenderness, no CVA tenderness. [] Extremities: No tenderness, no cyanosis, no clubbing, ROM intact, no edema. [] Neurologic: Alert and oriented X 3, normal motor function, normal sensory function, no focal deficits noted. [] Psychologic: Affect normal, judgement normal, mood normal. [] Current Patient Data: Labs: Laboratory Tests Test 12/29/19 06:20 12/29/19 07:58 Urine Collection Type Void Urine Color Yellow Urine Clarity Clear Urine pH 6.0 Urine Specific [place] 1.015 Urine Protein Negative mg/dL Urine Glucose (UA) Negative mg/dL Urine Ketones (Stick) Negative mg/dL Urine Blood Large Urine Nitrite Positive Urine Bilirubin Negative Urine Urobilinogen Dipstick 1.0 mg/dL Urine Leukocyte Esterase Moderate Urine RBC 20-40 /HPF Urine WBC 5-10 /HPF Urine Squamous Epithelial Cells Occ /LPF Urine Amorphous Sediment Present /HPF Urine Bacteria Moderate /HPF White Blood Count 8.5 x10^3/uL Red Blood Count 4.16 x10^6/uL Hemoglobin 13.4 g/dL Hematocrit 39.2 % Mean Corpuscular Volume 94 fL Mean Corpuscular Hemoglobin 32 pg Mean Corpuscular Hemoglobin Concent 34 g/dL Red Cell Distribution Width 14.0 % Platelet Count 146 x10^3/uL Neutrophils (%) (Auto) 94 % Lymphocytes (%) (Auto) 4 % Monocytes (%) (Auto) 2 % Eosinophils (%) (Auto) 1 % Basophils (%) (Auto) 0 % Neutrophils # (Auto) 7.9 x10^3/uL Lymphocytes # (Auto) 0.4 x10^3/uL Monocytes # (Auto) 0.1 x10^3/uL Eosinophils # (Auto) 0.1 x10^3/uL Basophils # (Auto) 0.0 x10^3/uL Platelet Estimate Pending Sodium Level 140 mmol/L Potassium Level 4.6 mmol/L Chloride Level 103 mmol/L Carbon Dioxide Level 27 mmol/L Anion Gap 10 Blood Urea Nitrogen 23 mg/dL Creatinine 1.8 mg/dL Estimated GFR (Cockcroft-Gault) 37.4 BUN/Creatinine Ratio 13 Glucose Level 129 mg/dL Lactic Acid Level 2.8 mmol/L Calcium Level 8.6 mg/dL Total Bilirubin 0.8 mg/dL Aspartate Amino Transf (AST/SGOT) 17 U/L Alanine Aminotransferase (ALT/SGPT) 23 U/L Alkaline Phosphatase 112 U/L Total Protein 7.3 g/dL Albumin 3.9 g/dL Albumin/Globulin Ratio 1.1 Lipase 112 U/L Current Medications Medications (Trade) Dose Ordered Sig/Konrad Route PRN Reason Start Time Stop Time Status Last Admin Dose Admin Sodium Chloride 1,000 ml @ 1,000 mls/hr Q1H IV 12/29/19 06:45 12/29/19 07:44 DC 12/29/19 08:04 Acetaminophen (Tylenol) 1,000 mg 1X ONCE PO 12/29/19 06:45 12/29/19 06:46 DC 12/29/19 08:05 Ondansetron HCl (Zofran) 4 mg 1X ONCE IVP 12/29/19 06:45 12/29/19 06:46 DC 12/29/19 08:06 Ketorolac Tromethamine (Toradol 15mg Vial) 15 mg 1X ONCE IVP 12/29/19 06:45 12/29/19 06:46 DC 12/29/19 08:06 Ceftriaxone Sodium (Rocephin) 1 gm 1X ONCE IVP 12/29/19 06:45 12/29/19 06:46 DC 12/29/19 08:06 Vital Signs: Vital Signs Date Time Temp Pulse Resp B/P (MAP) Pulse Ox O2 Delivery O2 Flow Rate FiO2 12/29/19 06:37 102.9 80 18 162/82 (108) 97 Room Air 102.9 Laboratory Tests Test 12/29/19 06:20 12/29/19 07:58 Urine Collection Type Void Urine Color Yellow Urine Clarity Clear Urine pH 6.0 Urine Specific [place] 1.015 Urine Protein Negative mg/dL Urine Glucose (UA) Negative mg/dL Urine Ketones (Stick) Negative mg/dL Urine Blood Large Urine Nitrite Positive Urine Bilirubin Negative Urine Urobilinogen Dipstick 1.0 mg/dL Urine Leukocyte Esterase Moderate Urine RBC 20-40 /HPF Urine WBC 5-10 /HPF Urine Squamous Epithelial Cells Occ /LPF Urine Amorphous Sediment Present /HPF Urine Bacteria Moderate /HPF White Blood Count 8.5 x10^3/uL Red Blood Count 4.16 x10^6/uL Hemoglobin 13.4 g/dL Hematocrit 39.2 % Mean Corpuscular Volume 94 fL Mean Corpuscular Hemoglobin 32 pg Mean Corpuscular Hemoglobin Concent 34 g/dL Red Cell Distribution Width 14.0 % Platelet Count 146 x10^3/uL Neutrophils (%) (Auto) 94 % Lymphocytes (%) (Auto) 4 % Monocytes (%) (Auto) 2 % Eosinophils (%) (Auto) 1 % Basophils (%) (Auto) 0 % Neutrophils # (Auto) 7.9 x10^3/uL Lymphocytes # (Auto) 0.4 x10^3/uL Monocytes # (Auto) 0.1 x10^3/uL Eosinophils # (Auto) 0.1 x10^3/uL Basophils # (Auto) 0.0 x10^3/uL Platelet Estimate Pending Sodium Level 140 mmol/L Potassium Level 4.6 mmol/L Chloride Level 103 mmol/L Carbon Dioxide Level 27 mmol/L Anion Gap 10 Blood Urea Nitrogen 23 mg/dL Creatinine 1.8 mg/dL Estimated GFR (Cockcroft-Gault) 37.4 BUN/Creatinine Ratio 13 Glucose Level 129 mg/dL Lactic Acid Level 2.8 mmol/L Calcium Level 8.6 mg/dL Total Bilirubin 0.8 mg/dL Aspartate Amino Transf (AST/SGOT) 17 U/L Alanine Aminotransferase (ALT/SGPT) 23 U/L Alkaline Phosphatase 112 U/L Total Protein 7.3 g/dL Albumin 3.9 g/dL Albumin/Globulin Ratio 1.1 Lipase 112 U/L Current Medications Medications (Trade) Dose Ordered Sig/Konrad Route PRN Reason Start Time Stop Time Status Last Admin Dose Admin Sodium Chloride 1,000 ml @ 1,000 mls/hr Q1H IV 12/29/19 06:45 12/29/19 07:44 DC 12/29/19 08:04 Acetaminophen (Tylenol) 1,000 mg 1X ONCE PO 12/29/19 06:45 12/29/19 06:46 DC 12/29/19 08:05 Ondansetron HCl (Zofran) 4 mg 1X ONCE IVP 12/29/19 06:45 12/29/19 06:46 DC 12/29/19 08:06 Ketorolac Tromethamine (Toradol 15mg Vial) 15 mg 1X ONCE IVP 12/29/19 06:45 12/29/19 06:46 DC 12/29/19 08:06 Ceftriaxone Sodium (Rocephin) 1 gm 1X ONCE IVP 12/29/19 06:45 12/29/19 06:46 DC 12/29/19 08:06 EKG: EKG: [] Radiology/Procedures: Radiology/Procedures: [][address] [address] IMAGING REPORT Signed PATIENT: JOSUE MCCOY ACCOUNT: [id number] : 1950 LOCATION: ER AGE: 69 SEX: M EXAM STATUS: REG ER ORD. PHYSICIAN: DAYDAY PIMENTEL MD REASON: soa PROCEDURE: PORTABLE CHEST 1V EXAM: CHEST ONE VIEW. HISTORY: Shortness of breath. COMPARISON: 01/26/2018. FINDINGS: A frontal view of the chest is obtained. A left-sided pacer/defibrillator has its leads in the right atrium and right ventricle. A left reverse total shoulder arthroplasty is noted. There are no confluent infiltrates. There is no pneumothorax or pleural effusion. The heart is not enlarged. A retrocardiac opacity is consistent with a moderate hiatal hernia. IMPRESSION: 1. No confluent infiltrates. 2. Moderate hiatal hernia. Electronically signed by: Evaristo Silva MD (12/29/2019 7:52 AM) [id number] [facility] [address] [place] [address] IMAGING REPORT Signed PATIENT: JOSUE MCCOY ACCOUNT: [id number] : 1950 LOCATION: ER AGE: 69 SEX: M EXAM STATUS: REG ER ORD. PHYSICIAN: DAYDAY PIMENTEL MD REASON: flank pain, kidney stone PROCEDURE: CT ABDOMEN PELVIS WO CONTRAST CT ABDOMEN PELVIS WO CONTRAST INDICATION: flank pain, kidney stone EXAM: Noncontrast CT of the abdomen and pelvis. Coronal and sagittal reformatted images were performed. PQRS compliance statement: One or more of the following individualized dose reduction techniques were utilized for this examination: 1. Automated exposure control 2. Adjustment of the mA and/or kV according to patient size 3. Use of iterative reconstruction technique COMPARISON: 08/08/2014 FINDINGS: No free air, free fluid, or fluid collection. Lower chest: The visualized lower lungs are aerated. No pleural or pericardial effusion. Small hiatal hernia. ABDOMEN: Liver: The noncontrast liver is homogeneous in attenuation. Gallbladder and biliary: Normal gallbladder without radiopaque stone. Normal caliber bile ducts. Spleen: Normal spleen. Pancreas: The noncontrast pancreas is homogeneous in attenuation without peripancreatic inflammatory changes. Adrenal glands: Normal adrenal glands. Kidneys and ureters: 5 mm calculus in the left distal ureter just proximal to the ureterovesicular junction. No hydronephrosis. Additional bilateral nonobstructive renal calculi. Atrophy the of the mid and upper pole of the left kidney. GI tract: Normal caliber small bowel and colon. Extensive sigmoid colon predominant diverticulosis. Normal appendix. Vascular structures: Normal caliber abdominal aorta. Moderate aortoiliac atherosclerotic disease. Fusiform enlargement of the right common iliac artery measuring up to 2.0 cm. Lymph nodes: No lymphadenopathy in the abdomen or pelvis. PELVIS: Genitourinary system: Normal bladder. SKELETAL STRUCTURES AND SOFT TISSUES: Degenerative changes of the spine. IMPRESSION: 1. Calculus measuring 5 mm in the left distal ureter. No hydronephrosis. Additional nonobstructive bilateral renal calculi 2. Atrophy of the mid and upper pole of the left kidney. 3. Extensive sigmoid colon predominant diverticulosis. Electronically signed by: Jose Kaplan MD (12/29/2019 7:49 AM) [id number] DICTATED and SIGNED BY: JOSE KAPLAN MD DATE: 12/29/19 0749 Course & Med Decision Making: Course & Med Decision Making Pertinent Labs and Imaging studies reviewed. (See chart for details) [] Upon arrival in the emergency room the patient did pass a sizable stone. Patient has visible rigors on my assessment and CT shows a distal left ureteral stone and patient has a fever and will need to be transferred for definitive urological treatment. 8:40 AM: [facility] transfer center contacted. Dr. Coburn accepted transfer to [facility] Upon reassessment patient is much more vibrant is alert and sitting in bed. Patient feels better. Patient informed of need for transfer for definitive urological treatment. Dragon Disclaimer: VChargeon Disclaimer: This electronic medical record was generated, in whole or in part, using a voice recognition dictation system. Departure Departure Impression: Primary Impression: Left ureteral stone Additional Impressions: UTI (urinary tract infection) Sepsis Fever Disposition: 02 TRANSFER [facility] Condition: IMPROVED Referrals: PB COY MD (PCP) Date and Time of Reassessment Date: Jul 28, 2016 Time: 09:06 Fluid Challenge Is the fluid challenge complet: Yes IBW Target Volume Used: Yes (1 liter) BMI > 30: No Vital Signs Vital Signs: Vital Signs Date Time Temp Pulse Resp B/P (MAP) Pulse Ox O2 Delivery O2 Flow Rate FiO2 12/29/19 06:37 102.9 80 18 162/82 (108) 97 Room Air 102.9 p: 73, 118/54, r 18, sat 94 % Temperature Source: Oral Respirations Respiratory Pattern: Normal Cardiovascular Pulse Rhythm: Regular Heart: Nml rate, reg. rhythm Lung Sounds Breath Sounds: Clear Capillary Refil Capillary Refill: Rt Hand < 3 seconds Peripheral Pulse Pulse Location: Radial Pulse Strength: Normal (2+) Pulse Assessment Method: Monitor Integumentary Skin: Warm, Dry Skin Moisture: Dry Skin Turgor: Normal Skin Color: warm Fingernail Color: WNL Justicifation of Admission Dx: Justifications for Admission: Justification of Admission Dx: Yes DAYDAY PIMENTEL MD Dec 29, 2019 06:21
[2019-12-29 06:40] LABS: BILIRUBIN,URINE NEGATIVE (NEG); CLARITY,URINE CLEAR; COLOR,URINE YELLOW; NITRITE,URINE POSITIVE (NEG); PROTEIN,URINE NEGATIVE (NEG-TRACE)
[2019-12-29] MEDS ORDERED: ACETAMINOPHEN 500 MG TABLET PO ONE (06:45)
[2019-12-29] MEDS ORDERED: cefTRIAXone IV Push 1 GM VIAL. IVP ONE (06:45)
[2019-12-29] MEDS ORDERED: IV NORMAL SALINE 1000ML BAG 1,000 ML IV SCH (06:45)
[2019-12-29] MEDS ORDERED: KETOROLAC 15 MG/ML VIAL. IVP ONE (06:45)
[2019-12-29] MEDS ORDERED: ONDANSETRON PF 4 MG/2 ML VIAL. IVP ONE (06:45)
[2019-12-29 07:06] LABS: AMORPHOUS SEDIMENT,UR PRESENT /HPF; BACTERIA,URINE MODERATE /HPF (0-FEW); RBC,URINE 20-40 /HPF (0-2); SQUAMOUS EPITHELIAL CELL,UR OCC /LPF
--- NOTE | 2019-12-29 07:51 | RAD ---
CT ABDOMEN PELVIS WO CONTRAST INDICATION: flank pain, kidney stone EXAM: Noncontrast CT of the abdomen and pelvis. Coronal and sagittal reformatted images were performed. PQRS compliance statement: One or more of the following individualized dose reduction techniques were utilized for this examination: 1. Automated exposure control 2. Adjustment of the mA and/or kV according to patient size 3. Use of iterative reconstruction technique COMPARISON: 08/08/2014 FINDINGS: No free air, free fluid, or fluid collection. Lower chest: The visualized lower lungs are aerated. No pleural or pericardial effusion. Small hiatal hernia. ABDOMEN: Liver: The noncontrast liver is homogeneous in attenuation. Gallbladder and biliary: Normal gallbladder without radiopaque stone. Normal caliber bile ducts. Spleen: Normal spleen. Pancreas: The noncontrast pancreas is homogeneous in attenuation without peripancreatic inflammatory changes. Adrenal glands: Normal adrenal glands. Kidneys and ureters: 5 mm calculus in the left distal ureter just proximal to the ureterovesicular junction. No hydronephrosis. Additional bilateral nonobstructive renal calculi. Atrophy the of the mid and upper pole of the left kidney. GI tract: Normal caliber small bowel and colon. Extensive sigmoid colon predominant diverticulosis. Normal appendix. Vascular structures: Normal caliber abdominal aorta. Moderate aortoiliac atherosclerotic disease. Fusiform enlargement of the right common iliac artery measuring up to 2.0 cm. Lymph nodes: No lymphadenopathy in the abdomen or pelvis. PELVIS: Genitourinary system: Normal bladder. SKELETAL STRUCTURES AND SOFT TISSUES: Degenerative changes of the spine. IMPRESSION: 1. Calculus measuring 5 mm in the left distal ureter. No hydronephrosis. Additional nonobstructive bilateral renal calculi 2. Atrophy of the mid and upper pole of the left kidney. 3. Extensive sigmoid colon predominant diverticulosis. Electronically signed by: Dinesh Kaplan MD (12/29/2019 7:49 AM) [id number]
--- NOTE | 2019-12-29 07:55 | RAD ---
EXAM: CHEST ONE VIEW. HISTORY: Shortness of breath. COMPARISON: 01/26/2018. FINDINGS: A frontal view of the chest is obtained. A left-sided pacer/defibrillator has its leads in the right atrium and right ventricle. A left reverse total shoulder arthroplasty is noted. There are no confluent infiltrates. There is no pneumothorax or pleural effusion. The heart is not enlarged. A retrocardiac opacity is consistent with a moderate hiatal hernia. IMPRESSION: 1. No confluent infiltrates. 2. Moderate hiatal hernia. Electronically signed by: Evaristo Silva MD (12/29/2019 7:52 AM) [id number]
[2019-12-29 08:23] LABS: BASO % 0 % (0-3); EOS # 0.1 x10^3/uL (0.0-0.7); EOS % 1 % (0-3); HEMATOCRIT 39.2 % (39.0-53.0); HEMOGLOBIN 13.4 g/dL (13.0-17.5); LYMPH # 0.4 x10^3/uL (1.0-4.8); LYMPH % 4 % (24-48); MEAN CORPUSCULAR HEMOGLOBIN 32 pg (25-35); MEAN CORPUSCULAR HGB CONC 34 g/dL (31-37); MEAN CORPUSCULAR VOLUME 94 fL (79-100); MONO # 0.1 x10^3/uL (0.0-1.1); MONO % 2 % (0-9); NEUT # 7.9 x10^3/uL (1.8-7.7); NEUT % 94 % (31-73); PLATELET COUNT 146 x10^3/uL (140-400); RED BLOOD COUNT 4.16 x10^6/uL (4.30-5.70); WHITE BLOOD COUNT 8.5 x10^3/uL (4.0-11.0)
[2019-12-29 08:24] LABS: CALCIUM 8.6 mg/dL (8.5-10.1); CREATININE 1.8 mg/dL (0.7-1.3); GFR 37.4; POTASSIUM 4.6 mmol/L (3.5-5.1)
[2019-12-29 08:28] LABS: ALBUMIN 3.9 g/dL (3.4-5.0); ALBUMIN/GLOBULIN RATIO 1.1 (1.0-1.7); TOTAL BILIRUBIN 0.8 mg/dL (0.2-1.0); TOTAL PROTEIN 7.3 g/dL (6.4-8.2)
[2019-12-29 09:19] VITALS: BP 97/48
[2019-12-29 10:15] LABS: % BANDS 5 % (0-9); % EOS 2 % (0-5); % LYMPHS 5 % (24-48); % MONOS 2 % (0-10); % SEGS 86 % (35-66); PLT ESTIMATE DECREASED (ADEQUATE)
--- NOTE | 2019-12-31 09:39 | NUR ---
IP: Informed pt of negative COVID results. Pt verbalized understanding.
== END 2019-12-29 09:26 | disposition short-term general hospital (02) ==
LOC: ER 06:15
DX: A41.9 Sepsis, unspecified organism (principal); N20.1 Calculus of ureter; N39.0 Urinary tract infection, site not specified; R50.9 Fever, unspecified; F32.9 Major depressive disorder, single episode, unspecified; K21.9 Gastro-esophageal reflux disease without esophagitis; I11.9 Hypertensive heart disease without heart failure; I25.2 Old myocardial infarction; Z87.442 Personal history of urinary calculi; Z90.89 Acquired absence of other organs; Z98.890 Other specified postprocedural states; Z88.6 Allergy status to analgesic agent; Z88.8 Allergy status to other drugs, medicaments and biological substances
CPT/HCPCS: 36415; 71045; 74176; 80053; 81001; 83605; 83690; 84145; 85007; 85025; 87040; 87077; 87086; 87186; 87205; 96361; 96374; 96375; 99285; J0696; J1885; J2405; J7030; U0003

== ENCOUNTER → 2020-03-04 | Outpatient (CLI) | payer MEDICARE ==
[~2020-03-04] MED LIST changes: +AMLO-186 PO; -AMLO5TAB10 PO; +CYCL5TAB PO
--- NOTE | 2020-03-04 17:22 | RAD ---
EXAM: Bilateral lower extremity arterial Doppler. HISTORY: Trauma to lower extremities. Left leg hematoma. Assess for arterial injury. COMPARISON: None. FINDINGS: Grayscale and Doppler analysis of the lower extremity arterial systems was performed. On the right, there are either triphasic or biphasic waveforms throughout. They are triphasic within the dorsalis pedis artery. The peak systolic velocity within the distal superficial femoral artery is 156 cm/s, compared with 77 cm/s within the midportion of the artery, suggesting at least mild stenosis. On the left, there are triphasic waveforms through the distal left superficial femoral artery. They are biphasic more distally. The dorsalis pedis artery is patent. At the site of concern along the left medial calf, a heterogeneous region within the subcutaneous fat is consistent with fat necrosis or a resolving hematoma. The region measures 2.5 x 0.5 cm. IMPRESSION: 1. Findings consistent with a nearly resolved hematoma within the left medial calf. 2. No evidence of arterial injury. 3. Findings consistent with mildly flow-limiting stenosis within the distal superficial femoral arteries bilaterally. Electronically signed by: Evaristo Silva MD (03/04/2020 5:20 PM) [id number]
== END ==
LOC: US 15:32
PROVIDERS: ATTEND Family Medicine
DX: I70.213 Atherosclerosis of native arteries of extremities with intermittent claudication, bilateral legs (principal)
CPT/HCPCS: 93925

== ENCOUNTER 2020-03-06 23:38 | Emergency (ER) | payer MEDICARE ==
[~2020-03-06] VITALS: Ht 182.9 cm; Wt 100.0 kg
[~2020-03-06 23:38] MED LIST changes: -CYCL5TAB PO
[2020-03-06 23:45] VITALS: BP 139/68
[2020-03-07] MEDS ORDERED: MORPHINE SULFATE 2 MG/ML VIAL. IM ONE (00:15)
[2020-03-07] MEDS ORDERED: fentaNYL PF VIAL 100 MCG/2 ML VIAL IM ONE ×2 (00:45)
[2020-03-07] MEDS ORDERED: HYDR-3164 PO (01:17)
--- NOTE | 2020-03-07 01:20 | PHYS DOC ---
Past Medical History Past Medical History: Depression, GERD, Heart Disease, Hypertension, Kidney Stone, [place] Additional Past Medical Histor: insominia Past Surgical History: Tonsillectomy, Other Additional Past Surgical Histo: R)KNEE,KIDNEY STONE SX,L)shoulder,cardiac cath w/stents&"loop around" Smoking Status: Former Smoker Alcohol Use: None Drug Use: None General Adult EDM: Chief Complaint: UPPER EXTREMITY INJURY HPI: HPI: Patient is a 69 year old male presents with a chief complaint of left shoulder pain. Patient is has a previous history of humerus fracture with orthopedic hardware repair. Patient states over the last 2 days had increasing pain in his left shoulder. Pain is exacerbated with movement and improved with rest. Patient denies any recent traumatic injury. On exam left upper extremity is neurovascularly intact. Patient has full range of motion of left wrist left elbow decreased range of motion due to pain of his left shoulder. Review of Systems: Review of Systems: Constitutional: Denies fever or chills. [] Eyes: Denies change in visual acuity. [] HENT: Denies nasal congestion or sore throat. [] Respiratory: Denies cough or shortness of breath. [] Cardiovascular: Denies chest pain or edema. [] GI: Denies abdominal pain, nausea, vomiting, bloody stools or diarrhea. [] : Denies dysuria. [] Musculoskeletal: Denies back pain positive left shoulder pain Integument: Denies rash. [] Neurologic: Denies headache, focal weakness or sensory changes. [] Endocrine: Denies polyuria or polydipsia. [] Lymphatic: Denies swollen glands. [] Psychiatric: Denies depression or anxiety. [] Heart Score: Risk Factors: Risk Factors: DM, Current or recent (<one month) smoker, HTN, HLP, family history of CAD, obesity. Risk Scores: Score 0 - 3: 2.5% MACE over next 6 weeks - Discharge Home Score 4 - 6: 20.3% MACE over next 6 weeks - Admit for Clinical Observation Score 7 - 10: 72.7% MACE over next 6 weeks - Early Invasive Strategies Current Medications: Current Medications Medications (Trade) Dose Ordered Sig/Konrad Start Time Stop Time Status Last Admin Dose Admin Fentanyl Citrate (Fentanyl 2ml Vial) 50 mcg 1X ONCE 03/07/20 00:45 03/07/20 00:51 DC 03/07/20 01:02 50 MCG Morphine Sulfate (Morphine Sulfate) 2 mg 1X ONCE 03/07/20 00:15 03/07/20 00:16 Cancel Allergies: Allergies: Allergies Coded Allergies Type Severity Reaction Last Updated Verified morphine Allergy Intermediate RASH AND ITCHING 02/08/18 Yes procaine Allergy Intermediate rash 02/08/18 Yes Physical Exam: PE: General: alert, no acute distress. Skin: warm, dry and intact. Head:: Normocephalic, atraumatic. Neck: Trachea midline. Eyes: EOMI, Normal conjunctiva, No drainage CARDIOVASCULAR: Regular rate and rhythm RESPIRATORY: No respiratory distress Back: Full range of motion. MUSCULOSKELETAL: Pain with range of motion of left shoulder. Pain exacerbated with movement and even palpation along the humeral head proximal bicep and tricep. GASTROINTESTINAL: Abdomen soft without rebound or guarding. NEUROLOGICAL: Alert and noted to person, place and time. No neurological deficits observed Psychiatric: Cooperative. Normal judgment Current Patient Data: Vital Signs: Vital Signs Date Time Temp Pulse Resp B/P (MAP) Pulse Ox O2 Delivery O2 Flow Rate FiO2 03/07/20 01:02 20 Room Air 03/06/20 23:45 97.5 80 139/68 (91) 95 97.5 EKG: EKG: [] Radiology/Procedures: Radiology/Procedures: [] Course & Med Decision Making: Course & Med Decision Making Pertinent Labs and Imaging studies reviewed. (See chart for details) []Left shoulder: 3 views obtained. Pacemaker is seen. Hypertrophic changes at the acromioclavicular joint. Post shoulder arthroplasty changes. There is angulation identified of the glenoid component of the arthroplasty with surrounding lucency at the base. This could be secondary to loosening of the glenoid component of the prosthesis and would correlate with symptoms of instability given that the glenoid component appears altered in morphology compared to the prior with the patient rotated superiorly compared to prior. Electronically signed by: Cristobal Mayorga MD (03/07/2020 1:34 AM) [id number] Amanda Disclaimer: Amanda Disclaimer: This electronic medical record was generated, in whole or in part, using a voice recognition dictation system. Departure Departure Impression: Primary Impression: Left arm pain Disposition: 01 DC HOME SELF CARE/HOMELESS Condition: STABLE Referrals: ABA FELDER MD Patient Instructions: Shoulder Pain, Arm Sling Use, [id number] Scripts Cyclobenzaprine Hcl (CYCLOBENZAPRINE HCL) 5 Mg Tablet 5 MG PO TID for 14 Days, #20 TAB Prov: MARK BONILLA DO 03/07/20 Hydrocodone/Apap 5-325 (NORCO 5-325 TABLET) 1 Each Tablet 1 TAB PO PRN Q6HRS PRN for PAIN for 10 Days, #20 TAB 0 Refills Prov: MARK BONILLA DO 03/07/20 MARK BONILLA DO Mar 07, 2020 01:20
--- NOTE | 2020-03-07 01:37 | RAD ---
INDICATION: Reason: shoulder pain / Spl. Instructions: / History: COMPARISON: February 16, 2019 IMPRESSION: Left shoulder: 3 views obtained. Pacemaker is seen. Hypertrophic changes at the acromioclavicular joint. Post shoulder arthroplasty changes. There is angulation identified of the glenoid component of the arthroplasty with surrounding lucency at the base. This could be secondary to loosening of the glenoid component of the prosthesis and would correlate with symptoms of instability given that the glenoid component appears altered in morphology compared to the prior with the patient rotated superiorly compared to prior. Electronically signed by: Cristobal Mayorga MD (03/07/2020 1:34 AM) [id number]
[2020-03-07] MEDS ORDERED: CYCL5TAB PO (01:58)
== END 2020-03-07 02:07 | disposition home or self-care (01) ==
LOC: ER 23:38
DX: M25.512 Pain in left shoulder (principal); F32.9 Major depressive disorder, single episode, unspecified; K21.9 Gastro-esophageal reflux disease without esophagitis; I11.9 Hypertensive heart disease without heart failure; I25.2 Old myocardial infarction; Z87.442 Personal history of urinary calculi; Z90.89 Acquired absence of other organs; Z87.891 Personal history of nicotine dependence; Z88.6 Allergy status to analgesic agent; Z88.8 Allergy status to other drugs, medicaments and biological substances
CPT/HCPCS: 73030; 96372; 99283; J3010

== ENCOUNTER 2020-03-10 13:59 | Inpatient (IN) | payer MEDICARE ==
[~2020-03-10] VITALS: Ht 182.9 cm; Wt 93.9 kg
[2020-03-10] MEDS ORDERED: fentaNYL PF VIAL 100 MCG/2 ML VIAL IV PRN (16:15)
[2020-03-10] MEDS ORDERED: ONDANSETRON PF 4 MG/2 ML VIAL. IV PRN ×2 (16:15→17:45)
--- NOTE | 2020-03-10 16:16 | PHYS DOC ---
Past Medical History Past Medical History: Depression, GERD, Heart Disease, Hypertension, Kidney Stone, [place] Additional Past Medical Histor: insominia Past Surgical History: Tonsillectomy, Other Additional Past Surgical Histo: R)KNEE,KIDNEY STONE SX,L)shoulder,cardiac cath w/stents&"loop around" Smoking Status: Former Smoker Alcohol Use: None Drug Use: None General Adult EDM: Chief Complaint: PAIN CONTROL HPI: HPI: Patient is a 69 year old male who presents with sent in by Dr. White for left shoulder pain. X-rays show angulation of the glenoid component of the arthroplasty with surrounding lucency at the base. Dr. White states to admit the patient so he can do surgery tomorrow. Patient has already had outpatient surgery Covid testing. Patient rating his pain a 10 out of 10. Review of Systems: Review of Systems: Constitutional: Denies fever or chills. [] Eyes: Denies change in visual acuity. [] HENT: Denies nasal congestion or sore throat. [] Respiratory: Denies cough or shortness of breath. [] Cardiovascular: Denies chest pain or edema. [] GI: Denies abdominal pain, nausea, vomiting, bloody stools or diarrhea. [] : Denies dysuria. [] Musculoskeletal: Denies back pain. + Left shoulder joint pain. [] Integument: Denies rash. [] Neurologic: Denies headache, focal weakness or sensory changes. [] Endocrine: Denies polyuria or polydipsia. [] Lymphatic: Denies swollen glands. [] Psychiatric: Denies depression or anxiety. [] Heart Score: Risk Factors: Risk Factors: DM, Current or recent (<one month) smoker, HTN, HLP, family history of CAD, obesity. Risk Scores: Score 0 - 3: 2.5% MACE over next 6 weeks - Discharge Home Score 4 - 6: 20.3% MACE over next 6 weeks - Admit for Clinical Observation Score 7 - 10: 72.7% MACE over next 6 weeks - Early Invasive Strategies Allergies: Allergies: Allergies Coded Allergies Type Severity Reaction Last Updated Verified morphine Allergy Intermediate RASH AND ITCHING 02/08/18 Yes Physical Exam: PE: Constitutional: Well developed, well nourished, no acute distress, non-toxic appearance. [] HENT: Normocephalic, atraumatic, bilateral external ears normal, oropharynx moist, no oral exudates, nose normal. [] Eyes: PERRLA, EOMI, conjunctiva normal, no discharge. [] Neck: Normal range of motion, no tenderness, supple, no stridor. [] Cardiovascular:Heart rate regular rhythm, no murmur [] Lungs & Thorax: Bilateral breath sounds clear to auscultation [] Abdomen: Bowel sounds normal, soft, no tenderness, no masses, no pulsatile masses. [] Skin: Warm, dry, no erythema, no rash. [] Back: No tenderness, no CVA tenderness. [] Extremities: No tenderness, no cyanosis, no clubbing, Left shoulder ROM not intact, no edema. [] Neurologic: Alert and oriented X 3, normal motor function, normal sensory function, no focal deficits noted. [] Psychologic: Affect normal, judgement normal, mood normal. [] Current Patient Data: Vital Signs: Vital Signs Date Time Temp Pulse Resp B/P (MAP) Pulse Ox O2 Delivery O2 Flow Rate FiO2 03/10/20 15:23 98.2 92 20 134/75 (94) 96 Room Air 98.2 EKG: EKG: [] Radiology/Procedures: Radiology/Procedures: [] Impression: [facility] [address] [place], [place] [id number] IMAGING REPORT Signed PATIENT: JOSUE MCCOY ACCOUNT: [id number] : 1950 LOCATION: ER AGE: 69 SEX: M EXAM STATUS: REG ER ORD. PHYSICIAN: MARK BONILLA DO REASON: shoulder pain PROCEDURE: SHOULDER 2+V LEFT INDICATION: Reason: shoulder pain / Spl. Instructions: / History: COMPARISON: February 16, 2019 IMPRESSION: Left shoulder: 3 views obtained. Pacemaker is seen. Hypertrophic changes at the acromioclavicular joint. Post shoulder arthroplasty changes. There is angulation identified of the glenoid component of the arthroplasty with surrounding lucency at the base. This could be secondary to loosening of the glenoid component of the prosthesis and would correlate with symptoms of instability given that the glenoid component appears altered in morphology compared to the prior with the patient rotated superiorly compared to prior. Electronically signed by: Candace Candelaria MD (03/07/2020 1:34 AM) [id number] DICTATED and SIGNED BY: CANDACE CANDELARIA MD DATE: 03/07/20 0134 Course & Med Decision Making: Course & Med Decision Making Pertinent Labs and Imaging studies reviewed. (See chart for details) See HPI. Alert and oriented x4. Ambulatory with steady gait. Skin pink warm and dry. I spoken to Dr. Jiménez for admission. Speaks in full complete sentences. Patient is in a arm sling. I have spoken to Dr. Monroy who states to have the patient hold his Plavix. [] Dragon Disclaimer: Dragon Disclaimer: This electronic medical record was generated, in whole or in part, using a voice recognition dictation system. Departure Departure Impression: Primary Impression: Shoulder pain, left Qualified Codes: M25.512 - Pain in left shoulder Disposition: ADMITTED INPT THIS HOSP Admitting Physician: MERA Condition: STABLE Referrals: PB COY MD (PCP) GLORIA GARCIA APRN Mar 10, 2020 16:16
--- NOTE | 2020-03-10 17:16 | PDOC1 ---
History and Physical Date of Admission Date of Admission DATE: 03/10/20 TIME: 17:13 Identification/Chief Complaint Chief Complaint SEEN IN ER WITH INTRACTABLE SHOULDER PAIN AFTER FALL A FEW WEEKS AGO 69 year old male who presents with sent in by Dr. White for left shoulder pain. X- rays show angulation of the glenoid component of the arthroplasty with surrounding lucency at the base. Dr. White states to admit the patient so he can do surgery tomorrow. Patient has already had outpatient surgery Covid testing. Patient rating his pain a 10 out of 10. UNSURE IF HE HAD CARDIOLOGY eval to hold plavix Past Medical History Past Medical History Past Medical History Past Medical History: Depression, GERD, Heart Disease, Hypertension, Kidney Stone, [place] Additional Past Medical Histor: insominia Past Surgical History: Tonsillectomy, Other Additional Past Surgical Histo: R)KNEE,KIDNEY STONE SX,L)shoulder,cardiac cath w/stents&"loop around" Smoking Status: Former Smoker Alcohol Use: None Drug Use: None FHX HTN Cardiovascular: CAD, CHF, HTN, Hyperlipidemia, Other Pulmonary: No pertinent hx CENTRAL NERVOUS SYSTEM: Other GI: GERD Heme/Onc: No pertinent hx Hepatobiliary: No pertinent hx Psych: Depression Musculoskeletal: Osteoarthritis Rheumatologic: No pertinent hx Infectious disease: No pertinent hx Renal/: Chronic renal insuff, Other Endocrine: No pertinent hx Past Surgical History Past Surgical History: Other Family History Family History: Hypertension Family History: Parent Social History Smoke: No ALCOHOL: none Drugs: None Current Problem List Problem List Problems Medical Problems: (1) Shoulder pain, left Status: Acute Current Medications Current Medications Current Medications Ondansetron HCl (Zofran) 4 mg PRN Q8HRS PRN IV NAUSEA/VOMITING; Start 03/10/20 at 16:15; Stop 03/11/20 at 16:14 Fentanyl Citrate (Fentanyl 2ml Vial) 50 mcg PRN Q2HR PRN IV PAIN; Start 03/10/20 at 16:15; Stop 03/11/20 at 16:14 Active Scripts Active [place]ao 5-325 Tablet (Acetaminophen/Hydrocodone Bitart) 1 Each Tablet 1 Tab PO PRN Q6HRS PRN 10 Days Nitrostat (Nitroglycerin) 0.4 Mg Tab.subl 0.4 Mg SL PRN Q5MIN PRN Atorvastatin Calcium 40 Mg Tablet 80 Mg PO QHS Reported [Muscle Relaxer] Aspirin 81 Mg Tab.chew 1 Tab PO DAILY Flomax (Tamsulosin Hcl) 0.4 Mg Cap.er.24h 0.4 Mg PO BID Clopidogrel (Clopidogrel Bisulfate) 75 Mg Tablet 75 Mg PO DAILY Toprol Xl (Metoprolol Succinate) 25 Mg Tab.er.24h 1 Tab PO DAILY Fluoxetine Hcl 20 Mg Capsule 1 Cap PO DAILY Allergies Allergies: Coded Allergies: morphine (Verified Allergy, Intermediate, RASH AND ITCHING, 02/08/18) TOLERATES HYDROCODONE ROS Review of System Review of Systems: Constitutional: Denies fever or chills. [] Eyes: Denies change in visual acuity. [] HENT: Denies nasal congestion or sore throat. [] Respiratory: Denies cough or shortness of breath. [] Cardiovascular: Denies chest pain or edema. [] GI: Denies abdominal pain, nausea, vomiting, bloody stools or diarrhea. [] : Denies dysuria. [] Musculoskeletal: Denies back pain. + Left shoulder joint pain. [] Integument: Denies rash. [] Neurologic: Denies headache, focal weakness or sensory changes. [] Endocrine: Denies polyuria or polydipsia. [] Lymphatic: Denies swollen glands. [] Psychiatric: Denies depression or anxiety. [] 14 PT ROS OTHERWISE NEG PSYCHOLOGICAL ROS: No: Anxiety, Behavioral Disorder, Concentration difficultie, Decreased libido, Depression, Disorientation, Hallucinations, Hostility, Irritablity, Memory difficulties, Mood Swings, Obsessive thoughts, Physical abuse, Sexual abuse, Sleep disturbances, Suicidal ideation, Other Eyes: No Blurry vision, No Decreased vision, No Double vision, No Dry eyes, No Excessive tearing, No Eye Pain, No Itchy Eyes, No Loss of vision, No Photophobia, No Scotomata, No Uses contacts, No Uses glasses, No Other Hematological and Lymphatic: No: Bleeding Problems, Blood Clots, Blood Transfusions, Brusing, Night Sweats, Pallor, Swollen Lymph Nodes, Other Respiratory: No: Cough, Hemoptysis, Orthopnea, Pleuritic Pain, Shortness of breath, SOB with excertion, Sputum Changes, Stridor, Tachypnea, Wheezing, Other Cardiovascular: No Chest Pain, No Palpitations, No Orthopnea, No Paroxysmal Noc. Dyspnea, No Edema, No Lt Headedness, No Other Gastrointestinal: No Nausea, No Vomiting, No Abdominal Pain, No Diarrhea, No Constipation, No Melena, No Hematochezia, No Other Musculoskeletal: Yes Joint Pain, Yes Joint Stiffness Physical Exam Physical Exam Constitutional: Well developed, well nourished, no acute distress, non-toxic appearance. [] HENT: Normocephalic, atraumatic, bilateral external ears normal, oropharynx moist, no oral exudates, nose normal. [] Eyes: PERRLA, EOMI, conjunctiva normal, no discharge. [] Neck: Normal range of motion, no tenderness, supple, no stridor. [] Cardiovascular:Heart rate regular rhythm, no murmur [] Lungs & Thorax: Bilateral breath sounds clear to auscultation [] Abdomen: Bowel sounds normal, soft, no tenderness, no masses, no pulsatile masses. [] Skin: Warm, dry, no erythema, no rash. [] Back: No tenderness, no CVA tenderness. [] Extremities: No tenderness, no cyanosis, no clubbing, Left shoulder ROM not intact,, IN SLING no edema. [] Neurologic: Alert and oriented X 3, normal motor function, normal sensory function, no focal deficits noted. [] Psychologic: Affect normal, judgment normal, mood normal. [] General: Alert, Oriented X3, Cooperative, No acute distress HEENT: Atraumatic, PERRLA, EOMI, Mucous membr. moist/pink Lungs: Clear to auscultation, Normal air movement Heart: RRR, no thrills Breasts: Not examined Abdomen: Normal bowel sounds, Soft, No tenderness Rectal Exam: not examined PELVIC: Examination not indicated Extremities: No cyanosis, No edema Skin: No significant lesion Neuro: Normal speech, Sensation intact, Cranial nerves 3-12 NL Psych/Mental Status: Mental status NL, Mood NL Vitals Vitals Vital Signs Date Time Temp Pulse Resp B/P (MAP) Pulse Ox O2 Delivery O2 Flow Rate FiO2 03/10/20 16:00 98.2 92 134/75 (94) 96 Room Air 98.2 03/10/20 15:23 20 Images Images INDICATION: Reason: shoulder pain / Spl. Instructions: / History: COMPARISON: February 16, 2019 IMPRESSION: Left shoulder: 3 views obtained. Pacemaker is seen. Hypertrophic changes at the acromioclavicular joint. Post shoulder arthroplasty changes. There is angulation identified of the glenoid component of the arthroplasty with surrounding lucency at the base. This could be secondary to loosening of the glenoid component of the prosthesis and would correlate with symptoms of instability given that the glenoid component appears altered in morphology compared to the prior with the patient rotated superiorly compared to prior. Electronically signed by: Candace Mayorga MD (03/07/2020 1:34 AM) [id number] DICTATED and SIGNED BY: CANDACE MAYORGA MD VTE Prophylaxis Ordered VTE Prophylaxis Devices: Yes VTE Pharmacological Prophylaxi: Yes Assessment/Plan Assessment/Plan IMPRESSION INTRACTABLE SHOULDER PAIN Post shoulder arthroplasty changes. There is angulation identified of the glenoid component of the arthroplasty with surrounding lucency at the base. This could be secondary to loosening of the glenoid component of the prosthesis HTN GERD DEPRESSION hx CAD PLAN ADMIT CONSULT ORTHO IV PAIN CONTROL DVT PROPHYLAXIS NPO P [facility] CARDIOLOGY CLEARANCE FOR D/C PLAVIX D/W ER D/W GLORIA IN ER SHE WILL CALL CARDIOLOGY NOW ABOUT HOLDING PLAVIX Justifications for Admission Other Justification FRIEDA ENGLISH MD Mar 10, 2020 17:16
[2020-03-10] MEDS: IV NORMAL SALINE 1000ML BAG 1,000 ML IV SCH (17:39)
[2020-03-10] MEDS ORDERED: MAG HYDROX/ALUMINUM HYD/SIMETH 30 ML ORAL.SUSP PO PRN (17:45)
[2020-03-10] MEDS ORDERED: guaiFENesin ORAL 200 MG/10 ML LIQUID. PO PRN (17:45)
[2020-03-10] MEDS ORDERED: LORazepam 0.5 MG TABLET PO PRN (17:45)
[2020-03-10] MEDS ORDERED: NITROGLYCERIN SUBLINGUAL 0.4 MG BOTTLE OF 25. SL PRN (17:45)
[2020-03-10] MEDS ORDERED: SODIUM PHOSPHATES 19/7GM 133 ML ENEMA. PR PRN (17:45)
[2020-03-10] MEDS ORDERED: ALBUTEROL SULFATE 2.5 MG/3 ML NEBU. NEB PRN (17:45)
[2020-03-10] MEDS ORDERED: DOCUSATE SODIUM 100 MG CAPSULE. PO PRN (17:45)
[2020-03-10] MEDS ORDERED: 0.9 % SODIUM CHLORIDE 10 ML DISP.SYRIN. IV PRN (17:45)
[2020-03-10] MEDS ORDERED: ACETAMINOPHEN 325 MG TABLET. PO PRN (17:45)
[2020-03-10] MEDS ORDERED: cloNIDine HCL 0.1 MG TABLET PO PRN (17:45)
[2020-03-10 18:38] VITALS: BP 134/60
[2020-03-10] MEDS: ENOXAPARIN 40 MG/0.4 ML SYRINGE. SQ SCH (19:44)
[2020-03-10] MEDS: HYDROcodone/APAP 5/325MG 1 TAB TABLET PO PRN (19:45)
[2020-03-10] MEDS: ATORVASTATIN CALCIUM 40 MG TABLET. PO SCH (19:45)
[2020-03-10] MEDS: TAMSULOSIN 0.4 MG CAP.ER.24H. PO SCH (19:45)
[2020-03-10 23:00] VITALS: BP 107/56
[2020-03-11] VITALS (8 sets, daily range): BP systolic 101–134; BP diastolic 56–72
--- NOTE | 2020-03-11 00:44 | RAD ---
EXAM: CHEST AP ONLY 03/10/2020 5:39 PM CLINICAL INDICATION:Preop COMPARISON:Chest radiograph 12/29/2019 TECHNIQUE:AP upright view of the chest FINDINGS:A dual-lead pacemaker/AICD is unchanged. The cardiomediastinal silhouette is stable. Lungs are normally expanded. No focal opacity, pleural effusion, or pneumothorax. There is a reverse left total shoulder prosthesis. Surgical changes of right distal clavicular resection. IMPRESSION:No acute cardiopulmonary abnormality. Electronically signed by: Emily Lee MD (03/11/2020 12:41 AM) [id number]
[2020-03-11] MEDS: FLUoxetine HCL 20 MG CAPSULE PO SCH (08:26)
[2020-03-11] MEDS: TAMSULOSIN 0.4 MG CAP.ER.24H. PO SCH ×2 (08:26→23:34)
[2020-03-11] MEDS: ASPIRIN CHEWABLE 81 MG TABLET. PO SCH (08:27)
[2020-03-11] MEDS: METOPROLOL SUCC 24HR ER 25 MG TAB.ER.24H. PO SCH ×2 (08:27→09:00)
[2020-03-11] MEDS ORDERED: CLOPIDOGREL BISULFATE 75 MG TABLET PO SCH (09:00)
[2020-03-11] MEDS: IV NORMAL SALINE 1000ML BAG 1,000 ML IV SCH ×2 (09:50→23:35)
--- NOTE | 2020-03-11 12:08 | PDOC ---
[facility] PROGRESS NOTE Date of Service DOS: DATE: 03/11/20 TIME: 12:05 Chief Complaint Chief Complaint INTRACTABLE SHOULDER PAIN Post shoulder arthroplasty changes. There is angulation identified of the glenoid component of the arthroplasty with surrounding lucency at the base. This could be secondary to loosening of the glenoid component of the prosthesis HTN GERD DEPRESSION hx CAD ADMIT On-call to the OR for surgery with orthopedics IV PAIN CONTROL DVT PROPHYLAXIS, hold Plavix NPO P MN History of Present Illness History of Present Illness 69 year old male who presents with sent in by Dr. White for left shoulder pain. X-rays show angulation of the glenoid component of the arthroplasty with surrounding lucency at the base. Dr. White states to admit the patient so he can do surgery tomorrow. Patient has already had outpatient surgery Covid testing. Patient rating his pain a 10 out of 10. UNSURE IF HE HAD CARDIOLOGY eval to hold plavix Vitals/I&O Vitals/I&O: Vital Signs Date Time Temp Pulse Resp B/P (MAP) Pulse Ox O2 Delivery O2 Flow Rate FiO2 03/11/20 10:47 97.8 66 17 132/68 (89) 96 Room Air 97.8 I & O 03/10/20 03/10/20 03/11/20 15:00 23:00 07:00 Intake Total 120 ml 0 ml Output Total 200 ml Balance -80 ml 0 ml Physical Exam General: Alert, Oriented X3, Cooperative, No acute distress Lungs: Clear, Other Abdomen: Normal bowel sounds, Soft, No tenderness Extremities: No cyanosis, No edema, Other (Left shoulder and left arm sling. Tender to palpation and unable to elevate left upper extremity above shoulder) Skin: No significant lesion Assessment and Plan Assessmemt and Plan Problems Medical Problems: (1) Shoulder pain, left Status: Acute Comment Review of Relevant I have reviewed the following items deo (where applicable) has been applied. Medications: Current Medications Medications (Trade) Dose Ordered Sig/Konrad Route PRN Reason Start Time Stop Time Status Last Admin Dose Admin Atorvastatin Calcium (Lipitor) 80 mg QHS PO 03/10/20 21:00 03/10/20 19:45 Fluoxetine HCl (PROzac) 20 mg DAILY PO 03/11/20 09:00 03/11/20 08:26 Acetaminophen/ Hydrocodone Bitart (Lortab 5/325) 1 tab PRN Q6HRS PRN PO MODERATE TO SEVERE PAIN 03/10/20 17:45 03/10/20 19:45 Metoprolol Succinate (Toprol Xl) 25 mg DAILY PO 03/11/20 09:00 03/11/20 08:27 Tamsulosin HCl (Flomax) 0.4 mg BID PO 03/10/20 21:00 03/11/20 08:26 Sodium Chloride 1,000 ml @ 65 mls/hr [id number] IV 03/10/20 17:39 03/11/20 09:50 Lorazepam (Ativan) 0.5 mg PRN Q4HRS PRN PO ANXIETY / AGITATION 03/10/20 17:45 03/10/20 21:56 Enoxaparin Sodium (Lovenox 40mg Syringe) 40 mg Q24H SQ 03/10/20 18:00 03/10/20 19:44 Justifications for Admission Other Justification NEHA THOMAS MD Mar 11, 2020 12:08
[2020-03-11] MEDS ORDERED: IV RINGERS,LACTATED 1000ML 1,000 ML IV SCH ×2 (12:20→12:32)
[2020-03-11] MEDS ORDERED: HYDROmorphone 2 MG/ML VIAL IV PRN ×3 (12:30→22:15)
[2020-03-11] MEDS ORDERED: MORPHINE SULFATE 2 MG/ML VIAL. IV PRN ×2 (12:30→12:45)
[2020-03-11] MEDS ORDERED: fentaNYL PF VIAL 100 MCG/2 ML VIAL IV PRN ×4 (12:30→12:45)
[2020-03-11] MEDS ORDERED: PROCHLORPERAZINE 10 MG/2 ML VIAL. IV PRN ×2 (12:30→12:45)
[2020-03-11 12:57] LABS: CALCIUM 8.5 mg/dL (8.5-10.1); CREATININE 1.1 mg/dL (0.7-1.3); MAGNESIUM 2.1 mg/dL (1.8-2.4); POTASSIUM 4.4 mmol/L (3.5-5.1)
--- NOTE | 2020-03-11 13:55 | NUR ---
SW following for discharge planning. Spoke with RN and reviewed chart. Pt from home with son. Pt currently on room air, IV pain medication and NPO. Pt in surgery today. PT/OT to evaluate. SW following.
--- NOTE | 2020-03-11 14:33 | PDOC2 ---
JONNY KEYS MANUAL TESTER 03/11/20 1433: CARDIAC CONSULT DATE OF CONSULT Date of Consult DATE: 03/11/20 TIME: 14:13 REASON FOR CONSULT Reason for Consult: CAD on plavix. REFERRING PHYSICIAN Referring Physician: Fullbright SOURCE Source: Chart review, Patient HISTORY OF PRESENT ILLNESS HISTORY OF PRESENT ILLNESS This is a pleasant 69 yo male admitted for complains of left shoulder pain that has been intractable due to recent fall with instability. He is then needing surgery to his left shoulder per ortho. Consult is pt on plavix. He also takes ASA and his stent was placed a while back in 2017 and is not having any cardiac symptoms. He also has an AICD and has chronic CHF and well compensated. PAST MEDICAL HISTORY Cardiovascular: CAD, CHF, HTN, Hyperlipidemia Pulmonary: No pertinent hx GI: GERD Musculoskeletal: Osteoarthritis Renal/: Chronic renal insuff, Benign prostatic enlarg., Other (nephrolithiasis) PAST SURGICAL HISTORY Past Surgical History: Pacemaker (AICD), Arthroscopy (left shoulder), Other (PCI; cystoscopy) FAMILY HISTORY Family History: Heart Disease, Hypertension SOCIAL HISTORY Smoke: Quit ALCOHOL: occassional Drugs: None Lives: with Family CURRENT MEDICATIONS CURRENT MEDICATIONS Current Medications Medications (Trade) Dose Ordered Sig/Konrad Route PRN Reason Start Time Stop Time Status Last Admin Dose Admin Atorvastatin Calcium (Lipitor) 80 mg QHS PO 03/10/20 21:00 03/10/20 19:45 Fluoxetine HCl (PROzac) 20 mg DAILY PO 03/11/20 09:00 03/11/20 08:26 Acetaminophen/ Hydrocodone Bitart (Lortab 5/325) 1 tab PRN Q6HRS PRN PO MODERATE TO SEVERE PAIN 03/10/20 17:45 03/10/20 19:45 Metoprolol Succinate (Toprol Xl) 25 mg DAILY PO 03/11/20 09:00 03/11/20 08:27 Tamsulosin HCl (Flomax) 0.4 mg BID PO 03/10/20 21:00 03/11/20 08:26 Sodium Chloride 1,000 ml @ 65 mls/hr [id number] IV 03/10/20 17:39 03/11/20 09:50 Lorazepam (Ativan) 0.5 mg PRN Q4HRS PRN PO ANXIETY / AGITATION 03/10/20 17:45 03/10/20 21:56 Enoxaparin Sodium (Lovenox 40mg Syringe) 40 mg Q24H SQ 03/10/20 18:00 03/10/20 19:44 ALLERGIES ALLERGIES: Coded Allergies: morphine (Verified Allergy, Intermediate, RASH AND ITCHING, 02/08/18) TOLERATES HYDROCODONE ROS Review of System 14 point ROS evaluated with pertinent positives noted per HPI PHYSICAL EXAM General: Alert, Oriented X3, Cooperative, No acute distress HEENT: Atraumatic, Mucous membr. moist/pink Lungs: Clear to auscultation, Normal air movement Heart: Regular rate, Normal S1, Normal S2 Abdomen: Soft, No tenderness Extremities: No cyanosis, No edema Skin: No breakdown, No significant lesion Neuro: Normal speech, Sensation intact Psych/Mental Status: Mental status NL, Mood NL MUSCULOSKELETAL: Osteoarthritic changes both hands, Other (limited left shoulder ORM on sling) VITALS/I&O VITALS/I&O: Vital Signs Date Time Temp Pulse Resp B/P (MAP) Pulse Ox O2 Delivery O2 Flow Rate FiO2 03/11/20 10:47 97.8 66 17 132/68 (89) 96 Room Air 97.8 I & O 03/10/20 03/10/20 03/11/20 15:00 23:00 07:00 Intake Total 120 ml 0 ml Output Total 200 ml Balance -80 ml 0 ml LABS Lab: Laboratory Tests Test 03/11/20 12:27 Sodium Level 137 mmol/L (136-145) Potassium Level 4.4 mmol/L (3.5-5.1) Chloride Level 103 mmol/L (98-107) Carbon Dioxide Level 26 mmol/L (21-32) Anion Gap 8 (6-14) Blood Urea Nitrogen 15 mg/dL (8-26) Creatinine 1.1 mg/dL (0.7-1.3) Estimated GFR (Cockcroft-Gault) 66.0 Glucose Level 78 mg/dL (70-99) Calcium Level 8.5 mg/dL (8.5-10.1) Magnesium Level 2.1 mg/dL (1.8-2.4) Laboratory Tests 03/11/20 12:27 ECHOCARDIOGRAM ECHOCARDIOGRAM <Conclusion> Left ventricle systolic function is severely impaired. The Ejection Fraction is 25-30%. There is global hypokinesis of the left ventricle. Septal motion suggestive of conduction defect. There is an ICD lead noted in the RV/RA DATE: 12/27/18 0956 STRESS TEST STRESS TEST Conclusion 1. Regadenoson cardioisotope stress test showed moderate infarct involving the inferior and inferolateral lam with small amount of marilyn-infarct ischemia. 2. Moderate left ventricle systolic dysfunction, severe hypokinesis of the base to mid inferior wall and abnormal septal wall motion with ejection fraction calculated at 39%. 3. Low to intermediate risk for cardiac events. DATE: 12/27/18 1143 ASSESSMENT/PLAN ASSESSMENT/PLAN 1. Left shoulder pain and instability due to fractured glenoid: needing surgery 2. CAD: past stents in 2017 clinically compensated 3. Chronic systolic CHF: compensated prior EF at 25-30% 4. AICD (biotronik) in situ: Device normal with normal impedances, no arrhythmias. 5. HTN: controlled 6. HLP Recommendations 1. Continue ASA, may hold plavix until clear to restart per ortho 2. BB prior to surgery. Low risk for perioperative CV events. Proceed with shoulder surgery 3. Caution with IV hydration. May hold home entresto for now to avoid hypotension. IRVING LIMA MD 03/11/20 1704: CARDIAC CONSULT ASSESSMENT/PLAN ASSESSMENT/PLAN Patient seen and examined. Agree with CHIEF OPERATING ENGINEER's assessment and plan. CAD clinically stable. Chronic systolic HF clinically well compensated s/p AICD implantation for ischemic CMP, stable with normal device function OK to proceed with surgery as planned Continue beta blockers marilyn-operatively OK to hold Plavix Thank you for your consultation JONNY KEYS APRN Mar 11, 2020 14:33 IRVING LIMA MD Mar 11, 2020 17:04
[2020-03-11] MEDS ORDERED: ROCURONIUM 50 MG/5 ML VIAL. ONE (16:31)
[2020-03-11] MEDS ORDERED: PROPOFOL 10 MG/ML (20ML) VIAL. IV ONE (16:31)
[2020-03-11] MEDS ORDERED: fentaNYL PF VIAL 100 MCG/2 ML VIAL ONE (16:31)
[2020-03-11] MEDS ORDERED: LIDOCAINE 2% PF 5 ML VIAL. ONE (16:31)
[2020-03-11] MEDS ORDERED: PHENYLEPHRINE in 0.9% NACL PF 1 MG/10 ML SYRINGE. IV ONE (16:33)
[2020-03-11] MEDS: ENOXAPARIN 40 MG/0.4 ML SYRINGE. SQ SCH (16:55)
[2020-03-11] MEDS ORDERED: MIDAZOLAM HCL/PF 2 MG/2 ML VIAL. ONE (17:04)
[2020-03-11] MEDS ORDERED: EPINEPHrine 1 MG/ML VIAL ONE (17:04)
[2020-03-11] MEDS ORDERED: BUPIVACAINE MPF 0.5% 30 ML VIAL. ONE (17:04)
[2020-03-11] MEDS ORDERED: LIDOCAINE 1% PF 2 ML VIAL. ONE (17:04)
[2020-03-11] MEDS ORDERED: PHENYLEPHRINE 10 MG/ML VIAL. ONE (18:56)
[2020-03-11] MEDS ORDERED: DEXAMETHASONE SOD PHOS 4 MG/ML VIAL ONE (19:05)
[2020-03-11] MEDS ORDERED: ONDANSETRON PF 4 MG/2 ML VIAL. ONE (19:05)
[2020-03-11] MEDS ORDERED: VANCOMYCIN 1 GM VIAL. ONE (20:57)
[2020-03-11] MEDS ORDERED: SEVOFLURANE > 120 MINUTES. IH ONE (21:02)
--- NOTE | 2020-03-11 22:14 | NUR ---
Valentín just arrived back from surgery. He is A/O x4 and wants to eat. Will make needs known.
[2020-03-11] MEDS ORDERED: oxyCODONE/APAP 5/325 1 TAB TABLET PO PRN (22:15)
[2020-03-11] MEDS ORDERED: PROCHLORPERAZINE 5 MG TABLET. PO PRN (22:15)
[2020-03-11] MEDS ORDERED: DEXTROSE 50% 25 GM / 50ML DISP.SYRIN. IV PRN (22:15)
[2020-03-11] MEDS ORDERED: CALCIUM CARBONATE 500 MG TAB.CHEW PO PRN (22:15)
[2020-03-11] MEDS ORDERED: HYDROcodone/APAP 10/325 1 TAB TABLET PO PRN (22:15)
[2020-03-11] MEDS ORDERED: 0.9 % SODIUM CHLORIDE 10 ML DISP.SYRIN. IV PRN (22:15)
[2020-03-11] MEDS ORDERED: HYDROcodone/APAP 7.5/325MG 1 TAB TABLET PO PRN (22:15)
[2020-03-11] MEDS ORDERED: oxyCODONE/APAP 7.5/325 1 TAB TABLET PO PRN (22:15)
[2020-03-11] MEDS ORDERED: ZOLPIDEM 5 MG TABLET. PO PRN (22:15)
[2020-03-11] MEDS ORDERED: ACETAMINOPHEN 325 MG TABLET. PO PRN (22:15)
[2020-03-11] MEDS ORDERED: NALOXONE 0.4 MG/ML VIAL. IV PRN (22:15)
[2020-03-11] MEDS ORDERED: IV NORMAL SALINE 1000ML BAG 1,000 ML IV SCH (22:15)
[2020-03-11] MEDS ORDERED: traMADol 50 MG TABLET PO PRN (22:15)
--- NOTE | 2020-03-11 22:57 | PDOC4 ---
Operative Note Operative Note Date of surgery 03/11/2020 Preoperative diagnosis: Painful left reverse total shoulder with loose glenoid component Postoperative diagnosis: Same Operative procedure: Revision of left reverse shoulder arthroplasty Surgeon: Cindy Anesthesia: General plus scalene block Estimated blood loss: 300 cc Complications: None Operative indications: Please see my preoperative clinic note for detailed operative indications and note that he has severe pain and loosening of his glenoid component with superior escape. I had gone over with him that this is a complex revision and we would have to revise both components to make this fit resulting in an increased risk of potential infection nerve or blood vessel damage due to the revision surgery the possibility of continued pain instability and other medical complications as well he wishes to proceed with surgical evaluation and treatment and in fact had gone to the emergency room due to his severe pain was admitted to the hospital and we will proceed with surgery today after having gotten his informed consent Operative text: Patient was identified procedure verified patient placed in the supine position on the operating table. After adequate amounts of general anesthesia and a pre-existing scalene block were obtained he was placed in the beachchair position using the T-Max headrest and all bony prominences were well- padded. The left shoulder was prepped and draped in standard sterile fashion and after timeout was performed patient procedure identified and verified a deltopectoral approach was carried out deltoid was elevated off the underlying shoulder and scar tissue distal deltoid was bluntly elevated off the humeral insertion to avoid traction injury during the procedure. Clavipectoral fascia was taken down the subscapularis was released as was the superior aspect of the pectoralis. The glenoid component was grossly loose and had escaped superiorly and was removed. The humerus was exposed and the humeral cup was removed. Despite the humeral stem being well fixed the glenoid bony deficit superiorly necessitated inferior translation of a revision glenoid component and therefore revision to sink the humeral stem further to be able to reposition without e xcessive tension. A flexible osteotome was used along the humeral stem which was then loosened and back slap. Reaming was carried out up to a size 11 using the CyberSponse comprehensive reverse shoulder system and a trial size 11 standard stem was placed and reaming carried out. Glenoid was then exposed capsular release was performed. A guidewire was placed in slight declination low centrally in the glenoid and scar tissue was previously removed and reaming was carried out down to bleeding bone and a glenosphere mini baseplate with taper adapter 25 mm was impacted into place and locking superior and inferior screws obtained excellent bite and were locked. Glenosphere trial was placed and trial fitting carried out with a mini humeral tray with a 5 mm thickness and a +3 taper offset. Full range of motion excellent stability were obtained and trial components were removed. There irrigation carried out normal saline solution with pulse lavage and a comprehensive reverse shoulder system with a 36 mm glenosphere with taper adapter that was rotated superiorly and impacted to engage the Rubio taper. A standard length porous plasma primary shoulder stem 11 mm x 122 mm length was assembled with a mini humeral tray +5 mm thickness and +3 mm taper offset with a prolong highly cross-linked polyethylene bearing +3 mm thickness 36 mm diameter and was impacted with excellent stability reduced and f ound to have equivalent range of motion and stability. Superior aspect of the pectoralis was repaired. Thorough irrigation again carried out with dilute Betadine lavage followed by normal saline solution 1 g vancomycin was placed in the joint closure accomplished with buried Vicryl suture skin closure with skin danita and sterile dressings were applied. Patient was placed in a sling returned to recovery room in stable condition having tolerated the procedure well ABA FELDER MD Mar 11, 2020 22:57
[2020-03-11] MEDS: IV DEXTROSE 5 %-0.45 % NACL 1,000 ML IV SCH (23:32)
[2020-03-11] MEDS: CELECOXIB 100 MG CAPSULE. PO SCH (23:34)
[2020-03-11] MEDS: ATORVASTATIN CALCIUM 40 MG TABLET. PO SCH (23:34)
[2020-03-12] VITALS (7 sets, daily range): BP systolic 90–113; BP diastolic 46–63
--- NOTE | 2020-03-12 00:27 | RAD ---
EXAM: LEFT SHOULDER 3 VIEWS. HISTORY: Arthroplasty. COMPARISON: None. FINDINGS: A reverse left total shoulder arthroplasty is in expected alignment. Skin danita are in place. No fractures are identified. Acromioclavicular osteoarthritis is mild. A pacemaker is partially visualized. An os acromiale is suspected. IMPRESSION: 1. Left reverse total shoulder arthroplasty in expected alignment. 2. Os acromiale versus an unified acromial fracture. Electronically signed by: Evaristo Silva MD (03/12/2020 12:24 AM) [facility]
[2020-03-12] MEDS ORDERED: MAGNESIUM HYDROXIDE 2,400 MG/30 ML ORAL.SUSP. PO PRN (06:00)
[2020-03-12 07:19] LABS: HEMATOCRIT 27.2 % (39.0-53.0); HEMOGLOBIN 8.9 g/dL (13.0-17.5)
[2020-03-12] MEDS: IV DEXTROSE 5 %-0.45 % NACL 1,000 ML IV SCH (07:57)
[2020-03-12] MEDS: ASPIRIN CHEWABLE 81 MG TABLET. PO SCH (07:59)
[2020-03-12] MEDS: CELECOXIB 100 MG CAPSULE. PO SCH (07:59)
[2020-03-12] MEDS: TAMSULOSIN 0.4 MG CAP.ER.24H. PO SCH (08:00)
[2020-03-12] MEDS: FLUoxetine HCL 20 MG CAPSULE PO SCH (08:00)
[2020-03-12] MEDS: HYDROcodone/APAP 5/325MG 1 TAB TABLET PO PRN (08:00)
[2020-03-12] MEDS: METOPROLOL SUCC 24HR ER 25 MG TAB.ER.24H. PO SCH ×2 (08:00→08:59)
[2020-03-12] MEDS ORDERED: FERROUS SULFATE 325 MG TABLET. PO SCH (09:00)
[2020-03-12] MEDS ORDERED: MULTIVITAMIN with MINERAL TABLET. PO SCH (09:00)
--- NOTE | 2020-03-12 11:46 | NUR ---
SW following for discharge planning. Spoke with RN and reviewed chart. SW met with pt today. Pt confirmed he lives with his son who is retired. Pt remains on room air and is requesting discharge home today, 03/12. Pt to discharge home, self-care on oral medications. Pt declined the need for HH. Pt requested a script for out-patient PT/OT. Pt stated his son drives him to appointments and that going to therapy is "a good reason to get out of the house." RUSLAN obtained script and provided to RN to give to pt on discharge. No further SW needs at this time.
--- NOTE | 2020-03-12 12:10 | DISCH ---
DISCHARGE INSTRUCTIONS Condition on Discharge Condition on Discharge: Stable (Please schedule outpatient physical therapy to evaluate and treat) Activity After Discharge Activity Instructions for Disc: Activity as tolerated Bathing Instructions: Shower-keep dressing dry, No Tub Bath until see Lifting Instructions after Dis: No heavy lifting Exercise Instruction after Dis: Progress as tolerated Driving Instructions after Dis: Do not drive today Weight Bearing Status after Di: As tolerated Diet after Discharge Diet after Discharge: Cardiac Additional Diet Restrictions: encourage plenty of water intake Diet Texture: Regular Liquid Texture: Thin Liquid Swallowing Supervision: None needed Wound Incision Care Wound/Incision Care: No wound care needed Checks after Discharge Checks after discharge: Check blood press - daily, Check your Temp as needed DC Comment: CBC, CMP Contacting the DRCa after DC Call your doctor for: Concerns you may have Follow-Up Follow up with: PCP within 2 weeks Follow Up With: Orthopedic surgery within 1 week, cardiology as needed Treatment/Equipment after DC Adaptive Equipment Issued: None NEHA THOMAS MD Mar 12, 2020 12:10
--- NOTE | 2020-03-12 13:12 | NUR ---
Discharge Note: JOSUE MCCOY Discharge instructions and discharge home medications reviewed with Patient and a copy given. All questions have been answered and understanding verbalized. The following instructions and handouts were given: d/c instructions Discontinued lines and drains: Peripheral IV intact. Patient discharged to Home or Self Care with Family Member via Wheelchair
== END 2020-03-12 13:24 | disposition home or self-care (01) | DRG 516 ==
LOC: ER 13:59 → 5 NORTH 16:14
PROVIDERS: ADMIT Family Medicine; ATTEND Family Medicine
PROC: 0RWK0JZ Revision of Synthetic Substitute in Left Shoulder Joint, Open Approach (ICD-10-PCS; principal; 2020-03-11 17:00)
DX: T84.018A Broken internal joint prosthesis, other site, initial encounter (principal); I50.22 Chronic systolic (congestive) heart failure; I13.0 Hypertensive heart and chronic kidney disease with heart failure and stage 1 through stage 4 chronic kidney disease, or unspecified chronic kidney disease; Y83.8 Other surgical procedures as the cause of abnormal reaction of the patient, or of later complication, without mention of misadventure at the time of the procedure; S42.142A Displaced fracture of glenoid cavity of scapula, left shoulder, initial encounter for closed fracture; E78.5 Hyperlipidemia, unspecified; F32.9 Major depressive disorder, single episode, unspecified; I25.10 Atherosclerotic heart disease of native coronary artery without angina pectoris; I25.5 Ischemic cardiomyopathy; K21.9 Gastro-esophageal reflux disease without esophagitis; N18.9 Chronic kidney disease, unspecified; Z82.49 Family history of ischemic heart disease and other diseases of the circulatory system; Z87.442 Personal history of urinary calculi; Z87.891 Personal history of nicotine dependence; Z95.810 Presence of automatic (implantable) cardiac defibrillator; Z88.5 Allergy status to narcotic agent; W18.30XA Fall on same level, unspecified, initial encounter; Y93.89 Activity, other specified; Y92.89 Other specified places as the place of occurrence of the external cause; Y99.8 Other external cause status
CPT/HCPCS: 36415; 71045; 73030; 80048; 83735; 85014; 85018; 87071; 87075; 99285; A4565; A7015; C1713; C1894; J0171; J0690; J1100; J1650; J2250; J2370; J2405; J2704; J3010; J3370; J3490; J7030; J7042; 97110-GP; 97530-GP; 97535-GO; C1769; C1776; G0378

== ENCOUNTER → 2020-03-10 | Outpatient (CLI) | payer MEDICARE ==
[2020-03-06 23:45] VITALS: BP 139/68
[~2020-03-10] MED LIST changes: +ASPI-630 PO; +CYCL5TAB PO; +MUSCLE RELAXER; +SACU1TAB PO
[2020-03-10 12:06] LABS: BASO # 0.1 x10^3/uL (0.0-0.2); BASO % 1 % (0-3); EOS # 0.3 x10^3/uL (0.0-0.7); EOS % 4 % (0-3); HEMATOCRIT 34.2 % (39.0-53.0); HEMOGLOBIN 11.4 g/dL (13.0-17.5); LYMPH # 1.2 x10^3/uL (1.0-4.8); LYMPH % 18 % (24-48); MEAN CORPUSCULAR HEMOGLOBIN 31 pg (25-35); MEAN CORPUSCULAR HGB CONC 33 g/dL (31-37); MEAN CORPUSCULAR VOLUME 91 fL (79-100); MONO # 0.7 x10^3/uL (0.0-1.1); MONO % 10 % (0-9); NEUT # 4.4 x10^3/uL (1.8-7.7); NEUT % 67 % (31-73); PLATELET COUNT 484 x10^3/uL (140-400); RED BLOOD COUNT 3.75 x10^6/uL (4.30-5.70); RED CELL DISTRIBUTION WIDTH 15.6 % (11.5-14.5); WHITE BLOOD COUNT 6.6 x10^3/uL (4.0-11.0)
[2020-03-10 12:19] LABS: ALBUMIN 3.2 g/dL (3.4-5.0); CALCIUM 9.5 mg/dL (8.5-10.1); CREATININE 1.3 mg/dL (0.7-1.3); GFR 54.4; POTASSIUM 4.5 mmol/L (3.5-5.1)
[2020-03-10 12:23] LABS: PROTHROMBIN TIME PATIENT 14.4 SEC (11.7-14.0)
[2020-03-10 12:26] LABS: BILIRUBIN,URINE NEGATIVE (NEG); CLARITY,URINE CLEAR; COLOR,URINE YELLOW; NITRITE,URINE NEGATIVE (NEG); PROTEIN,URINE NEGATIVE (NEG-TRACE)
[2020-03-10 12:56] LABS: BACTERIA,URINE 0 /HPF (0-FEW); RBC,URINE 0 /HPF (0-2); WBC,URINE OCC /HPF (0-4)
[2020-03-11 05:11] LABS: HEMOGLOBIN A1C 5.8 % (4.8-5.6)
== END ==
LOC: LAB 10:09 → SURGPAT 10:24
PROVIDERS: ATTEND Orthopaedic Surgery
DX: Z01.812 Encounter for preprocedural laboratory examination (principal); Z20.828 Contact with and (suspected) exposure to other viral communicable diseases; Z79.899 Other long term (current) drug therapy; Z79.01 Long term (current) use of anticoagulants
CPT/HCPCS: 36415; 80048; 81001; 82040; 82306; 83036; 85025; 85610; 85730; 86140; 87426; 87641; U0003

== ENCOUNTER → 2020-03-26 | Outpatient (CLI) | payer MEDICARE ==
[2020-03-12 11:00] VITALS: BP 93/46
[~2020-03-26] MED LIST changes: +REGADENOSON 0.4 MG/5 ML DISP.SYRIN. IV ONE
--- NOTE | 2020-03-26 09:27 | RAD ---
DOPPLER CAROTID BILAT History: Dizziness, lightheaded, bruit Multiple grayscale, color, and duplex spectral analysis waveform sonographic images were acquired of the carotid, subclavian, and vertebral arteries. Comparison: None Findings: RIGHT SIDE: Peak systolic flow velocity of the distal CCA is 91 cm/sec. Peak systolic flow velocity of the ICA is 89 cm/sec. The ICA/CCA ratio is 1.0. Peak end diastolic flow velocity of the ICA is 33 cm/sec. The peak systolic velocity of the ECA is 111 cm/sec. Atherosclerotic plaque formation is identified. LEFT SIDE: Peak systolic flow velocity of the distal CCA is 49 cm/sec. Peak systolic flow velocity of the ICA is 87 cm/sec. The ICA/CCA ratio is 1.8. Peak end diastolic flow velocity of the ICA is 36 cm/sec. Peak systolic flow velocity of the ECA is 120 cm/sec. Atherosclerotic plaque formation is identified. Vertebral arteries: Bilateral vertebral arteries demonstrate antegrade flow. Impression: Atherosclerosis of the internal carotid arteries with velocities consistent with less than 50 percent stenosis PQRS Compliance Statement - Stenosis calculations for carotid ultrasound studies are derived from validated velocity criteria which are known to correlate with the NASCET methodology. Electronically signed by: Dinesh Kaplan MD (03/26/2020 9:24 AM) [id number]
--- NOTE | 2020-03-26 13:41 | RAD ---
MR#: [id number] Date of Study: 03/26/2020 Ordering Physician: IRVING LIMA, Referring Physician: RAMON BRIAN Tech: RT Lisa (R) (N) APPROVED REPORT Test Type: Pharmacological Stress Nurse/Tech: Stan Alicia RN Test Indications: CAD Cardiac History: COPD, HTN, Defibrilator, stents, x-smoker Medications: See Electronic Medical Record Medical History: See Electronic Medical Record Resting ECG: SB Resting Heart Rate: 45 bpm Resting Blood Pressure: 130/56mmHg Pretest Chest Pain: None Nurse/Tech Notes Lungs CTA, S1S2 Consent: The procedure was explained to the patient in lay terms. Informed consent was witnessed. John eout was entered into [employer]. History and Stress Test performed by GUERDA Hall, RUIZ (R) (N) Pharm. Details Pharmacologic stress testing was performed using 0.4mg per 5ml of regadenoson given intravenously ove r 7-10 seconds. Stress Symptoms No chest pain or symptoms. POST EXERCISE Reason for Termination: Infusion complete Max HR: 77 bpm Max Blood Pressure: 123/49mmHg Blood Pressure response to exercise: Normal blood pressure response during stress. Heart Rate response to exercise: normal response Chest Pain: No. Arrhythmia: No. ST Change: No. INTERPRETATION Stress EKG Conclusion: Baseline EKG showed sinus rhythm. No ischemic changes at peak stress. No arr hythmias. Imaging Protocol IMAGE PROTOCOL: Rest Tc-99m/stress Tc-99m 1 day Rest: Stress: Viability: Radiopharm.Tc99m LixnvibptOv08w Sestamibi Dose10.6mCi 33mCi Duration 15min. 10min. Img Date 03/26/2020 03/26/2020 Inj-Img Lczh35htw. 60min. Rest Admin Site:IV - Right AntecubitalAdministrator: GUERDA Hall ARRT (R)(N) Stress Admin Site: IV - Right AntecubitalAdministrator: GUERDA Hall ARRT (R)(N) STRESS DATA End Diast. Vol.156.0mlAv. Heart Rate53.0bpm End Syst. Vol.86.0mlCO Index BSA0.0L/min Myocardial Cgfy108.0gEject. Wmrgzeop25.0% Stress Rates Pk. Fill Rate1.57EDV/secLVtime Pk. Fill 323.30msec Pk. Empty Rate2.40ESV/secLVtime Pk. Ovcvt787.47msec 1/3 Pk. Fill0.59EDV/sec Stress Scores Regional WT0.00Summed WT15.00 Regional WM0.00Summed WM9.00 LV Perfusion Scintigraphic images showed moderate fixed defect involving the inferior and inferolateral lam with very small amount of reversibility consistent with marilyn-infarct ischemia. Consistent with previous myocardial infarction Wall Motion Severe hypokinesis of the basal to mid inferior wall, abnormal septal motion with ejection fraction c alculated at 42%. LV Perf. Quant 17 Seg. SSS16.00 17 Seg. SRS22.00 17 Seg. SDS0.00 Stress Defect Extent (% LAD)20.00Rest Defect Extent (% LAD)31.30Rev. Defect Extent (% LAD)0.00 Stress Defect Extent (% LCX) 62.50Rest Defect Extent (% LCX)70.00Rev. Defect Extent (% LCX)7.50 Stress Defect Extent (% RCA)35.60Rest Defect Extent (% RCA)41.10Rev. Defect Extent (% RCA)17.80 Stress Defect Extent (% JAIME)33.70Rest Defect Extent (% JAIME)43.50Rev. Defect Extent (% JAIME)5.90 Conclusion 1. Regadenoson cardioisotope stress test showed moderate infarct involving the inferior and inferolat eral lam with small amount of marilyn-infarct ischemia. 2. Hypokinesis of the basal to mid inferior wall, abnormal septal motion with ejection fraction calcu lated at 42%. 3. Low to intermediate risk for cardiac events. Signed by : Irving Lima, Electronically Approved : 03/26/2020 13:40:47
--- NOTE | 2020-03-26 16:36 | CARD ---
MR#: [id number] Date of Study: 03/26/2020 Ordering Physician: IRVING LIMA, Referring Physician: IRVING LIMA, Tech: Estelle Peacock FABIAN APPROVED REPORT EXAM: Two-dimensional and M-mode echocardiogram with Doppler and color Doppler. Other Information Quality : AverageHR: 44bpm Rhythm : Bradycardia INDICATION CAD. Hx: Cardiac stents, ICD, HTN, ISCM. 2D DIMENSIONS RVDd3.7 (2.9-3.5cm)IVSd0.8 (0.7-1.1cm) Aortic Root(2D)3.5 (2.0-3.7cm)LVDd6.1 (3.9-5.9cm) LVOT Diameter2.1 (1.8-2.4cm)PWd0.8 (0.7-1.1cm) LVDs4.9 (2.5-4.0cm)FS (%) 19.8 % SV74.0 mlLVEF(%)39.8 (>50%) Aortic Valve AoV Peak Rogerio.154.9cm/Joellen Peak GR.9.6mmHg LVOT Peak Rogerio.115.5cm/sAVA (VMAX)2.58cm2 Mitral Valve MV E Uviowqcq92.2cm/sMV DECEL [id number] MV A Mrduvkql85.4cm/sE/A Ratio1.2 MV A [id number] Pulmonary Valve PV Peak Fuvvsick04.6cm/s Tricuspid Valve RAP [id number] Pulmonary Vein S1 Uvmadols99.3cm/sD2 Sowyuwhg22.0cm/s PVa [id number] LEFT VENTRICLE The Left Ventricle is mild to moderately dilated. There is normal left ventricular wall thickness. Se jan hypokinesis of base to mid inferior and posterior lam. The ejection fraction is estimated at 4 0%. Moderate diastolic dysfunction. Grade II. RIGHT VENTRICLE The right ventricle is normal size. The right ventricular systolic function is normal. There is a dev ice lead in the right ventricle. AORTIC VALVE The aortic valve is normal in structure. Mildly calcified leaflets. No aortic regurgitation. There is no significant aortic valvular stenosis. MITRAL VALVE The mitral valve is normal in structure. Mildly calcified leaflets. There is no mitral valve stenosis . Trace mitral regurgitation. TRICUSPID VALVE The tricuspid valve is normal in structure and function. No tricuspid valve regurgitation noted. Unab le to assess PA pressures. There is no tricuspid valve stenosis. PULMONIC VALVE The pulmonary valve is normal in structure and function. No pulmonic valvular regurgitation. GREAT VESSELS The aortic root is normal in size. The ascending aorta is normal in size. The IVC is normal in size a nd collapses >50% with inspiration. PERICARDIAL EFFUSION There is no evidence of significant pericardial effusion. Critical Notification Critical Value: No <Conclusion> Severe hypokinesis of base to mid inferior and posterior lam. The ejection fraction is estimated at 35-40%. Moderate diastolic dysfunction. Pacer/ICD lead noted RA/RV. Trace mitral regurgitation. There is no evidence of significant pericardial effusion. Signed by : Irving Lima, Electronically Approved : 03/26/2020 16:35:40
== END ==
LOC: US 09:56
PROVIDERS: ATTEND Internal Medicine Cardiovascular Disease
DX: I08.0 Rheumatic disorders of both mitral and aortic valves (principal); I65.23 Occlusion and stenosis of bilateral carotid arteries; I11.9 Hypertensive heart disease without heart failure; Z87.891 Personal history of nicotine dependence
CPT/HCPCS: 78452; 93017; 93306; 93880; A9500; J2785

== ENCOUNTER → 2020-10-14 | Outpatient (CLI) | payer MEDICARE ==
[2020-03-12 11:00] VITALS: BP 93/46
[~2020-10-14] MED LIST changes: -LISI-338 PO; +LISI-517 PO; -REGADENOSON 0.4 MG/5 ML DISP.SYRIN. IV ONE
[2020-10-14 09:56] LABS: BASO # 0.1 x10^3/uL (0.0-0.2); BASO % 1 % (0-3); EOS # 0.3 x10^3/uL (0.0-0.7); EOS % 6 % (0-3); HEMATOCRIT 41.6 % (39.0-53.0); HEMOGLOBIN 14.1 g/dL (13.0-17.5); LYMPH # 1.3 x10^3/uL (1.0-4.8); LYMPH % 25 % (24-48); MEAN CORPUSCULAR HEMOGLOBIN 32 pg (25-35); MEAN CORPUSCULAR HGB CONC 34 g/dL (31-37); MEAN CORPUSCULAR VOLUME 93 fL (79-100); MONO # 0.6 x10^3/uL (0.0-1.1); MONO % 11 % (0-9); NEUT # 2.9 x10^3/uL (1.8-7.7); NEUT % 56 % (31-73); PLATELET COUNT 128 x10^3/uL (140-400); RED BLOOD COUNT 4.49 x10^6/uL (4.30-5.70); RED CELL DISTRIBUTION WIDTH 16.3 % (11.5-14.5); WHITE BLOOD COUNT 5.1 x10^3/uL (4.0-11.0)
[2020-10-14 10:26] LABS: CHOLESTEROL/HDL RATIO 3.8
== END ==
LOC: LAB 09:17
PROVIDERS: ATTEND Internal Medicine Cardiovascular Disease
DX: E78.5 Hyperlipidemia, unspecified (principal)
CPT/HCPCS: 36415; 80061; 82607; 82746; 83540; 83550; 85025

== ENCOUNTER → 2021-04-10 | Outpatient (CLI) | payer MEDICARE ==
[2020-03-12 11:00] VITALS: BP 93/46
[~2021-04-10] MED LIST changes: -FLUO20CA20 PO; +FLUO20CA22 PO; -LISI-517 PO; +LISI5TAB15 PO
--- NOTE | 2021-04-12 13:32 | CARD ---
MR#: [id number] Date of Study: 04/10/2021 Ordering Physician: IRVING LIMA, Referring Physician: IRVING LIMA Tech: Justa Mcdonald [facility] APPROVED REPORT EXAM: Two-dimensional and M-mode echocardiogram with Doppler and color Doppler. Other Information Quality : Technically LimitedHR: 62bpm Rhythm : NSR INDICATION Cardiac Disease: CAD RISK FACTORS Hypertension Obesity Hyperlipidemia Diabetes 2D DIMENSIONS RVDd3.1 (2.9-3.5cm)Left Atrium(2D)2.8 (1.6-4.0cm) IVSd0.8 (0.7-1.1cm)Aortic Root(2D)3.5 (2.0-3.7cm) LVDd5.6 (3.9-5.9cm)LVOT Diameter2.1 (1.8-2.4cm) PWd1.1 (0.7-1.1cm)LVDs4.3 (2.5-4.0cm) FS (%) 22.9 %SV69.4 ml Aortic Valve AoV Peak Rogerio.146.2cm/sAoV VTI29.0cm AO Peak GR.8.5mmHgLVOT Peak Rogerio.160.8cm/s AO Mean GR.4mmHgAVA (VMAX)3.72cm2 Mitral Valve MV E Vxtphxvs63.3cm/sMV DECEL [id number] MV A Gyrvspie60.2cm/sE/A Ratio0.7 Pulmonary Valve PV Peak Azcgflmq220.8cm/s LEFT VENTRICLE The Left Ventricle is borderline dilated. There is normal left ventricular wall thickness. LV systoli c function is mildly impaired. Estimated ejection fraction is 40%. There is mild global hypokinesis o f the left ventricle. RIGHT VENTRICLE The right ventricle is normal size. There is normal right ventricular wall thickness. The right ventr icular systolic function is normal. ATRIA The left atrium size is normal. The right atrium size is normal. The interatrial septum is intact wit h no evidence for an atrial septal defect or patent foramen ovale as noted on 2-D or Doppler imaging. AORTIC VALVE The aortic valve is normal in structure and function. Doppler and Color Flow revealed no significant aortic regurgitation. There is no significant aortic valvular stenosis. MITRAL VALVE The mitral valve is normal in structure and function. There is no evidence of mitral valve prolapse. There is no mitral valve stenosis. Doppler and Color-flow revealed mild mitral regurgitation. TRICUSPID VALVE The tricuspid valve is normal in structure and function. Doppler and Color Flow revealed trace tricus pid valve regurgitation. There is no tricuspid valve stenosis. PULMONIC VALVE The pulmonary valve is normal in structure and function. Doppler and Color Flow revealed no pulmonic valvular regurgitation. GREAT VESSELS The aortic root is normal in size. The ascending aorta is normal in size. The IVC is normal in size a nd collapses >50% with inspiration. PERICARDIAL EFFUSION There is no evidence of significant pericardial effusion. Critical Notification Critical Value: No <Conclusion> The Left Ventricle is borderline dilated. LV systolic function is mildly impaired. Estimated ejection fraction is 40%. There is mild global hypokinesis of the left ventricle. Doppler and Color Flow revealed no significant aortic regurgitation. There is no significant aortic valvular stenosis. Doppler and Color-flow revealed mild mitral regurgitation. Doppler and Color Flow revealed trace tricuspid valve regurgitation. Signed by : Jesus Manuel Kwon MD Electronically Approved : 04/12/2021 13:32:10
== END ==
LOC: ECHO 10:30
PROVIDERS: ATTEND Internal Medicine Cardiovascular Disease
DX: I34.0 Nonrheumatic mitral (valve) insufficiency (principal); I25.118 Atherosclerotic heart disease of native coronary artery with other forms of angina pectoris
CPT/HCPCS: 93306

== ENCOUNTER → 2021-04-23 | Outpatient (CLI) | payer MEDICARE ==
[2020-03-12 11:00] VITALS: BP 93/46
[~2021-04-23] MED LIST changes: +BUPIVACAINE MPF 0.5% 10 ML VIAL. INT ART ONE; +IOHEXOL 300 MG/ML 50 ML VIAL. INT ART ONE; +LIDOCAINE 1% Multi-Dose 20 ML VIAL. ID ONE; +methylPREDNISolone ACETATE 40 MG/ML VIAL. INT ART ONE
--- NOTE | 2021-04-23 17:24 | KCIC ---
Right hip steroid injection under fluoroscopy 04/23/2021 CLINICAL HISTORY: Right hip pain for last 5-6 years. TECHNIQUE: After the risks and benefits of the procedure were explained to the patient, written infor med consent was obtained. The skin surface of the anterior right hip was prepped and draped in steril e fashion. 1 percent lidocaine was used as a local anesthetic. Under fluoroscopic guidance a 22-gauge spinal needle was advanced into the anterior aspect of the right hip joint. Intra-articular position of the needle was confirmed with 3 cc of Omnipaque 300. Following this a solution of 4 cc of bupivac dima, 4 cc of lidocaine and 80 mg of Depo-Medrol were injected through the needle into the right hip. Following this the needle was removed and hemostasis was achieved at the puncture site. A sterile ba ndage was placed on the skin puncture site. The patient tolerated the procedure well and there were n o immediate complications. The total fluoroscopic time for this study is 18 seconds. 1 fluoroscopic c aptured AP digital radiograph of the right hip was obtained. IMPRESSION: Technically successful fluoroscopically guided steroid injection of the right hip as disc ussed above. Electronically signed by: Amari Dunn MD (04/23/2021 5:22 PM) [id number]
== END | disposition home or self-care (01) ==
LOC: KCIC 09:51
PROVIDERS: ATTEND Orthopaedic Surgery Sports Medicine
DX: G89.29 Other chronic pain (principal); M16.11 Unilateral primary osteoarthritis, right hip; M25.551 Pain in right hip; I25.10 Atherosclerotic heart disease of native coronary artery without angina pectoris; E78.00 Pure hypercholesterolemia, unspecified; G47.30 Sleep apnea, unspecified; I13.0 Hypertensive heart and chronic kidney disease with heart failure and stage 1 through stage 4 chronic kidney disease, or unspecified chronic kidney disease; I50.9 Heart failure, unspecified; N18.30 Chronic kidney disease, stage 3 unspecified; K21.9 Gastro-esophageal reflux disease without esophagitis; E66.9 Obesity, unspecified; F32.9 Major depressive disorder, single episode, unspecified; Z79.82 Long term (current) use of aspirin; Z79.899 Other long term (current) drug therapy; Z98.890 Other specified postprocedural states; Z88.6 Allergy status to analgesic agent; Z82.49 Family history of ischemic heart disease and other diseases of the circulatory system; Z83.3 Family history of diabetes mellitus
CPT/HCPCS: 20610; 77002; J1030; J3490; Q9967